=== PATIENT | female | born 1965 | race African-American/Black ===

== ENCOUNTER 2016-08-29 11:15 | Emergency (ER) | payer BC ==
[2016-08-29 11:26] VITALS: BP 152/96; PULSE 90; TEMP 98.1; BMI 43.9
[2016-08-29] MEDS ORDERED: ALBUTEROL SO4 2.5/IPRATROPIUM 0.5 INH SOL 3 ML VIAL.NEB. NEB ONE (12:03)
--- NOTE | 2016-08-29 12:10 | PDOC ---
History of Present Illness - General Chief Complaint: Cold Symptoms Stated Complaint: COUGH, SOB Time Seen by Provider: 08/29/16 11:49 History Source: Patient Exam Limitations: No Limitations - History of Present Illness Initial Comments: 08/29/16 12:04 Patient is here with all of family complaints of chills, fevers, general body aches. 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 4-year-old was sick before and treated 2 weeks ago for strep throat which resolved. Patient was concerned may have recurred or has other illness. She complaints of congestion, runny nose, and cough. Denied fever, has taken no medications Severity: reports: mild Modifying Factors: improves with: coughing Associated Symptoms: reports: denies symptoms, cough, fever/chills, headache, nasal congestion, nasal drainage Past History - Travel Traveled outside of the country in the last 30 days: No Close contact w/someone who was outside of country & ill: No - Past Medical History Allergies/Adverse Reactions: Allergies Allergy/AdvReac Type Severity Reaction Status Date / Time lactose-intolerance AdvReac Uncoded 08/29/16 11:20 Home Medications: Ambulatory Orders Amlodipine Besylate [Norvasc -] 5 mg PO DAILY #0 tablet 12/01/14 Aspirin [ASA -] 81 mg PO DAILY #0 tab.chew 12/01/14 Furosemide [Lasix -] 20 mg PO DAILY #30 tablet 12/01/14 Pantoprazole Sodium [Protonix] 40 mg PO DAILY #0 tablet. 12/01/14 Lipase/Protease/Amylase [Treasure Spence 24,000 Units Capsule] 1 each PO TID 12/27/14 Docusate Sodium [Colace -] 100 mg PO Q12H PRN #0 capsule 07/17/15 Duloxetine HCl [Cymbalta -] 60 mg PO DAILY capsule. 07/17/15 Zolpidem Tartrate [Ambien] 10 mg PO HS PRN #0 tablet 07/17/15 Albuterol Sulfate Inhaler - [Ventolin HFA Inhaler -] 1 - 2 inh PO Q4H #1 inhaler 08/29/16 Oseltamivir Phosphate [Tamiflu -] 75 mg PO BID #10 capsule 08/29/16 Anemia: No Asthma: Yes Cancer: Yes (LYMPHOMA: remission since 2010) Cardiac Disorders: No CVA: No COPD: No CHF: No Dementia: No Diabetes: No GI Disorders: Yes (GERD, pancreatitis, gastric bypass) Disorders: No HTN: Yes Hypercholesterolemia: No Kidney Stones: No Liver Disease: No Suicide Attempt (Hx): No Seizures: No Thyroid Disease: No - Surgical History Abdominal Surgery: Yes (ectopic pregnanacies, hernia repair w/ mesh) Appendectomy: Yes Cardiac Surgery: No Cholecystectomy: Yes GI Surgery: Yes (gastric bypass) Lung Surgery: No Neurologic Surgery: No Orthopedic Surgery: Yes (lt knee sx torn ligaments) - Immunization History Immunization Up to Date: Yes - Psycho/Social/Smoking Cessation Hx Anxiety: No Suicidal Ideation: No Smoking Status: No Smoking History: Current every day smoker Have you smoked in the past 12 months: Yes Number of Cigarettes Smoked Daily: 4 If you are a former smoker, when did you quit?: 07/12/15 Cigars Per Day: 2 Information on smoking cessation initiated: No 'Breaking Loose' booklet given: 07/14/15 Hx Alcohol Use: No Drug/Substance Use Hx: No Substance Use Type: None Hx Substance Use Treatment: No Respiratory Specific PMHX - Complaint Specific PMHX TB (Tuberculosis): No Review of Systems - Review of Systems Able to Perform ROS?: No Is the patient limited Faroese proficient: No Constitutional: Yes: Symptoms Reported, See HPI, Chills, Fever, Malaise HEENTM: Yes: Symptoms Reported, See HPI Respiratory: Yes: See HPI, Cough. No: Wheezing Musculoskeletal: Yes: Symptoms Reported, See HPI Integumentary: Yes: See HPI. No: Symptoms Reported All Other Systems: Reviewed and Negative *Physical Exam - Vital Signs Last Vital Signs Temp Pulse Resp BP Pulse Ox 98.1 F 90 19 152/96 96 08/29/16 11:21 08/29/16 11:21 08/29/16 11:21 08/29/16 11:21 08/29/16 11:21 - Physical Exam General Appearance: Yes: Nourished, Appropriately Dressed HEENT: positive: JORDAN, TMs Normal (congested), Pharynx Normal Neck: positive: Supple, Lymphadenopathy (R), Lymphadenopathy (L). negative: Tender Respiratory/Chest: positive: Normal Breath Sounds, Wheezing. negative: Lungs Clear (diminished with some expiratory wheezing) Cardiovascular: positive: Regular Rhythm Gastrointestinal/Abdominal: positive: Normal Bowel Sounds, Soft. negative: Tender Extremity: positive: Normal Capillary Refill, Normal Inspection Integumentary: positive: Normal Color, Dry, Warm, Pale Neurologic: positive: variety performer II-XII NML intact, Fully Oriented, Alert, Normal Mood/ Affect, Normal Response, Motor Strength 5/5 Progress Note - Progress Note Progress Note: Upper respiratory infection, will provide nebulizer, and check influenza *DC/Admit/Observation/Transfer Diagnosis at time of Disposition: Influenzal acute upper respiratory infection - Discharge Dispostion Disposition: HOME Condition at time of disposition: Stable Admit: No - Prescriptions Prescriptions: Oseltamivir Phosphate [Tamiflu -] 75 mg PO BID #10 capsule Albuterol Sulfate Inhaler - [Ventolin HFA Inhaler -] 1 - 2 inh PO Q4H #1 inhaler - Referrals Referrals: Carter Quintero MD [Primary Care Provider] - - Patient Instructions Printed Discharge Instructions: DI for Viral Upper Respiratory Infection -- Adult Additional Instructions: Rest, drink lots of fluids: Teas, water, soups, Pedialyte Saltwater gargles Steamy showers/seem to face break up mucus Old-fashioned treatments help! Avoid contact with others until fevers and cough resolved as this is very contagious Lots of handwashing and good hygiene Continue [id number] medications for symptomatic relief Tylenol or Motrin for fever and pain Take all of Tamiflu as directed: 1 tab every 12 hours for 5 days Continue albuterol nebulizers 4 times a day for the next 2 days then as needed for continued cough Followup with private physician in one to 2 days as needed or if worsening Return to emergency department for worsened symptoms, fevers, dehydration Influenza takes between 5 and 7 days for resolution To not participate in any activity, work, or school until fevers and cough are gone for at least one day - Post Discharge Activity Work/School Note: Back to Work
== END 2016-08-29 13:05 | disposition home or self-care (01) ==
LOC: JERFT 11:15 → JER 11:15 → JERFT 13:05
PROC: 3E0F7GC Introduction of Other Therapeutic Substance into Respiratory Tract, Via Natural or Artificial Opening (ICD-10-PCS; principal; 2016-08-29)
DX: J11.1 Influenza due to unidentified influenza virus with other respiratory manifestations (principal)
CPT/HCPCS: 87804; 99281-25

== ENCOUNTER 2017-06-20 20:55 | Emergency (ER) | payer BC, OTHER ==
[2017-06-20 21:08] VITALS: PULSE 102; BMI 43.0
--- NOTE | 2017-06-20 21:15 | PDOC ---
History of Present Illness - General Chief Complaint: Pain, Acute Stated Complaint: PAIN Time Seen by Provider: 06/20/17 21:14 - History of Present Illness Initial Comments: 06/20/17 21:29 Ms. Carreno is a 52 yo female w/ pmh of HTN, Lymphoma (in remission since 2010), Chronic Pancreatitis, SBO status post resection, status post Gastric Bypass surgery, DM, HLD who presents complaining of a 2 day history of neck and shoulder pain. She reports that she woke up yesterday morning with her head tilted to the left and was having difficulty straightening it but that this resolved throughout the day. Starting earlier today her pain returned and her pain moved to her shoulder. 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 The patient denies chest pain, shortness of breath, headache and dizziness. Denies fever, chills, nausea, vomit, diarrhea and constipation. Denies dysuria, frequency, urgency and hematuria. Allergies: NKDA Past History - Past Medical History Allergies/Adverse Reactions: Allergies Allergy/AdvReac Type Severity Reaction Status Date / Time No Known Allergies Allergy Verified 06/20/17 22:11 Home Medications: Ambulatory Orders Amlodipine Besylate [Norvasc -] 5 mg PO DAILY #0 tablet 12/01/14 Aspirin [ASA -] 81 mg PO DAILY #0 tab.chew 12/01/14 Furosemide [Lasix -] 20 mg PO DAILY #30 tablet 12/01/14 Pantoprazole Sodium [Protonix] 40 mg PO DAILY #0 tablet. 12/01/14 Duloxetine HCl [Cymbalta -] 60 mg PO DAILY capsule. 07/17/15 Zolpidem Tartrate [Ambien] 10 mg PO HS PRN #0 tablet 07/17/15 Albuterol Sulfate Inhaler - [Ventolin HFA Inhaler -] 1 - 2 inh PO Q4H #1 inhaler 08/29/16 Cyclobenzaprine HCl [Flexeril 10 mg] 10 mg PO BID PRN #60 tablet 06/20/17 Anemia: No Asthma: Yes Cancer: Yes (LYMPHOMA: remission since 2010) Cardiac Disorders: No CVA: No COPD: No CHF: No Dementia: No Diabetes: No GI Disorders: Yes (GERD, pancreatitis, gastric bypass) Disorders: No HTN: Yes Hypercholesterolemia: No Kidney Stones: No Liver Disease: No Seizures: No Thyroid Disease: No - Surgical History Abdominal Surgery: Yes (ectopic pregnanacies, hernia repair w/ mesh) Appendectomy: Yes Cardiac Surgery: No Cholecystectomy: Yes GI Surgery: Yes (gastric bypass) Lung Surgery: No Neurologic Surgery: No Orthopedic Surgery: Yes (lt knee sx torn ligaments) - Immunization History Immunization Up to Date: Yes - Suicide/Smoking/Psychosocial Hx Smoking Status: No Smoking History: Never smoked Have you smoked in the past 12 months: No Number of Cigarettes Smoked Daily: 3 If you are a former smoker, when did you quit?: 07/12/15 Cigars Per Day: 2 Information on smoking cessation initiated: No 'Breaking Loose' booklet given: 07/14/15 Hx Alcohol Use: No Drug/Substance Use Hx: No Substance Use Type: Alcohol Hx Substance Use Treatment: No Review of Systems - Review of Systems Comments:: 06/20/17 21:37 GENERAL/CONSTITUTIONAL: No fever or chills. No weakness. HEAD, EYES, EARS, NOSE AND THROAT: +Left neck pain. No change in vision. No ear pain or discharge. No sore throat. CARDIOVASCULAR: No chest pain or shortness of breath RESPIRATORY: No cough, wheezing, or hemoptysis. GASTROINTESTINAL: No nausea, vomiting, diarrhea or constipation. GENITOURINARY: No dysuria, frequency, or change in urination. MUSCULOSKELETAL: +Left shoulder pain with movement. No joint or muscle swelling or pain. No neck or back pain. SKIN: No rash NEUROLOGIC: No headache, vertigo, loss of consciousness, or change in strength/ sensation. ENDOCRINE: No increased thirst. No abnormal weight change HEMATOLOGIC/LYMPHATIC: No anemia, easy bleeding, or history of blood clots. ALLERGIC/IMMUNOLOGIC: No hives or skin allergy. *Physical Exam - Vital Signs Last Vital Signs Temp Pulse Resp BP Pulse Ox 98 F 102 H 20 162/105 98 06/20/17 21:02 06/20/17 21:02 06/20/17 21:02 06/20/17 21:02 06/20/17 21:02 - Physical Exam Comments: 06/20/17 21:38 GENERAL: Awake, alert, and fully oriented, in no acute distress HEAD: No signs of trauma, normocephalic, atraumatic EYES: PERRLA, EOMI, sclera anicteric, conjunctiva clear ENT: Auricles normal inspection, hearing grossly normal, nares patent, oropharynx clear without exudates. Moist mucosa NECK: Normal ROM, supple, no lymphadenopathy, JVD, or masses LUNGS: No distress, speaks full sentences, clear to auscultation bilaterally HEART: Regular rate and rhythm, normal S1 and S2, no murmurs, rubs or gallops, peripheral pulses normal and equal bilaterally. ABDOMEN: Soft, nontender, normoactive bowel sounds. No guarding, no rebound. No masses EXTREMITIES: +Left neck/shoulder tender to palpation. Range of motion intact with passive movement but pain noted with any muscle engagement. Normal inspection, no edema. No clubbing or cyanosis. NEUROLOGICAL: Cranial nerves II through XII grossly intact. Normal speech, normal gait, no focal sensorimotor deficits SKIN: Warm, Dry, normal turgor, no rashes or lesions noted. ED Treatment Course - LABORATORY CBC & Chemistry Diagram: 06/20/17 21:51 06/20/17 21:51 Medical Decision Making - Medical Decision Making 06/20/17 23:38 Ms. Carreno is a 52 yo female w/ pmh of HTN, Lymphoma (in remission since 2010), Chronic Pancreatitis, SBO status post resection, status post Gastric Bypass surgery, DM, HLD who presents w/ 2 days of left arm/shoulder pain. No acute process identified by XR. Will discharge patient with instructions to f/u with orthopedics outpatient for further evaluation. Flexeril proscribed for interim symptomatic relief. *DC/Admit/Observation/Transfer Diagnosis at time of Disposition: Torticollis Shoulder pain Qualifiers: Chronicity: acute Laterality: left Qualified Code(s): M25.512 - Pain in left shoulder - Discharge Dispostion Disposition: HOME - Referrals - Patient Instructions Printed Discharge Instructions: DI for Torticollis Additional Instructions: Please follow-up with primary care provider as discussed on Thursday for further care. Please return if any increase in pain, fever, chills, or any other concerning symptoms. - Post Discharge Activity
[2017-06-20 22:04] LABS: BASOPHIL 1.8 % (0-2.0); EOSINOPHIL 2.1 % (0-4.5); MCH 28.1 pg (25.7-33.7); MCHC 32.5 g/dl (32.0-36.0); MEAN CELL VOLUME 86.3 fl (80-96); MEAN PLT VOLUME 7.1 fl (7.5-11.1); NEUTROPHILS 48.4 % (42.8-82.8); PLATELET COUNT 365 K/MM3 (134-434); WHITE BLOOD COUNT 9.7 K/mm3 (4.0-10.0)
[2017-06-20 22:25] LABS: ALBUMIN 3.7 g/dl (3.4-5.0); ANION GAP 12 (8-16); CALCIUM 8.6 mg/dL (8.5-10.1); CO2 22 mmol/L (21-32); GLUCOSE,RANDOM 210 mg/dL (74-106)
[2017-06-20 22:30] LABS: ALK PHOS 101 U/L (45-117); BILIRUBIN,TOTAL 0.3 mg/dL (0.2-1.0); CREATININE 0.7 mg/dL (0.55-1.02); SGPT/ALT 100 U/L (12-78); TOT PROT 7.2 g/dl (6.4-8.2)
[2017-06-20 22:32] LABS: SGOT/AST 78 U/L (15-37)
--- NOTE | 2017-06-20 23:54 | PDOC ---
Attending Attestation - Resident Resident Name: Landry Taylor - ED Attending Attestation I have performed the following: I have examined & evaluated the patient, The case was reviewed & discussed with the resident, I agree w/resident's findings & plan - HPI HPI: 06/20/17 23:39 Pt has left shoulder pain and limited ROM. - Physicial Exam PE: 06/20/17 23:39 Agree with resident exam. - Medical Decision Making 06/20/17 23:39 Pt has normal cardiac enzymes. She is having difficulty raising her left arm 06/20/17 23:54 XRAY normal; pt to follow with ortho; MRI as needed. Home with wendy
[2017-06-20 23:55] VITALS: BP 134/74; TEMP 98
--- NOTE | 2017-06-21 07:49 | PDOC ---
Patient Follow-up (Call Back) - Post ED Follow - Up Disposition at time of original discharge: HOME Reason for Call Back: Radiology (Possible erosive change to acromion as per radiology, needs f/u w/ ortho or pmd I called pt and left message to call back)
--- NOTE | 2017-06-23 01:40 | EKG ---
Test Reason : Blood Pressure : / mmHG Vent. Rate : 101 BPM Atrial Rate : 101 BPM P-R Int : 132 ms QRS Dur : 086 ms QT Int : 370 ms P-R-T Axes : 065 047 075 degrees QTc Int : 479 ms SINUS TACHYCARDIA OTHERWISE NORMAL ECG WHEN COMPARED WITH ECG OF 13-JUL-2015 19:56, NO SIGNIFICANT CHANGE WAS FOUND Confirmed by EDIS OCHOA MD ([id number]) on 06/23/2017 1:40:21 AM Referred By: Confirmed By:EDIS OCHOA MD
== END 2017-06-20 23:55 | disposition home or self-care (01) ==
LOC: JER 20:55
DX: M43.6 Torticollis (principal); I10 Essential (primary) hypertension; E11.9 Type 2 diabetes mellitus without complications; E78.5 Hyperlipidemia, unspecified; Z87.19 Personal history of other diseases of the digestive system; Z85.72 Personal history of non-Hodgkin lymphomas
CPT/HCPCS: 36415; 73030-TC-LT; 80053; 85025; 93005; 93010; 99283-25

== ENCOUNTER 2019-04-14 16:23 | Inpatient (IN) | payer OTHER ==
--- NOTE | 2019-04-14 16:42 | PDOC ---
Rapid Medical Evaluation Time Seen by Provider: 04/14/19 16:37 Medical Evaluation: Allergies Allergy/AdvReac Type Severity Reaction Status Date / Time No Known Allergies Allergy Verified 06/20/17 22:11 04/14/19 16:38 Pt c/o:diff breathing since yesterday am, recent drainage removed from left lung , hx NHL, remission x 9-10 yrs, + smoker, Hx asthma, sent by Anthony kamara for admission Patient on brief exam: exp wheeze mandeep, Decreased bs to left base, o2 93% on RA Patient ordered for: cxr, douneb, labs, iv, urine Patient to proceed to the ED Discharge Disposition - Diagnosis Difficulty breathing, Pleural effusion - Discharge Dispostion Condition at time of disposition: Fair - Referrals - Patient Instructions - Post Discharge Activity
[2019-04-14] MEDS ORDERED: morphine CARPU-JECT 2 MG/1 ML DISP.SYRIN IVPUSH ONE (17:28)
--- NOTE | 2019-04-14 17:36 | PDOC ---
History of Present Illness - General Chief Complaint: Shortness of Breath Stated Complaint: LUNGS FILLED WITH WATER Time Seen by Provider: 04/14/19 16:37 History Source: Patient Exam Limitations: No Limitations - History of Present Illness Initial Comments: 04/14/19 17:30 HISTORY OF PRESENT ILLNESS: Is a 54-year-old woman past medical history of non- Hodgkin's lymphoma in remission since 2008, asthma and NIDDM who presents the emergency department for evaluation of acute shortness of breath starting yesterday. Patient reports 03/25 she was admitted to [facility] and had a pleurocentesis performed were 1 L of fluid was removed from her left lung. Patient's breathing improved at that time until yesterday when she had sudden onset shortness of breath. Patient reports difficulty sleeping and is having paroxysmal nocturnal dyspnea. Patient reports he had a recent PET scan which revealed nodules in the right lung. Patient was seen by her primary doctor today did a chest x-ray and noted a large left-sided pleural effusion for which she was referred to the emergency department for admission for continued evaluation. Patient does endorse a 40 pound weight loss over the past year at that she was diagnosed with diabetes and had lifestyle modifications. No recent travel or sick contacts. PAST MEDICAL HISTORY: Non-Hodgkin's lymphoma in remission since 2008, asthma, NIDDM SURGICAL HISTORY: Denies ALLERGIES: No known drug allergies REVIEW OF SYSTEMS General/Constitutional: Denies fever or chills. Denies weakness, weight change. HEENT: Denies change in vision. Denies ear pain or discharge. Denies sore throat. Cardiovascular: Denies chest pain or shortness of breath. Respiratory: See HPI Gastrointestinal: Denies nausea, vomiting, diarrhea or constipation. Denies rectal bleeding. Genitourinary: Denies dysuria, frequency, or change in urination. Musculoskeletal: Denies joint or muscle swelling or pain. Denies neck or back pain. Skin and breasts: Denies rash or easy bruising. Neurologic: Denies headache, vertigo, loss of consciousness, or loss of sensation. Psychiatric: Denies depression or anxiety. Endocrine: Denies increased thirst. Denies abnormal weight change. Hematologic/Lymphatic: Denies anemia, easy bleeding, or history of blood clots. Allergic/Immunologic: Denies hives or skin allergy. Denies latex allergy. PHYSICAL EXAM General Appearance: Well-appearing, appropriately dressed. No apparent distress , no intoxication. HEENT: EOMI, PERRLA, normal ENT inspection, normal voice, TMs normal, pharynx normal. No conjunctival pallor. No photophobia, scleral icterus. Neck: Supple. Trachea midline. No tenderness, rigidity, carotid bruit, stridor , lymphadenopathy, or thyromegaly. Respiratory/Chest: No sensory muscle use noted. Patient was visibly dyspneic after approximately [address]. Diminished breath sounds to the left lung. Dullness present from approximately seventh rib down. Slight wheezing present in the right lung. Cardiovascular: RRR. S1, S2. No JVD, murmur, bradycardia, tachycardia. Vascular Pulses: Dorsalis-Pedis (R): 2+, Dorsalis-Pedis (L): 2+ Gastrointestinal/Abdominal: Normal bowel sounds. Abdomen soft, non-distended. No tenderness or rebound tenderness. No organomegaly, pulsatile mass, guarding, hernia, hepatomegaly, splenomegaly. Lymphatic: No adenopathy, tenderness. Musculoskeletal/Extremities: Normal inspection. FROM of all extremities, normal capillary refill. Pelvis Stable. No CVA tenderness. No tenderness to extremities, pedal edema, swelling, erythema or deformity. Integumentary: Appropriate color, dry, warm. No cyanosis, erythema, jaundice or rash Neurologic: lending advisor II-XII intact. Fully oriented, alert. Appropriate mood/affect. Motor strength 5/5. No appreciable EOM palsy, facial droop or sensory deficit. Past History - Past Medical History Allergies/Adverse Reactions: Allergies Allergy/AdvReac Type Severity Reaction Status Date / Time No Known Allergies Allergy Verified 04/14/19 16:46 Home Medications: Ambulatory Orders Pantoprazole Sodium [Protonix] 40 mg PO DAILY #0 tablet. 12/01/14 Duloxetine HCl [Cymbalta -] 60 mg PO DAILY capsule. 07/17/15 Zolpidem Tartrate [Ambien] 10 mg PO HS PRN #0 tablet 07/17/15 Albuterol Sulfate Inhaler - [Ventolin HFA Inhaler -] 1 - 2 inh PO Q4H #1 inhaler 08/29/16 Amlodipine Besylate [Norvasc -] 10 mg PO DAILY 04/14/19 Clindamycin [Cleocin -] 300 mg PO TID 04/14/19 Furosemide [Lasix -] 40 mg PO DAILY 04/14/19 Insulin Degludec [Tresiba] 1 unit SQ ASDIR 04/14/19 Losartan Potassium 50 mg PO DAILY 04/14/19 Metformin HCl [Glucophage] 1,000 mg PO BID 04/14/19 Rosuvastatin [Crestor -] 40 mg PO HS 04/14/19 Anemia: No Asthma: Yes Cancer: Yes (LYMPHOMA: remission since 2010) Cardiac Disorders: No CVA: No COPD: No CHF: No Dementia: No Diabetes: No GI Disorders: Yes (GERD, pancreatitis, gastric bypass) Disorders: No HTN: Yes Hypercholesterolemia: No Kidney Stones: No Liver Disease: No Seizures: No Thyroid Disease: No - Surgical History Abdominal Surgery: Yes (ectopic pregnanacies, hernia repair w/ mesh) Appendectomy: Yes Cardiac Surgery: No Cholecystectomy: Yes GI Surgery: Yes (gastric bypass) Lung Surgery: No Neurologic Surgery: No Orthopedic Surgery: Yes (lt knee sx torn ligaments) - Immunization History Immunization Up to Date: Yes - Psycho Social/Smoking Cessation Hx Smoking Status: No Smoking History: Unknown if ever smoked Have you smoked in the past 12 months: No Number of Cigarettes Smoked Daily: 3 If you are a former smoker, when did you quit?: 07/12/15 Cigars Per Day: 2 Information on smoking cessation initiated: No 'Breaking Loose' booklet given: 07/14/15 Hx Alcohol Use: No Drug/Substance Use Hx: No Substance Use Type: Alcohol Hx Substance Use Treatment: No Respiratory Specific PMHX - Complaint Specific PMHX TB (Tuberculosis): No *Physical Exam - Vital Signs Last Vital Signs Temp Pulse Resp BP Pulse Ox 98.5 F 94 H 16 104/72 100 04/14/19 16:41 04/14/19 16:41 04/14/19 16:41 04/14/19 16:41 04/14/19 16:41 ED Treatment Course - LABORATORY CBC & Chemistry Diagram: 04/14/19 17:30 04/14/19 17:30 Medical Decision Making - Medical Decision Making 04/14/19 17:35 A/P: 54-year-old woman here for acute onset shortness of breath over the past 36 hours Diminished breath sounds to the left lung with dullness present. Likely pleural effusion which was seen on chest x-ray performed at her PMDs office. Admission labs, EKG, chest x-ray Patient to be admitted once laboratory testing is resulted. 04/14/19 20:05 Laboratory testing is unremarkable. Urinalysis notable for 1+ leuk esterase 12 WBCs on high-power field. 32.4 epithelial cells present. This is likely contaminant I will defer treatment at this time as patient is asymptomatic. Chest x-ray as read by me: Large left-sided pleural effusion noted. Patient's clinical setting this is likely due to neoplasm. Patient to be admitted to hospitalist service for continued evaluation and IR for drain. I will contact Dr. Chavez for admission. 04/14/19 20:08 04/14/19 20:10 04/14/19 20:47 Second call placed to Dr. Chavez. 04/14/19 21:48 Case has been discussed with Dr. Chavez who accepts patient for inpatient admission. Discharge - Discharge Information Problems reviewed: Yes Clinical Impression/Diagnosis: Difficulty breathing, Pleural effusion Condition: Fair - Admission Yes - Follow up/Referral - Patient Discharge Instructions - Post Discharge Activity
[2019-04-14 18:02] LABS: BASO % 1.2 % (0-2.0); HEMATOCRIT 31.2 % (32.4-45.2); LYMPH % 24.4 % (8-40); MCHC 31.9 g/dl (32.0-36.0); MEAN CELL VOLUME 75.1 fl (80-96); MEAN PLT VOLUME 6.9 fl (7.5-11.1); MONO % 8.3 % (3.8-10.2); NEUT % 65.1 % (42.8-82.8); PLATELET COUNT 554 K/MM3 (134-434); RBC 4.16 M/mm3 (3.60-5.2); RDW 19.4 % (11.6-15.6); WHITE BLOOD COUNT 9.9 K/mm3 (4.0-10.0)
[2019-04-14 18:18] LABS: INR 1.11 (0.83-1.09); PROTHROMBIN TIME (PATIENT) 13.1 SEC (9.7-13.0)
[2019-04-14 18:27] LABS: ALBUMIN 3.5 g/dl (3.4-5.0); ALK PHOS 92 U/L (45-117); ANION GAP 7 MMOL/L (8-16); BILIRUBIN,TOTAL 0.3 mg/dL (0.2-1); BLOOD UREA NITROGEN 10.6 mg/dL (7-18); CALCIUM 9.2 mg/dL (8.5-10.1); CHLORIDE 106 mmol/L (98-107); CO2 27 mmol/L (21-32); CREATININE 0.5 mg/dL (0.55-1.3); GLUCOSE,RANDOM 119 mg/dL (74-106); N-TERMINAL BNP 123.6 pg/ml (5-125); POTASSIUM 4.2 mmol/L (3.5-5.1); SGOT/AST 22 U/L (15-37); SGPT/ALT 14 U/L (13-61); SODIUM 140 mmol/L (136-145); TOT PROT 6.9 g/dl (6.4-8.2)
[2019-04-14] MEDS ORDERED: MORPHINE SULFATE 2 MG/ML VIAL ONE ×2 (18:53→22:21)
[2019-04-14] MEDS: ALBUTEROL SO4 2.5/IPRATROPIUM 0.5 INH SOL 3 ML VIAL.NEB. NEB SCH ×2 (19:13→20:02)
[2019-04-14 19:42] LABS: EPI CELLS 32.4 /HPF (0-5/HPF); HYALINE CASTS 57 /lpf (0-8); PH,URINE 5.5 (5.0-8.0); URINE APPEARANCE CLOUDY; URINE BACTERIA 16.2 /hpf (NEGATIVE); URINE BILIRUBIN NEGATIVE (NEGATIVE); URINE COLOR YELLOW; URINE GLUCOSE (UA) NEGATIVE (NEGATIVE); URINE KETONE NEGATIVE (NEGATIVE); URINE LEUK ESTERASE 1+ (NEGATIVE); URINE NITRITE NEGATIVE (NEGATIVE); URINE PROTEIN 1+ (NEGATIVE); URINE RBC 2 /hpf (0-4); URINE UROBILINOGEN 0.2 mg/dL (0.2-1.0); URINE WBC 12 /hpf (0-5)
[2019-04-14] MEDS ORDERED: IPRATROPIUM BR 0.02% 0.5 MG/2.5 ML VIAL.NEB. NEB ONE ×2 (19:56→21:55)
[2019-04-14] MEDS ORDERED: ALBUTEROL SO4 0.083% IH SOL 2.5 MG/3 ML VIAL.NEB. NEB ONE ×2 (19:56→21:55)
[2019-04-14] MEDS ORDERED: morphine CARPU-JECT 4 MG/1 ML DISP.SYRIN IVPUSH ONE (21:47)
[2019-04-14] MEDS ORDERED: ALBUTEROL SO4 2.5/IPRATROPIUM 0.5 INH SOL 3 ML VIAL.NEB. NEB ONE (21:48)
[2019-04-14] MEDS ORDERED: morphine SULFATE 4 MG/ML VIAL ONE (22:21)
[2019-04-15] MEDS: ZOLPIDEM TARTRATE 5 MG TABLET PO PRN (03:18)
[2019-04-15] MEDS: KETOROLAC TROMETHAMINE 30 MG/1 ML VIAL IVPUSH PRN (03:19)
[2019-04-15 03:39] VITALS: BMI 35.6
[2019-04-15] MEDS: morphine SULFATE 4 MG/ML VIAL IVPUSH PRN ×3 (09:11→21:43)
[2019-04-15] MEDS: HEPARIN NA (PORCINE) 5,000 UNITS/ML 1ML VIAL SQ SCH ×2 (09:12→21:43)
[2019-04-15] MEDS: ALBUTEROL SO4 2.5/IPRATROPIUM 0.5 INH SOL 3 ML VIAL.NEB. NEB PRN ×2 (12:30→20:12)
--- NOTE | 2019-04-15 13:43 | PN ---
Progress Note (short form) - Note Progress Note: PULMONARY CONSULTATION DICTATED 04/15/19 IMP DYSPNEA LEFT PLEURAL EFFUSION RECURRENT EXUDATE FROM [facility]MISTRIES AT [facility] LIKELY MALIGNANT H/O NHL DM PLAN THORACENTESIS OBTAIN RESULTS OF RECENT PLEURAL FLUID CYTOLOGY O2 NEEDED ONCOLOGY EVALUATION CHEST CT DR GARCIA Problem List - Problems (1) Difficulty breathing Code(s): R06.89 - OTHER ABNORMALITIES OF BREATHING (2) Pleural effusion Code(s): J90 - PLEURAL EFFUSION, NOT ELSEWHERE CLASSIFIED (3) Asthma Code(s): J45.909 - UNSPECIFIED ASTHMA, UNCOMPLICATED (4) HTN (hypertension) Code(s): I10 - ESSENTIAL (PRIMARY) HYPERTENSION
--- NOTE | 2019-04-15 14:31 | EKG ---
Test Reason : Blood Pressure : / mmHG Vent. Rate : 087 BPM Atrial Rate : 087 BPM P-R Int : 122 ms QRS Dur : 080 ms QT Int : 374 ms P-R-T Axes : 038 028 065 degrees QTc Int : 450 ms NORMAL SINUS RHYTHM NONSPECIFIC T WAVE ABNORMALITY ABNORMAL ECG WHEN COMPARED WITH ECG OF 20-JUN-2017 22:24, NO SIGNIFICANT CHANGE WAS FOUND Confirmed by MARIA DEL CARMEN EVANS MD ([id number]) on 04/15/2019 2:30:42 PM Referred By: Confirmed By:MARIA DEL CARMEN EVANS MD
--- NOTE | 2019-04-15 15:26 | CONS ---
DATE OF CONSULTATION: 04/15/2019 PULMONARY CONSULTATION REFERRING PHYSICIAN: Berta Chavez M.D. HISTORY OF PRESENT ILLNESS: The patient is a 54-year-old female with past medical history of non-Hodgkin's lymphoma in remission since 2008, asthma, noninsulin dependent diabetes mellitus, admitted to [facility] with increasing shortness of breath. The patient was recently hospitalized at [facility] on March 25 secondary to shortness of breath. At the time she had thoracentesis with removal of approximately 1 L of fluid in the left chest. At the time, she was discharged home in stable condition. She was doing well until yesterday when she developed acute onset of shortness of breath. Recent followup chest x-ray again revealed increasing large left pleural effusion. Patient has been having episodes of PND and orthopnea. Patient apparently also had a recent PET scan which revealed nodules in the right lung, although I have not seen the film or report. The patient denies any fevers or chills, has occasional night sweats. She also has a 40 pounds weight loss over the past year and states that she is on a diet secondary to diabetes and hip replacement. She has history of smoking, quit years ago. There is no history of occupational exposures to chemicals or fumes. There is no history of recent travel. PAST MEDICAL HISTORY: Again includes non-Hodgkin's lymphoma in remission since 2008, noninsulin dependent diabetes mellitus and asthma. Also includes GERD and a history of gastric bypass. REVIEW OF SYSTEMS: Positive orthopnea. Positive PND. No chest pain. Positive dyspnea on exertion. No fever. No chills. No hemoptysis. Has occasional night sweats. CURRENT MEDICATIONS: Include DuoNeb, Ambien, heparin subcutaneous, morphine, and Toradol. PHYSICAL EXAMINATION: General: The patient is a well-developed, well-nourished female awake, alert, in no acute distress. Vital Signs: She is afebrile. Blood pressure 126/74, respiratory rate is 16, and O2 saturation is 98% on 2 L nasal cannula. HEENT: Normocephalic, atraumatic. Neck: Supple. Heart: Regular S1, S2. Chest: Diminished breath sounds on the left. Abdomen: Soft, bowel sounds positive. Extremities: No cyanosis, edema. LABORATORY: WBC 9.9, hemoglobin 10, hematocrit 31.2 with platelet count of 554, 000. BUN 10, creatinine 0.5. Chest x-ray: large left pleural effusion. Pleural fluid, results from [facility] revealed white count RBC 3393, WBC 4000, protein 3.8, LDH 350, glucose 155. IMPRESSION: 1. Dyspnea secondary to large left pleural effusion, recurrent exudate by previous thoracentesis chemistries, rule out recurrent lymphoma, malignant. 2. History of non-Hodgkin's lymphoma. 3. Diabetes. 4. History of asthma. PLAN: Repeat thoracentesis. Obtain results of pleural fluid cytology. Supplemental O2 as needed. Oncology followup with Dr. Nick. Maricarmen PARKER/[id number] MTDD
[2019-04-15 16:31] LABS: BF WBC & OTHER NUCLEATED CELLS 3030 /mm3
[2019-04-15 17:43] LABS: BODY FLUID MACROPHAGES 2 %; BODY FLUID MONOCYTE 1 %
[2019-04-15 17:44] LABS: BODY FLUID MESOTHELIAL 1 %
--- NOTE | 2019-04-15 20:20 | HP ---
Admitting History and Physical - Past Medical History Cardiovascular: Yes: HTN, Hyperlipdemia Pulmonary: Yes: Asthma. No: Cancer, O2 Dependent Gastrointestinal: Yes: Constipation, Pancreatitis. No: Diverticulitis, GERD, GI Bleed, Hiatal Hernia Hepatobiliary: Yes: Cholecystitis ...LMP: 07/05/09 ...: No Heme/Onc: Yes: Other (non-hodgkibns lypmhoma s/p chemo 4 years ago) Psych: Yes: Addictions Musculoskeletal: Yes: Other (Knee pain) Endocrine: Yes: Diabetes Mellitus - Past Surgical History Past Surgical History: Yes: Appendectomy, Bariatric Surgery, Cholecystectomy, C- Section, Hernia Repair - Smoking History Smoking history: Current every day smoker Have you smoked in the past 12 months: Yes Aproximately how many cigarettes per day: 10 If you are a former smoker, when did you quit?: 07/12/15 - Alcohol/Substance Use Hx Alcohol Use: Yes History of Substance Use: reports: Heroin - Social History ADL: Independent 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 12/01/14 Duloxetine HCl [Cymbalta -] 60 mg PO DAILY capsule. 07/17/15 Zolpidem Tartrate [Ambien] 10 mg PO HS PRN #0 tablet 07/17/15 Albuterol Sulfate Inhaler - [Ventolin HFA Inhaler -] 1 - 2 inh PO Q4H #1 inhaler 08/29/16 Amlodipine Besylate [Norvasc -] 10 mg PO DAILY 04/14/19 Clindamycin [Cleocin -] 300 mg PO TID 04/14/19 Furosemide [Lasix -] 40 mg PO DAILY 04/14/19 Insulin Degludec [Tresiba] 1 unit SQ ASDIR 04/14/19 Losartan Potassium 50 mg PO DAILY 04/14/19 Metformin HCl [Glucophage] 1,000 mg PO BID 04/14/19 Rosuvastatin [Crestor -] 40 mg PO HS 04/14/19 Physical Examination Vital Signs: Vital Signs Temperature 98.7 F 04/15/19 19:46 Pulse Rate 102 H 04/15/19 19:46 Respiratory Rate 19 04/15/19 19:46 Blood Pressure 121/76 04/15/19 19:46 O2 Sat by Pulse Oximetry (%) 98 04/15/19 14:10 Labs: CBC, BMP 04/14/19 17:30 04/14/19 17:30
[2019-04-16] MEDS: ZOLPIDEM TARTRATE 5 MG TABLET PO PRN (00:27)
[2019-04-16] MEDS: KETOROLAC TROMETHAMINE 30 MG/1 ML VIAL IVPUSH PRN ×3 (03:16→21:01)
[2019-04-16] MEDS: morphine SULFATE 4 MG/ML VIAL IVPUSH PRN ×3 (06:51→18:55)
[2019-04-16] MEDS: HEPARIN NA (PORCINE) 5,000 UNITS/ML 1ML VIAL SQ SCH ×2 (10:18→21:01)
[2019-04-16 10:53] LABS: BASO % 0.8 % (0-2.0); EOS % 2.3 % (0-4.5); HEMOGLOBIN 9.1 GM/dL (10.7-15.3); LYMPH % 19.4 % (8-40); MCH 23.8 pg (25.7-33.7); MCHC 31.5 g/dl (32.0-36.0); MEAN CELL VOLUME 75.7 fl (80-96); MEAN PLT VOLUME 7.1 fl (7.5-11.1); MONO % 9.6 % (3.8-10.2); NEUT % 67.9 % (42.8-82.8); PLATELET COUNT 504 K/MM3 (134-434); RBC 3.84 M/mm3 (3.60-5.2); RDW 20.2 % (11.6-15.6); WHITE BLOOD COUNT 9.1 K/mm3 (4.0-10.0)
[2019-04-16 11:22] LABS: ALBUMIN 2.8 g/dl (3.4-5.0); BILIRUBIN,TOTAL 0.2 mg/dL (0.2-1); BLOOD UREA NITROGEN 14.4 mg/dL (7-18); CALCIUM 8.4 mg/dL (8.5-10.1); CREATININE 0.6 mg/dL (0.55-1.3); TOT PROT 5.8 g/dl (6.4-8.2)
--- NOTE | 2019-04-16 12:37 | PN ---
Progress Note (short form) - Note Progress Note: Breathing feels better after thoracentesis yesterday. Some pleuritic type pain overnight. Intake & Output 04/13/19 04/14/19 04/15/19 04/16/19 23:59 23:59 23:59 23:59 Intake Total 775 240 Balance 775 240 Weight 197 lb 195 lb 1 oz Last Vital Signs Temp Pulse Resp BP Pulse Ox 98.3 F 106 H 18 123/72 96 04/16/19 10:15 04/16/19 10:15 04/16/19 10:15 04/16/19 10:15 04/16/19 10:20 Active Medications Albuterol/Ipratropium (Duoneb -) 1 amp NEB RQID PRN PRN Reason: SHORTNESS OF BREATH Last Admin: 04/15/19 20:12 Dose: 1 amp Heparin Sodium (Porcine) (Heparin -) 5,000 unit SQ BID STEVE Last Admin: 04/16/19 10:18 Dose: 5,000 unit Ketorolac Tromethamine (Toradol Injection -) 30 mg IVPUSH Q8H PRN PRN Reason: PAIN LEVEL 6-10 Stop: 04/20/19 03:13 Last Admin: 04/16/19 11:19 Dose: 30 mg Morphine Sulfate (Morphine Sulfate) 4 mg IVPUSH Q6H PRN PRN Reason: pain Last Admin: 04/16/19 06:51 Dose: 4 mg Zolpidem Tartrate (Ambien -) 10 mg PO HS PRN PRN Reason: INSOMNIA Last Admin: 04/16/19 00:27 Dose: 10 mg General: awake and alert, NAD HEENT: No conjunctival pallor. Neck: Supple. Trachea midline. No tenderness, rigidity, carotid bruit, stridor , lymphadenopathy, or thyromegaly. Respiratory/Chest: Diminished at the bases Cardiovascular: RRR. S1, S2. No JVD Gastrointestinal/Abdominal: Normal bowel sounds. Abdomen soft, non-distended. Lymphatic: No adenopathy, tenderness. Musculoskeletal/Extremities: Normal inspection. Integumentary: Appropriate color, dry, warm. No cyanosis, erythema, jaundice or rash Neurologic: Non-focal Laboratory Results - last 24 hr 04/15/19 04/16/19 04/16/19 13:45 09:50 09:50 WBC 9.1 RBC 3.84 Hgb 9.1 L Hct 29.0 L MCV 75.7 L MCH 23.8 L MCHC 31.5 L RDW 20.2 H Plt Count 504 H MPV 7.1 L Absolute Neuts (auto) 6.2 Neutrophils % 67.9 Lymphocytes % 19.4 D Monocytes % 9.6 Eosinophils % 2.3 D Basophils % 0.8 Nucleated RBC % 0 Sodium 139 Potassium 4.0 Chloride 106 Carbon Dioxide 28 Anion Gap 5 L BUN 14.4 Creatinine 0.6 Est GFR (CKD-EPI)AfAm 118.93 Est GFR (CKD-EPI)NonAf 102.61 POC Glucometer Random Glucose 259 H Calcium 8.4 L Total Bilirubin 0.2 AST 9 L ALT 11 L Alkaline Phosphatase 78 Total Protein 5.8 L Albumin 2.8 L Fluid Source Pleural Fluid WBC 3030 Fluid RBC 3547 Fluid Neutrophils 1 Fluid Lymphocytes 95 Pleural Monocytes 1 Pleural Macrophages 2 Pleural Mesothelial 1 04/16/19 11:26 WBC RBC Hgb Hct MCV MCH MCHC RDW Plt Count MPV Absolute Neuts (auto) Neutrophils % Lymphocytes % Monocytes % Eosinophils % Basophils % Nucleated RBC % Sodium Potassium Chloride Carbon Dioxide Anion Gap BUN Creatinine Est GFR (CKD-EPI)AfAm Est GFR (CKD-EPI)NonAf POC Glucometer 173 Random Glucose Calcium Total Bilirubin AST ALT Alkaline Phosphatase Total Protein Albumin Fluid Source Fluid WBC Fluid RBC Fluid Neutrophils Fluid Lymphocytes Pleural Monocytes Pleural Macrophages Pleural Mesothelial Problem List - Problems (1) Difficulty breathing Code(s): R06.89 - OTHER ABNORMALITIES OF BREATHING (2) Pleural effusion Code(s): J90 - PLEURAL EFFUSION, NOT ELSEWHERE CLASSIFIED (3) Asthma Code(s): J45.909 - UNSPECIFIED ASTHMA, UNCOMPLICATED (4) HTN (hypertension) Code(s): I10 - ESSENTIAL (PRIMARY) HYPERTENSION IMP DYSPNEA LEFT PLEURAL EFFUSION RECURRENT EXUDATE FROM CHEMISTRIES AT [facility] LIKELY MALIGNANT H/O NHL DM PLAN FOLLOW PLEURAL FLUID ANALYSIS IDEALLY SHOULD OBTAIN RESULTS OF RECENT PLEURAL FLUID CYTOLOGY O2 NEEDED VTE PROPHYLAXIS DR HUBBARD
[2019-04-16] MEDS ORDERED: PANTOPRAZOLE 40 MG TABLET (FP) PO ONE (17:15)
[2019-04-16] MEDS ORDERED: metFORMIN HCL 500 MG TABLET (FP) PO ONE (17:15)
[2019-04-16] MEDS: FUROSEMIDE 40 MG TABLET (FP) PO SCH (17:29)
[2019-04-16] MEDS: DULoxetine HCL 30 MG CAPSULE.DR PO SCH (17:29)
[2019-04-16] MEDS: ALBUTEROL SO4 2.5/IPRATROPIUM 0.5 INH SOL 3 ML VIAL.NEB. NEB PRN (20:49)
[2019-04-16] MEDS: ROSUVASTATIN CA 20 MG TABLET (FP) PO SCH (21:01)
[2019-04-16] MEDS ORDERED: PATIENT'S OWN MEDICATION (NON-FORMULARY) (Metformin Hcl [Glucophage] 1,000 MG) PO SCH (22:00)
--- NOTE | 2019-04-16 23:04 | PN ---
Progress Note, Physician History of Present Illness: No new complaints - Current Medication List Current Medications: Active Medications Albuterol/Ipratropium (Duoneb -) 1 amp NEB RQID PRN PRN Reason: SHORTNESS OF BREATH Last Admin: 04/16/19 20:49 Dose: 1 amp Amlodipine Besylate (Norvasc -) 10 mg PO DAILY [facility] Duloxetine HCl (Cymbalta -) 60 mg PO DAILY [facility] Last Admin: 04/16/19 17:29 Dose: 60 mg Furosemide (Lasix -) 40 mg PO DAILY [facility] Last Admin: 04/16/19 17:29 Dose: 40 mg Heparin Sodium (Porcine) (Heparin -) 5,000 unit SQ BID [facility] Last Admin: 04/16/19 21:01 Dose: 5,000 unit Ketorolac Tromethamine (Toradol Injection -) 30 mg IVPUSH Q8H PRN PRN Reason: PAIN LEVEL 6-10 Stop: 04/20/19 03:13 Last Admin: 04/16/19 21:01 Dose: 30 mg Losartan Potassium (Cozaar -) 50 mg PO DAILY [facility] Metformin HCl (Glucophage -) 1,000 mg PO BIDAC [facility] Morphine Sulfate (Morphine Sulfate) 4 mg IVPUSH Q6H PRN PRN Reason: pain Last Admin: 04/16/19 18:55 Dose: 4 mg Pantoprazole Sodium (Protonix -) 40 mg PO DAILY [facility] Rosuvastatin Calcium (Crestor -) 40 mg PO HS [facility] Last Admin: 04/16/19 21:01 Dose: 40 mg Zolpidem Tartrate (Ambien -) 10 mg PO HS PRN PRN Reason: INSOMNIA Last Admin: 04/16/19 00:27 Dose: 10 mg - Objective Vital Signs: Vital Signs Temperature 98.2 F 04/16/19 22:55 Pulse Rate 100 H 04/16/19 22:55 Respiratory Rate 20 04/16/19 22:55 Blood Pressure 124/72 04/16/19 22:55 O2 Sat by Pulse Oximetry (%) 96 04/16/19 10:20 Neck: Yes: WNL, Supple Cardiovascular: Yes: WNL, Regular Rate and Rhythm Respiratory: Yes: Diminished Gastrointestinal: Yes: WNL, Normal Bowel Sounds, Soft Edema: No Labs: CBC, BMP 04/16/19 09:50 04/16/19 09:50 INR, PTT INR 1.11 (0.83-1.09) H 04/14/19 17:30 Problem List - Problems (1) Pleural effusion Assessment/Plan: S/P thoracentesis Probable malignant? cytology CT scan chest also showed sclerotic lesion of T10 Will get bone scan Long D/W pt about waiting for cytology of pleural fluid Pt wants to f/u w/ her oncologist Dr Nick who she has been already seeing for h/o pleural effusion/?malginancy Therefore will not get onco consult while in hospital Cont duoneb Code(s): J90 - PLEURAL EFFUSION, NOT ELSEWHERE CLASSIFIED (2) Asthma Assessment/Plan: Duoneb Code(s): J45.909 - UNSPECIFIED ASTHMA, UNCOMPLICATED (3) HTN (hypertension) Assessment/Plan: BP stable Cont losartan/norvasc Code(s): I10 - ESSENTIAL (PRIMARY) HYPERTENSION (4) HLD (hyperlipidemia) Assessment/Plan: Cont crestor Code(s): E78.5 - HYPERLIPIDEMIA, UNSPECIFIED (5) Diabetes Code(s): E11.9 - TYPE 2 DIABETES MELLITUS WITHOUT COMPLICATIONS (6) GERD (gastroesophageal reflux disease) Assessment/Plan: Cont protonix Code(s): K21.9 - GASTRO-ESOPHAGEAL REFLUX DISEASE WITHOUT ESOPHAGITIS (7) H/O gastric bypass Code(s): Z98.89 - OTHER SPECIFIED POSTPROCEDURAL STATES * DO NOT USE * (8) Non-Hodgkin lymphoma Code(s): C85.90 - NON-HODGKIN LYMPHOMA, UNSPECIFIED, UNSPECIFIED SITE
[2019-04-17] MEDS: ZOLPIDEM TARTRATE 5 MG TABLET PO PRN ×2 (02:39→21:37)
[2019-04-17] MEDS: KETOROLAC TROMETHAMINE 30 MG/1 ML VIAL IVPUSH PRN ×3 (04:50→21:38)
[2019-04-17] MEDS: metFORMIN HCL 500 MG TABLET (FP) PO SCH ×2 (06:44→17:17)
[2019-04-17] MEDS: PANTOPRAZOLE 40 MG TABLET (FP) PO SCH (09:52)
[2019-04-17] MEDS: amLODIPine BESYLATE 2.5 MG TABLET (FP) PO SCH (09:52)
[2019-04-17] MEDS: DULoxetine HCL 30 MG CAPSULE.DR PO SCH (09:52)
[2019-04-17] MEDS: LOSARTAN POTASSIUM 50 MG TABLET (FP) PO SCH (09:52)
[2019-04-17] MEDS: HEPARIN NA (PORCINE) 5,000 UNITS/ML 1ML VIAL SQ SCH ×2 (09:52→21:38)
[2019-04-17] MEDS: FUROSEMIDE 40 MG TABLET (FP) PO SCH (09:52)
--- NOTE | 2019-04-17 11:52 | PN ---
Progress Note (short form) - Note Progress Note: Breathing feels a little better than yesterday. Less pleuritic type chest discomfort. Intake & Output 04/14/19 04/15/19 04/16/19 04/17/19 23:59 23:59 23:59 23:59 Intake Total 775 860 350 Balance 775 860 350 Weight 197 lb 195 lb 1 oz Last Vital Signs Temp Pulse Resp BP Pulse Ox 98.5 F 85 20 133/59 L 95 04/17/19 10:00 04/17/19 10:00 04/17/19 10:00 04/17/19 10:00 04/17/19 09:00 Active Medications Albuterol/Ipratropium (Duoneb -) 1 amp NEB RQID PRN PRN Reason: SHORTNESS OF BREATH Last Admin: 04/16/19 20:49 Dose: 1 amp Amlodipine Besylate (Norvasc -) 10 mg PO DAILY [facility] Last Admin: 04/17/19 09:52 Dose: 10 mg Duloxetine HCl (Cymbalta -) 60 mg PO DAILY [facility] Last Admin: 04/17/19 09:52 Dose: 60 mg Furosemide (Lasix -) 40 mg PO DAILY [facility] Last Admin: 04/17/19 09:52 Dose: 40 mg Heparin Sodium (Porcine) (Heparin -) 5,000 unit SQ BID [facility] Last Admin: 04/17/19 09:52 Dose: 5,000 unit Ketorolac Tromethamine (Toradol Injection -) 30 mg IVPUSH Q8H PRN PRN Reason: PAIN LEVEL 6-10 Stop: 04/20/19 03:13 Last Admin: 04/17/19 04:50 Dose: 30 mg Losartan Potassium (Cozaar -) 50 mg PO DAILY [facility] Last Admin: 04/17/19 09:52 Dose: 50 mg Metformin HCl (Glucophage -) 1,000 mg PO BIDAC [facility] Last Admin: 04/17/19 06:44 Dose: 1,000 mg Morphine Sulfate (Morphine Sulfate) 4 mg IVPUSH Q6H PRN PRN Reason: pain Last Admin: 04/16/19 18:55 Dose: 4 mg Pantoprazole Sodium (Protonix -) 40 mg PO DAILY [facility] Last Admin: 04/17/19 09:52 Dose: 40 mg Rosuvastatin Calcium (Crestor -) 40 mg PO HS [facility] Last Admin: 10/12/19 21:01 Dose: 40 mg Zolpidem Tartrate (Ambien -) 10 mg PO HS PRN PRN Reason: INSOMNIA Last Admin: 04/17/19 02:39 Dose: 10 mg General: awake and alert, NAD HEENT: No conjunctival pallor. Neck: Supple. Trachea midline. No tenderness, rigidity, carotid bruit, stridor , lymphadenopathy, or thyromegaly. Respiratory/Chest: Diminished at the bases Cardiovascular: RRR. S1, S2. No JVD Gastrointestinal/Abdominal: Normal bowel sounds. Abdomen soft, non-distended. Lymphatic: No adenopathy, tenderness. Musculoskeletal/Extremities: Normal inspection. Integumentary: Appropriate color, dry, warm. No cyanosis, erythema, jaundice or rash Neurologic: Non-focal Laboratory Results - last 24 hr 04/17/19 06:42 POC Glucometer 106 Problem List - Problems (1) Difficulty breathing Code(s): R06.89 - OTHER ABNORMALITIES OF BREATHING (2) Pleural effusion Code(s): J90 - PLEURAL EFFUSION, NOT ELSEWHERE CLASSIFIED (3) Asthma Code(s): J45.909 - UNSPECIFIED ASTHMA, UNCOMPLICATED (4) HTN (hypertension) Code(s): I10 - ESSENTIAL (PRIMARY) HYPERTENSION IMP DYSPNEA LEFT PLEURAL EFFUSION RECURRENT EXUDATE FROM CHEMISTRIES AT [facility] LIKELY MALIGNANT H/O NHL DM PLAN FOLLOW PLEURAL FLUID ANALYSIS IDEALLY SHOULD OBTAIN RESULTS OF RECENT PLEURAL FLUID CYTOLOGY O2 NEEDED VTE PROPHYLAXIS DR HUBBARD
[2019-04-17] MEDS: ACETAMINOPHEN 325 MG TABLET (FP) PO PRN (17:20)
[2019-04-17] MEDS: ALBUTEROL SO4 2.5/IPRATROPIUM 0.5 INH SOL 3 ML VIAL.NEB. NEB PRN (21:30)
[2019-04-17] MEDS: ROSUVASTATIN CA 20 MG TABLET (FP) PO SCH (21:38)
--- NOTE | 2019-04-17 23:11 | PN ---
Progress Note, Physician History of Present Illness: No new complaints - Current Medication List Current Medications: Active Medications Acetaminophen (Tylenol -) 650 mg PO Q4H PRN PRN Reason: pain Last Admin: 04/17/19 17:20 Dose: 650 mg Albuterol/Ipratropium (Duoneb -) 1 amp NEB RQID PRN PRN Reason: SHORTNESS OF BREATH Last Admin: 04/17/19 21:30 Dose: 1 amp Amlodipine Besylate (Norvasc -) 10 mg PO DAILY [facility] Last Admin: 04/17/19 09:52 Dose: 10 mg Duloxetine HCl (Cymbalta -) 60 mg PO DAILY [facility] Last Admin: 04/17/19 09:52 Dose: 60 mg Furosemide (Lasix -) 40 mg PO DAILY [facility] Last Admin: 04/17/19 09:52 Dose: 40 mg Heparin Sodium (Porcine) (Heparin -) 5,000 unit SQ BID [facility] Last Admin: 04/17/19 21:38 Dose: 5,000 unit Ketorolac Tromethamine (Toradol Injection -) 30 mg IVPUSH Q8H PRN PRN Reason: PAIN LEVEL 6-10 Stop: 04/20/19 03:13 Last Admin: 04/17/19 21:38 Dose: 30 mg Losartan Potassium (Cozaar -) 50 mg PO DAILY [facility] Last Admin: 04/17/19 09:52 Dose: 50 mg Metformin HCl (Glucophage -) 1,000 mg PO BIDAC [facility] Last Admin: 04/17/19 17:17 Dose: 1,000 mg Pantoprazole Sodium (Protonix -) 40 mg PO DAILY [facility] Last Admin: 04/17/19 09:52 Dose: 40 mg Rosuvastatin Calcium (Crestor -) 40 mg PO HS [facility] Last Admin: 04/17/19 21:38 Dose: 40 mg Zolpidem Tartrate (Ambien -) 10 mg PO HS PRN PRN Reason: INSOMNIA Last Admin: 04/17/19 21:37 Dose: 10 mg - Objective Vital Signs: Vital Signs Temperature 98.3 F 04/17/19 21:32 Pulse Rate 93 H 04/17/19 21:32 Respiratory Rate 20 04/17/19 21:32 Blood Pressure 105/76 04/17/19 21:32 O2 Sat by Pulse Oximetry (%) 95 04/17/19 09:00 Constitutional: Yes: Well Nourished Neck: Yes: WNL, Supple Cardiovascular: Yes: WNL, Regular Rate and Rhythm Respiratory: Yes: Diminished Gastrointestinal: Yes: WNL, Normal Bowel Sounds, Soft Labs: CBC, BMP 04/16/19 09:50 04/16/19 09:50 INR, PTT INR 1.11 (0.83-1.09) H 04/14/19 17:30 Problem List - Problems (1) Pleural effusion Assessment/Plan: S/P thoracentesis Probable malignant? cytology CT scan chest also showed sclerotic lesion of T10 Will get bone scan Long D/W pt about waiting for cytology of pleural fluid Pt wants to f/u w/ her oncologist Dr Nick who she has been already seeing for h/o pleural effusion/?malginancy Therefore will not get onco consult while in hospital Cont duoneb Code(s): J90 - PLEURAL EFFUSION, NOT ELSEWHERE CLASSIFIED (2) Asthma Code(s): J45.909 - UNSPECIFIED ASTHMA, UNCOMPLICATED (3) HTN (hypertension) Code(s): I10 - ESSENTIAL (PRIMARY) HYPERTENSION (4) HLD (hyperlipidemia) Code(s): E78.5 - HYPERLIPIDEMIA, UNSPECIFIED (5) Diabetes Code(s): E11.9 - TYPE 2 DIABETES MELLITUS WITHOUT COMPLICATIONS (6) GERD (gastroesophageal reflux disease) Code(s): K21.9 - GASTRO-ESOPHAGEAL REFLUX DISEASE WITHOUT ESOPHAGITIS (7) H/O gastric bypass Code(s): Z98.89 - OTHER SPECIFIED POSTPROCEDURAL STATES * DO NOT USE * (8) Non-Hodgkin lymphoma Code(s): C85.90 - NON-HODGKIN LYMPHOMA, UNSPECIFIED, UNSPECIFIED SITE
[2019-04-18] MEDS: KETOROLAC TROMETHAMINE 30 MG/1 ML VIAL IVPUSH PRN ×3 (05:27→22:16)
[2019-04-18] MEDS: metFORMIN HCL 500 MG TABLET (FP) PO SCH ×2 (06:01→17:06)
[2019-04-18] MEDS: DULoxetine HCL 30 MG CAPSULE.DR PO SCH (10:23)
[2019-04-18] MEDS: FUROSEMIDE 40 MG TABLET (FP) PO SCH (10:24)
[2019-04-18] MEDS: HEPARIN NA (PORCINE) 5,000 UNITS/ML 1ML VIAL SQ SCH ×2 (10:24→21:30)
[2019-04-18] MEDS: LOSARTAN POTASSIUM 50 MG TABLET (FP) PO SCH (10:24)
[2019-04-18] MEDS: PANTOPRAZOLE 40 MG TABLET (FP) PO SCH (10:24)
[2019-04-18] MEDS: amLODIPine BESYLATE 2.5 MG TABLET (FP) PO SCH (10:24)
--- NOTE | 2019-04-18 10:46 | PN ---
Progress Note (short form) - Note Progress Note: Breathing feels a little better but still with some SEN. Less pleuritic type chest discomfort. Intake & Output 04/15/19 04/16/19 04/17/19 04/18/19 23:59 23:59 23:59 23:59 Intake Total 332 816 0156 500 Balance 482 454 7301 500 Weight 195 lb 1 oz Last Vital Signs Temp Pulse Resp BP Pulse Ox 98.9 F 104 H 20 116/71 97 04/18/19 08:46 04/18/19 08:46 04/18/19 08:46 04/18/19 08:46 04/17/19 21:00 Active Medications Acetaminophen (Tylenol -) 650 mg PO Q4H PRN PRN Reason: pain Last Admin: 04/17/19 17:20 Dose: 650 mg Albuterol/Ipratropium (Duoneb -) 1 amp NEB RQID PRN PRN Reason: SHORTNESS OF BREATH Last Admin: 04/17/19 21:30 Dose: 1 amp Amlodipine Besylate (Norvasc -) 10 mg PO DAILY [facility] Last Admin: 04/18/19 10:24 Dose: 10 mg Duloxetine HCl (Cymbalta -) 60 mg PO DAILY [facility] Last Admin: 04/18/19 10:23 Dose: 60 mg Furosemide (Lasix -) 40 mg PO DAILY [facility] Last Admin: 04/18/19 10:24 Dose: 40 mg Heparin Sodium (Porcine) (Heparin -) 5,000 unit SQ BID [facility] Last Admin: 04/18/19 10:24 Dose: 5,000 unit Ketorolac Tromethamine (Toradol Injection -) 30 mg IVPUSH Q8H PRN PRN Reason: PAIN LEVEL 6-10 Stop: 04/20/19 03:13 Last Admin: 04/18/19 05:27 Dose: 30 mg Losartan Potassium (Cozaar -) 50 mg PO DAILY [facility] Last Admin: 04/18/19 10:24 Dose: 50 mg Metformin HCl (Glucophage -) 1,000 mg PO BIDAC [facility] Last Admin: 04/18/19 06:01 Dose: 1,000 mg Pantoprazole Sodium (Protonix -) 40 mg PO DAILY [facility] Last Admin: 04/18/19 10:24 Dose: 40 mg Rosuvastatin Calcium (Crestor -) 40 mg PO HS [facility] Last Admin: 04/17/19 21:38 Dose: 40 mg General: awake and alert, NAD HEENT: No conjunctival pallor. Neck: Supple. Trachea midline. No tenderness, rigidity, carotid bruit, stridor , lymphadenopathy, or thyromegaly. Respiratory/Chest: Diminished at the bases Cardiovascular: RRR. S1, S2. No JVD Gastrointestinal/Abdominal: Normal bowel sounds. Abdomen soft, non-distended. Lymphatic: No adenopathy, tenderness. Musculoskeletal/Extremities: Normal inspection. Integumentary: Appropriate color, dry, warm. No cyanosis, erythema, jaundice or rash Neurologic: Non-focal Problem List - Problems (1) Difficulty breathing Code(s): R06.89 - OTHER ABNORMALITIES OF BREATHING (2) Pleural effusion Code(s): J90 - PLEURAL EFFUSION, NOT ELSEWHERE CLASSIFIED (3) Asthma Code(s): J45.909 - UNSPECIFIED ASTHMA, UNCOMPLICATED (4) HTN (hypertension) Code(s): I10 - ESSENTIAL (PRIMARY) HYPERTENSION IMP DYSPNEA LEFT PLEURAL EFFUSION RECURRENT EXUDATE FROM CHEMISTRIES AT [facility] LIKELY MALIGNANT H/O NHL DM PLAN FOLLOW PLEURAL FLUID ANALYSIS CALLED [facility]: WILL SEND RESULTS O2 NEEDED VTE PROPHYLAXIS CHECK PRE AND POST AMBULATION SATURATION DR HUBBARD
[2019-04-18 12:11] LABS: BODY FLUID ALBUMIN 2.5 g/dL (.)
[2019-04-18] MEDS: ACETAMINOPHEN 325 MG TABLET (FP) PO PRN (18:49)
[2019-04-18] MEDS: ROSUVASTATIN CA 20 MG TABLET (FP) PO SCH (21:30)
--- NOTE | 2019-04-18 23:05 | PN ---
Progress Note, Physician History of Present Illness: Pt complains of rt shoulder pain w/ some numbness/tingling down RUE - Current Medication List Current Medications: Active Medications Acetaminophen (Tylenol -) 650 mg PO Q4H PRN PRN Reason: pain Last Admin: 04/18/19 18:49 Dose: 650 mg Albuterol/Ipratropium (Duoneb -) 1 amp NEB RQID PRN PRN Reason: SHORTNESS OF BREATH Last Admin: 04/17/19 21:30 Dose: 1 amp Amlodipine Besylate (Norvasc -) 10 mg PO DAILY [facility] Last Admin: 04/18/19 10:24 Dose: 10 mg Duloxetine HCl (Cymbalta -) 60 mg PO DAILY [facility] Last Admin: 04/18/19 10:23 Dose: 60 mg Furosemide (Lasix -) 40 mg PO DAILY [facility] Last Admin: 04/18/19 10:24 Dose: 40 mg Heparin Sodium (Porcine) (Heparin -) 5,000 unit SQ BID [facility] Last Admin: 04/18/19 21:30 Dose: 5,000 unit Ketorolac Tromethamine (Toradol Injection -) 30 mg IVPUSH Q8H PRN PRN Reason: PAIN LEVEL 6-10 Stop: 04/20/19 03:13 Last Admin: 04/18/19 22:16 Dose: 30 mg Losartan Potassium (Cozaar -) 50 mg PO DAILY [facility] Last Admin: 04/18/19 10:24 Dose: 50 mg Metformin HCl (Glucophage -) 1,000 mg PO BIDAC [facility] Last Admin: 04/18/19 17:06 Dose: 1,000 mg Pantoprazole Sodium (Protonix -) 40 mg PO DAILY [facility] Last Admin: 04/18/19 10:24 Dose: 40 mg Rosuvastatin Calcium (Crestor -) 40 mg PO HS [facility] Last Admin: 04/18/19 21:30 Dose: 40 mg Zolpidem Tartrate (Ambien -) 10 mg PO HS PRN PRN Reason: INSOMNIA - Objective Vital Signs: Vital Signs Temperature 98.3 F 04/18/19 21:55 Pulse Rate 103 H 04/18/19 21:55 Respiratory Rate 20 04/18/19 15:16 Blood Pressure 127/88 04/18/19 21:55 O2 Sat by Pulse Oximetry (%) 95 04/18/19 09:00 Constitutional: Yes: Well Nourished Neck: Yes: WNL, Supple Cardiovascular: Yes: WNL, Regular Rate and Rhythm Respiratory: Yes: WNL, Regular, CTA Bilaterally Gastrointestinal: Yes: WNL, Normal Bowel Sounds, Soft Edema: No Labs: CBC, BMP 04/16/19 09:50 04/16/19 09:50 INR, PTT INR 1.11 (0.83-1.09) H 04/14/19 17:30 Problem List - Problems (1) Shoulder pain Assessment/Plan: Check XRAY rt shoulder/cervical spine ?Cervical radiculopathy Ortho consult Code(s): M25.519 - PAIN IN UNSPECIFIED SHOULDER (2) Pleural effusion Assessment/Plan: S/P thoracentesis Probable malignant? cytology CT scan chest also showed sclerotic lesion of T10 Long D/W pt about waiting for cytology of pleural fluid Pt wants to f/u w/ her oncologist Dr Nick who she has been already seeing for h/o pleural effusion/?malginancy Spoke to pt about making appointment for f/u w/ onco Dr Nick JOYCELYN(Pt does have appointment on 05/02/19) Therefore will not get onco consult while in hospital Bone scan showed increased uptake in T10/lumbar spine/rt sacroiliac bone Cont duoneb Code(s): J90 - PLEURAL EFFUSION, NOT ELSEWHERE CLASSIFIED (3) Asthma Assessment/Plan: Duoneb Code(s): J45.909 - UNSPECIFIED ASTHMA, UNCOMPLICATED (4) HTN (hypertension) Assessment/Plan: BP stable Cont losartan/norvasc Code(s): I10 - ESSENTIAL (PRIMARY) HYPERTENSION (5) HLD (hyperlipidemia) Assessment/Plan: Cont crestor Code(s): E78.5 - HYPERLIPIDEMIA, UNSPECIFIED (6) Diabetes Assessment/Plan: Cont metformin Code(s): E11.9 - TYPE 2 DIABETES MELLITUS WITHOUT COMPLICATIONS (7) GERD (gastroesophageal reflux disease) Assessment/Plan: Cont protonix Code(s): K21.9 - GASTRO-ESOPHAGEAL REFLUX DISEASE WITHOUT ESOPHAGITIS (8) H/O gastric bypass Code(s): Z98.89 - OTHER SPECIFIED POSTPROCEDURAL STATES * DO NOT USE * (9) Non-Hodgkin lymphoma Code(s): C85.90 - NON-HODGKIN LYMPHOMA, UNSPECIFIED, UNSPECIFIED SITE
[2019-04-18] MEDS: ZOLPIDEM TARTRATE 5 MG TABLET PO PRN (23:20)
[2019-04-19] MEDS: metFORMIN HCL 500 MG TABLET (FP) PO SCH ×2 (06:25→17:12)
[2019-04-19] MEDS: KETOROLAC TROMETHAMINE 30 MG/1 ML VIAL IVPUSH PRN ×3 (06:25→21:21)
[2019-04-19 08:06] LABS: BASO % 0.5 % (0-2.0); EOS % 1.8 % (0-4.5); HEMATOCRIT 31.2 % (32.4-45.2); HEMOGLOBIN 9.9 GM/dL (10.7-15.3); LYMPH % 21.6 % (8-40); MCH 23.9 pg (25.7-33.7); MCHC 31.8 g/dl (32.0-36.0); MEAN CELL VOLUME 75.2 fl (80-96); MEAN PLT VOLUME 6.9 fl (7.5-11.1); MONO % 11.2 % (3.8-10.2); NEUT % 64.9 % (42.8-82.8); PLATELET COUNT 578 K/MM3 (134-434); RBC 4.15 M/mm3 (3.60-5.2); RDW 19.6 % (11.6-15.6); WHITE BLOOD COUNT 9.6 K/mm3 (4.0-10.0)
[2019-04-19 08:24] LABS: BILIRUBIN,TOTAL 0.3 mg/dL (0.2-1); BLOOD UREA NITROGEN 18.5 mg/dL (7-18); CALCIUM 8.6 mg/dL (8.5-10.1); CREATININE 0.7 mg/dL (0.55-1.3); POTASSIUM 3.8 mmol/L (3.5-5.1); TOT PROT 6.1 g/dl (6.4-8.2)
--- NOTE | 2019-04-19 08:47 | CON.ORTH ---
Consult Reason for Consultation:: cervical/rt shoulder pain - Past Medical History Cardio/Vascular: Yes: HTN, Hyperlipdemia Pulmonary: Yes: Asthma. No: Cancer, O2 Dependent Gastrointestinal: Yes: Constipation, Pancreatitis. No: Diverticulitis, GERD, GI Bleed, Hiatal Hernia Hepatobiliary: Yes: Cholecystitis ...LMP: 07/05/09 ...: No Psych: Yes: Addictions Musculoskeletal: Yes: Other (Knee pain) Endocrine: Yes: Diabetes Mellitus - Past Surgical History Past Surgical History: Yes: Appendectomy, Bariatric Surgery, Cholecystectomy, C- Section, Hernia Repair - Alcohol/Substance Use Hx Alcohol Use: Yes History of Substance Use: reports: Heroin - Smoking History Smoking history: Current every day smoker Have you smoked in the past 12 months: Yes Aproximately how many cigarettes per day: 10 If you are a former smoker, when did you quit?: 07/12/15 - Social History ADL: Independent Occupation: [employer] History of Recent Travel: No Home Medications - Allergies Allergies/Adverse Reactions: Allergies Allergy/AdvReac Type Severity Reaction Status Date / Time No Known Allergies Allergy Verified 04/14/19 16:46 - Home Medications Home Medications: Ambulatory Orders Pantoprazole Sodium [Protonix] 40 mg PO DAILY #0 tablet. 12/01/14 Duloxetine HCl [Cymbalta -] 60 mg PO DAILY capsule. 07/17/15 Zolpidem Tartrate [Ambien] 10 mg PO HS PRN #0 tablet 07/17/15 Albuterol Sulfate Inhaler - [Ventolin HFA Inhaler -] 1 - 2 inh PO Q4H #1 inhaler 08/29/16 Amlodipine Besylate [Norvasc -] 10 mg PO DAILY 04/14/19 Clindamycin [Cleocin -] 300 mg PO TID 04/14/19 Furosemide [Lasix -] 40 mg PO DAILY 04/14/19 Insulin Degludec [Tresiba] 1 unit SQ ASDIR 04/14/19 Losartan Potassium 50 mg PO DAILY 04/14/19 Metformin HCl [Glucophage] 1,000 mg PO BID 04/14/19 Rosuvastatin [Crestor -] 40 mg PO HS 04/14/19 Physical Exam for Ortho Vital Signs: Vital Signs Temperature 98.3 F 04/19/19 05:37 Pulse Rate 90 04/19/19 05:37 Respiratory Rate 20 10/15/19 05:37 Blood Pressure 113/58 L 04/19/19 05:37 O2 Sat by Pulse Oximetry (%) 95 04/18/19 21:00 Labs: CBC, BMP 04/19/19 07:07 04/19/19 07:07 INR, PTT INR 1.11 (0.83-1.09) H 04/14/19 17:30 - Upper Extremity Shoulder: Yes: Right, Other (nontender, full rom, nvi) Other Findings/Remarks: c-spine- + paraspinal ttp, decr rom, nvi Imaging - Results Other: Report Reviewed, Image Reviewed, Other (bone scan) Assessment/Plan 54-year-old woman past medical history of non-Hodgkin's lymphoma in remission since 2008, asthma and NIDDM who admitted for evaluation of acute shortness of breath. Pt has been c/o pain in neck and right shoulder for the past 1 month. Denies any injury or trauma. c/o numbness/tingling into right hand. Pt also denies any knee pain. a/p cervical radiculopathy- DDD vs metastatic path xrays of c-spine and rt shoulder ordered ROM exercises NSAIDs if medically stable will follow-up after xrays d/w Dr. Murphy
[2019-04-19] MEDS ORDERED: FLU VACCINE QUAD 60 MCG/0.5 ML (MDV 19-20) IM ONE (10:00)
[2019-04-19] MEDS: DULoxetine HCL 30 MG CAPSULE.DR PO SCH (10:27)
[2019-04-19] MEDS: FUROSEMIDE 40 MG TABLET (FP) PO SCH (10:27)
[2019-04-19] MEDS: HEPARIN NA (PORCINE) 5,000 UNITS/ML 1ML VIAL SQ SCH ×2 (10:27→21:21)
[2019-04-19] MEDS: PANTOPRAZOLE 40 MG TABLET (FP) PO SCH (10:27)
[2019-04-19] MEDS: LOSARTAN POTASSIUM 50 MG TABLET (FP) PO SCH (10:28)
[2019-04-19] MEDS: amLODIPine BESYLATE 2.5 MG TABLET (FP) PO SCH (10:28)
--- NOTE | 2019-04-19 11:28 | PN ---
Progress Note (short form) - Note Progress Note: Breathing feels overall better. Less pleuritic type chest discomfort. Path from [facility]: Adenocarcinoma: favor upper GI / biliary / pancreatic : Patient was informed of the diagnosis Intake & Output 04/16/19 04/17/19 04/18/19 04/19/19 23:59 23:59 23:59 23:59 Intake Total 860 1650 905 Balance 860 1650 905 Last Vital Signs Temp Pulse Resp BP Pulse Ox 98.1 F 100 H 19 118/92 95 04/19/19 10:25 04/19/19 10:25 04/19/19 10:25 04/19/19 10:25 04/18/19 21:00 Active Medications Acetaminophen (Tylenol -) 650 mg PO Q4H PRN PRN Reason: pain Last Admin: 04/18/19 18:49 Dose: 650 mg Albuterol/Ipratropium (Duoneb -) 1 amp NEB RQID PRN PRN Reason: SHORTNESS OF BREATH Last Admin: 04/17/19 21:30 Dose: 1 amp Amlodipine Besylate (Norvasc -) 10 mg PO DAILY [facility] Last Admin: 04/19/19 10:28 Dose: 10 mg Duloxetine HCl (Cymbalta -) 60 mg PO DAILY [facility] Last Admin: 04/19/19 10:27 Dose: 60 mg Furosemide (Lasix -) 40 mg PO DAILY [facility] Last Admin: 04/19/19 10:27 Dose: 40 mg Heparin Sodium (Porcine) (Heparin -) 5,000 unit SQ BID [facility] Last Admin: 04/19/19 10:27 Dose: 5,000 unit Ketorolac Tromethamine (Toradol Injection -) 30 mg IVPUSH Q8H PRN PRN Reason: PAIN LEVEL 6-10 Stop: 04/20/19 03:13 Last Admin: 04/19/19 06:25 Dose: 30 mg Losartan Potassium (Cozaar -) 50 mg PO DAILY [facility] Last Admin: 04/19/19 10:28 Dose: 50 mg Metformin HCl (Glucophage -) 1,000 mg PO BIDAC [facility] Last Admin: 04/19/19 06:25 Dose: 1,000 mg Pantoprazole Sodium (Protonix -) 40 mg PO DAILY [facility] Last Admin: 04/19/19 10:27 Dose: 40 mg Rosuvastatin Calcium (Crestor -) 40 mg PO HS [facility] Last Admin: 04/18/19 21:30 Dose: 40 mg Zolpidem Tartrate (Ambien -) 10 mg PO HS PRN PRN Reason: INSOMNIA Last Admin: 04/18/19 23:20 Dose: 10 mg General: awake and alert, NAD HEENT: No conjunctival pallor. Neck: Supple. Trachea midline. No tenderness, rigidity, carotid bruit, stridor , lymphadenopathy, or thyromegaly. Respiratory/Chest: Diminished at the bases Cardiovascular: RRR. S1, S2. No JVD Gastrointestinal/Abdominal: Normal bowel sounds. Abdomen soft, non-distended. Lymphatic: No adenopathy, tenderness. Musculoskeletal/Extremities: Normal inspection. Integumentary: Appropriate color, dry, warm. No cyanosis, erythema, jaundice or rash Neurologic: Non-focal Laboratory Results - last 24 hr 04/15/19 04/19/19 04/19/19 13:45 06:25 07:07 WBC 9.6 RBC 4.15 Hgb 9.9 L Hct 31.2 L MCV 75.2 L MCH 23.9 L MCHC 31.8 L RDW 19.6 H Plt Count 578 H MPV 6.9 L Absolute Neuts (auto) 6.2 Neutrophils % 64.9 Lymphocytes % 21.6 Monocytes % 11.2 H Eosinophils % 1.8 Basophils % 0.5 Nucleated RBC % 0 Sodium Potassium Chloride Carbon Dioxide Anion Gap BUN Creatinine Est GFR (CKD-EPI)AfAm Est GFR (CKD-EPI)NonAf POC Glucometer 120 Random Glucose Calcium Total Bilirubin AST ALT Alkaline Phosphatase Total Protein Albumin Fluid Glucose 244 Fluid Total Protein 3.8 Fluid Albumin 2.5 Body Fluid LDH Source 147 Fluid Amylase 39 04/19/19 07:07 WBC RBC Hgb Hct MCV MCH MCHC RDW Plt Count MPV Absolute Neuts (auto) Neutrophils % Lymphocytes % Monocytes % Eosinophils % Basophils % Nucleated RBC % Sodium 140 Potassium 3.8 Chloride 102 Carbon Dioxide 32 Anion Gap 6 L BUN 18.5 H Creatinine 0.7 Est GFR (CKD-EPI)AfAm 113.05 Est GFR (CKD-EPI)NonAf 97.54 POC Glucometer Random Glucose 117 H Calcium 8.6 Total Bilirubin 0.3 AST 11 L ALT 11 L Alkaline Phosphatase 79 Total Protein 6.1 L Albumin 3.0 L Fluid Glucose Fluid Total Protein Fluid Albumin Body Fluid LDH Source Fluid Amylase Problem List - Problems (1) Difficulty breathing Code(s): R06.89 - OTHER ABNORMALITIES OF BREATHING (2) Pleural effusion Code(s): J90 - PLEURAL EFFUSION, NOT ELSEWHERE CLASSIFIED (3) Asthma Code(s): J45.909 - UNSPECIFIED ASTHMA, UNCOMPLICATED (4) HTN (hypertension) Code(s): I10 - ESSENTIAL (PRIMARY) HYPERTENSION IMP ADENOCARCINOMA: FAVOR GI PRIMARY H/O NHL DM PLAN CONSIDER GI EVALUATION O2 NEEDED VTE PROPHYLAXIS CHECK PRE AND POST AMBULATION SATURATION DR HUBBARD
[2019-04-19] MEDS: ACETAMINOPHEN 325 MG TABLET (FP) PO PRN (17:12)
[2019-04-19] MEDS: ALBUTEROL SO4 2.5/IPRATROPIUM 0.5 INH SOL 3 ML VIAL.NEB. NEB PRN (19:40)
--- NOTE | 2019-04-19 20:32 | PN ---
Progress Note, Physician - Current Medication List Current Medications: Active Medications Acetaminophen (Tylenol -) 650 mg PO Q4H PRN PRN Reason: pain Last Admin: 04/19/19 17:12 Dose: 650 mg Albuterol/Ipratropium (Duoneb -) 1 amp NEB RQID PRN PRN Reason: SHORTNESS OF BREATH Last Admin: 04/17/19 21:30 Dose: 1 amp Amlodipine Besylate (Norvasc -) 10 mg PO DAILY [facility] Last Admin: 04/19/19 10:28 Dose: 10 mg Duloxetine HCl (Cymbalta -) 60 mg PO DAILY [facility] Last Admin: 04/19/19 10:27 Dose: 60 mg Furosemide (Lasix -) 40 mg PO DAILY [facility] Last Admin: 04/19/19 10:27 Dose: 40 mg Heparin Sodium (Porcine) (Heparin -) 5,000 unit SQ BID [facility] Last Admin: 04/19/19 10:27 Dose: 5,000 unit Ketorolac Tromethamine (Toradol Injection -) 30 mg IVPUSH Q8H PRN PRN Reason: PAIN LEVEL 6-10 Stop: 04/20/19 03:13 Last Admin: 04/19/19 12:56 Dose: 30 mg Losartan Potassium (Cozaar -) 50 mg PO DAILY [facility] Last Admin: 04/19/19 10:28 Dose: 50 mg Metformin HCl (Glucophage -) 1,000 mg PO BIDAC [facility] Last Admin: 04/19/19 17:12 Dose: 1,000 mg Pantoprazole Sodium (Protonix -) 40 mg PO DAILY [facility] Last Admin: 04/19/19 10:27 Dose: 40 mg Rosuvastatin Calcium (Crestor -) 40 mg PO HS [facility] Last Admin: 04/18/19 21:30 Dose: 40 mg Zolpidem Tartrate (Ambien -) 10 mg PO HS PRN PRN Reason: INSOMNIA Last Admin: 04/18/19 23:20 Dose: 10 mg - Objective Vital Signs: Vital Signs Temperature 98 F 04/19/19 20:08 Pulse Rate 110 H 04/19/19 20:08 Respiratory Rate 20 04/19/19 20:08 Blood Pressure 133/101 H 04/19/19 20:08 O2 Sat by Pulse Oximetry (%) 94 L 04/19/19 11:00 Labs: CBC, BMP 04/19/19 07:07 04/19/19 07:07 INR, PTT INR 1.11 (0.83-1.09) H 04/14/19 17:30 Problem List - Problems (1) Shoulder pain Code(s): M25.519 - PAIN IN UNSPECIFIED SHOULDER (2) Pleural effusion Code(s): J90 - PLEURAL EFFUSION, NOT ELSEWHERE CLASSIFIED (3) Asthma Code(s): J45.909 - UNSPECIFIED ASTHMA, UNCOMPLICATED (4) HTN (hypertension) Code(s): I10 - ESSENTIAL (PRIMARY) HYPERTENSION (5) HLD (hyperlipidemia) Code(s): E78.5 - HYPERLIPIDEMIA, UNSPECIFIED (6) Diabetes Code(s): E11.9 - TYPE 2 DIABETES MELLITUS WITHOUT COMPLICATIONS (7) GERD (gastroesophageal reflux disease) Code(s): K21.9 - GASTRO-ESOPHAGEAL REFLUX DISEASE WITHOUT ESOPHAGITIS (8) H/O gastric bypass Code(s): Z98.89 - OTHER SPECIFIED POSTPROCEDURAL STATES * DO NOT USE * (9) Non-Hodgkin lymphoma Code(s): C85.90 - NON-HODGKIN LYMPHOMA, UNSPECIFIED, UNSPECIFIED SITE
[2019-04-19] MEDS: ROSUVASTATIN CA 20 MG TABLET (FP) PO SCH (21:21)
[2019-04-20] MEDS: ZOLPIDEM TARTRATE 5 MG TABLET PO PRN (00:59)
[2019-04-20] MEDS: metFORMIN HCL 500 MG TABLET (FP) PO SCH ×2 (07:23→17:00)
[2019-04-20] MEDS: ACETAMINOPHEN 325 MG TABLET (FP) PO PRN (09:18)
[2019-04-20] MEDS: FUROSEMIDE 40 MG TABLET (FP) PO SCH (09:18)
[2019-04-20] MEDS: DULoxetine HCL 30 MG CAPSULE.DR PO SCH (09:18)
[2019-04-20] MEDS: LOSARTAN POTASSIUM 50 MG TABLET (FP) PO SCH (09:18)
[2019-04-20] MEDS: amLODIPine BESYLATE 2.5 MG TABLET (FP) PO SCH (09:18)
[2019-04-20] MEDS: HEPARIN NA (PORCINE) 5,000 UNITS/ML 1ML VIAL SQ SCH (09:18)
[2019-04-20] MEDS: PANTOPRAZOLE 40 MG TABLET (FP) PO SCH (09:18)
--- NOTE | 2019-04-20 10:52 | PN ---
Progress Note (short form) - Note Progress Note: Ortho Pt in radiology for xrays. Will f/u after xrays performed.
--- NOTE | 2019-04-20 13:58 | PN ---
Progress Note (short form) - Note Progress Note: PULMONARY States breathing is improving. Minimal cough. Vital Signs Period Temp Pulse Resp BP Sys/Villeda Pulse Ox Last 24 Hr 97.9 F-98.7 F 89-110 19-20 99-133/62-101 93 Gen: NAD at rest Heart: RRR Lung: decreased breath sounds left base Abd: soft, nontender Ext: no edema CBC, BMP 04/19/19 07:07 04/19/19 07:07 Active Medications Acetaminophen (Tylenol -) 650 mg PO Q4H PRN PRN Reason: pain Last Admin: 04/20/19 09:18 Dose: 650 mg Amlodipine Besylate (Norvasc -) 10 mg PO DAILY [facility] Last Admin: 04/20/19 09:18 Dose: 10 mg Duloxetine HCl (Cymbalta -) 60 mg PO DAILY [facility] Last Admin: 04/20/19 09:18 Dose: 60 mg Furosemide (Lasix -) 40 mg PO DAILY [facility] Last Admin: 04/20/19 09:18 Dose: 40 mg Heparin Sodium (Porcine) (Heparin -) 5,000 unit SQ BID [facility] Last Admin: 04/20/19 09:18 Dose: 5,000 unit Losartan Potassium (Cozaar -) 50 mg PO DAILY [facility] Last Admin: 04/20/19 09:18 Dose: 50 mg Metformin HCl (Glucophage -) 1,000 mg PO BIDAC [facility] Last Admin: 04/20/19 07:23 Dose: 1,000 mg Pantoprazole Sodium (Protonix -) 40 mg PO DAILY [facility] Last Admin: 04/20/19 09:18 Dose: 40 mg Rosuvastatin Calcium (Crestor -) 40 mg PO HS [facility] Last Admin: 04/19/19 21:21 Dose: 40 mg Zolpidem Tartrate (Ambien -) 10 mg PO HS PRN PRN Reason: INSOMNIA Last Admin: 04/20/19 00:59 Dose: 10 mg A/P Left Pleural Effusion s/p thoracentesis - Exudate h/o NonHodgkin's Lymphoma DM Hypercholesterolemia HTN - f/u pleural fluid cytology - if pt becomes symptomatic, may benefit from pleur-x catheter placement - consider GI, oncology eval - DVT prophylaxis
[2019-04-20 14:42] VITALS: BP 100/65; PULSE 104; TEMP 98.4
--- NOTE | 2019-04-25 17:01 | PATH ---
Cytology Non-Gynecological Report Patient Name: [facility]. Rec. #: [id number] /Age/Gender: 1965 (Age: 54) / F Account: [id number] Location: [address] [place] [address] Taken: 04/15/2019 Received: 04/15/2019 Reported: 04/25/2019 Physicians: Maricarmen Tijerina M.D. Specimen(s) Received A: PLEURAL FLUID RECEIVED IN 50% ALCOHOL B: PLEURAL FLUID RECEIVED FRESH Clinical History Pleural effusion, history of non-Hodgkin's lymphoma Final Diagnosis PLEURAL FLUID, LEFT, THORACENTESIS: SATISFACTORY FOR EVALUATION. POSITIVE FOR MALIGNANT CELLS, CONSISTENT WITH METASTATIC ADENOCARCINOMA. BACKGROUND OF MARKED LYMPHOCYTIC INFILTRATE. Comment: clusters of cohesive cells with vacuolated cytoplasm and variable prominent nucleoli present. Immunohistochemical stained slides demonstrate tumor cells to be positive for CK7, negative for CK20, TTF-1, Napsin A, CDX-2, PAX 8, p63 and Jayda-3. Calretinin highlights scattered reactive mesothelials. This immunophenotype is not specific, it is compatible with lung adenocarcinoma, however upper GI and pancreatobiliary adenocarcinoma cannot be ruled out. Suggest clinical correlation with imaging studies. In view of marked lymphocytic infiltrate and clinical history of non-Hodgkin's lymphoma, this case is sent to hematopathology consultation to rule out lymphoma. An addendum report to follow. Immunohistochemistry stains Napsin A, CDX-2, PAX 8, Calretinin and Jayda-3 performed at [place], [place] ([id number]) interpreted at [facility]. Immunohistochemistry stains P63, CK7, CK20, and TTF-1performed and interpreted at [facility]. Positive and negative controls (internal if applicable) show appropriate results. This case was discussed with Dr. Queen on April 22, 2019. Electronically Signed Hernesto Rose M.D. Addendum Reported: 05/03/2019 Addendum Diagnosis This case was sent to [facility] for hematopathology consultation. The report is following: PLEURAL EFFUSION: Metastatic adenocarcinoma with a focally dense infiltrate of reactive small lymphocytes. No evidence of lymphoma. The diagnosis reflects Dr. Odilon Verde's opinion at [facility], [place], [place]. See Integrated Oncology Report for additional details ([id number]). Hernesto Rose M.D. Gross Description A. Approximately 50cc of cloudy fluid received fixed in 50% alcohol. One cytospin and one cellblock prepared. B. Approximately 1000cc of yellow fluid received fresh. One cytospin and one cellblock prepared.
== END 2019-04-20 17:26 | disposition home or self-care (01) | DRG 841 ==
LOC: JER 16:23 → JERBED 21:49 → J6S 04-15 02:50
PROVIDERS: ADMIT Internal Medicine; ATTEND Internal Medicine
PROC: 0W9B3ZX Drainage of Left Pleural Cavity, Percutaneous Approach, Diagnostic (ICD-10-PCS; principal; 2019-04-15)
DX: C85.90 Non-Hodgkin lymphoma, unspecified, unspecified site (principal); J91.0 Malignant pleural effusion; E11.9 Type 2 diabetes mellitus without complications; I10 Essential (primary) hypertension; E78.5 Hyperlipidemia, unspecified; K21.9 Gastro-esophageal reflux disease without esophagitis; F17.210 Nicotine dependence, cigarettes, uncomplicated; M25.511 Pain in right shoulder
CPT/HCPCS: 36415; 71046-TC-FY; 71250-TC; 72050-TC-FY; 73030-TC-RT-FY; 76942; 78306-TC; 80053; 81003; 82042; 82150; 82550; 82945; 82962; 83615; 83735; 83880; 84157; 84484; 85025; 85610; 87070; 87075; 87086; 87102; 87116; 87205; 87206; 87210; 88108; 88305-TC; 88341-TC; 93005; 93010; 94640; 94761; 99283-25; A9503; J1644; Q2036

== ENCOUNTER 2019-05-20 09:53 | Inpatient (IN) | payer OTHER ==
--- NOTE | 2019-05-20 10:10 | PDOC ---
History of Present Illness - General Chief Complaint: Shortness of Breath Stated Complaint: DIFFICULTY BREATHING Time Seen by Provider: 05/20/19 10:10 - History of Present Illness Initial Comments: 54 year old female with pmh of HTN, Lymphoma (in remission since 2010), Chronic Pancreatitis, SBO status post resection, status post Gastric Bypass surgery, DM, HLD, (Lung CA with mets to the spine and suspicious lesion sin the brain) presenting with left upper quadrant pain and SOB acutely worsening over the past day. States that she was supposed to start chemo with her oncologist but has been very SOB since then and was told by her oncologist to come into the hospitalist for likely admission. Also admits to nausea and mild chest pain when coughing. She admits to one month of decreased appetite as well with 10+ lbs of weight loss. Denies fevers, chills, urinary symptoms, or other issues. 05/20/19 11:54 Past History - Past Medical History Allergies/Adverse Reactions: Allergies Allergy/AdvReac Type Severity Reaction Status Date / Time No Known Allergies Allergy Verified 04/14/19 16:46 Home Medications: Ambulatory Orders Pantoprazole Sodium [Protonix] 40 mg PO DAILY #0 tablet. 12/01/14 Duloxetine HCl [Cymbalta -] 60 mg PO DAILY capsule. 07/17/15 Zolpidem Tartrate [Ambien] 10 mg PO HS PRN #0 tablet 07/17/15 Albuterol Sulfate Inhaler - [Ventolin HFA Inhaler -] 1 - 2 inh PO Q4H #1 inhaler 08/29/16 Amlodipine Besylate [Norvasc -] 10 mg PO DAILY 04/14/19 Furosemide [Lasix -] 40 mg PO DAILY 04/14/19 Insulin Degludec [Tresiba] 1 unit SQ ASDIR 04/14/19 Losartan Potassium 50 mg PO DAILY 04/14/19 Metformin HCl [Glucophage] 1,000 mg PO BID 04/14/19 Rosuvastatin [Crestor -] 40 mg PO HS 04/14/19 Zolpidem Tartrate [Ambien] 10 mg PO HS PRN #30 tablet MDD 1 04/20/19 metFORMIN HCL [Glucophage -] 1,000 mg PO BIDAC tablet 04/20/19 Anemia: No Asthma: Yes Cancer: Yes (LYMPHOMA: remission since 2010) Cardiac Disorders: No CVA: No COPD: No CHF: No Dementia: No Diabetes: No GI Disorders: Yes (GERD, pancreatitis, gastric bypass) Disorders: No HTN: Yes Hypercholesterolemia: No Kidney Stones: No Liver Disease: No Seizures: No Thyroid Disease: No - Surgical History Abdominal Surgery: Yes (ectopic pregnanacies, hernia repair w/ mesh) Appendectomy: Yes Cardiac Surgery: No Cholecystectomy: Yes GI Surgery: Yes (gastric bypass) Lung Surgery: No Neurologic Surgery: No Orthopedic Surgery: Yes (lt knee sx torn ligaments) - Immunization History Immunization Up to Date: Yes - Psycho Social/Smoking Cessation Hx Smoking Status: No Smoking History: Current every day smoker Have you smoked in the past 12 months: Yes Number of Cigarettes Smoked Daily: 10 If you are a former smoker, when did you quit?: 07/12/15 Cigars Per Day: 2 'Breaking Loose' booklet given: 04/15/19 Hx Alcohol Use: Yes Drug/Substance Use Hx: No Substance Use Type: Alcohol Hx Substance Use Treatment: No Review of Systems - Review of Systems Constitutional: Yes: Loss of Appetite. No: Diaphoresis, Fever HEENTM: No: Eye Pain, Blurred Vision Respiratory: Yes: Cough, Shortness of Breath. No: SOB with Exertion, SOB at Rest ABD/GI: Yes: Nausea, Poor Appetite : No: Dysuria, Discharge, Frequency Musculoskeletal: No: Gout, Joint Pain, Joint Swelling Integumentary: No: Bruising, Change in Color Neurological: No: Numbness, Paresthesia Psychiatric: No: Anxiety, Depression, Stressors Endocrine: No: Flushing Hematologic/Lymphatic: No: Anemia, Blood Clots *Physical Exam - Physical Exam General Appearance: Yes: Nourished, Appropriately Dressed. No: Apparent Distress HEENT: positive: EOMI, JORDAN, Normal ENT Inspection, Normal Voice Neck: positive: Trachea midline, Normal Thyroid, Supple. negative: Tender, Rigid Respiratory/Chest: positive: Respiratory Distress, Decreased Breath Sounds ( across entier left lung field). negative: Chest Tender, Lungs Clear, Normal Breath Sounds, Accessory Muscle Use Cardiovascular: positive: Regular Rhythm, Tachycardia. negative: Regular Rate Gastrointestinal/Abdominal: positive: Normal Bowel Sounds, Flat, Soft. negative : Tender Lymphatic: negative: Adenopathy, Tenderness Musculoskeletal: positive: Normal Inspection. negative: Decreased Range of Motion Extremity: positive: Normal Capillary Refill, Normal Inspection, Normal Range of Motion. negative: Tender Integumentary: positive: Normal Color, Dry, Warm Neurologic: positive: Fully Oriented, Alert, Normal Mood/Affect, Normal Response , Motor Strength 11/07 ED Treatment Course - LABORATORY CBC & Chemistry Diagram: 05/20/19 10:30 05/20/19 10:30 Medical Decision Making - Medical Decision Making 54 year old female with metastatic lung CA and repeat episodes of left sided pleural effusion presenting with SOB for the past few days worsening last night. Spoke to her oncologist (Dr. Cordero) who believes that she needs an indwelling left sided pleural catheter to drain pleural fluid prn. He also wanted to start chemotherapy next week as well. Labs roughly wnl with exception of leukocytosis and CT PE negative. Spoke to Dr. Nick (oncologist) [phone] and he was happy to consult and didn't feel that our hospital's oncology team needed to be involved. We covered her for PNA and admitted her to Dr. Chavez. 05/20/19 16:20 Discharge - Discharge Information Problems reviewed: Yes Clinical Impression/Diagnosis: SOB (shortness of breath) CAP (community acquired pneumonia) Qualifiers: Laterality: unspecified laterality Qualified Code(s): J18.9 - Pneumonia, unspecified organism Condition: Stable - Admission Yes - Follow up/Referral Referrals: Carter Quintero MD [Primary Care Provider] - - Patient Discharge Instructions - Post Discharge Activity
[2019-05-20] MEDS ORDERED: ALBUTEROL SO4 2.5/IPRATROPIUM 0.5 INH SOL 3 ML VIAL.NEB. NEB ONE ×3 (10:20→19:55)
[2019-05-20] MEDS ORDERED: ACETAMINOPHEN 1000 MG/100 ML VIAL (NON FORMULARY) IVPB ONE (10:39)
[2019-05-20 10:56] LABS: ARTERIAL BLD GAS O2 SATURATION 94.2 % (95-98); ARTERIAL BLOOD GAS BASE EXCESS 1.4 meq/l (-2-2); ARTERIAL BLOOD GAS PCO2 36.4 mmHg (35-45); ARTERIAL BLOOD GAS PO2 73.7 mmHg (80-100); ARTERIAL BLOOD GAS pH 7.45 (7.35-7.45)
[2019-05-20 10:57] LABS: ALLENS TEST POSITIVE
[2019-05-20 10:58] LABS: CARBOXYHEMOGLOBIN 2.3 % (0-2)
[2019-05-20 10:58] LABS: BASO % 0.2 % (0-2.0); EOS % 0.1 % (0-4.5); HEMATOCRIT 33.1 % (32.4-45.2); HEMOGLOBIN 10.4 GM/dL (10.7-15.3); LYMPH % 7.4 % (8-40); MCH 24.5 pg (25.7-33.7); MCHC 31.4 g/dl (32.0-36.0); MONO % 9.5 % (3.8-10.2); NEUT % 82.8 % (42.8-82.8); PLATELET COUNT 395 K/MM3 (134-434); RBC 4.25 M/mm3 (3.60-5.2); RDW 21.6 % (11.6-15.6)
[2019-05-20] MEDS ORDERED: ACETAMINOPHEN INJECTION 100 ML IVPB ONE (10:58)
[2019-05-20 11:12] LABS: INR 1.16 (0.83-1.09); PROTHROMBIN TIME (PATIENT) 13.7 SEC (9.7-13.0)
[2019-05-20 11:14] LABS: ACTIVATED PTT 29.3 SECONDS (25.2-36.5)
[2019-05-20 11:40] LABS: ALBUMIN 3.2 g/dl (3.4-5.0); ALK PHOS 95 U/L (45-117); ANION GAP 12 MMOL/L (8-16); BILIRUBIN,TOTAL 0.6 mg/dL (0.2-1); BLOOD UREA NITROGEN 39.4 mg/dL (7-18); CALCIUM 9.1 mg/dL (8.5-10.1); CHLORIDE 96 mmol/L (98-107); CO2 25 mmol/L (21-32); CREATININE 1.2 mg/dL (0.55-1.3); GLUCOSE,RANDOM 162 mg/dL (74-106); N-TERMINAL BNP 519.7 pg/ml (5-125); POTASSIUM 4.8 mmol/L (3.5-5.1); SGOT/AST 29 U/L (15-37); SGPT/ALT 9 U/L (13-61); SODIUM 132 mmol/L (136-145); TOT PROT 6.7 g/dl (6.4-8.2)
[2019-05-20] MEDS ORDERED: PIPERACILLIN/TAZOB 3.375 GM 3.375 GM in DEXTROSE 5%-WATER - 50 ML IVPB ONE (11:45)
[2019-05-20] MEDS ORDERED: VANCOMYCIN HCL 1,250 MG in DEXTROSE 5%-WATER - 250 ML IVPB ONE (11:46)
[2019-05-20 12:15] LABS: ANISOCYTOSIS 2+; PLATELET ESTIMATE NORMAL
[2019-05-20] MEDS ORDERED: PIPERACILLIN/TAZOB 3.375 GM 3.375 GM/50 ML BAG IVPB ONE (13:23)
[2019-05-20] MEDS ORDERED: VANCOMYCIN 1 GRAM (PRE-DOCKED) 1,000 MG/250 ML BAG IVPB ONE (13:24)
[2019-05-20 13:27] LABS: VENOUS PC02 49.9 mmHg (38-52); VENOUS PH 7.37 (7.31-7.41)
[2019-05-20 13:29] LABS: VENOUS PO2 < 49 mmHg (28-48)
--- NOTE | 2019-05-20 13:56 | PDOC ---
Attending Attestation - Resident Resident Name: NilsonClausgirmavalarie - ED Attending Attestation I have performed the following: I have examined & evaluated the patient, The case was reviewed & discussed with the resident, I agree w/resident's findings & plan, Exceptions are as noted - HPI HPI: 05/20/19 13:51 54 year old female with pmh of HTN, Lymphoma (in remission since 2010), Chronic Pancreatitis, SBO status post resection, status post Gastric Bypass surgery, DM , HLD, (Lung CA with mets to the spine and suspicious lesion sin the brain) presenting with progressively worsening shortness of breath over the last day - Physicial Exam PE: 05/20/19 13:52 Vitals: Triage Vital signs reviewed vomiting diarrhea General Appearance: Mild distress Head: Atraumatic, Throat: Posterior oropharynx without erythema, mucous membranes moist, Neck: Supple; no Nucal rigidity Chest Wall: Nontender Cardiac: Tachycardic Lungs: Decreased breath sounds to left lung field Abdomen: Soft, non distended, normal bowel sounds, non tender to palpation Extremities: Full range of motion to all extremities, no cyanosis, clubbing, or edema Skin: Warm and dry, no rashes or lesions, no rash, no petechiae Psych: Normal mood, normal affect - Medical Decision Making 05/20/19 16:22 Patient with large left pleural effusion tachycardia hypoxia tachypnea vital sign abnormalities likely secondary to recurrent effusion however given history of cancer will perform CTA to rule out PE patient will require admission for thoracentesis and further management. Patient with known history of metastatic cancer. Recurrent left pleural effusion Given tachycardia and shortness of breath we will perform a CTA to rule out PE Patient to be admitted to medicine for further management Heart Score/ECG Review - ECG Impressions Comment:: 05/20/19 13:56 EKG demonstrates sinus tachycardia at [address] elevations no T wave inversions Interpreted by me.
[2019-05-20] MEDS ORDERED: FUROSEMIDE 40 MG/4 ML INJECTABLE VIAL IVPUSH ONE (19:55)
[2019-05-20] MEDS ORDERED: MORPHINE SULFATE 2 MG/ML VIAL IVPUSH ONE (19:55)
--- NOTE | 2019-05-20 20:52 | RAPID ---
Physical Examination Vital Signs: Vital Signs Temperature 97.5 F L 05/20/19 19:47 Pulse Rate 120 H 05/20/19 19:47 Respiratory Rate 24 H 05/20/19 19:47 Blood Pressure 107/63 05/20/19 19:47 O2 Sat by Pulse Oximetry (%) 94 L 05/20/19 19:47 Irre-120, 131/96, O2%96, ventimask-50% Findings/Remarks: Rapid response called d/t SOB w/ desaturation to 80s. Was on 4L NC, then placed on 5L ventimask. Patient states that she felt a choking sensation dt the rapid amount of airflow from a breathing treatment. Byers panicked. Endorses multifocal pain to arms and bilateral chest wall. Denies chest pain, palpitations. Constitutional: Yes: Anxious Eyes: Yes: WNL, Conjunctiva Clear, Ptosis HENT: Yes: Atraumatic, Normocephalic Neck: Yes: Supple, Trachea Midline Respiratory: Yes: Other (reduced breath sounds on left chest). No: Rales, Rhonchi Gastrointestinal: Yes: Soft Edema: No (no edema to BLE) Labs: CBC, BMP 05/20/19 10:30 05/20/19 10:30 Rapid Response - Rapid Response Assessment: Respirations improved with ventimask. Endorses improvement in SOB. Denies chest pain. - fu CXR - EKG: occasional PVCs - fu ABG, CBC, CMP, mag, phosph - Dr Chavez made aware --ABG reviewed: hypoxia noted. Will increase O2 support as needed. From ventimask, to nonrebreather. Possible BiPAP afterwards. Dr Chavez made aware
[2019-05-20 21:50] LABS: ARTERIAL BLOOD GAS BASE EXCESS 3.7 meq/l (-2-2); ARTERIAL BLOOD GAS PCO2 41.1 mmHg (35-45); ARTERIAL BLOOD GAS PO2 67.6 mmHg (80-100); ARTERIAL BLOOD GAS pH 7.44 (7.35-7.45)
[2019-05-20] MEDS ORDERED: ALBUTEROL SO4 2.5/IPRATROPIUM 0.5 INH SOL 3 ML VIAL.NEB. NEB PRN (21:53)
[2019-05-20] MEDS ORDERED: ROSUVASTATIN CA 40 MG TABLET PO SCH (22:00)
[2019-05-20] MEDS ORDERED: PATIENT'S OWN MEDICATION (NON-FORMULARY) (Metformin Hcl [Glucophage] 1,000 MG) PO SCH (22:00)
[2019-05-20 22:15] LABS: BASO % 0.4 % (0-2.0); EOS % 0.2 % (0-4.5); HEMATOCRIT 31.1 % (32.4-45.2); HEMOGLOBIN 9.8 GM/dL (10.7-15.3); LYMPH % 12.5 % (8-40); MCH 24.5 pg (25.7-33.7); MCHC 31.6 g/dl (32.0-36.0); MEAN CELL VOLUME 77.6 fl (80-96); MEAN PLT VOLUME 6.9 fl (7.5-11.1); MONO % 11.1 % (3.8-10.2); NEUT % 75.8 % (42.8-82.8); PLATELET COUNT 373 K/MM3 (134-434); RBC 4.01 M/mm3 (3.60-5.2); RDW 21.3 % (11.6-15.6); WHITE BLOOD COUNT 22.1 K/mm3 (4.0-10.0)
[2019-05-20 22:47] LABS: BILIRUBIN,TOTAL 0.5 mg/dL (0.2-1); BLOOD UREA NITROGEN 40.6 mg/dL (7-18); CALCIUM 8.7 mg/dL (8.5-10.1); CREATININE 1.3 mg/dL (0.55-1.3); MAGNESIUM 2.4 mg/dL (1.8-2.4); TOT PROT 6.3 g/dl (6.4-8.2)
[2019-05-20 22:53] LABS: ANISOCYTOSIS 2+; PLATELET ESTIMATE ADEQUATE
[2019-05-20] MEDS: HEPARIN NA (PORCINE) 5,000 UNITS/ML 1ML VIAL SQ SCH (23:06)
[2019-05-20] MEDS: ROSUVASTATIN CA 20 MG TABLET (FP) PO SCH (23:10)
[2019-05-20] MEDS: INSULIN SLIDING SCALE (NOVOLOG) 1 VIAL SQ SCH (23:10)
[2019-05-21] MEDS ORDERED: MORPHINE SULFATE 2 MG/ML VIAL IVPUSH ONE (03:45)
[2019-05-21] MEDS: metFORMIN HCL 500 MG TABLET (FP) PO SCH ×2 (06:04→18:16)
[2019-05-21] MEDS: INSULIN SLIDING SCALE (NOVOLOG) 1 VIAL SQ SCH ×4 (06:12→21:37)
[2019-05-21 07:36] LABS: BASO % 0.1 % (0-2.0); EOS % 0.1 % (0-4.5); HEMOGLOBIN 9.6 GM/dL (10.7-15.3); LYMPH % 9.4 % (8-40); MCH 24.6 pg (25.7-33.7); MCHC 31.9 g/dl (32.0-36.0); MEAN CELL VOLUME 77.1 fl (80-96); MEAN PLT VOLUME 7.3 fl (7.5-11.1); MONO % 10.6 % (3.8-10.2); NEUT % 79.8 % (42.8-82.8); PLATELET COUNT 399 K/MM3 (134-434); RBC 3.89 M/mm3 (3.60-5.2); RDW 21.7 % (11.6-15.6); WHITE BLOOD COUNT 21.6 K/mm3 (4.0-10.0)
[2019-05-21 07:58] LABS: ALBUMIN 2.9 g/dl (3.4-5.0); BILIRUBIN,TOTAL 0.5 mg/dL (0.2-1); BLOOD UREA NITROGEN 41.1 mg/dL (7-18); CALCIUM 8.8 mg/dL (8.5-10.1); CREATININE 1.2 mg/dL (0.55-1.3); POTASSIUM 3.9 mmol/L (3.5-5.1); TOT PROT 6.3 g/dl (6.4-8.2)
[2019-05-21 08:49] LABS: ANISOCYTOSIS 2+; PLATELET ESTIMATE NORMAL
[2019-05-21] MEDS ORDERED: PIPERACILLIN/TAZOBACTAM 3.375 GM VIAL IVPB ONE ×2 (09:14→18:18)
[2019-05-21] MEDS ORDERED: DEXTROSE 5%-WATER - 50 ML IVPB ONE ×2 (09:14→18:18)
[2019-05-21] MEDS: ACETAMINOPHEN 1000 MG/100 ML VIAL (NON FORMULARY) IVPB PRN (09:27)
[2019-05-21] MEDS ORDERED: PIPERACILLIN/TAZOB 3.375 GM 3.375 GM in DEXTROSE 5%-WATER - 50 ML IVPB SCH (10:00)
[2019-05-21] MEDS ORDERED: FUROSEMIDE 20 MG TABLET (FP) PO SCH (10:00)
[2019-05-21] MEDS ORDERED: FUROSEMIDE 40 MG/4 ML INJECTABLE VIAL IVPUSH SCH (10:00)
--- NOTE | 2019-05-21 10:10 | PN ---
Progress Note (short form) - Note Progress Note: PULMONARY CONSULTATION DICTATED IMP ACUTE HYPOXIC RESPIRATORY FAILURE MASSIVE LEFT PLEURAL EFFUSION MALIGNANT METASTATIC LUNG CA ADENOCARCINOMA H/O NON-HODGKINS LYMPHOMA CHRONIC PANCREATITIS HTN HLD ANEMIA H/O GASTRIC BYPASS SURGERY PLAN CHEST TUBE INSERTION PLEUR-X CATHETER INSERTION SUPPLEMENTAL O2 ONCOLOGY EVALUATION F/U CHEST X-RAYS THORACIC SURGERY EVALUATION DR GARCIA Problem List - Problems (1) Acute hypoxemic respiratory failure Code(s): J96.01 - ACUTE RESPIRATORY FAILURE WITH HYPOXIA (2) SOB (shortness of breath) Code(s): R06.02 - SHORTNESS OF BREATH (3) Chronic pancreatitis Code(s): K86.1 - OTHER CHRONIC PANCREATITIS (4) Diabetes Code(s): E11.9 - TYPE 2 DIABETES MELLITUS WITHOUT COMPLICATIONS (5) Difficulty breathing Code(s): R06.89 - OTHER ABNORMALITIES OF BREATHING (6) H/O gastric bypass Code(s): Z98.89 - OTHER SPECIFIED POSTPROCEDURAL STATES * DO NOT USE * (7) HLD (hyperlipidemia) Code(s): E78.5 - HYPERLIPIDEMIA, UNSPECIFIED (8) HTN (hypertension) Code(s): I10 - ESSENTIAL (PRIMARY) HYPERTENSION (9) Non-Hodgkin's lymphoma Code(s): C85.90 - NON-HODGKIN LYMPHOMA, UNSPECIFIED, UNSPECIFIED SITE (10) Pleural effusion Code(s): J90 - PLEURAL EFFUSION, NOT ELSEWHERE CLASSIFIED (11) Metastatic lung cancer (metastasis from lung to other site) Code(s): C34.90 - MALIGNANT NEOPLASM OF UNSP PART OF UNSP BRONCHUS OR LUNG (12) Malignant pleural effusion Code(s): J91.0 - MALIGNANT PLEURAL EFFUSION
[2019-05-21] MEDS: DULoxetine HCL 30 MG CAPSULE.DR PO SCH (10:32)
[2019-05-21] MEDS: LOSARTAN POTASSIUM 50 MG TABLET (FP) PO SCH (10:32)
[2019-05-21] MEDS: amLODIPine BESYLATE 10 MG TABLET (FP) PO SCH (10:32)
[2019-05-21] MEDS: PANTOPRAZOLE 40 MG TABLET (FP) PO SCH (10:32)
--- NOTE | 2019-05-21 11:01 | CONS ---
PULMONARY CONSULTATION DATE OF CONSULTATION: 05/21/2019 REFERRING PHYSICIAN: Berta Chavez MD HISTORY: Patient is a 54-year-old female known to me from previous hospitalizations with a past medical history of Non-Hodgkin lymphoma in remission since 2010, chronic pancreatitis, hypertension, history of SBO status post resection, history of gastric bypass surgery, diabetes, hyperlipidemia. Recently hospitalized in April secondary to shortness of breath and left pleural effusion. At that time, patient underwent a thoracentesis in which the pleural fluid cytology was consistent with adenocarcinoma most likely secondary to lung. Emir was discharged home, was supposed to start chemotherapy with her oncologist in the [place] but she felt increasing shortness of breath at which time she presented back to the emergency room. In the ER, she was noted on x-ray to have complete opacification and left hemothorax. She had a CTA of the chest performed, which revealed a large, left pleural effusion with contralateral shift. There was no evidence of pulmonary emboli. She states for the past 3 weeks or so her shortness of breath has been worsening until yesterday when it became severe. Patient has a history of tobacco use. Quit a few years ago. There is no history of occupational exposure to chemicals or fumes. She has decreased p.o. intake and weight loss approximately 10 pounds for the past month or so. Denies any fevers, chills, hemoptysis. Has an occasional cough. Patient is noted to be hypoxemic on admission. Placed on 50% oxygen with improvement in her O2 saturation to 90s. PAST MEDICAL HISTORY: Again includes chronic pancreatic, recently diagnosed adenocarcinoma of the lung, history of Non-Hodgkin lymphoma in remission since 2010, hypertension, SBO status post resection, history of gastric bypass surgery, diabetes, and hyperlipidemia. REVIEW OF SYSTEMS: Positive orthopnea, positive dyspnea, positive cough. No chest pain, no palpitations, no fever, no chills, no hemoptysis. CURRENT MEDICATIONS: Include Cozaar, heparin subcutaneous, Cymbalta, DuoNeb, Glucophage, Norvasc, Crestor, Norvasc, Lasix, and Protonix. PHYSICAL EXAMINATION: General: Patient is a well-developed, well-nourished female awake, alert, dyspneic, and tachypneic in moderate respiratory distress. Vital Signs: Maximum temperature 99.8, heart rate 120, blood pressure 109/73, respiratory rate 24, O2 saturation 98% on 100% nonrebreather. HEENT: Normocephalic, atraumatic. Neck: Supple. Heart: Tachycardic. S1, S2. Chest: Diminished breath sounds on the left throughout. Abdomen: Soft. Bowel sounds are positive. Extremities: No cyanosis or edema. LABORATORIES: WBC 21.6, hemoglobin 9.6, hematocrit 30, platelet count of 399, 000. There are 79 polys, 9 lymphocytes, and 10 monocytes. INR is 1.16. Blood gas; pH 7.44, PCO2 of 41, PO2 of 67, bicarbonate 27, and saturation of 92. That was on 50% venturi mask. Chemistries; BUN 42, creatinine 1.2. BNP is 519. IMPRESSION: 1. Acute hypoxemic respiratory failure secondary to massive left pleural effusion, malignant. 2. Metastatic lung cancer, adenocarcinoma 3. History of Non-Hodgkin lymphoma. 4. Chronic pancreatitis. 5. Hypertension. 6. Hyperlipidemia. 7. Anemia. 8. History of gastric bypass. PLAN: Chest tube insertion. Patient will require a PleurX catheter insertion since pleural fluid has been reaccumulating at a rapid pace. Supplemental O2. Oncology evaluation. Obtain follow up chest x-rays. Monitor CBC. Can discontinue Lasix. JONATHAN GARCIA M.D. ART/[id number] MTDD
[2019-05-21] MEDS ORDERED: LIDOCAINE HCL 1%, 10 MG/ML (50 mL VIAL) SQ ONE (12:19)
[2019-05-21] MEDS ORDERED: MIDAZOLAM HCL 2 MG/2 ML SINGLE DOSE VIAL IVPUSH ONE (12:20)
[2019-05-21] MEDS ORDERED: LIDOCAINE HCL 1%, 10 MG/ML (20ML VIAL) NR ONE (12:30)
[2019-05-21] MEDS ORDERED: LIDOCAINE HCL 1%, 10 MG/ML (20ML VIAL) ONE (12:35)
--- NOTE | 2019-05-21 13:23 | PROC ---
Procedure Note Procedure: Thoracentesis: Indication: Large left sided effusion w/ hypoxia Time out performed w/ Bedside RN Consent in chart CXR and CT scan reviewed Pt was prepped and draped in the usual sterial fashion. 1% lidocaine was used to obtain local anaesthesia. Fentanyl 50mcg and versed 1mg given. Under ultrasound guidance a 20g cath was placed alone the mid scapular line between the 4/5th rib space. 2 liters of rust colored turbid fluid was removed. Patient with improved respiratory status t/o the procedure. Sample sent for cell count and culture. CXR ordered post procedure. [facility] CPT: 18781 Ultrasound Guidance: 11778
--- NOTE | 2019-05-21 13:31 | CONSULT ---
Consult Consult Specialty:: CCM Reason for Consultation:: hypoxia, large left sided plueral effusion - History of Present Illness Chief Complaint: SOB History of Present Illness: This is a 54 yo woman w/ HTN, lymphoma, lung cancer w/ mets to spine who presented with progressive SOB found to have recurrent large left sided plueral effusion. ABX started for HAP placed on zosyn. She was admitted to the floor where a DEVELOPMENT DISABILITY SPECIALIST was called for hypoxia. She was placed on NRB and transferred to ICU for continued care. In the ICU a thoracentesis was done (-2l) w/ improved dyspnea and hypoxia. O2 was weaned from NRB to NC 5lpm. - History Source History Provided By: Patient, Medical Record - Past Medical History Cardio/Vascular: Yes: HTN, Hyperlipdemia Pulmonary: Yes: Asthma. No: Cancer, O2 Dependent Gastrointestinal: Yes: Constipation, Pancreatitis. No: Diverticulitis, GERD, GI Bleed, Hiatal Hernia Hepatobiliary: Yes: Cholecystitis ...LMP: 07/05/09 Psych: Yes: Addictions Musculoskeletal: Yes: Other (Knee pain) Endocrine: Yes: Diabetes Mellitus - Past Surgical History Past Surgical History: Yes: Appendectomy, Bariatric Surgery, Cholecystectomy, C- Section, Hernia Repair - Alcohol/Substance Use Hx Alcohol Use: Yes History of Substance Use: reports: Heroin - Smoking History Smoking history: Current every day smoker Have you smoked in the past 12 months: Yes Aproximately how many cigarettes per day: 10 If you are a former smoker, when did you quit?: 07/12/15 - Social History ADL: Independent 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 12/01/14 Duloxetine HCl [Cymbalta -] 60 mg PO DAILY capsule. 07/17/15 Zolpidem Tartrate [Ambien] 10 mg PO HS PRN #0 tablet 07/17/15 Albuterol Sulfate Inhaler - [Ventolin HFA Inhaler -] 1 - 2 inh PO Q4H #1 inhaler 08/29/16 Amlodipine Besylate [Norvasc -] 10 mg PO DAILY 04/14/19 Furosemide [Lasix -] 40 mg PO DAILY 04/14/19 Insulin Degludec [Tresiba] 1 unit SQ ASDIR 04/14/19 Losartan Potassium 50 mg PO DAILY 04/14/19 Metformin HCl [Glucophage] 1,000 mg PO BID 04/14/19 Rosuvastatin [Crestor -] 40 mg PO HS 04/14/19 Zolpidem Tartrate [Ambien] 10 mg PO HS PRN #30 tablet MDD 1 04/20/19 metFORMIN HCL [Glucophage -] 1,000 mg PO BIDAC tablet 04/20/19 Family Medical History Family History: Unremarkable Review of Systems - Review of Systems Constitutional: reports: Loss of Appetite, Malaise, Weakness Respiratory: reports: Cough, Exercise Intolerance, Orthopnea, SOB, SOB on Exertion Physical Exam Vital Signs: Vital Signs Temperature 97.6 F 05/21/19 13:00 Pulse Rate 118 H 05/21/19 13:00 Respiratory Rate 25 H 05/21/19 13:00 Blood Pressure 82/54 L 05/21/19 13:00 O2 Sat by Pulse Oximetry (%) 92 L 05/21/19 12:00 Current Medications Acetaminophen (Ofirmev Injection -) 1,000 mg IVPB Q6H PRN PRN Reason: pain Last Admin: 05/21/19 09:27 Dose: 1,000 mg Albuterol/Ipratropium (Duoneb -) 1 amp NEB Q6H PRN PRN Reason: SHORTNESS OF BREATH Amlodipine Besylate (Norvasc -) 10 mg PO DAILY [facility] Last Admin: 05/21/19 10:32 Dose: 10 mg Duloxetine HCl (Cymbalta -) 60 mg PO DAILY [facility] Last Admin: 05/21/19 10:32 Dose: 60 mg Piperacillin Sod/Tazobactam (Sod 3.375 gm/ Dextrose) 50 mls @ 100 mls/hr IVPB Q8H-IV STEVE; Protocol Piperacillin Sod/Tazobactam (Sod 3.375 gm/ Dextrose) 50 mls @ 100 mls/hr IVPB Q8H-IV STEVE; Protocol Stop: 05/22/19 02:29 Last Admin: 05/21/19 09:32 Dose: 100 mls/hr Insulin Aspart (Novolog Vial Sliding Scale -) 1 vial SQ ACHS [facility]; Protocol Last Admin: 05/21/19 12:08 Dose: Not Given Losartan Potassium (Cozaar -) 50 mg PO DAILY [facility] Last Admin: 05/21/19 10:32 Dose: 50 mg Metformin HCl (Glucophage -) 1,000 mg PO BIDI [facility] Last Admin: 05/21/19 06:04 Dose: Not Given Pantoprazole Sodium (Protonix -) 40 mg PO DAILY [facility] Last Admin: 05/21/19 10:32 Dose: 40 mg Rosuvastatin Calcium (Crestor -) 40 mg PO HS [facility] Last Admin: 05/20/19 23:10 Dose: 40 mg Constitutional: Yes: Severe Distress Eyes: Yes: EOM Intact, PERRL Cardiovascular: Yes: Tachycardia, S1, S2 Respiratory: Yes: Other (abscent breath sounds on left side) Gastrointestinal: Yes: Normal Bowel Sounds, Soft, Abdomen, Obese Edema: LLE: Trace, RLE: Trace Integumentary: Yes: WNL Neurological: Yes: Alert, Oriented Labs: CBC, BMP 05/21/19 05:35 05/21/19 05:35 Imaging - Results Chest X-ray: Report Reviewed, Image Reviewed Cat Scan: Report Reviewed, Image Reviewed Problem List - Problems (1) Acute hypoxemic respiratory failure Code(s): J96.01 - ACUTE RESPIRATORY FAILURE WITH HYPOXIA (2) CAP (community acquired pneumonia) Code(s): J18.9 - PNEUMONIA, UNSPECIFIED ORGANISM Qualifiers: Laterality: unspecified laterality Qualified Code(s): J18.9 - Pneumonia, unspecified organism (3) Metastatic lung cancer (metastasis from lung to other site) Code(s): C34.90 - MALIGNANT NEOPLASM OF UNSP PART OF UNSP BRONCHUS OR LUNG (4) Non-Hodgkin's lymphoma Code(s): C85.90 - NON-HODGKIN LYMPHOMA, UNSPECIFIED, UNSPECIFIED SITE Assessment/Plan 54 yo woman w/ metastatic lung cancer w/ recurrent large left sided effusion +/ - HAP -STAT thoracentesis, send for culture and cell count -plan for pleurx cath placement Thursday -O2 for sat >90 -bronchodialators -cont anti-HTN meds -cont ABX for HAP w/ zosyn -f/u w/ Oncology -DVT PPX -GI PPX Boerem ACNP Pulm/CCM CCT: 40m
--- NOTE | 2019-05-21 15:04 | CON.ID ---
Consult Consult Specialty:: infectious diseases Referred by:: Reason for Consultation:: sob - History of Present Illness Chief Complaint: sob History of Present Illness: 54 y/o female with PMH significant for HTN, Lymphoma (in remission since 2010), Chronic Pancreatitis, SBO, DM, HLD, and adenocarcinoma of lung with mets to the spine and suspicious lesion in the brain. Pt presented to the ER wc was recommended by her oncologist(Dr Nick) w/ SOB acutely worsening over the past few days. States that she was supposed to start chemo but her oncologist found her very SOB and sent her to the ER. Also admits to nausea and mild chest pain when coughing. She admits to one month of decreased appetite as well with 10+ lbs of weight loss. Pt found to have pleural effusions and will need thoracentesis. patient was seen and patient underwent emergent thoracocentesis and about 2 l of fluid was removed currently patient feels a bit better on face mask but breathing has improved - History Source History Provided By: Patient, Medical Record Limitations to Obtaining History: Clinical Condition - Past Medical History Cardio/Vascular: Yes: HTN, Hyperlipdemia Pulmonary: Yes: Asthma. No: Cancer, O2 Dependent Gastrointestinal: Yes: Constipation, Pancreatitis. No: Diverticulitis, GERD, GI Bleed, Hiatal Hernia Hepatobiliary: Yes: Cholecystitis ...LMP: 07/05/09 Psych: Yes: Addictions Musculoskeletal: Yes: Other (Knee pain) Endocrine: Yes: Diabetes Mellitus - Past Surgical History Past Surgical History: Yes: Appendectomy, Bariatric Surgery, Cholecystectomy, C- Section, Hernia Repair - Alcohol/Substance Use Hx Alcohol Use: Yes History of Substance Use: reports: Heroin - Smoking History Smoking history: Current every day smoker Have you smoked in the past 12 months: Yes Aproximately how many cigarettes per day: 10 If you are a former smoker, when did you quit?: 07/12/15 - Social History ADL: Independent 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 12/01/14 Duloxetine HCl [Cymbalta -] 60 mg PO DAILY capsule. 07/17/15 Zolpidem Tartrate [Ambien] 10 mg PO HS PRN #0 tablet 07/17/15 Albuterol Sulfate Inhaler - [Ventolin HFA Inhaler -] 1 - 2 inh PO Q4H #1 inhaler 08/29/16 Amlodipine Besylate [Norvasc -] 10 mg PO DAILY 04/14/19 Furosemide [Lasix -] 40 mg PO DAILY 04/14/19 Insulin Degludec [Tresiba] 1 unit SQ ASDIR 04/14/19 Losartan Potassium 50 mg PO DAILY 04/14/19 Metformin HCl [Glucophage] 1,000 mg PO BID 04/14/19 Rosuvastatin [Crestor -] 40 mg PO HS 04/14/19 Zolpidem Tartrate [Ambien] 10 mg PO HS PRN #30 tablet MDD 1 04/20/19 metFORMIN HCL [Glucophage -] 1,000 mg PO BIDAC tablet 04/20/19 Review of Systems - Review of Systems Constitutional: reports: No Symptoms Eyes: reports: No Symptoms HENT: reports: No Symptoms Neck: reports: No Symptoms Cardiovascular: reports: No Symptoms Respiratory: reports: SOB, SOB on Exertion Gastrointestinal: reports: No Symptoms Genitourinary: reports: No Symptoms Musculoskeletal: reports: No Symptoms Integumentary: reports: No Symptoms Neurological: reports: No Symptoms Endocrine: reports: No Symptoms Hematology/Lymphatic: reports: No Symptoms Psychiatric: reports: No Symptoms Physical Exam Vital Signs: Vital Signs Temperature 97.6 F 05/21/19 13:00 Pulse Rate 118 H 05/21/19 13:00 Respiratory Rate 25 H 05/21/19 13:00 Blood Pressure 82/54 L 05/21/19 13:00 O2 Sat by Pulse Oximetry (%) 92 L 05/21/19 12:00 Constitutional: Yes: Well Nourished, Calm, Mild Distress HENT: Yes: Atraumatic, Normocephalic Neck: Yes: Supple, Trachea Midline Cardiovascular: Yes: Regular Rate and Rhythm Respiratory: Yes: Other (absent air entry on the left side, on face mask) Musculoskeletal: Yes: WNL Extremities: Yes: WNL Labs: CBC, BMP 05/21/19 05:35 05/21/19 05:35 Imaging - Results Chest X-ray: Report Reviewed, Image Reviewed Cat Scan: Report Reviewed, Image Reviewed Assessment/Plan Problem List - Problems (1) Acute hypoxemic respiratory failure Code(s): J96.01 - ACUTE RESPIRATORY FAILURE WITH HYPOXIA (2) SOB (shortness of breath) Code(s): R06.02 - SHORTNESS OF BREATH (3) Chronic pancreatitis Code(s): K86.1 - OTHER CHRONIC PANCREATITIS (4) Diabetes Code(s): E11.9 - TYPE 2 DIABETES MELLITUS WITHOUT COMPLICATIONS (5) Difficulty breathing Code(s): R06.89 - OTHER ABNORMALITIES OF BREATHING (6) H/O gastric bypass Code(s): Z98.89 - OTHER SPECIFIED POSTPROCEDURAL STATES * DO NOT USE * (7) HLD (hyperlipidemia) Code(s): E78.5 - HYPERLIPIDEMIA, UNSPECIFIED (8) HTN (hypertension) Code(s): I10 - ESSENTIAL (PRIMARY) HYPERTENSION (9) Non-Hodgkin's lymphoma Code(s): C85.90 - NON-HODGKIN LYMPHOMA, UNSPECIFIED, UNSPECIFIED SITE (10) Pleural effusion Code(s): J90 - PLEURAL EFFUSION, NOT ELSEWHERE CLASSIFIED (11) Metastatic lung cancer (metastasis from lung to other site) Code(s): C34.90 - MALIGNANT NEOPLASM OF UNSP PART OF UNSP BRONCHUS OR LUNG (12) Malignant pleural effusion Code(s): J91.0 - MALIGNANT PLEURAL EFFUSION plan will start patient on empiric abx resp support as per icu will need further tapping await for all cx reports cc 45 min
--- NOTE | 2019-05-21 15:12 | CONSULT ---
Consult Consult Specialty:: Thoracic Referred by:: Dr. Queen Reason for Consultation:: recurrent symptomatic malignant effusion - History of Present Illness Chief Complaint: sob History of Present Illness: 54F with MMP and lung cancer with recurrent malignant effusion p/w sob yesterday and admitted. On NRB transfer to ICU for thoracentesis. Now breathing better but was sedated so can't discuss with her plan. - History Source History Provided By: Medical Record Limitations to Obtaining History: Other (sedated from procedure) - Past Medical History Cardio/Vascular: Yes: HTN, Hyperlipdemia Pulmonary: Yes: Asthma. No: Cancer, O2 Dependent Gastrointestinal: Yes: Constipation, Pancreatitis. No: Diverticulitis, GERD, GI Bleed, Hiatal Hernia Hepatobiliary: Yes: Cholecystitis ...LMP: 07/05/09 Psych: Yes: Addictions Musculoskeletal: Yes: Other (Knee pain) Endocrine: Yes: Diabetes Mellitus - Past Surgical History Past Surgical History: Yes: Appendectomy, Bariatric Surgery, Cholecystectomy, C- Section, Hernia Repair - Alcohol/Substance Use Hx Alcohol Use: Yes History of Substance Use: reports: Heroin - Smoking History Smoking history: Current every day smoker Have you smoked in the past 12 months: Yes Aproximately how many cigarettes per day: 10 If you are a former smoker, when did you quit?: 07/12/15 - Social History ADL: Independent 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 12/01/14 Duloxetine HCl [Cymbalta -] 60 mg PO DAILY capsule. 07/17/15 Zolpidem Tartrate [Ambien] 10 mg PO HS PRN #0 tablet 07/17/15 Albuterol Sulfate Inhaler - [Ventolin HFA Inhaler -] 1 - 2 inh PO Q4H #1 inhaler 08/29/16 Amlodipine Besylate [Norvasc -] 10 mg PO DAILY 04/14/19 Furosemide [Lasix -] 40 mg PO DAILY 04/14/19 Insulin Degludec [Tresiba] 1 unit SQ ASDIR 04/14/19 Losartan Potassium 50 mg PO DAILY 04/14/19 Metformin HCl [Glucophage] 1,000 mg PO BID 04/14/19 Rosuvastatin [Crestor -] 40 mg PO HS 04/14/19 Zolpidem Tartrate [Ambien] 10 mg PO HS PRN #30 tablet MDD 1 04/20/19 metFORMIN HCL [Glucophage -] 1,000 mg PO BIDAC tablet 04/20/19 Family Medical History Family History: Unremarkable Review of Systems - Review of Systems Constitutional: reports: Lethargy, Weakness Respiratory: reports: SOB Physical Exam Vital Signs: Vital Signs Temperature 97.6 F 05/21/19 13:00 Pulse Rate 118 H 05/21/19 13:00 Respiratory Rate 25 H 05/21/19 13:00 Blood Pressure 82/54 L 05/21/19 13:00 O2 Sat by Pulse Oximetry (%) 92 L 05/21/19 12:00 Constitutional: Yes: Well Nourished Cardiovascular: Yes: Tachycardia Respiratory: Yes: Other (decreased bs left) Extremities: Yes: WNL Labs: CBC, BMP 05/21/19 05:35 05/21/19 05:35 Imaging - Results Cat Scan: Report Reviewed, Image Reviewed Problem List - Problems (1) Acute hypoxemic respiratory failure Code(s): J96.01 - ACUTE RESPIRATORY FAILURE WITH HYPOXIA (2) Malignant pleural effusion Code(s): J91.0 - MALIGNANT PLEURAL EFFUSION (3) Metastatic lung cancer (metastasis from lung to other site) Code(s): C34.90 - MALIGNANT NEOPLASM OF UNSP PART OF UNSP BRONCHUS OR LUNG (4) SOB (shortness of breath) Code(s): R06.02 - SHORTNESS OF BREATH Assessment/Plan Recurrent malignant effusion, to start chemo: -recommend vats pleurx placement, can do Thursday if patient agrees but too sedated currently, will add to schedule and reassess on Thursday.
--- NOTE | 2019-05-21 17:20 | HP ---
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 Pt presented to the ER wc was recommended by her oncologist(Dr Nick) w/ SOB acutely worsening over the past few days. States that she was supposed to start chemo but her oncologist found her very SOB and sent her to the ER. Also admits to nausea and mild chest pain when coughing. She admits to one month of decreased appetite as well with 10+ lbs of weight loss. Pt found to have pleural effusions and will need thoracentesis. - Past Medical History Cardiovascular: Yes: HTN, Hyperlipdemia Pulmonary: Yes: Asthma Gastrointestinal: Yes: Constipation, Pancreatitis Hepatobiliary: Yes: Cholecystitis, Other (SBO Chronic pancreatitis) ...LMP: 07/05/09 Heme/Onc: Yes: Other (non-hodgkibns lypmhoma s/p chemo 4 years ago Metastatic lung cancer) Endocrine: Yes: Diabetes Mellitus - Past Surgical History Past Surgical History: Yes: Appendectomy, Bariatric Surgery, Cholecystectomy, Colectomy, , Hernia Repair - Smoking History Smoking history: Current every day smoker Have you smoked in the past 12 months: Yes Aproximately how many cigarettes per day: 10 If you are a former smoker, when did you quit?: 07/12/15 - Alcohol/Substance Use Hx Alcohol Use: Yes History of Substance Use: reports: Heroin - Social History ADL: Independent 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 12/01/14 Duloxetine HCl [Cymbalta -] 60 mg PO DAILY capsule. 07/17/15 Zolpidem Tartrate [Ambien] 10 mg PO HS PRN #0 tablet 07/17/15 Albuterol Sulfate Inhaler - [Ventolin HFA Inhaler -] 1 - 2 inh PO Q4H #1 inhaler 08/29/16 Amlodipine Besylate [Norvasc -] 10 mg PO DAILY 04/14/19 Furosemide [Lasix -] 40 mg PO DAILY 04/14/19 Insulin Degludec [Tresiba] 1 unit SQ ASDIR 04/14/19 Losartan Potassium 50 mg PO DAILY 04/14/19 Metformin HCl [Glucophage] 1,000 mg PO BID 04/14/19 Rosuvastatin [Crestor -] 40 mg PO HS 04/14/19 Zolpidem Tartrate [Ambien] 10 mg PO HS PRN #30 tablet MDD 1 04/20/19 metFORMIN HCL [Glucophage -] 1,000 mg PO BIDAC tablet 04/20/19 Family Medical History Family History: Unremarkable Review of Systems - Review of Systems Constitutional: reports: Lethargy, Loss of Appetite, Malaise, Weakness Eyes: reports: No Symptoms HENT: reports: No Symptoms Neck: reports: No Symptoms Cardiovascular: reports: Shortness of Breath Respiratory: reports: Cough, SOB Gastrointestinal: reports: No Symptoms Genitourinary: reports: No Symptoms Physical Examination Vital Signs: Vital Signs Temperature 97.6 F 05/21/19 13:00 Pulse Rate 118 H 05/21/19 13:00 Respiratory Rate 25 H 05/21/19 13:00 Blood Pressure 82/54 L 05/21/19 13:00 O2 Sat by Pulse Oximetry (%) 92 L 05/21/19 12:00 Constitutional: Yes: Well Nourished HENT: Yes: WNL Neck: Yes: WNL, Supple Cardiovascular: Yes: WNL, Regular Rate and Rhythm Respiratory: Yes: Rales Gastrointestinal: Yes: WNL, Normal Bowel Sounds, Soft Musculoskeletal: Yes: WNL Extremities: Yes: WNL Edema: No Neurological: Yes: WNL, Alert, Oriented ...Motor Strength: WNL Labs: CBC, BMP 05/21/19 05:35 05/21/19 05:35 Problem List - Problems (1) SOB (shortness of breath) Assessment/Plan: Due to pleural effusions Will need thoracentesis and probable pleurx-cath Pulmonary consult Cont nebulizers Code(s): R06.02 - SHORTNESS OF BREATH (2) Metastatic lung cancer (metastasis from lung to other site) Assessment/Plan: Onco consult Code(s): C34.90 - MALIGNANT NEOPLASM OF UNSP PART OF UNSP BRONCHUS OR LUNG (3) Asthma Assessment/Plan: Cont nebulizers Code(s): J45.909 - UNSPECIFIED ASTHMA, UNCOMPLICATED (4) Diabetes Code(s): E11.9 - TYPE 2 DIABETES MELLITUS WITHOUT COMPLICATIONS (5) GERD (gastroesophageal reflux disease) Code(s): K21.9 - GASTRO-ESOPHAGEAL REFLUX DISEASE WITHOUT ESOPHAGITIS (6) H/O gastric bypass Code(s): Z98.89 - OTHER SPECIFIED POSTPROCEDURAL STATES * DO NOT USE * (7) HLD (hyperlipidemia) Code(s): E78.5 - HYPERLIPIDEMIA, UNSPECIFIED (8) HTN (hypertension) Code(s): I10 - ESSENTIAL (PRIMARY) HYPERTENSION (9) Non-Hodgkin lymphoma Code(s): C85.90 - NON-HODGKIN LYMPHOMA, UNSPECIFIED, UNSPECIFIED SITE (10) Chronic pancreatitis Code(s): K86.1 - OTHER CHRONIC PANCREATITIS
[2019-05-21] MEDS: PIPERACILLIN/TAZOB 3.375 GM 3.375 GM in DEXTROSE 5%-WATER - 50 ML IVPB SCH (18:35)
--- NOTE | 2019-05-21 21:29 | CONSULT ---
Consult Consult Specialty:: Onc Referred by:: Dr. Chavez Reason for Consultation:: lung cancer - History of Present Illness Chief Complaint: Dyspnea History of Present Illness: 54F with hx stage III follicular lymphoma s/p Rituxan based regimen in 2010 and recently diagnosed Stage IV adenocarcinoma of lung (04/2019), followed by Dr. Yuri Nick, admitted with dyspnea. Pt initially presented to [facility] 03/2019 with SOB and was found to have a large L pleural effusion. A thoracentesis performed on 04/04 noted + cytology showing an adenocarcinoma that stained strongly for CK7 and BerEP4 as well as focally + for Napsin A. The PD-L1 TPS was <1%. An outpatient PET scan showed an FDG avid MAURIZIO lung nodule along with avid mediastinal adenopathy and stable minimally avid retroperitoneal LN's. EGFR, ALK and ROS1 testing were all negative. Patient had 2 more hospitalizations in the last month with respiratory symptoms requiring repeat thoracentesis. Chest CT showed a MAURIZIO mass, hilar / mediastinal adenopathy, and a moderate L pleural effusion and several sclerotic bone lesions. A follow up bone scan showed some increased uptake at T10, lower lumbar spine, R sacroiliac bone and the distal L femur. Brain MRI performed to complete staging showed enhancing lesions seen at the mari / white junction representing either metastatic disease or an embolic process.She had no neurologic symptoms. At last visit with Dr. Nick (05/17), pt was planned to start Alimta / Carboplatin and Pembrolizumab. She is s/p thoracentesis with removal of 2L this afternoon. She reports improvement in breathing. - Past Medical History Cardio/Vascular: Yes: HTN, Hyperlipdemia Pulmonary: Yes: Asthma. No: Cancer, O2 Dependent Gastrointestinal: Yes: Constipation, Pancreatitis. No: Diverticulitis, GERD, GI Bleed, Hiatal Hernia Hepatobiliary: Yes: Cholecystitis ...LMP: 07/05/09 Psych: Yes: Addictions Musculoskeletal: Yes: Other (Knee pain) Endocrine: Yes: Diabetes Mellitus - Past Surgical History Past Surgical History: Yes: Appendectomy, Bariatric Surgery, Cholecystectomy, C- Section, Hernia Repair - Alcohol/Substance Use Hx Alcohol Use: Yes History of Substance Use: reports: Heroin - Smoking History Smoking history: Current every day smoker Have you smoked in the past 12 months: Yes Aproximately how many cigarettes per day: 10 If you are a former smoker, when did you quit?: 07/12/15 - Social History ADL: Independent 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 12/01/14 Duloxetine HCl [Cymbalta -] 60 mg PO DAILY capsule. 07/17/15 Zolpidem Tartrate [Ambien] 10 mg PO HS PRN #0 tablet 07/17/15 Albuterol Sulfate Inhaler - [Ventolin HFA Inhaler -] 1 - 2 inh PO Q4H #1 inhaler 08/29/16 Amlodipine Besylate [Norvasc -] 10 mg PO DAILY 04/14/19 Furosemide [Lasix -] 40 mg PO DAILY 04/14/19 Insulin Degludec [Tresiba] 1 unit SQ ASDIR 04/14/19 Losartan Potassium 50 mg PO DAILY 04/14/19 Metformin HCl [Glucophage] 1,000 mg PO BID 04/14/19 Rosuvastatin [Crestor -] 40 mg PO HS 04/14/19 Zolpidem Tartrate [Ambien] 10 mg PO HS PRN #30 tablet MDD 1 04/20/19 metFORMIN HCL [Glucophage -] 1,000 mg PO BIDAC tablet 04/20/19 Review of Systems - Review of Systems Constitutional: denies: Chills, Fever Eyes: reports: No Symptoms Cardiovascular: reports: Shortness of Breath Respiratory: reports: Cough. denies: Hemoptysis Gastrointestinal: reports: No Symptoms Physical Exam Vital Signs: Vital Signs Temperature 98 F 05/21/19 17:00 Pulse Rate 114 H 05/21/19 20:00 Respiratory Rate 24 H 05/21/19 20:00 Blood Pressure 98/66 05/21/19 20:00 O2 Sat by Pulse Oximetry (%) 90 L 05/21/19 20:00 Constitutional: Yes: Mild Distress Eyes: Yes: Conjunctiva Clear Cardiovascular: Yes: Regular Rate and Rhythm Respiratory: Yes: Regular, On Nasal O2 Gastrointestinal: Yes: Soft. No: Tenderness Labs: CBC, BMP 05/21/19 05:35 05/21/19 05:35 Assessment/Plan 54F, pt of Dr. Nick, with hx stage III follicular lymphoma s/p Rituxan based regimen in 2010 and recently diagnosed Stage IV adenocarcinoma of lung (04/2019) , EGFR, ALK, ROS1 negative, metastatic to spine and likely brain, and c/b recurrent left pleural effusions admitted with dyspnea 2/2 pleural effusion s/p repeat thoracentesis today with 2L removed and improvement in SOB. Appreciate thoracic surgery eval. Planned for PleurX cathether. Planned to start chemotherapy with carbo/alimta/pembro as outpatient.
[2019-05-21] MEDS: ROSUVASTATIN CA 20 MG TABLET (FP) PO SCH (21:36)
--- NOTE | 2019-05-21 21:53 | PN ---
Progress Note, Physician - Current Medication List Current Medications: Active Medications Acetaminophen (Ofirmev Injection -) 1,000 mg IVPB Q6H PRN PRN Reason: pain Last Admin: 05/21/19 09:27 Dose: 1,000 mg Albuterol/Ipratropium (Duoneb -) 1 amp NEB Q6H PRN PRN Reason: SHORTNESS OF BREATH Amlodipine Besylate (Norvasc -) 10 mg PO DAILY [facility] Last Admin: 05/21/19 10:32 Dose: 10 mg Duloxetine HCl (Cymbalta -) 60 mg PO DAILY [facility] Last Admin: 05/21/19 10:32 Dose: 60 mg Piperacillin Sod/Tazobactam (Sod 3.375 gm/ Dextrose) 50 mls @ 100 mls/hr IVPB Q8H-IV [facility]; Protocol Last Admin: 05/21/19 18:35 Dose: 100 mls/hr Insulin Aspart (Novolog Vial Sliding Scale -) 1 vial SQ ACHS [facility]; Protocol Last Admin: 05/21/19 21:37 Dose: 2 units Losartan Potassium (Cozaar -) 50 mg PO DAILY [facility] Last Admin: 05/21/19 10:32 Dose: 50 mg Metformin HCl (Glucophage -) 1,000 mg PO BIDI [facility] Last Admin: 05/21/19 18:16 Dose: Not Given Pantoprazole Sodium (Protonix -) 40 mg PO DAILY [facility] Last Admin: 05/21/19 10:32 Dose: 40 mg Rosuvastatin Calcium (Crestor -) 40 mg PO HS [facility] Last Admin: 05/21/19 21:36 Dose: 40 mg - Objective Vital Signs: Vital Signs Temperature 98 F 05/21/19 17:00 Pulse Rate 114 H 05/21/19 20:00 Respiratory Rate 24 H 05/21/19 20:00 Blood Pressure 98/66 05/21/19 20:00 O2 Sat by Pulse Oximetry (%) 90 L 05/21/19 20:00 Labs: CBC, BMP 05/21/19 05:35 05/21/19 05:35 INR, PTT INR 1.16 (0.83-1.09) H 05/20/19 10:30
[2019-05-21] MEDS: HEPARIN NA (PORCINE) 5,000 UNITS/ML 1ML VIAL SQ SCH (21:58)
[2019-05-22] MEDS ORDERED: PIPERACILLIN/TAZOBACTAM 3.375 GM VIAL IVPB ONE ×3 (01:41→16:18)
[2019-05-22] MEDS ORDERED: DEXTROSE 5%-WATER - 50 ML IVPB ONE ×3 (01:41→16:19)
[2019-05-22] MEDS ORDERED: LORazepam 1 MG TABLET PO ONE (01:44)
[2019-05-22] MEDS: PIPERACILLIN/TAZOB 3.375 GM 3.375 GM in DEXTROSE 5%-WATER - 50 ML IVPB SCH ×3 (01:52→17:19)
[2019-05-22] MEDS: INSULIN SLIDING SCALE (NOVOLOG) 1 VIAL SQ SCH ×4 (06:22→21:11)
[2019-05-22 06:39] LABS: HEMATOCRIT 28.8 % (32.4-45.2); HEMOGLOBIN 9.3 GM/dL (10.7-15.3); MCH 24.9 pg (25.7-33.7); MCHC 32.3 g/dl (32.0-36.0); MEAN CELL VOLUME 77.1 fl (80-96); PLATELET COUNT 338 K/MM3 (134-434); RBC 3.73 M/mm3 (3.60-5.2); RDW 22.1 % (11.6-15.6); WHITE BLOOD COUNT 17.7 K/mm3 (4.0-10.0)
[2019-05-22 07:01] LABS: BLOOD UREA NITROGEN 31.7 mg/dL (7-18); CREATININE 1.2 mg/dL (0.55-1.3); MAGNESIUM 2.4 mg/dL (1.8-2.4); PHOSPHOROUS 3.5 mg/dL (2.5-4.9)
[2019-05-22] MEDS: metFORMIN HCL 500 MG TABLET (FP) PO SCH ×2 (07:08→16:51)
[2019-05-22] MEDS ORDERED: PT OWN MED DRAWER 7, Y5N ONE (09:41)
[2019-05-22] MEDS: ACETAMINOPHEN 1000 MG/100 ML VIAL (NON FORMULARY) IVPB PRN ×2 (09:51→21:10)
[2019-05-22] MEDS: DULoxetine HCL 30 MG CAPSULE.DR PO SCH (09:54)
[2019-05-22] MEDS: LOSARTAN POTASSIUM 50 MG TABLET (FP) PO SCH ×2 (09:54→10:04)
[2019-05-22] MEDS: amLODIPine BESYLATE 10 MG TABLET (FP) PO SCH ×2 (09:54→10:03)
[2019-05-22] MEDS: PANTOPRAZOLE 40 MG TABLET (FP) PO SCH (09:54)
--- NOTE | 2019-05-22 13:49 | PN ---
Progress Note (short form) - Note Progress Note: Progress Note Pulm/CCM Pt seen and examined in the ICU. Remains on Venti-mask 50%. Slightly tachypneic , tachycardic but in NAD s/p thoracentesis overnight (-2L). Plan for pleurex drain in am. Active Medications Acetaminophen (Ofirmev Injection -) 1,000 mg IVPB Q6H PRN PRN Reason: pain Last Admin: 05/22/19 09:51 Dose: 1,000 mg Albuterol/Ipratropium (Duoneb -) 1 amp NEB Q6H PRN PRN Reason: SHORTNESS OF BREATH Amlodipine Besylate (Norvasc -) 10 mg PO DAILY [facility] Last Admin: 05/22/19 10:03 Dose: Not Given Duloxetine HCl (Cymbalta -) 60 mg PO DAILY [facility] Last Admin: 05/22/19 09:54 Dose: 60 mg Piperacillin Sod/Tazobactam (Sod 3.375 gm/ Dextrose) 50 mls @ 100 mls/hr IVPB Q8H-IV [facility]; Protocol Last Admin: 05/22/19 09:53 Dose: 100 mls/hr Insulin Aspart (Novolog Vial Sliding Scale -) 1 vial SQ ACHS [facility]; Protocol Last Admin: 05/22/19 12:09 Dose: 4 units Losartan Potassium (Cozaar -) 50 mg PO DAILY [facility] Last Admin: 05/22/19 10:04 Dose: Not Given Metformin HCl (Glucophage -) 1,000 mg PO BIDI [facility] Last Admin: 05/22/19 07:08 Dose: Not Given Pantoprazole Sodium (Protonix -) 40 mg PO DAILY [facility] Last Admin: 05/22/19 09:54 Dose: 40 mg Rosuvastatin Calcium (Crestor -) 40 mg PO HS [facility] Last Admin: 05/21/19 21:36 Dose: 40 mg Vital Signs Period Temp Pulse Resp BP Sys/Villeda Pulse Ox Last 24 Hr 97.8 F-98.9 F 104-114 21-28 83-111/54-93 90-94 Intake & Output 05/19/19 05/20/19 05/21/19 05/22/19 23:59 23:59 23:59 23:59 Intake Total 200 810 320 Output Total 2450 Balance 200 -1640 320 Weight 82.554 kg 81.647 kg Exam Gen: Sitting up in bed, dyspneic on venti mask HEENT: MMM Resp: LLL no air movement CV: S1S2 Tachy RR, no m/r/g noted Abd: Soft, NT, ND Ext: WWP, no edema, + Pulses Skin: c/d/i CBC, BMP 05/22/19 05:45 05/22/19 05:45 Imaging - Results Chest X-ray: Report Reviewed, Image Reviewed Cat Scan: Report Reviewed, Image Reviewed Problem List - Problems (1) Acute hypoxemic respiratory failure Code(s): J96.01 - ACUTE RESPIRATORY FAILURE WITH HYPOXIA (2) CAP (community acquired pneumonia) Code(s): J18.9 - PNEUMONIA, UNSPECIFIED ORGANISM Qualifiers: Laterality: unspecified laterality Qualified Code(s): J18.9 - Pneumonia, unspecified organism (3) Metastatic lung cancer (metastasis from lung to other site) Code(s): C34.90 - MALIGNANT NEOPLASM OF UNSP PART OF UNSP BRONCHUS OR LUNG (4) Non-Hodgkin's lymphoma Code(s): C85.90 - NON-HODGKIN LYMPHOMA, UNSPECIFIED, UNSPECIFIED SITE Assessment/Plan 54 yo woman w/ metastatic lung cancer w/ recurrent large left sided effusion +/ - HAP s/p thoracentesis -f/u culture and cell count -plan for pleurx cath placement Thursday -O2 for sat >90 -bronchodialators -Hold anti-HTN meds -cont ABX for HAP w/ zosyn -f/u w/ Oncology -DVT PPX -GI PPX Sarah Franco, ACNP Pulm/CCM 34 m
--- NOTE | 2019-05-22 14:25 | PN ---
Progress Note, Physician History of Present Illness: continues to be sob on face mask better after thoraco centesis plan for pleurex in am - Current Medication List Current Medications: Active Medications Acetaminophen (Ofirmev Injection -) 1,000 mg IVPB Q6H PRN PRN Reason: pain Last Admin: 05/22/19 09:51 Dose: 1,000 mg Albuterol/Ipratropium (Duoneb -) 1 amp NEB Q6H PRN PRN Reason: SHORTNESS OF BREATH Amlodipine Besylate (Norvasc -) 10 mg PO DAILY [facility] Last Admin: 05/22/19 10:03 Dose: Not Given Duloxetine HCl (Cymbalta -) 60 mg PO DAILY [facility] Last Admin: 05/22/19 09:54 Dose: 60 mg Piperacillin Sod/Tazobactam (Sod 3.375 gm/ Dextrose) 50 mls @ 100 mls/hr IVPB Q8H-IV [facility]; Protocol Last Admin: 05/22/19 09:53 Dose: 100 mls/hr Insulin Aspart (Novolog Vial Sliding Scale -) 1 vial SQ ACHS [facility]; Protocol Last Admin: 05/22/19 12:09 Dose: 4 units Losartan Potassium (Cozaar -) 50 mg PO DAILY [facility] Last Admin: 05/22/19 10:04 Dose: Not Given Metformin HCl (Glucophage -) 1,000 mg PO BIDI [facility] Last Admin: 05/22/19 07:08 Dose: Not Given Pantoprazole Sodium (Protonix -) 40 mg PO DAILY [facility] Last Admin: 05/22/19 09:54 Dose: 40 mg Rosuvastatin Calcium (Crestor -) 40 mg PO HS [facility] Last Admin: 05/21/19 21:36 Dose: 40 mg - Objective Vital Signs: Vital Signs Temperature 98.2 F 05/22/19 12:00 Pulse Rate 112 H 05/22/19 13:59 Respiratory Rate 33 H 05/22/19 13:59 Blood Pressure 82/55 L 05/22/19 13:59 O2 Sat by Pulse Oximetry (%) 94 L 05/22/19 08:00 Constitutional: Yes: Calm, Mild Distress Cardiovascular: Yes: Regular Rate and Rhythm Respiratory: Yes: Poor Air Entry, Other (on face mask pleural effusion) Gastrointestinal: Yes: Normal Bowel Sounds, Soft, Abdomen, Obese Musculoskeletal: Yes: WNL Extremities: Yes: WNL Neurological: Yes: Alert, Oriented Psychiatric: Yes: Alert, Oriented Labs: CBC, BMP 05/22/19 05:45 05/22/19 05:45 INR, PTT INR 1.16 (0.83-1.09) H 05/20/19 10:30 Assessment/Plan Problem List - Problems (1) Acute hypoxemic respiratory failure Code(s): J96.01 - ACUTE RESPIRATORY FAILURE WITH HYPOXIA (2) SOB (shortness of breath) Code(s): R06.02 - SHORTNESS OF BREATH (3) Chronic pancreatitis Code(s): K86.1 - OTHER CHRONIC PANCREATITIS (4) Diabetes Code(s): E11.9 - TYPE 2 DIABETES MELLITUS WITHOUT COMPLICATIONS (5) Difficulty breathing Code(s): R06.89 - OTHER ABNORMALITIES OF BREATHING (6) H/O gastric bypass Code(s): Z98.89 - OTHER SPECIFIED POSTPROCEDURAL STATES * DO NOT USE * (7) HLD (hyperlipidemia) Code(s): E78.5 - HYPERLIPIDEMIA, UNSPECIFIED (8) HTN (hypertension) Code(s): I10 - ESSENTIAL (PRIMARY) HYPERTENSION (9) Non-Hodgkin's lymphoma Code(s): C85.90 - NON-HODGKIN LYMPHOMA, UNSPECIFIED, UNSPECIFIED SITE (10) Pleural effusion Code(s): J90 - PLEURAL EFFUSION, NOT ELSEWHERE CLASSIFIED (11) Metastatic lung cancer (metastasis from lung to other site) Code(s): C34.90 - MALIGNANT NEOPLASM OF UNSP PART OF UNSP BRONCHUS OR LUNG (12) Malignant pleural effusion Code(s): J91.0 - MALIGNANT PLEURAL EFFUSION plan conitnue empiric abx await for all cx reports will deescalte once the procedure is done rest as per theteam
[2019-05-22] MEDS ORDERED: MORPHINE SULFATE 2 MG/ML VIAL ONE (17:56)
[2019-05-22] MEDS: MORPHINE SULFATE 2 MG/ML VIAL IVPUSH PRN ×2 (18:09→22:22)
[2019-05-22 18:42] LABS: EPI CELLS 10.7 /HPF (0-5/HPF); HYALINE CASTS 3 /lpf (0-8); URINE APPEARANCE CLOUDY; URINE BACTERIA 0.8 /hpf (NEGATIVE); URINE BILIRUBIN NEGATIVE (NEGATIVE); URINE COLOR YELLOW; URINE GLUCOSE (UA) NEGATIVE (NEGATIVE); URINE KETONE NEGATIVE (NEGATIVE); URINE LEUK ESTERASE NEGATIVE (NEGATIVE); URINE NITRITE NEGATIVE (NEGATIVE); URINE PROTEIN TRACE (NEGATIVE); URINE RBC 3 /hpf (0-4); URINE UROBILINOGEN 0.2 mg/dL (0.2-1.0); URINE WBC 7 /hpf (0-5)
[2019-05-22 19:03] LABS: URINE CRYSTALS URIC ACID /hpf
--- NOTE | 2019-05-22 20:05 | PN ---
Progress Note, Physician History of Present Illness: Still with SOB but much better than on presentation - Current Medication List Current Medications: Active Medications Acetaminophen (Ofirmev Injection -) 1,000 mg IVPB Q6H PRN PRN Reason: pain Last Admin: 05/22/19 09:51 Dose: 1,000 mg Albuterol/Ipratropium (Duoneb -) 1 amp NEB Q6H PRN PRN Reason: SHORTNESS OF BREATH Amlodipine Besylate (Norvasc -) 10 mg PO DAILY [facility] Last Admin: 05/22/19 10:03 Dose: Not Given Duloxetine HCl (Cymbalta -) 60 mg PO DAILY [facility] Last Admin: 05/22/19 09:54 Dose: 60 mg Piperacillin Sod/Tazobactam (Sod 3.375 gm/ Dextrose) 50 mls @ 100 mls/hr IVPB Q8H-IV [facility]; Protocol Last Admin: 05/22/19 17:19 Dose: 100 mls/hr Insulin Aspart (Novolog Vial Sliding Scale -) 1 vial SQ ACHS [facility]; Protocol Last Admin: 05/22/19 16:52 Dose: 2 units Losartan Potassium (Cozaar -) 50 mg PO DAILY [facility] Last Admin: 05/22/19 10:04 Dose: Not Given Metformin HCl (Glucophage -) 1,000 mg PO BIDI [facility] Last Admin: 05/22/19 16:51 Dose: 1,000 mg Morphine Sulfate (Morphine Sulfate) 2 mg IVPUSH Q4H PRN PRN Reason: PAIN LEVEL 1-5 Last Admin: 05/22/19 18:09 Dose: 2 mg Pantoprazole Sodium (Protonix -) 40 mg PO DAILY [facility] Last Admin: 05/22/19 09:54 Dose: 40 mg Rosuvastatin Calcium (Crestor -) 40 mg PO HS [facility] Last Admin: 05/21/19 21:36 Dose: 40 mg Zolpidem Tartrate (Ambien -) 10 mg PO HS PRN PRN Reason: INSOMNIA - Objective Vital Signs: Vital Signs Temperature 98.2 F 05/22/19 12:00 Pulse Rate 113 H 05/22/19 19:35 Respiratory Rate 30 H 05/22/19 19:35 Blood Pressure 95/48 L 05/22/19 19:35 O2 Sat by Pulse Oximetry (%) 94 L 05/22/19 19:38 Constitutional: Yes: No Distress, Calm Respiratory: Yes: Regular, On Nasal O2 Gastrointestinal: Yes: Soft. No: Distention, Tenderness Edema: No Labs: CBC, BMP 05/22/19 05:45 05/22/19 05:45 INR, PTT INR 1.16 (0.83-1.09) H 05/20/19 10:30 Assessment/Plan 54F, pt of Dr. Nick, with hx stage III follicular lymphoma s/p Rituxan based regimen in 2010 and recently diagnosed Stage IV adenocarcinoma of lung (04/2019) , EGFR, ALK, ROS1 negative, metastatic to spine and likely brain, and c/b recurrent left pleural effusions admitted with dyspnea 2/2 pleural effusion s/p repeat thoracentesis today with 2L removed and improvement in SOB. Appreciate thoracic surgery eval. Planned for PleurX cathether tomorrow. Planned to start chemotherapy with carbo/alimta/pembro as outpatient.
--- NOTE | 2019-05-22 20:15 | EKG ---
Test Reason : Blood Pressure : / mmHG Vent. Rate : 118 BPM Atrial Rate : 118 BPM P-R Int : 124 ms QRS Dur : 086 ms QT Int : 310 ms P-R-T Axes : 056 050 268 degrees QTc Int : 434 ms SINUS TACHYCARDIA WITH PREMATURE VENTRICULAR COMPLEXES SEPTAL INFARCT (CITED ON OR BEFORE 20-MAY-2019) T WAVE ABNORMALITY, CONSIDER INFERIOR ISCHEMIA ABNORMAL ECG WHEN COMPARED WITH ECG OF 20-MAY-2019 10:07, QUESTIONABLE CHANGE IN INITIAL FORCES OF SEPTAL LEADS INVERTED T WAVES HAVE REPLACED NONSPECIFIC T WAVE ABNORMALITY IN INFERIOR LEADS Confirmed by PORFIRIO CARR MD ([id number]) on 05/22/2019 8:14:37 PM Referred By: Confirmed By:PORFIRIO CARR MD
--- NOTE | 2019-05-22 20:16 | PN ---
Progress Note, Physician History of Present Illness: Pt still w/ SOB - Current Medication List Current Medications: Active Medications Acetaminophen (Ofirmev Injection -) 1,000 mg IVPB Q6H PRN PRN Reason: pain Last Admin: 05/22/19 09:51 Dose: 1,000 mg Albuterol/Ipratropium (Duoneb -) 1 amp NEB Q6H PRN PRN Reason: SHORTNESS OF BREATH Amlodipine Besylate (Norvasc -) 10 mg PO DAILY [facility] Last Admin: 05/22/19 10:03 Dose: Not Given Duloxetine HCl (Cymbalta -) 60 mg PO DAILY [facility] Last Admin: 05/22/19 09:54 Dose: 60 mg Piperacillin Sod/Tazobactam (Sod 3.375 gm/ Dextrose) 50 mls @ 100 mls/hr IVPB Q8H-IV [facility]; Protocol Last Admin: 05/22/19 17:19 Dose: 100 mls/hr Insulin Aspart (Novolog Vial Sliding Scale -) 1 vial SQ ACHS [facility]; Protocol Last Admin: 05/22/19 16:52 Dose: 2 units Losartan Potassium (Cozaar -) 50 mg PO DAILY [facility] Last Admin: 05/22/19 10:04 Dose: Not Given Metformin HCl (Glucophage -) 1,000 mg PO BIDI [facility] Last Admin: 05/22/19 16:51 Dose: 1,000 mg Morphine Sulfate (Morphine Sulfate) 2 mg IVPUSH Q4H PRN PRN Reason: PAIN LEVEL 1-5 Last Admin: 05/22/19 18:09 Dose: 2 mg Pantoprazole Sodium (Protonix -) 40 mg PO DAILY [facility] Last Admin: 05/22/19 09:54 Dose: 40 mg Rosuvastatin Calcium (Crestor -) 40 mg PO HS [facility] Last Admin: 05/21/19 21:36 Dose: 40 mg Zolpidem Tartrate (Ambien -) 10 mg PO HS PRN PRN Reason: INSOMNIA - Objective Vital Signs: Vital Signs Temperature 98.2 F 05/22/19 12:00 Pulse Rate 113 H 05/22/19 19:35 Respiratory Rate 30 H 05/22/19 19:35 Blood Pressure 95/48 L 05/22/19 19:35 O2 Sat by Pulse Oximetry (%) 94 L 05/22/19 19:38 Neck: Yes: WNL, Supple Cardiovascular: Yes: WNL, Regular Rate and Rhythm Respiratory: Yes: Rales Gastrointestinal: Yes: WNL, Normal Bowel Sounds, Soft Labs: CBC, BMP 05/22/19 05:45 05/22/19 05:45 INR, PTT INR 1.16 (0.83-1.09) H 05/20/19 10:30 Problem List - Problems (1) SOB (shortness of breath) Assessment/Plan: Due to pleural effusions S/P thoracentesis and probable pleurx-cath in am Pulmonary/thoracic surgery consults noted Cont nebulizers Code(s): R06.02 - SHORTNESS OF BREATH (2) Metastatic lung cancer (metastasis from lung to other site) Assessment/Plan: Onco consult Code(s): C34.90 - MALIGNANT NEOPLASM OF UNSP PART OF UNSP BRONCHUS OR LUNG (3) Asthma Assessment/Plan: Cont nebulizers Code(s): J45.909 - UNSPECIFIED ASTHMA, UNCOMPLICATED (4) Chronic pancreatitis Code(s): K86.1 - OTHER CHRONIC PANCREATITIS (5) Diabetes Assessment/Plan: Cont metformin Cont sliding scale w/ coverage Code(s): E11.9 - TYPE 2 DIABETES MELLITUS WITHOUT COMPLICATIONS (6) GERD (gastroesophageal reflux disease) Code(s): K21.9 - GASTRO-ESOPHAGEAL REFLUX DISEASE WITHOUT ESOPHAGITIS (7) HLD (hyperlipidemia) Assessment/Plan: Cont lipitor Code(s): E78.5 - HYPERLIPIDEMIA, UNSPECIFIED (8) HTN (hypertension) Assessment/Plan: BP stable Cont norvasc Code(s): I10 - ESSENTIAL (PRIMARY) HYPERTENSION (9) Non-Hodgkin lymphoma Assessment/Plan: In remission Treated 4 yrs ago Code(s): C85.90 - NON-HODGKIN LYMPHOMA, UNSPECIFIED, UNSPECIFIED SITE
--- NOTE | 2019-05-22 20:28 | EKG ---
Test Reason : Blood Pressure : / mmHG Vent. Rate : 123 BPM Atrial Rate : 123 BPM P-R Int : 122 ms QRS Dur : 084 ms QT Int : 334 ms P-R-T Axes : 057 044 090 degrees QTc Int : 478 ms SINUS TACHYCARDIA WITH FREQUENT PREMATURE VENTRICULAR COMPLEXES SEPTAL INFARCT , AGE UNDETERMINED NONSPECIFIC T WAVE ABNORMALITY ABNORMAL ECG WHEN COMPARED WITH ECG OF 14-APR-2019 18:04, PREMATURE VENTRICULAR COMPLEXES ARE NOW PRESENT NON-SPECIFIC CHANGE IN ST SEGMENT IN INFERIOR LEADS NONSPECIFIC T WAVE ABNORMALITY NOW EVIDENT IN INFERIOR LEADS T WAVE INVERSION NOW EVIDENT IN LATERAL LEADS Confirmed by PORFIRIO CARR MD ([id number]) on 05/22/2019 8:28:16 PM Referred By: Confirmed By:PORFIRIO CARR MD
[2019-05-22] MEDS: ZOLPIDEM TARTRATE 5 MG TABLET PO PRN (21:09)
[2019-05-22] MEDS: ROSUVASTATIN CA 20 MG TABLET (FP) PO SCH (21:10)
[2019-05-23] MEDS: DEXMEDETOMIDINE HCL 200 MCG in SODIUM CHLORIDE 48 ML IVPB SCH ×2 (00:05→22:59)
[2019-05-23] MEDS ORDERED: PIPERACILLIN/TAZOBACTAM 3.375 GM VIAL IVPB ONE ×3 (01:33→16:34)
[2019-05-23] MEDS ORDERED: DEXTROSE 5%-WATER - 50 ML IVPB ONE ×3 (01:34→16:35)
[2019-05-23] MEDS: PIPERACILLIN/TAZOB 3.375 GM 3.375 GM in DEXTROSE 5%-WATER - 50 ML IVPB SCH ×3 (02:40→17:04)
[2019-05-23] MEDS: MORPHINE SULFATE 2 MG/ML VIAL IVPUSH PRN ×3 (06:22→20:36)
[2019-05-23 06:36] LABS: HEMATOCRIT 29.8 % (32.4-45.2); HEMOGLOBIN 9.6 GM/dL (10.7-15.3); MCH 24.8 pg (25.7-33.7); MCHC 32.4 g/dl (32.0-36.0); MEAN CELL VOLUME 76.7 fl (80-96); PLATELET COUNT 340 K/MM3 (134-434); RBC 3.88 M/mm3 (3.60-5.2); RDW 21.7 % (11.6-15.6); WHITE BLOOD COUNT 19.2 K/mm3 (4.0-10.0)
[2019-05-23 06:45] LABS: ARTERIAL BLOOD GAS BASE EXCESS 4.8 meq/l (-2-2); ARTERIAL BLOOD GAS PO2 63.7 mmHg (80-100); ARTERIAL BLOOD GAS pH 7.48 (7.35-7.45)
[2019-05-23] MEDS: metFORMIN HCL 500 MG TABLET (FP) PO SCH ×2 (06:49→16:39)
[2019-05-23] MEDS: INSULIN SLIDING SCALE (NOVOLOG) 1 VIAL SQ SCH ×4 (06:49→22:59)
[2019-05-23 06:56] LABS: ALLENS TEST POSITIVE
[2019-05-23 06:56] LABS: INR 1.22 (0.83-1.09); PROTHROMBIN TIME (PATIENT) 14.4 SEC (9.7-13.0)
[2019-05-23 06:59] LABS: ACTIVATED PTT 28.1 SECONDS (25.2-36.5)
[2019-05-23 07:03] LABS: BLOOD UREA NITROGEN 29.5 mg/dL (7-18); CALCIUM 8.3 mg/dL (8.5-10.1); CREATININE 1.3 mg/dL (0.55-1.3); POTASSIUM 4.1 mmol/L (3.5-5.1)
--- NOTE | 2019-05-23 07:50 | PN ---
Physical Exam: SUBJECTIVE: Patient seen and examined at bedside. Complaining of severe pain all over her body, worse with coughing. Denies resolution with 2mg Morphine PRN. Remains on 50% venturi mask. On precedex 0.2 mcg. NPO today for planned VATS / Pleurex catheter placement in the OR. CXR: Diffuse opacification of entire left lung field c/w massive pleural effusion. OBJECTIVE: Vital Signs Period Temp Pulse Resp BP Sys/Villeda Pulse Ox Last 24 Hr 97.8 F-98.4 F 106-118 25-38 82-114/48-84 94-94 GENERAL: The patient is awake, alert, and fully oriented, in no acute distress. HEAD: Normal with no signs of trauma. EYES: PERRL, extraocular movements intact, sclera anicteric, conjunctiva clear. No ptosis. ENT: Ears normal, nares patent, oropharynx clear without exudates, moist mucous membranes. NECK: Trachea midline, full range of motion, supple. LUNGS: Breath sounds reduced across L lung field, no wheezes, no crackles, no accessory muscle use, coughing HEART: Regular rate and rhythm, S1, S2 without murmur, rub or gallop. ABDOMEN: Soft, nontender, nondistended, normoactive bowel sounds, no guarding, no rebound, no hepatosplenomegaly, no masses. EXTREMITIES: 2+ pulses, warm, well-perfused, no edema. NEUROLOGICAL: Cranial nerves II through XII grossly intact. Normal speech, gait not observed. PSYCH: Normal mood, normal affect. SKIN: Warm, dry, normal turgor, no rashes or lesions noted Laboratory Results - last 24 hr 05/22/19 05/22/19 05/22/19 12:01 16:49 18:20 PT with INR INR PTT (Actin FS) Anticoagulation Therapy Puncture Site ABG pH ABG pCO2 at Pt Temp ABG pO2 at Pt Temp ABG HCO3 ABG O2 Sat (Measured) ABG O2 Content ABG Base Excess Larry Test O2 Delivery Device Oxygen Flow Rate Vent Mode Vent Rate Mechanical Rate Pressure Support Vent Sodium Potassium Chloride Carbon Dioxide Anion Gap BUN Creatinine Est GFR (CKD-EPI)AfAm Est GFR (CKD-EPI)NonAf POC Glucometer 204 183 Random Glucose Calcium Urine Color Yellow Urine Appearance Cloudy Urine pH 5.0 Ur Specific [place] 1.021 Urine Protein Trace Urine Glucose (UA) Negative Urine Ketones Negative Urine Blood Trace Urine Nitrite Negative Urine Bilirubin Negative Urine Urobilinogen 0.2 Ur Leukocyte Esterase Negative Urine WBC (Auto) 7 Urine RBC (Auto) 3 Urine Casts (Auto) 3 U Epithel Cells (Auto) 10.7 Urine Crystals (Auto) Uric acid Urine Bacteria (Auto) 0.8 05/22/19 05/23/19 05/23/19 20:14 06:22 06:22 PT with INR 14.40 H INR 1.22 H PTT (Actin FS) 28.1 Anticoagulation Therapy Puncture Site ABG pH ABG pCO2 at Pt Temp ABG pO2 at Pt Temp ABG HCO3 ABG O2 Sat (Measured) ABG O2 Content ABG Base Excess Larry Test O2 Delivery Device Oxygen Flow Rate Vent Mode Vent Rate Mechanical Rate Pressure Support Vent Sodium 135 L Potassium 4.1 Chloride 100 Carbon Dioxide 28 Anion Gap 8 BUN 29.5 H Creatinine 1.3 Est GFR (CKD-EPI)AfAm 53.48 Est GFR (CKD-EPI)NonAf 46.15 POC Glucometer 165 Random Glucose 140 H Calcium 8.3 L Urine Color Urine Appearance Urine pH Ur Specific [place] Urine Protein Urine Glucose (UA) Urine Ketones Urine Blood Urine Nitrite Urine Bilirubin Urine Urobilinogen Ur Leukocyte Esterase Urine WBC (Auto) Urine RBC (Auto) Urine Casts (Auto) U Epithel Cells (Auto) Urine Crystals (Auto) Urine Bacteria (Auto) 05/23/19 05/23/19 06:30 06:47 PT with INR INR PTT (Actin FS) Anticoagulation Therapy No Result Required. Puncture Site Left radial ABG pH 7.48 H ABG pCO2 at Pt Temp 38.0 ABG pO2 at Pt Temp 63.7 L ABG HCO3 28.1 H ABG O2 Sat (Measured) 92.0 L ABG O2 Content 12.1 ABG Base Excess 4.8 H Larry Test Positive O2 Delivery Device Venti mask Oxygen Flow Rate 50% Vent Mode No Result Required. Vent Rate No Result Required. Mechanical Rate No Result Required. Pressure Support Vent No Result Required. Sodium Potassium Chloride Carbon Dioxide Anion Gap BUN Creatinine Est GFR (CKD-EPI)AfAm Est GFR (CKD-EPI)NonAf POC Glucometer 139 Random Glucose Calcium Urine Color Urine Appearance Urine pH Ur Specific [place] Urine Protein Urine Glucose (UA) Urine Ketones Urine Blood Urine Nitrite Urine Bilirubin Urine Urobilinogen Ur Leukocyte Esterase Urine WBC (Auto) Urine RBC (Auto) Urine Casts (Auto) U Epithel Cells (Auto) Urine Crystals (Auto) Urine Bacteria (Auto) Active Medications Generic Name Dose Route Start Last Admin Trade Name Freq PRN Reason Stop Dose Admin Acetaminophen 1,000 mg 05/21/19 08:56 05/22/19 21:10 Ofirmev Injection - IVPB 1,000 mg Q6H PRN Administration pain Albuterol/Ipratropium 1 amp 05/20/19 21:53 Duoneb - NEB Q6H PRN SHORTNESS OF BREATH Amlodipine Besylate 10 mg 05/21/19 10:00 05/22/19 10:03 Norvasc - PO Not Given DAILY STEVE Duloxetine HCl 60 mg 05/21/19 10:00 05/22/19 09:54 Cymbalta - PO 60 mg DAILY STEVE Administration Piperacillin Sod/Tazobactam 50 mls @ 100 mls/hr 05/21/19 18:00 05/23/19 02:40 Sod 3.375 gm/ Dextrose IVPB 100 mls/hr Q8H-IV STEVE Administration Protocol Dexmedetomidine HCl 200 mcg/ 50 mls @ 4.08 mls/hr 05/22/19 23:00 05/23/19 00: 05 Sodium Chloride IVPB 0.2 mcg/kg/hr TITR STEVE 4.08 mls/hr Administration 0.2 MCG/KG/HR Insulin Aspart 1 vial 05/20/19 22:00 05/23/19 06:49 Novolog Vial Sliding Scale - SQ Not Given ACHS STEVE Protocol Losartan Potassium 50 mg 05/21/19 10:00 05/22/19 10:04 Cozaar - PO Not Given DAILY STEVE Metformin HCl 1,000 mg 05/21/19 07:00 05/23/19 06:49 Glucophage - PO 1,000 mg BIDI STEVE Administration Morphine Sulfate 2 mg 05/22/19 17:55 05/23/19 06:22 Morphine Sulfate IVPUSH 2 mg Q4H PRN Administration PAIN LEVEL 1-5 Pantoprazole Sodium 40 mg 05/21/19 10:00 05/22/19 09:54 Protonix - PO 40 mg DAILY STEVE Administration Rosuvastatin Calcium 40 mg 05/20/19 22:00 05/22/19 21:10 Crestor - PO 40 mg HS STEVE Administration Zolpidem Tartrate 10 mg 05/22/19 19:34 05/22/19 21:09 Ambien - PO 10 mg HS PRN Administration INSOMNIA ASSESSMENT/PLAN: 54 yo woman w/ metastatic lung cancer w/ recurrent large left sided effusion +/ - HAP s/p thoracentesis. Fluid re-accumulation clinically and on CXR, plan for OR Pleurex catheter placement today. Patient NPO. Likely transfer to floor given stability post-op and reasonable fluid output - monitor for re-expansion pulmonary edema. Pulm: -Plan for pleurx cath placement today (Thursday) -O2 for sat >90% -Continue Venturi mask as needed -Bronchodialators CV: -Hold anti-HTN meds -Plan to discontinue precedex post-op GI: -NPO for noon-time VATS Renal: -ABBY -Continue to monitor I&O Neuro: -ABBY Heme/Onc: -F/u w/ Oncology ID: -F/u culture and cell count -Cont ABX for HAP w/ Zosyn FENGI: -DVT PPX -GI PPX Visit type - Emergency Visit Emergency Visit: Yes ED Registration Date: 05/20/19 Care time: The patient presented to the Emergency Department on the above date and was hospitalized for further evaluation of their emergent condition. - New Patient This patient is new to me today: Yes Date on this admission: 05/23/19 - Critical Care Critical Care patient: Yes Total Critical Care Time (in minutes): 36 Critical Care Statement: The care of this patient involved high complexity decision making to prevent further life threatening deterioration of the patient 's condition and/or to evaluate & treat vital organ system(s) failure or risk of failure. ATTENDING PHYSICIAN STATEMENT I saw and evaluated the patient. I reviewed the resident's note and discussed the case with the resident. I agree with the resident's findings and plan as documented. SUBJECTIVE: OBJECTIVE: ASSESSMENT AND PLAN:
[2019-05-23] MEDS: LOSARTAN POTASSIUM 50 MG TABLET (FP) PO SCH (09:41)
[2019-05-23] MEDS: DULoxetine HCL 30 MG CAPSULE.DR PO SCH (09:41)
[2019-05-23] MEDS: amLODIPine BESYLATE 10 MG TABLET (FP) PO SCH (09:41)
[2019-05-23] MEDS: ACETAMINOPHEN 1000 MG/100 ML VIAL (NON FORMULARY) IVPB PRN (10:15)
[2019-05-23] MEDS: PANTOPRAZOLE 40 MG TABLET (FP) PO SCH (11:00)
[2019-05-23] MEDS ORDERED: BUPIVACAINE HCL/PF 0.5% (5 MG/ML) 30 ML VIAL IJ ONE ×2 (12:43→13:27)
[2019-05-23] MEDS ORDERED: BENZOIN TINCTURE SWABSTICK TP ONE (12:43)
[2019-05-23] MEDS ORDERED: LIDOCAINE 1%-EPI 1:100,000 30 ML MDV IJ ONE (12:43)
[2019-05-23] MEDS ORDERED: KETAMINE HCL 200 MG/20 ML VIAL ONE (12:52)
[2019-05-23] MEDS ORDERED: PROPOFOL 20 ML ONE (12:52)
[2019-05-23] MEDS ORDERED: SUCCINYLCHOLINE CHLORIDE 200 MG/10 ML SYRINGE ONE ×2 (12:52)
--- NOTE | 2019-05-23 12:57 | PN ---
Teaching Attending Note Name of Resident: Jaiden Goetz ATTENDING PHYSICIAN STATEMENT I saw and evaluated the patient. I reviewed the resident's note and discussed the case with the resident. I agree with the resident's findings and plan as documented. SUBJECTIVE: Patient seen and examined in the ICU. Remains on Venti-mask 50%. Drowsy but arousable on Precedex (started over the weekend) Reports breathing is slightly better today than yesterday. Intake & Output 05/20/19 05/21/19 05/22/19 05/23/19 23:59 23:59 23:59 23:59 Intake Total 200 810 580 174 Output Total 2450 1300 400 Balance 200 -1640 -720 -226 Weight 182 lb 180 lb 177 lb 14.4 oz Last Vital Signs Temp Pulse Resp BP Pulse Ox 97.4 F L 108 H 38 H 123/91 94 L 05/23/19 10:00 05/23/19 10:00 05/23/19 10:00 05/23/19 10:00 05/23/19 09:00 Active Medications Albuterol/Ipratropium (Duoneb -) 1 amp NEB Q6H PRN PRN Reason: SHORTNESS OF BREATH Amlodipine Besylate (Norvasc -) 10 mg PO DAILY [facility] Last Admin: 05/23/19 09:41 Dose: 10 mg Duloxetine HCl (Cymbalta -) 60 mg PO DAILY [facility] Last Admin: 05/23/19 09:41 Dose: 60 mg Piperacillin Sod/Tazobactam (Sod 3.375 gm/ Dextrose) 50 mls @ 100 mls/hr IVPB Q8H-IV STEVE; Protocol Last Admin: 05/23/19 09:41 Dose: 100 mls/hr Dexmedetomidine HCl 200 mcg/ (Sodium Chloride) 50 mls @ 4.08 mls/hr IVPB TITR [facility] Last Admin: 05/23/19 00:05 Dose: 0.2 mcg/kg/hr, 4.08 mls/hr Insulin Aspart (Novolog Vial Sliding Scale -) 1 vial SQ ACHS [facility]; Protocol Last Admin: 05/23/19 12:14 Dose: Not Given Losartan Potassium (Cozaar -) 50 mg PO DAILY [facility] Last Admin: 05/23/19 09:41 Dose: 50 mg Metformin HCl (Glucophage -) 1,000 mg PO BIDI [facility] Last Admin: 05/23/19 06:49 Dose: 1,000 mg Morphine Sulfate (Morphine Sulfate) 2 mg IVPUSH Q4H PRN PRN Reason: PAIN LEVEL 1-5 Last Admin: 05/23/19 06:22 Dose: 2 mg Pantoprazole Sodium (Protonix -) 40 mg PO DAILY STEVE Last Admin: 05/22/19 09:54 Dose: 40 mg Rosuvastatin Calcium (Crestor -) 40 mg PO HS STEVE Last Admin: 05/22/19 21:10 Dose: 40 mg Zolpidem Tartrate (Ambien -) 10 mg PO HS PRN PRN Reason: INSOMNIA Last Admin: 05/22/19 21:09 Dose: 10 mg Gen: Drowsy but arousable, Left lateral decubitus position, mildly tachypneic on VM O2 HEENT: (-) Pallor Resp: No air movement on the Left CV: S1S2 no m/r/g noted Abd: Soft, NT, ND Ext: WWP, no edema, + Pulses Neuro: drowsy, non-focal Laboratory Results - last 24 hr 05/22/19 05/22/19 05/22/19 16:49 18:20 20:14 WBC RBC Hgb Hct MCV MCH MCHC RDW Plt Count MPV PT with INR INR PTT (Actin FS) Anticoagulation Therapy Puncture Site ABG pH ABG pCO2 at Pt Temp ABG pO2 at Pt Temp ABG HCO3 ABG O2 Sat (Measured) ABG O2 Content ABG Base Excess Larry Test O2 Delivery Device Oxygen Flow Rate Vent Mode Vent Rate Mechanical Rate Pressure Support Vent Sodium Potassium Chloride Carbon Dioxide Anion Gap BUN Creatinine Est GFR (CKD-EPI)AfAm Est GFR (CKD-EPI)NonAf POC Glucometer 183 165 Random Glucose Calcium Urine Color Yellow Urine Appearance Cloudy Urine pH 5.0 Ur Specific [place] 1.021 Urine Protein Trace Urine Glucose (UA) Negative Urine Ketones Negative Urine Blood Trace Urine Nitrite Negative Urine Bilirubin Negative Urine Urobilinogen 0.2 Ur Leukocyte Esterase Negative Urine WBC (Auto) 7 Urine RBC (Auto) 3 Urine Casts (Auto) 3 U Epithel Cells (Auto) 10.7 Urine Crystals (Auto) Uric acid Urine Bacteria (Auto) 0.8 Blood Type Antibody Screen 05/23/19 05/23/19 05/23/19 06:22 06:22 06:22 WBC 19.2 H RBC 3.88 Hgb 9.6 L Hct 29.8 L MCV 76.7 L MCH 24.8 L MCHC 32.4 RDW 21.7 H Plt Count 340 MPV 7.0 L PT with INR 14.40 H INR 1.22 H PTT (Actin FS) 28.1 Anticoagulation Therapy Puncture Site ABG pH ABG pCO2 at Pt Temp ABG pO2 at Pt Temp ABG HCO3 ABG O2 Sat (Measured) ABG O2 Content ABG Base Excess Larry Test O2 Delivery Device Oxygen Flow Rate Vent Mode Vent Rate Mechanical Rate Pressure Support Vent Sodium 135 L Potassium 4.1 Chloride 100 Carbon Dioxide 28 Anion Gap 8 BUN 29.5 H Creatinine 1.3 Est GFR (CKD-EPI)AfAm 53.48 Est GFR (CKD-EPI)NonAf 46.15 POC Glucometer Random Glucose 140 H Calcium 8.3 L Urine Color Urine Appearance Urine pH Ur Specific [place] Urine Protein Urine Glucose (UA) Urine Ketones Urine Blood Urine Nitrite Urine Bilirubin Urine Urobilinogen Ur Leukocyte Esterase Urine WBC (Auto) Urine RBC (Auto) Urine Casts (Auto) U Epithel Cells (Auto) Urine Crystals (Auto) Urine Bacteria (Auto) Blood Type Antibody Screen 05/23/19 05/23/19 05/23/19 06:30 06:47 08:35 WBC RBC Hgb Hct MCV MCH MCHC RDW Plt Count MPV PT with INR INR PTT (Actin FS) Anticoagulation Therapy No Result Required. Puncture Site Left radial ABG pH 7.48 H ABG pCO2 at Pt Temp 38.0 ABG pO2 at Pt Temp 63.7 L ABG HCO3 28.1 H ABG O2 Sat (Measured) 92.0 L ABG O2 Content 12.1 ABG Base Excess 4.8 H Larry Test Positive O2 Delivery Device Venti mask Oxygen Flow Rate 50% Vent Mode No Result Required. Vent Rate No Result Required. Mechanical Rate No Result Required. Pressure Support Vent No Result Required. Sodium Potassium Chloride Carbon Dioxide Anion Gap BUN Creatinine Est GFR (CKD-EPI)AfAm Est GFR (CKD-EPI)NonAf POC Glucometer 139 Random Glucose Calcium Urine Color Urine Appearance Urine pH Ur Specific [place] Urine Protein Urine Glucose (UA) Urine Ketones Urine Blood Urine Nitrite Urine Bilirubin Urine Urobilinogen Ur Leukocyte Esterase Urine WBC (Auto) Urine RBC (Auto) Urine Casts (Auto) U Epithel Cells (Auto) Urine Crystals (Auto) Urine Bacteria (Auto) Blood Type O POSITIVE Antibody Screen Negative 05/23/19 12:12 WBC RBC Hgb Hct MCV MCH MCHC RDW Plt Count MPV PT with INR INR PTT (Actin FS) Anticoagulation Therapy Puncture Site ABG pH ABG pCO2 at Pt Temp ABG pO2 at Pt Temp ABG HCO3 ABG O2 Sat (Measured) ABG O2 Content ABG Base Excess Larry Test O2 Delivery Device Oxygen Flow Rate Vent Mode Vent Rate Mechanical Rate Pressure Support Vent Sodium Potassium Chloride Carbon Dioxide Anion Gap BUN Creatinine Est GFR (CKD-EPI)AfAm Est GFR (CKD-EPI)NonAf POC Glucometer 130 Random Glucose Calcium Urine Color Urine Appearance Urine pH Ur Specific [place] Urine Protein Urine Glucose (UA) Urine Ketones Urine Blood Urine Nitrite Urine Bilirubin Urine Urobilinogen Ur Leukocyte Esterase Urine WBC (Auto) Urine RBC (Auto) Urine Casts (Auto) U Epithel Cells (Auto) Urine Crystals (Auto) Urine Bacteria (Auto) Blood Type Antibody Screen Problem List - Problems (1) Acute hypoxemic respiratory failure Code(s): J96.01 - ACUTE RESPIRATORY FAILURE WITH HYPOXIA (2) CAP (community acquired pneumonia) Code(s): J18.9 - PNEUMONIA, UNSPECIFIED ORGANISM Qualifiers: Laterality: unspecified laterality Qualified Code(s): J18.9 - Pneumonia, unspecified organism (3) Metastatic lung cancer (metastasis from lung to other site) Code(s): C34.90 - MALIGNANT NEOPLASM OF UNSP PART OF UNSP BRONCHUS OR LUNG (4) Non-Hodgkin's lymphoma Code(s): C85.90 - NON-HODGKIN LYMPHOMA, UNSPECIFIED, UNSPECIFIED SITE Assessment/Plan For OR for Pleural effusion drainage and PleureX placement VM O2 as needed Can place on HFOT BD TX Hold anti-HTN meds ABX coverage Can DC Precedex after OR VTE prophylaxis Continue ICU monitoring for tenuous respiratory status and Precedex Dr Casey Critical care time spent in reviewing chart, evaluating patient and formulating plan - 36 minutes.
[2019-05-23] MEDS ORDERED: ceFAZolin SODIUM 1 GM VIAL IVPB ONE (13:20)
[2019-05-23] MEDS ORDERED: ceFAZolin SODIUM 1 GM VIAL ONE (13:24)
[2019-05-23] MEDS ORDERED: SODIUM CHLORIDE 0.9% P/F 10 ML VIAL IJ ONE (13:25)
[2019-05-23] MEDS ORDERED: PHENYLEPHRINE HCL 10 MG/1 ML SINGLE DOSE VIAL ONE (13:26)
[2019-05-23] MEDS ORDERED: LIDOCAINE 1%/EPI 1:100000 (50 ML MULTI DOSE VIAL) INF ONE (13:27)
--- NOTE | 2019-05-23 13:48 | PN ---
Progress Note, Physician History of Present Illness: stable going for pleurex - Current Medication List Current Medications: Active Medications Albuterol/Ipratropium (Duoneb -) 1 amp NEB Q6H PRN PRN Reason: SHORTNESS OF BREATH Amlodipine Besylate (Norvasc -) 10 mg PO DAILY [facility] Last Admin: 05/23/19 09:41 Dose: 10 mg Duloxetine HCl (Cymbalta -) 60 mg PO DAILY [facility] Last Admin: 05/23/19 09:41 Dose: 60 mg Piperacillin Sod/Tazobactam (Sod 3.375 gm/ Dextrose) 50 mls @ 100 mls/hr IVPB Q8H-IV [facility]EV[facility]; Protocol Last Admin: 05/23/19 09:41 Dose: 100 mls/hr Dexmedetomidine HCl 200 mcg/ (Sodium Chloride) 50 mls @ 4.08 mls/hr IVPB TITR [facility] Last Admin: 05/23/19 00:05 Dose: 0.2 mcg/kg/hr, 4.08 mls/hr Insulin Aspart (Novolog Vial Sliding Scale -) 1 vial SQ ACHS [facility]; Protocol Last Admin: 05/23/19 12:14 Dose: Not Given Losartan Potassium (Cozaar -) 50 mg PO DAILY [facility] Last Admin: 05/23/19 09:41 Dose: 50 mg Metformin HCl (Glucophage -) 1,000 mg PO BIDI [facility] Last Admin: 05/23/19 06:49 Dose: 1,000 mg Morphine Sulfate (Morphine Sulfate) 2 mg IVPUSH Q4H PRN PRN Reason: PAIN LEVEL 1-5 Last Admin: 05/23/19 06:22 Dose: 2 mg Pantoprazole Sodium (Protonix -) 40 mg PO DAILY [facility] Last Admin: 05/22/19 09:54 Dose: 40 mg Rosuvastatin Calcium (Crestor -) 40 mg PO HS [facility] Last Admin: 05/22/19 21:10 Dose: 40 mg Zolpidem Tartrate (Ambien -) 10 mg PO HS PRN PRN Reason: INSOMNIA Last Admin: 05/22/19 21:09 Dose: 10 mg - Objective Vital Signs: Vital Signs Temperature 97.4 F L 05/23/19 10:00 Pulse Rate 106 H 05/23/19 12:00 Respiratory Rate 30 H 05/23/19 12:00 Blood Pressure 88/52 L 05/23/19 12:00 O2 Sat by Pulse Oximetry (%) 94 L 05/23/19 09:00 Constitutional: Yes: Calm, Mild Distress Cardiovascular: Yes: S1, S2 Respiratory: Yes: Regular, Other (absent air entry) Gastrointestinal: Yes: Normal Bowel Sounds, Soft Musculoskeletal: Yes: WNL Extremities: Yes: WNL Neurological: Yes: Alert, Oriented Psychiatric: Yes: Alert, Oriented Labs: CBC, BMP 05/23/19 06:22 05/23/19 06:22 INR, PTT INR 1.22 (0.83-1.09) H 05/23/19 06:22 Assessment/Plan Problem List - Problems (1) Acute hypoxemic respiratory failure Code(s): J96.01 - ACUTE RESPIRATORY FAILURE WITH HYPOXIA (2) SOB (shortness of breath) Code(s): R06.02 - SHORTNESS OF BREATH (3) Chronic pancreatitis Code(s): K86.1 - OTHER CHRONIC PANCREATITIS (4) Diabetes Code(s): E11.9 - TYPE 2 DIABETES MELLITUS WITHOUT COMPLICATIONS (5) Difficulty breathing Code(s): R06.89 - OTHER ABNORMALITIES OF BREATHING (6) H/O gastric bypass Code(s): Z98.89 - OTHER SPECIFIED POSTPROCEDURAL STATES * DO NOT USE * (7) HLD (hyperlipidemia) Code(s): E78.5 - HYPERLIPIDEMIA, UNSPECIFIED (8) HTN (hypertension) Code(s): I10 - ESSENTIAL (PRIMARY) HYPERTENSION (9) Non-Hodgkin's lymphoma Code(s): C85.90 - NON-HODGKIN LYMPHOMA, UNSPECIFIED, UNSPECIFIED SITE (10) Pleural effusion Code(s): J90 - PLEURAL EFFUSION, NOT ELSEWHERE CLASSIFIED (11) Metastatic lung cancer (metastasis from lung to other site) Code(s): C34.90 - MALIGNANT NEOPLASM OF UNSP PART OF UNSP BRONCHUS OR LUNG (12) Malignant pleural effusion Code(s): J91.0 - MALIGNANT PLEURAL EFFUSION plan continue abx resp support as per icu await for the procedure await for all cx reports cc 4o min
--- NOTE | 2019-05-23 14:07 | OPR ---
Patient Name: Mariola Carreno MR#: [id number] Procedure Date: 05/23/2019 Preoperative Diagnosis: Left malignant effusion Postoperative Diagnosis: same Procedure: 1. Ultrasound-guided placement of left Pleur-x catheter; Indication: Dyspnea Surgeon(s): Curt Nash MD Cosurgeon: lita [employer] Millwright Surgeon: Anesthesia: Local; Findings: right effusion Specimens Sent: none Complications: none Drains / Tubes / Catheters: Pleur-x catheter Hardware / Implants: na Blood / Fluid Losses: minimal Post-Operative Condition: Hemodynamically stable in transfer to PACU Indications: This patient is a 54 year-old female with a recurrent left malignant effusion. After discussion and consideration of risks, benefits, and alternatives with the patient, she agreed to the procedure. The patient understood the risks and benefits. Details of Procedure: The patient was taken into the operating room and placed supine on the table. She was monitored with pulse oximetry and arterial line blood pressure monitoring. Preoperative antibiotics were given. An ultrasound was used to choose the site. She was positioned in the right lateral decubitus position. Her chest was prepared and draped in standard surgical fashion. We then picked our spot of insertion, awhere an ultrasound had demonstrated fluid. We next used the finder needle and injected lidocaine with bupivicaine in the rib space and anteriorly for the tunneled portion. Next we inserted the wire. We next tunneled the catheter from anterior to posterior. Once this was done, the dilator, with peel-off piece was carefully placed. At this point we inserted the catheter and peeled off the remaining tubing. It was connected to a pleurovac. Both incisions were closed and a dressing was placed. The drain was secured to the skin. She was transferred to the ICU in hemodynamically stable condition.
--- NOTE | 2019-05-23 14:13 | SURG ---
Surgery Micro Photographer Note Micro Photographer: Gerard Diallo PA-C (Suzy) Date of Service: 05/23/19 Diagnosis: Left malignant effusion Procedure: Ultrasound-guided placement of left Pleur-x catheter; I was present for the entirety of the operative procedure. For further detail, please refer to operative report. Visit type - Case Type Case Type: Scheduled - Emergency Emergency Visit: No - New patient This patient is new to me today: Yes Date on this admission: 05/23/19 - Critical Care Critical Care patient: No
--- NOTE | 2019-05-23 15:05 | ECHO ---
Name: KEYSHAWN REDDY Exam:Adult Echocardiogram Study Date: 05/23/2019 11:36 AM Age: 54 yrs Reason For Study: dyspnea Height: 62 in Weight: 182 lb BSA: 1.8 m2 MMode/2D Measurements & Calculations Ao root diam: 3.3 cm LA dimension: 3.4 cm ACS: 1.4 cm Doppler Measurements & Calculations MV E max nic: 56.8 cm/sec Ao V2 max: 80.8 cm/sec MV A max nic: 69.6 cm/sec Ao max P.6 mmHg MV E/A: 0.82 Med Peak E' Nic: 7.3 cm/sec Med E/e': 7.7 Lat Peak E' Nic: 6.5 cm/sec Lat E/e': 8.8 Procedure A complete two-dimensional transthoracic echocardiogram was performed (2D, M-mode, Doppler and color flow Doppler). Severely limited study. Left Ventricle The left ventricle is normal in size. Left ventricular systolic function is normal. Ejection Fraction = 55- 60%. No regional wall motion abnormalities noted. Right Ventricle The right ventricle is not well visualized. Atria The left atrial size is normal. Right atrium not well visualized. Mitral Valve The mitral valve is normal in structure and function. There is mild mitral regurgitation. Tricuspid Valve The tricuspid valve is normal in structure and function. There is mild tricuspid regurgitation. Aortic Valve The aortic valve is normal in structure and function. No aortic regurgitation is present. Pulmonic Valve The pulmonic valve is not well visualized. Great Vessels The aortic root is normal size. Pericardium/Pleura There is no pericardial effusion. There is a pleural effusion present. Interpretation Summary Severely limited study Ejection Fraction = 55-60%. The right ventricle is not well visualized. The left atrial size is normal. Right atrium not well visualized. There is mild mitral regurgitation. There is mild tricuspid regurgitation. There is no pericardial effusion. There is a pleural effusion present. Ford Montenegro MD 05/23/2019 03:04 PM
[2019-05-23] MEDS ORDERED: SODIUM CHLORIDE 0.9% 500 ML INFUS.BAG IV ONE (15:27)
--- NOTE | 2019-05-23 16:40 | PN ---
Physical Exam: Heme/Onc Service SUBJECTIVE: Patient seen and examined at bedside. Pt complains of shortness of breath and generalized pain/discomfort. OBJECTIVE: Vital Signs Period Temp Pulse Resp BP Sys/Villeda Pulse Ox Last 24 Hr 97.4 F-98.1 F 106-118 23-38 80-126/48-91 94-94 Gen: AAOx3, mild resp distress HEENT: NCAT, EOMI Neck: no jvd noted Cardio: rrr, normal s1s2, no mrg noted Pulm: coarse breath sounds L>R Abd: soft nontender, nondistended Ext: no edema Laboratory Results - last 24 hr 05/22/19 05/22/19 05/22/19 16:49 18:20 20:14 WBC RBC Hgb Hct MCV MCH MCHC RDW Plt Count MPV PT with INR INR PTT (Actin FS) Anticoagulation Therapy Puncture Site ABG pH ABG pCO2 at Pt Temp ABG pO2 at Pt Temp ABG HCO3 ABG O2 Sat (Measured) ABG O2 Content ABG Base Excess Larry Test O2 Delivery Device Oxygen Flow Rate Vent Mode Vent Rate Mechanical Rate Pressure Support Vent Sodium Potassium Chloride Carbon Dioxide Anion Gap BUN Creatinine Est GFR (CKD-EPI)AfAm Est GFR (CKD-EPI)NonAf POC Glucometer 183 165 Random Glucose Calcium Urine Color Yellow Urine Appearance Cloudy Urine pH 5.0 Ur Specific [place] 1.021 Urine Protein Trace Urine Glucose (UA) Negative Urine Ketones Negative Urine Blood Trace Urine Nitrite Negative Urine Bilirubin Negative Urine Urobilinogen 0.2 Ur Leukocyte Esterase Negative Urine WBC (Auto) 7 Urine RBC (Auto) 3 Urine Casts (Auto) 3 U Epithel Cells (Auto) 10.7 Urine Crystals (Auto) Uric acid Urine Bacteria (Auto) 0.8 Blood Type Antibody Screen 05/23/19 05/23/19 05/23/19 06:22 06:22 06:22 WBC 19.2 H RBC 3.88 Hgb 9.6 L Hct 29.8 L MCV 76.7 L MCH 24.8 L MCHC 32.4 RDW 21.7 H Plt Count 340 MPV 7.0 L PT with INR 14.40 H INR 1.22 H PTT (Actin FS) 28.1 Anticoagulation Therapy Puncture Site ABG pH ABG pCO2 at Pt Temp ABG pO2 at Pt Temp ABG HCO3 ABG O2 Sat (Measured) ABG O2 Content ABG Base Excess Larry Test O2 Delivery Device Oxygen Flow Rate Vent Mode Vent Rate Mechanical Rate Pressure Support Vent Sodium 135 L Potassium 4.1 Chloride 100 Carbon Dioxide 28 Anion Gap 8 BUN 29.5 H Creatinine 1.3 Est GFR (CKD-EPI)AfAm 53.48 Est GFR (CKD-EPI)NonAf 46.15 POC Glucometer Random Glucose 140 H Calcium 8.3 L Urine Color Urine Appearance Urine pH Ur Specific [place] Urine Protein Urine Glucose (UA) Urine Ketones Urine Blood Urine Nitrite Urine Bilirubin Urine Urobilinogen Ur Leukocyte Esterase Urine WBC (Auto) Urine RBC (Auto) Urine Casts (Auto) U Epithel Cells (Auto) Urine Crystals (Auto) Urine Bacteria (Auto) Blood Type Antibody Screen 05/23/19 05/23/19 05/23/19 06:30 06:47 08:35 WBC RBC Hgb Hct MCV MCH MCHC RDW Plt Count MPV PT with INR INR PTT (Actin FS) Anticoagulation Therapy No Result Required. Puncture Site Left radial ABG pH 7.48 H ABG pCO2 at Pt Temp 38.0 ABG pO2 at Pt Temp 63.7 L ABG HCO3 28.1 H ABG O2 Sat (Measured) 92.0 L ABG O2 Content 12.1 ABG Base Excess 4.8 H Larry Test Positive O2 Delivery Device Venti mask Oxygen Flow Rate 50% Vent Mode No Result Required. Vent Rate No Result Required. Mechanical Rate No Result Required. Pressure Support Vent No Result Required. Sodium Potassium Chloride Carbon Dioxide Anion Gap BUN Creatinine Est GFR (CKD-EPI)AfAm Est GFR (CKD-EPI)NonAf POC Glucometer 139 Random Glucose Calcium Urine Color Urine Appearance Urine pH Ur Specific [place] Urine Protein Urine Glucose (UA) Urine Ketones Urine Blood Urine Nitrite Urine Bilirubin Urine Urobilinogen Ur Leukocyte Esterase Urine WBC (Auto) Urine RBC (Auto) Urine Casts (Auto) U Epithel Cells (Auto) Urine Crystals (Auto) Urine Bacteria (Auto) Blood Type O POSITIVE Antibody Screen Negative 05/23/19 05/23/19 12:12 16:20 WBC RBC Hgb Hct MCV MCH MCHC RDW Plt Count MPV PT with INR INR PTT (Actin FS) Anticoagulation Therapy Puncture Site ABG pH ABG pCO2 at Pt Temp ABG pO2 at Pt Temp ABG HCO3 ABG O2 Sat (Measured) ABG O2 Content ABG Base Excess Larry Test O2 Delivery Device Oxygen Flow Rate Vent Mode Vent Rate Mechanical Rate Pressure Support Vent Sodium Potassium Chloride Carbon Dioxide Anion Gap BUN Creatinine Est GFR (CKD-EPI)AfAm Est GFR (CKD-EPI)NonAf POC Glucometer 130 135 Random Glucose Calcium Urine Color Urine Appearance Urine pH Ur Specific [place] Urine Protein Urine Glucose (UA) Urine Ketones Urine Blood Urine Nitrite Urine Bilirubin Urine Urobilinogen Ur Leukocyte Esterase Urine WBC (Auto) Urine RBC (Auto) Urine Casts (Auto) U Epithel Cells (Auto) Urine Crystals (Auto) Urine Bacteria (Auto) Blood Type Antibody Screen Active Medications Generic Name Dose Route Start Last Admin Trade Name Freq PRN Reason Stop Dose Admin Albuterol/Ipratropium 1 amp 05/20/19 21:53 Duoneb - NEB Q6H PRN SHORTNESS OF BREATH Amlodipine Besylate 10 mg 05/21/19 10:00 05/23/19 09:41 Norvasc - PO 10 mg DAILY STEVE Administration Chlorhexidine Gluconate 1 applic 05/23/19 22:00 Hibiclens For Decolonization - TP HS STEVE Duloxetine HCl 60 mg 05/21/19 10:00 05/23/19 09:41 Cymbalta - PO 60 mg DAILY STEVE Administration Piperacillin Sod/Tazobactam 50 mls @ 100 mls/hr 05/21/19 18:00 05/23/19 09:41 Sod 3.375 gm/ Dextrose IVPB 100 mls/hr Q8H-IV STEVE Administration Protocol Dexmedetomidine HCl 200 mcg/ 50 mls @ 4.08 mls/hr 05/22/19 23:00 05/23/19 00: 05 Sodium Chloride IVPB 0.2 mcg/kg/hr TITR STEVE 4.08 mls/hr Administration 0.2 MCG/KG/HR Insulin Aspart 1 vial 05/20/19 22:00 05/23/19 16:21 Novolog Vial Sliding Scale - SQ Not Given ACHS STEVE Protocol Losartan Potassium 50 mg 05/21/19 10:00 05/23/19 09:41 Cozaar - PO 50 mg DAILY STEVE Administration Metformin HCl 1,000 mg 05/21/19 07:00 05/23/19 06:49 Glucophage - PO 1,000 mg BIDI STEVE Administration Morphine Sulfate 2 mg 05/22/19 17:55 05/23/19 15:59 Morphine Sulfate IVPUSH 2 mg Q4H PRN Administration PAIN LEVEL 1-5 Mupirocin 1 applic 05/23/19 22:00 Bactroban Ointment (For Decolonization) - NS 05/28/19 21:59 BID STEVE Pantoprazole Sodium 40 mg 05/21/19 10:00 05/22/19 09:54 Protonix - PO 40 mg DAILY STEVE Administration Rosuvastatin Calcium 40 mg 05/20/19 22:00 05/22/19 21:10 Crestor - PO 40 mg HS STEVE Administration Zolpidem Tartrate 10 mg 05/22/19 19:34 05/22/19 21:09 Ambien - PO 10 mg HS PRN Administration INSOMNIA ASSESSMENT/PLAN: Pt is a 54 y/o F with PMH HTN, Lymphoma (in remission since 2010), Chronic Pancreatitis, SBO status post resection, status post Gastric Bypass surgery, DM , HLD, (Lung CA with mets to the spine and suspicious lesion sin the brain) presenting with progressively worsening shortness of breath. Pt was admitted with L pleural effusion and transferred to ICU with acute resp failure. Stage IV adenoCA of lung -Dx in 04/2019 -EGFR, Alk, ROS1 negative -likely mets to spine and brain -Known to the patient. Follows with Dr. Nick at [facility] -to start Pemetraxed, Carboplatin, Pembrolizumab as outpt -complicated by L pleural effusion. Chest tube placed today. Draining Stage 3 follicular lymphoma -in remission since 2010 s/p Rituxan Visit type - Emergency Visit Emergency Visit: No - New Patient This patient is new to me today: Yes Date on this admission: 05/23/19 - Critical Care Critical Care patient: No ATTENDING PHYSICIAN STATEMENT I saw and evaluated the patient. I reviewed the resident's note and discussed the case with the resident. I agree with the resident's findings and plan as documented. SUBJECTIVE: OBJECTIVE: ASSESSMENT AND PLAN:
[2019-05-23] MEDS: ZOLPIDEM TARTRATE 5 MG TABLET PO PRN (21:48)
[2019-05-23] MEDS: CHLORHEXIDINE GLUCONATE 4% CLEANSER FOR DECOLONIZATION TP SCH (21:49)
[2019-05-23] MEDS: ROSUVASTATIN CA 20 MG TABLET (FP) PO SCH (21:49)
[2019-05-23] MEDS: MUPIROCIN 2% TOPICAL OINTMENT FOR DECOLONIZATION NS SCH (21:49)
--- NOTE | 2019-05-23 22:10 | PN ---
Progress Note (short form) - Note Progress Note: patient seen and examined + shortness of breath afvss Cor: RSR, No murmurs, No gallops Lungs: decreased at bases Abd: Soft, Normal bowel sounds, No organomegaly Ext:No significant edema labs/meds reviewed a/p Assessment/Plan 54F, pt of Dr. Nick, with hx stage III follicular lymphoma s/p Rituxan based regimen in 2010 and recently diagnosed Stage IV adenocarcinoma of lung (04/2019) , EGFR, ALK, ROS1 negative, metastatic to spine and likely brain, and c/b recurrent left pleural effusions admitted with dyspnea 2/2 pleural effusion s/p repeat thoracentesis today with 2L removed and improvement in SOB. s/p PleurX cathether. Planned to start chemotherapy with carbo/alimta/pembro as outpatient. on empiric zosyn
--- NOTE | 2019-05-23 22:11 | PN ---
Progress Note, Physician - Current Medication List Current Medications: Active Medications Albuterol/Ipratropium (Duoneb -) 1 amp NEB Q6H PRN PRN Reason: SHORTNESS OF BREATH Last Admin: 05/23/19 20:50 Dose: 1 amp Amlodipine Besylate (Norvasc -) 10 mg PO DAILY [facility] Last Admin: 05/23/19 09:41 Dose: 10 mg Chlorhexidine Gluconate (Hibiclens For Decolonization -) 1 applic TP HS [facility] Last Admin: 05/23/19 21:49 Dose: 1 applic Duloxetine HCl (Cymbalta -) 60 mg PO DAILY [facility] Last Admin: 05/23/19 09:41 Dose: 60 mg Piperacillin Sod/Tazobactam (Sod 3.375 gm/ Dextrose) 50 mls @ 100 mls/hr IVPB Q8H-IV [facility]; Protocol Last Admin: 05/23/19 17:04 Dose: 100 mls/hr Dexmedetomidine HCl 200 mcg/ (Sodium Chloride) 50 mls @ 4.08 mls/hr IVPB TITR [facility] Last Admin: 05/23/19 00:05 Dose: 0.2 mcg/kg/hr, 4.08 mls/hr Insulin Aspart (Novolog Vial Sliding Scale -) 1 vial SQ ACHS [facility]; Protocol Last Admin: 05/23/19 16:21 Dose: Not Given Losartan Potassium (Cozaar -) 50 mg PO DAILY [facility] Last Admin: 05/23/19 09:41 Dose: 50 mg Metformin HCl (Glucophage -) 1,000 mg PO BIDI [facility] Last Admin: 05/23/19 16:39 Dose: 1,000 mg Morphine Sulfate (Morphine Sulfate) 2 mg IVPUSH Q4H PRN PRN Reason: PAIN LEVEL 1-5 Last Admin: 05/23/19 20:36 Dose: 2 mg Mupirocin (Bactroban Ointment (For Decolonization) -) 1 applic NS BID [facility] Stop: 05/28/19 21:59 Last Admin: 05/23/19 21:49 Dose: 1 applic Pantoprazole Sodium (Protonix -) 40 mg PO DAILY [facility] Last Admin: 05/23/19 11:00 Dose: 40 mg Rosuvastatin Calcium (Crestor -) 40 mg PO HS [facility] Last Admin: 05/23/19 21:49 Dose: 40 mg Zolpidem Tartrate (Ambien -) 10 mg PO HS PRN PRN Reason: INSOMNIA Last Admin: 05/23/19 21:48 Dose: 10 mg - Objective Vital Signs: Vital Signs Temperature 97.4 F L 05/23/19 18:00 Pulse Rate 102 H 05/23/19 18:00 Respiratory Rate 22 H 05/23/19 18:00 Blood Pressure 73/54 L 05/23/19 18:00 O2 Sat by Pulse Oximetry (%) 94 L 05/23/19 09:00 Labs: CBC, BMP 05/23/19 06:22 05/23/19 06:22 INR, PTT INR 1.22 (0.83-1.09) H 05/23/19 06:22 Problem List - Problems (1) SOB (shortness of breath) Code(s): R06.02 - SHORTNESS OF BREATH (2) Metastatic lung cancer (metastasis from lung to other site) Code(s): C34.90 - MALIGNANT NEOPLASM OF UNSP PART OF UNSP BRONCHUS OR LUNG (3) Asthma Code(s): J45.909 - UNSPECIFIED ASTHMA, UNCOMPLICATED (4) Chronic pancreatitis Code(s): K86.1 - OTHER CHRONIC PANCREATITIS (5) Diabetes Code(s): E11.9 - TYPE 2 DIABETES MELLITUS WITHOUT COMPLICATIONS (6) GERD (gastroesophageal reflux disease) Code(s): K21.9 - GASTRO-ESOPHAGEAL REFLUX DISEASE WITHOUT ESOPHAGITIS (7) HLD (hyperlipidemia) Code(s): E78.5 - HYPERLIPIDEMIA, UNSPECIFIED (8) HTN (hypertension) Code(s): I10 - ESSENTIAL (PRIMARY) HYPERTENSION (9) Non-Hodgkin lymphoma Code(s): C85.90 - NON-HODGKIN LYMPHOMA, UNSPECIFIED, UNSPECIFIED SITE
[2019-05-24] MEDS ORDERED: PIPERACILLIN/TAZOBACTAM 3.375 GM VIAL IVPB ONE ×2 (02:42→09:20)
[2019-05-24] MEDS ORDERED: DEXTROSE 5%-WATER - 50 ML IVPB ONE ×2 (02:42→09:20)
[2019-05-24] MEDS: PIPERACILLIN/TAZOB 3.375 GM 3.375 GM in DEXTROSE 5%-WATER - 50 ML IVPB SCH ×2 (04:14→10:06)
[2019-05-24] MEDS: MORPHINE SULFATE 2 MG/ML VIAL IVPUSH PRN ×4 (07:13→23:56)
[2019-05-24 07:55] LABS: BASO % 0.1 % (0-2.0); EOS % 0.2 % (0-4.5); HEMATOCRIT 27.9 % (32.4-45.2); HEMOGLOBIN 8.8 GM/dL (10.7-15.3); LYMPH % 9.4 % (8-40); MCH 24.4 pg (25.7-33.7); MCHC 31.6 g/dl (32.0-36.0); MEAN CELL VOLUME 77.2 fl (80-96); MEAN PLT VOLUME 7.2 fl (7.5-11.1); MONO % 10.8 % (3.8-10.2); NEUT % 79.5 % (42.8-82.8); PLATELET COUNT 334 K/MM3 (134-434); RBC 3.61 M/mm3 (3.60-5.2); RDW 22.4 % (11.6-15.6); WHITE BLOOD COUNT 16.4 K/mm3 (4.0-10.0)
[2019-05-24 08:21] LABS: ALBUMIN 2.1 g/dl (3.4-5.0); ALK PHOS 84 U/L (45-117); ANION GAP 10 MMOL/L (8-16); BILIRUBIN,TOTAL 0.4 mg/dL (0.2-1); BLOOD UREA NITROGEN 28.6 mg/dL (7-18); CALCIUM 7.7 mg/dL (8.5-10.1); CHLORIDE 100 mmol/L (98-107); CO2 25 mmol/L (21-32); CREATININE 1.2 mg/dL (0.55-1.3); GLUCOSE,RANDOM 105 mg/dL (74-106); MAGNESIUM 2.3 mg/dL (1.8-2.4); PHOSPHOROUS 4.7 mg/dL (2.5-4.9); POTASSIUM 3.9 mmol/L (3.5-5.1); SGOT/AST 13 U/L (15-37); SGPT/ALT < 6 U/L (13-61); SODIUM 136 mmol/L (136-145)
--- NOTE | 2019-05-24 08:36 | PN ---
Progress Note (short form) - Note Progress Note: POD 1, s/p Ultrasound-guided placement of left Pleur-x catheter in OR Pt seen and examined. Reports she is feeling better than she did yesterday, breathing has improved. Has not been oob. Tolerating PO. Voiding without issue. Karo ortiz, n/v/d. Vital Signs Temp 98.2 F 05/24/19 06:00 Pulse 102 H 05/24/19 06:00 Resp 30 H 05/24/19 06:00 BP 87/68 L 05/24/19 06:00 Pulse Ox 96 05/23/19 21:00 Intake & Output 05/23/19 05/23/19 05/24/19 11:59 23:59 11:59 Intake Total 174 650 Output Total 400 1125 Balance -226 -475 Weight 177 lb 14.4 oz 177 lb 178 lb Intake: IV 24 50 Precedex - 200 Mcg In 24 Normal Saline - 48 ml @ 0 .2 MCG/KG/HR 4.08 mls/hr IVPB TITR STEVE Rx#: [id number] IVPB 50 500 Oral 100 100 Output: Chest Tube Drainage 1125 Left 1125 Urine 400 Ureña 400 Other: Voiding Method Bedpan Bedpan # Unmeasured Voids Ureña 2 0 Bowel Movement Yes: small/smear Height 5 ft 2 in Body Mass Index (BMI) 32.3 Weight Measurement Method Built in Bedscale CBC, BMP 05/24/19 05:45 05/24/19 05:45 Gen: awake, alert, nad Resp: On 15L venturimask Chest: b/l crackles auscultated A/P: 54 y/o F w/ PMHx HTN, Lymphoma (in remission since 2010), Chronic Pancreatitis, SBO, DM, HLD, and adenocarcinoma of lung with mets to the spine and suspicious lesion in the brain admitted 05/20 with recurrent malignant effusion after presenting with sob POD 1, s/p Ultrasound-guided placement of left Pleur-x catheter in OR. Afebrile, tachy to low 100s, hypotensive to systolic 70s-80s -Pleurx to suction this morning -Continue to monitor/record output -Monitor Vs per protocol -VNS for discharge (paperwork filled out by attending yesterday and in chart) -Daily cxr -Respiratory -Remainder of care per ICU message sent to Dr Nash regarding above
[2019-05-24] MEDS: metFORMIN HCL 500 MG TABLET (FP) PO SCH ×2 (09:00→16:58)
[2019-05-24] MEDS: DULoxetine HCL 30 MG CAPSULE.DR PO SCH (10:06)
[2019-05-24] MEDS: amLODIPine BESYLATE 10 MG TABLET (FP) PO SCH (10:06)
[2019-05-24] MEDS: PANTOPRAZOLE 40 MG TABLET (FP) PO SCH (10:06)
[2019-05-24] MEDS: MUPIROCIN 2% TOPICAL OINTMENT FOR DECOLONIZATION NS SCH ×2 (10:06→21:33)
[2019-05-24] MEDS: LOSARTAN POTASSIUM 50 MG TABLET (FP) PO SCH (10:06)
[2019-05-24] MEDS ORDERED: FENTANYL PATCH WASTE MC PRN ×2 (11:40→12:09)
[2019-05-24] MEDS ORDERED: FENTANYL PATCH WASTE TD PRN (12:02)
[2019-05-24] MEDS ORDERED: fentaNYL 50mcg/hr PATCH.TD72 TD SCH ×3 (12:15)
[2019-05-24] MEDS ORDERED: fentaNYL 50mcg/hr PATCH.TD72 TD PRN (12:15)
[2019-05-24] MEDS: INSULIN SLIDING SCALE (NOVOLOG) 1 VIAL SQ SCH ×4 (12:23→21:33)
[2019-05-24] MEDS ORDERED: MORPHINE SULFATE 2 MG/ML VIAL IVPUSH ONE (13:04)
[2019-05-24] MEDS ORDERED: SODIUM CHLORIDE 500 ML IV STA (13:26)
[2019-05-24] MEDS ORDERED: SODIUM CHLORIDE 0.9% 500 ML INFUS.BAG IV ONE (13:28)
--- NOTE | 2019-05-24 13:46 | PN ---
Physical Exam: SUBJECTIVE: Patient seen and examined. Had a bowel movement this morning, no blood. Complains of pain all over. States her breathing feels better. Pleurx drain was placed yesterday. Complains of pain at site of drain placement. OBJECTIVE: Vital Signs Period Temp Pulse Resp BP Sys/Villeda Pulse Ox Last 24 Hr 97.4 F-98.2 F 100-110 22-32 73-89/43-68 96-96 GENERAL: The patient is awake, alert, and fully oriented, in no acute distress. HEAD: Normal with no signs of trauma. EYES: PERRL, EOMI ENT: moist mucous membranes. NECK: Trachea midline, full range of motion, supple. LUNGS: Diminished breath sounds on the left side, normal breath sounds on the right side, decreased at the base. No accessory muscle use. Pleurx drain in place without surrounding erythema or leakage. HEART: Regular rate and rhythm, S1, S2 without murmur, rub or gallop. ABDOMEN: Soft, nontender, nondistended, normoactive bowel sounds EXTREMITIES: 2+ pulses, warm, well-perfused, no edema. NEUROLOGICAL: Normal speech, gait not observed. Laboratory Results - last 24 hr 05/23/19 05/23/19 05/24/19 16:20 22:48 05:45 WBC 16.4 H RBC 3.61 Hgb 8.8 L Hct 27.9 L MCV 77.2 L MCH 24.4 L MCHC 31.6 L RDW 22.4 H Plt Count 334 MPV 7.2 L Absolute Neuts (auto) 13.0 H Neutrophils % 79.5 Lymphocytes % 9.4 Monocytes % 10.8 H Eosinophils % 0.2 D Basophils % 0.1 Nucleated RBC % 0 Sodium Potassium Chloride Carbon Dioxide Anion Gap BUN Creatinine Est GFR (CKD-EPI)AfAm Est GFR (CKD-EPI)NonAf POC Glucometer 135 100 Random Glucose Calcium Phosphorus Magnesium Total Bilirubin AST ALT Alkaline Phosphatase Total Protein Albumin 05/24/19 05/24/19 05:45 12:20 WBC RBC Hgb Hct MCV MCH MCHC RDW Plt Count MPV Absolute Neuts (auto) Neutrophils % Lymphocytes % Monocytes % Eosinophils % Basophils % Nucleated RBC % Sodium 136 Potassium 3.9 Chloride 100 Carbon Dioxide 25 Anion Gap 10 BUN 28.6 H Creatinine 1.2 Est GFR (CKD-EPI)AfAm 58.92 Est GFR (CKD-EPI)NonAf 50.84 POC Glucometer 113 Random Glucose 105 Calcium 7.7 L Phosphorus 4.7 Magnesium 2.3 Total Bilirubin 0.4 AST 13 L ALT < 6 L Alkaline Phosphatase 84 Total Protein 5.0 L Albumin 2.1 L Active Medications Generic Name Dose Route Start Last Admin Trade Name Freq PRN Reason Stop Dose Admin Albuterol/Ipratropium 1 amp 05/20/19 21:53 05/23/19 20:50 Duoneb - NEB 1 amp Q6H PRN Administration SHORTNESS OF BREATH Amlodipine Besylate 10 mg 05/21/19 10:00 05/24/19 10:06 Norvasc - PO 10 mg DAILY STEVE Administration Chlorhexidine Gluconate 1 applic 05/23/19 22:00 05/23/19 21:49 Hibiclens For Decolonization - TP 1 applic HS STEVE Administration Duloxetine HCl 60 mg 05/21/19 10:00 05/24/19 10:06 Cymbalta - PO 60 mg DAILY STEVE Administration Fentanyl 1 patch 05/24/19 12:15 05/24/19 12:24 Duragesic 50mcg Patch - TD 05/31/19 12:02 1 patch Q72H STEVE Administration Piperacillin Sod/Tazobactam 50 mls @ 100 mls/hr 05/21/19 18:00 05/24/19 10:06 Sod 3.375 gm/ Dextrose IVPB 100 mls/hr Q8H-IV STEVE Administration Protocol Insulin Aspart 1 vial 05/20/19 22:00 05/24/19 12:23 Novolog Vial Sliding Scale - SQ Not Given ACHS [facility] Protocol Losartan Potassium 50 mg 05/21/19 10:00 05/24/19 10:06 Cozaar - PO 50 mg DAILY STEVE Administration Metformin HCl 1,000 mg 05/21/19 07:00 05/24/19 09:00 Glucophage - PO 1,000 mg BIDI STEVE Administration Miscellaneous 1 each 05/24/19 12:02 Duragesic Patch Waste TD PRN PRN PAIN Morphine Sulfate 2 mg 05/22/19 17:55 05/24/19 10:06 Morphine Sulfate IVPUSH 2 mg Q4H PRN Administration PAIN LEVEL 1-5 Mupirocin 1 applic 05/23/19 22:00 05/24/19 10:06 Bactroban Ointment (For Decolonization) - NS 05/28/19 21:59 1 applic BID STEVE Administration Pantoprazole Sodium 40 mg 05/21/19 10:00 05/24/19 10:06 Protonix - PO 40 mg DAILY STEVE Administration Rosuvastatin Calcium 40 mg 05/20/19 22:00 05/23/19 21:49 Crestor - PO 40 mg HS STEVE Administration Zolpidem Tartrate 10 mg 05/22/19 19:34 05/23/19 21:48 Ambien - PO 10 mg HS PRN Administration INSOMNIA ASSESSMENT/PLAN: 54 y/o/f w/ metastatic lung cancer w/ recurrent large left sided effusion +/- HAP s/p thoracentesis. Fluid re-accumulation clinically and on CXR. Pleurx catheter placed in OR on 05/23. Neuro - Continue home Duloxetine - Fentanyl patch, Morphine for pain control Cardio - Started on - Precedex discontinued - Hold Anti-HTN meds in the setting of hypotension Pulm - Pleurx cathether placed on 05/23. - O2 for sat >90% - Continue Venturi mask as needed - Duonebs PRN - CXR showing improvement of left lung - follow daily CXR GI - Regular diet - no active issues Renal - ABBY - Continue to monitor I&O Heme/Onc - hx stage III follicular lymphoma in remission since 2010 s/p Rituxan - Planned to start chemotherapy with carbo/alimta/pembro as outpatient as per Heme/onc - likely mets to spine and brain, known to the patient - Follows with Dr. Nick at [facility] ID - Cultures negative - D/C abx as per ID and monitor - WBC downtrending Endo - Hx of DM - ISS - BGMs Prophylaxis - SCDs, TEDs - Protonix FEN - Regular diet - may bolus as needed for hypotension - monitor and replete lytes as needed Disposition - Continue ICU monitoring for hypotension Visit type - Emergency Visit Emergency Visit: Yes ED Registration Date: 05/20/19 Care time: The patient presented to the Emergency Department on the above date and was hospitalized for further evaluation of their emergent condition. - New Patient This patient is new to me today: Yes Date on this admission: 05/24/19 - Critical Care Critical Care patient: Yes Total Critical Care Time (in minutes): 36 Critical Care Statement: The care of this patient involved high complexity decision making to prevent further life threatening deterioration of the patient 's condition and/or to evaluate & treat vital organ system(s) failure or risk of failure. ATTENDING PHYSICIAN STATEMENT I saw and evaluated the patient. I reviewed the resident's note and discussed the case with the resident. I agree with the resident's findings and plan as documented. SUBJECTIVE: OBJECTIVE: ASSESSMENT AND PLAN:
--- NOTE | 2019-05-24 14:13 | PN ---
Progress Note, Physician History of Present Illness: patient stable pleurex catheter placed breathing better - Current Medication List Current Medications: Active Medications Albuterol/Ipratropium (Duoneb -) 1 amp NEB Q6H PRN PRN Reason: SHORTNESS OF BREATH Last Admin: 05/23/19 20:50 Dose: 1 amp Amlodipine Besylate (Norvasc -) 10 mg PO DAILY [facility] Last Admin: 05/24/19 10:06 Dose: 10 mg Chlorhexidine Gluconate (Hibiclens For Decolonization -) 1 applic TP HS [facility] Last Admin: 05/23/19 21:49 Dose: 1 applic Duloxetine HCl (Cymbalta -) 60 mg PO DAILY [facility] Last Admin: 05/24/19 10:06 Dose: 60 mg Fentanyl (Duragesic 50mcg Patch -) 1 patch TD Q72H [facility] Stop: 05/31/19 12:02 Last Admin: 05/24/19 12:24 Dose: 1 patch Piperacillin Sod/Tazobactam (Sod 3.375 gm/ Dextrose) 50 mls @ 100 mls/hr IVPB Q8H-IV [facility]; Protocol Last Admin: 05/24/19 10:06 Dose: 100 mls/hr Insulin Aspart (Novolog Vial Sliding Scale -) 1 vial SQ ACHS [facility]; Protocol Last Admin: 05/24/19 12:23 Dose: Not Given Losartan Potassium (Cozaar -) 50 mg PO DAILY [facility] Last Admin: 05/24/19 10:06 Dose: 50 mg Metformin HCl (Glucophage -) 1,000 mg PO BIDI [facility] Last Admin: 05/24/19 09:00 Dose: 1,000 mg Miscellaneous (Duragesic Patch Waste) 1 each TD PRN PRN PRN Reason: PAIN Morphine Sulfate (Morphine Sulfate) 2 mg IVPUSH Q4H PRN PRN Reason: PAIN LEVEL 1-5 Last Admin: 05/24/19 10:06 Dose: 2 mg Mupirocin (Bactroban Ointment (For Decolonization) -) 1 applic NS BID [facility] Stop: 05/28/19 21:59 Last Admin: 05/24/19 10:06 Dose: 1 applic Pantoprazole Sodium (Protonix -) 40 mg PO DAILY [facility] Last Admin: 05/24/19 10:06 Dose: 40 mg Rosuvastatin Calcium (Crestor -) 40 mg PO HS STEVE Last Admin: 05/23/19 21:49 Dose: 40 mg Zolpidem Tartrate (Ambien -) 10 mg PO HS PRN PRN Reason: INSOMNIA Last Admin: 05/23/19 21:48 Dose: 10 mg - Objective Vital Signs: Vital Signs Temperature 98.2 F 05/24/19 10:00 Pulse Rate 105 H 05/24/19 13:49 Respiratory Rate 26 H 05/24/19 13:49 Blood Pressure 84/56 L 05/24/19 13:49 O2 Sat by Pulse Oximetry (%) 96 05/24/19 09:48 Constitutional: Yes: No Distress, Calm, Obese Cardiovascular: Yes: S1, S2 Respiratory: Yes: Regular, Poor Air Entry Gastrointestinal: Yes: Normal Bowel Sounds, Soft Musculoskeletal: Yes: WNL Extremities: Yes: WNL Neurological: Yes: Alert, Oriented Psychiatric: Yes: Alert, Oriented Labs: CBC, BMP 05/24/19 05:45 05/24/19 05:45 INR, PTT INR 1.22 (0.83-1.09) H 05/23/19 06:22 Assessment/Plan Problem List - Problems (1) Acute hypoxemic respiratory failure Code(s): J96.01 - ACUTE RESPIRATORY FAILURE WITH HYPOXIA (2) SOB (shortness of breath) Code(s): R06.02 - SHORTNESS OF BREATH (3) Chronic pancreatitis Code(s): K86.1 - OTHER CHRONIC PANCREATITIS (4) Diabetes Code(s): E11.9 - TYPE 2 DIABETES MELLITUS WITHOUT COMPLICATIONS (5) Difficulty breathing Code(s): R06.89 - OTHER ABNORMALITIES OF BREATHING (6) H/O gastric bypass Code(s): Z98.89 - OTHER SPECIFIED POSTPROCEDURAL STATES * DO NOT USE * (7) HLD (hyperlipidemia) Code(s): E78.5 - HYPERLIPIDEMIA, UNSPECIFIED (8) HTN (hypertension) Code(s): I10 - ESSENTIAL (PRIMARY) HYPERTENSION (9) Non-Hodgkin's lymphoma Code(s): C85.90 - NON-HODGKIN LYMPHOMA, UNSPECIFIED, UNSPECIFIED SITE (10) Pleural effusion Code(s): J90 - PLEURAL EFFUSION, NOT ELSEWHERE CLASSIFIED (11) Metastatic lung cancer (metastasis from lung to other site) Code(s): C34.90 - MALIGNANT NEOPLASM OF UNSP PART OF UNSP BRONCHUS OR LUNG (12) Malignant pleural effusion Code(s): J91.0 - MALIGNANT PLEURAL EFFUSION plan will stop abx and monitor close watch monitor drainage rest as per icu cc 40 min
--- NOTE | 2019-05-24 15:08 | PN ---
Teaching Attending Note Name of Resident: Charo Shen ATTENDING PHYSICIAN STATEMENT I saw and evaluated the patient. I reviewed the resident's note and discussed the case with the resident. I agree with the resident's findings and plan as documented. SUBJECTIVE: Patient seen and examined in the ICU. Remains on Venti-mask 50%. More awake and alert. Remains tachypneic but reports breathing feels better. No CP. Over 2 liters drained overnight. Intake & Output 05/21/19 05/22/19 05/23/19 05/24/19 23:59 23:59 23:59 23:59 Intake Total 810 580 824 Output Total 2450 1300 1525 Balance -1640 -720 -701 Weight 180 lb 177 lb 178 lb Last Vital Signs Temp Pulse Resp BP Pulse Ox 98.2 F 105 H 26 H 84/56 L 96 05/24/19 10:00 05/24/19 13:49 05/24/19 13:49 05/24/19 13:49 05/24/19 09:48 Active Medications Albuterol/Ipratropium (Duoneb -) 1 amp NEB Q6H PRN PRN Reason: SHORTNESS OF BREATH Last Admin: 05/23/19 20:50 Dose: 1 amp Amlodipine Besylate (Norvasc -) 10 mg PO DAILY [facility] Last Admin: 05/24/19 10:06 Dose: 10 mg Chlorhexidine Gluconate (Hibiclens For Decolonization -) 1 applic TP HS [facility] Last Admin: 05/23/19 21:49 Dose: 1 applic Duloxetine HCl (Cymbalta -) 60 mg PO DAILY [facility] Last Admin: 05/24/19 10:06 Dose: 60 mg Fentanyl (Duragesic 50mcg Patch -) 1 patch TD Q72H [facility] Stop: 05/31/19 12:02 Last Admin: 05/24/19 12:24 Dose: 1 patch Insulin Aspart (Novolog Vial Sliding Scale -) 1 vial SQ ACHS [facility]; Protocol Last Admin: 05/24/19 12:23 Dose: Not Given Losartan Potassium (Cozaar -) 50 mg PO DAILY [facility] Last Admin: 05/24/19 10:06 Dose: 50 mg Metformin HCl (Glucophage -) 1,000 mg PO BIDI [facility] Last Admin: 05/24/19 09:00 Dose: 1,000 mg Miscellaneous (Duragesic Patch Waste) 1 each TD PRN PRN PRN Reason: PAIN Morphine Sulfate (Morphine Sulfate) 2 mg IVPUSH Q4H PRN PRN Reason: PAIN LEVEL 1-5 Last Admin: 05/24/19 10:06 Dose: 2 mg Mupirocin (Bactroban Ointment (For Decolonization) -) 1 applic NS BID [facility] Stop: 05/28/19 21:59 Last Admin: 05/24/19 10:06 Dose: 1 applic Pantoprazole Sodium (Protonix -) 40 mg PO DAILY [facility] Last Admin: 05/24/19 10:06 Dose: 40 mg Rosuvastatin Calcium (Crestor -) 40 mg PO HS [facility] Last Admin: 05/23/19 21:49 Dose: 40 mg Zolpidem Tartrate (Ambien -) 10 mg PO HS PRN PRN Reason: INSOMNIA Last Admin: 05/23/19 21:48 Dose: 10 mg Gen: Awake and alert, mildly tachypneic on VM O2 HEENT: (-) Pallor Resp: Better air movement on the Left, left PleurX intact CV: S1S2 no m/r/g noted Abd: Soft, NT, ND Ext: WWP, no edema, + Pulses Neuro: Non-focal Laboratory Results - last 24 hr 05/23/19 05/23/19 05/24/19 16:20 22:48 05:45 WBC 16.4 H RBC 3.61 Hgb 8.8 L Hct 27.9 L MCV 77.2 L MCH 24.4 L MCHC 31.6 L RDW 22.4 H Plt Count 334 MPV 7.2 L Absolute Neuts (auto) 13.0 H Neutrophils % 79.5 Lymphocytes % 9.4 Monocytes % 10.8 H Eosinophils % 0.2 D Basophils % 0.1 Nucleated RBC % 0 Sodium Potassium Chloride Carbon Dioxide Anion Gap BUN Creatinine Est GFR (CKD-EPI)AfAm Est GFR (CKD-EPI)NonAf POC Glucometer 135 100 Random Glucose Calcium Phosphorus Magnesium Total Bilirubin AST ALT Alkaline Phosphatase Total Protein Albumin 05/24/19 05/24/19 05:45 12:20 WBC RBC Hgb Hct MCV MCH MCHC RDW Plt Count MPV Absolute Neuts (auto) Neutrophils % Lymphocytes % Monocytes % Eosinophils % Basophils % Nucleated RBC % Sodium 136 Potassium 3.9 Chloride 100 Carbon Dioxide 25 Anion Gap 10 BUN 28.6 H Creatinine 1.2 Est GFR (CKD-EPI)AfAm 58.92 Est GFR (CKD-EPI)NonAf 50.84 POC Glucometer 113 Random Glucose 105 Calcium 7.7 L Phosphorus 4.7 Magnesium 2.3 Total Bilirubin 0.4 AST 13 L ALT < 6 L Alkaline Phosphatase 84 Total Protein 5.0 L Albumin 2.1 L Problem List - Problems (1) Acute hypoxemic respiratory failure Code(s): J96.01 - ACUTE RESPIRATORY FAILURE WITH HYPOXIA (2) CAP (community acquired pneumonia) Code(s): J18.9 - PNEUMONIA, UNSPECIFIED ORGANISM Qualifiers: Laterality: unspecified laterality Qualified Code(s): J18.9 - Pneumonia, unspecified organism (3) Metastatic lung cancer (metastasis from lung to other site) Code(s): C34.90 - MALIGNANT NEOPLASM OF UNSP PART OF UNSP BRONCHUS OR LUNG (4) Non-Hodgkin's lymphoma Code(s): C85.90 - NON-HODGKIN LYMPHOMA, UNSPECIFIED, UNSPECIFIED SITE Assessment/Plan Continue IVF resuscitation PleurX drainage PRN VM O2 as needed Can place on HFOT if needed BD TX Hold anti-HTN meds ABX coverage VTE prophylaxis Continue ICU monitoring for tenuous respiratory status and hypotension Dr Casey Critical care time spent in reviewing chart, evaluating patient and formulating plan - 36 minutes.
[2019-05-24] MEDS ORDERED: oxyCODONE HCL 5 MG TABLET PO ONE (16:47)
[2019-05-24] MEDS ORDERED: oxyCODONE HCL 5 MG TABLET ONE (16:49)
--- NOTE | 2019-05-24 21:22 | PN ---
Progress Note, Physician - Current Medication List Current Medications: Active Medications Albuterol/Ipratropium (Duoneb -) 1 amp NEB Q6H PRN PRN Reason: SHORTNESS OF BREATH Last Admin: 05/23/19 20:50 Dose: 1 amp Chlorhexidine Gluconate (Hibiclens For Decolonization -) 1 applic TP HS [facility] Last Admin: 05/23/19 21:49 Dose: 1 applic Duloxetine HCl (Cymbalta -) 60 mg PO DAILY [facility] Last Admin: 05/24/19 10:06 Dose: 60 mg Fentanyl (Duragesic 50mcg Patch -) 1 patch TD Q72H [facility] Stop: 05/31/19 12:02 Last Admin: 05/24/19 12:24 Dose: 1 patch Insulin Aspart (Novolog Vial Sliding Scale -) 1 vial SQ ACHS [facility]; Protocol Last Admin: 05/24/19 21:16 Dose: Not Given Metformin HCl (Glucophage -) 1,000 mg PO BIDI [facility] Last Admin: 05/24/19 16:58 Dose: 1,000 mg Miscellaneous (Duragesic Patch Waste) 1 each TD PRN PRN PRN Reason: PAIN Morphine Sulfate (Morphine Sulfate) 2 mg IVPUSH Q4H PRN PRN Reason: PAIN LEVEL 1-5 Last Admin: 05/24/19 19:49 Dose: 2 mg Mupirocin (Bactroban Ointment (For Decolonization) -) 1 applic NS BID [facility] Stop: 05/28/19 21:59 Last Admin: 05/24/19 10:06 Dose: 1 applic Pantoprazole Sodium (Protonix -) 40 mg PO DAILY [facility] Last Admin: 05/24/19 10:06 Dose: 40 mg Rosuvastatin Calcium (Crestor -) 40 mg PO HS [facility] Last Admin: 05/23/19 21:49 Dose: 40 mg Zolpidem Tartrate (Ambien -) 10 mg PO HS PRN PRN Reason: INSOMNIA Last Admin: 05/23/19 21:48 Dose: 10 mg - Objective Vital Signs: Vital Signs Temperature 97.8 F 05/24/19 18:00 Pulse Rate 107 H 05/24/19 20:00 Respiratory Rate 23 H 05/24/19 21:00 Blood Pressure 101/59 L 05/24/19 20:00 O2 Sat by Pulse Oximetry (%) 96 05/24/19 21:00 Labs: CBC, BMP 05/24/19 05:45 05/24/19 05:45 INR, PTT INR 1.22 (0.83-1.09) H 05/23/19 06:22 Problem List - Problems (1) SOB (shortness of breath) Code(s): R06.02 - SHORTNESS OF BREATH (2) Metastatic lung cancer (metastasis from lung to other site) Code(s): C34.90 - MALIGNANT NEOPLASM OF UNSP PART OF UNSP BRONCHUS OR LUNG (3) Asthma Code(s): J45.909 - UNSPECIFIED ASTHMA, UNCOMPLICATED (4) Chronic pancreatitis Code(s): K86.1 - OTHER CHRONIC PANCREATITIS (5) Diabetes Code(s): E11.9 - TYPE 2 DIABETES MELLITUS WITHOUT COMPLICATIONS (6) GERD (gastroesophageal reflux disease) Code(s): K21.9 - GASTRO-ESOPHAGEAL REFLUX DISEASE WITHOUT ESOPHAGITIS (7) HLD (hyperlipidemia) Code(s): E78.5 - HYPERLIPIDEMIA, UNSPECIFIED (8) HTN (hypertension) Code(s): I10 - ESSENTIAL (PRIMARY) HYPERTENSION (9) Non-Hodgkin lymphoma Code(s): C85.90 - NON-HODGKIN LYMPHOMA, UNSPECIFIED, UNSPECIFIED SITE
[2019-05-24] MEDS: ZOLPIDEM TARTRATE 5 MG TABLET PO PRN (21:32)
[2019-05-24] MEDS: ROSUVASTATIN CA 20 MG TABLET (FP) PO SCH (21:32)
[2019-05-24] MEDS: CHLORHEXIDINE GLUCONATE 4% CLEANSER FOR DECOLONIZATION TP SCH (21:33)
[2019-05-25] MEDS: MORPHINE SULFATE 2 MG/ML VIAL IVPUSH PRN ×5 (04:04→22:10)
[2019-05-25] MEDS: metFORMIN HCL 500 MG TABLET (FP) PO SCH ×2 (06:26→16:51)
[2019-05-25] MEDS: INSULIN SLIDING SCALE (NOVOLOG) 1 VIAL SQ SCH ×4 (06:26→21:46)
[2019-05-25 07:08] LABS: BASO % 0.2 % (0-2.0); EOS % 0.2 % (0-4.5); HEMATOCRIT 29.9 % (32.4-45.2); HEMOGLOBIN 9.3 GM/dL (10.7-15.3); LYMPH % 7.7 % (8-40); MCH 24.4 pg (25.7-33.7); MCHC 31.1 g/dl (32.0-36.0); MEAN CELL VOLUME 78.6 fl (80-96); MEAN PLT VOLUME 7.4 fl (7.5-11.1); MONO % 11.9 % (3.8-10.2); PLATELET COUNT 367 K/MM3 (134-434); RBC 3.81 M/mm3 (3.60-5.2); RDW 21.8 % (11.6-15.6); WHITE BLOOD COUNT 17.8 K/mm3 (4.0-10.0)
[2019-05-25 07:47] LABS: ALBUMIN 2.2 g/dl (3.4-5.0); ALK PHOS 90 U/L (45-117); ANION GAP 10 MMOL/L (8-16); BILIRUBIN,TOTAL 0.5 mg/dL (0.2-1); BLOOD UREA NITROGEN 19.9 mg/dL (7-18); CHLORIDE 102 mmol/L (98-107); CO2 23 mmol/L (21-32); CREATININE 0.9 mg/dL (0.55-1.3); GLUCOSE,RANDOM 126 mg/dL (74-106); PHOSPHOROUS 3.3 mg/dL (2.5-4.9); POTASSIUM 3.8 mmol/L (3.5-5.1); SGOT/AST 17 U/L (15-37); SGPT/ALT < 6 U/L (13-61); SODIUM 135 mmol/L (136-145); TOT PROT 5.3 g/dl (6.4-8.2)
[2019-05-25] MEDS: DULoxetine HCL 30 MG CAPSULE.DR PO SCH (10:27)
[2019-05-25] MEDS: PANTOPRAZOLE 40 MG TABLET (FP) PO SCH (10:28)
[2019-05-25] MEDS: MUPIROCIN 2% TOPICAL OINTMENT FOR DECOLONIZATION NS SCH (10:29)
[2019-05-25] MEDS ORDERED: FENTANYL PATCH WASTE MC PRN ×2 (11:44→19:43)
[2019-05-25] MEDS ORDERED: fentaNYL 75mcg/hr PATCH.TD72 TD SCH (11:45)
--- NOTE | 2019-05-25 12:54 | PN ---
Progress Note, Physician History of Present Illness: feeling much better breathing better face mask pain - Current Medication List Current Medications: Active Medications Albuterol/Ipratropium (Duoneb -) 1 amp NEB Q6H PRN PRN Reason: SHORTNESS OF BREATH Last Admin: 05/23/19 20:50 Dose: 1 amp Chlorhexidine Gluconate (Hibiclens For Decolonization -) 1 applic TP HS [facility] Last Admin: 05/24/19 21:33 Dose: 1 applic Duloxetine HCl (Cymbalta -) 60 mg PO DAILY [facility] Last Admin: 05/25/19 10:27 Dose: 60 mg Fentanyl (Duragesic 75mcg Patch -) 1 patch TD Q72H [facility] Last Admin: 05/25/19 12:45 Dose: 1 patch Insulin Aspart (Novolog Vial Sliding Scale -) 1 vial SQ ACHS [facility]; Protocol Last Admin: 05/25/19 11:18 Dose: Not Given Metformin HCl (Glucophage -) 1,000 mg PO BIDI [facility] Last Admin: 05/25/19 06:26 Dose: 1,000 mg Miscellaneous (Duragesic Patch Waste) 1 each TD PRN PRN PRN Reason: PAIN Miscellaneous (Duragesic Patch Waste) 1 each MC PRN PRN PRN Reason: PAIN Morphine Sulfate (Morphine Sulfate) 2 mg IVPUSH Q4H PRN PRN Reason: PAIN LEVEL 1-5 Last Admin: 05/25/19 11:41 Dose: 2 mg Mupirocin (Bactroban Ointment (For Decolonization) -) 1 applic NS BID [facility] Stop: 05/28/19 21:59 Last Admin: 05/25/19 10:29 Dose: 1 applic Pantoprazole Sodium (Protonix -) 40 mg PO DAILY [facility] Last Admin: 05/25/19 10:28 Dose: 40 mg Rosuvastatin Calcium (Crestor -) 40 mg PO HS [facility] Last Admin: 05/24/19 21:32 Dose: 40 mg Zolpidem Tartrate (Ambien -) 10 mg PO HS PRN PRN Reason: INSOMNIA Last Admin: 05/24/19 21:32 Dose: 10 mg - Objective Vital Signs: Vital Signs Temperature 98 F 05/25/19 10:00 Pulse Rate 110 H 05/25/19 12:00 Respiratory Rate 20 05/25/19 12:00 Blood Pressure 102/74 05/25/19 12:00 O2 Sat by Pulse Oximetry (%) 100 05/25/19 09:00 Constitutional: Yes: Calm, Mild Distress Cardiovascular: Yes: S1, S2 Respiratory: Yes: Regular, Poor Air Entry, Other (on face mask) Gastrointestinal: Yes: Normal Bowel Sounds, Soft Musculoskeletal: Yes: WNL Extremities: Yes: WNL Neurological: Yes: Alert, Oriented Psychiatric: Yes: Alert, Oriented Labs: CBC, BMP 05/25/19 05:50 05/25/19 05:50 INR, PTT INR 1.22 (0.83-1.09) H 05/23/19 06:22 Assessment/Plan Problem List - Problems (1) Acute hypoxemic respiratory failure Code(s): J96.01 - ACUTE RESPIRATORY FAILURE WITH HYPOXIA (2) SOB (shortness of breath) Code(s): R06.02 - SHORTNESS OF BREATH (3) Chronic pancreatitis Code(s): K86.1 - OTHER CHRONIC PANCREATITIS (4) Diabetes Code(s): E11.9 - TYPE 2 DIABETES MELLITUS WITHOUT COMPLICATIONS (5) Difficulty breathing Code(s): R06.89 - OTHER ABNORMALITIES OF BREATHING (6) H/O gastric bypass Code(s): Z98.89 - OTHER SPECIFIED POSTPROCEDURAL STATES * DO NOT USE * (7) HLD (hyperlipidemia) Code(s): E78.5 - HYPERLIPIDEMIA, UNSPECIFIED (8) HTN (hypertension) Code(s): I10 - ESSENTIAL (PRIMARY) HYPERTENSION (9) Non-Hodgkin's lymphoma Code(s): C85.90 - NON-HODGKIN LYMPHOMA, UNSPECIFIED, UNSPECIFIED SITE (10) Pleural effusion Code(s): J90 - PLEURAL EFFUSION, NOT ELSEWHERE CLASSIFIED (11) Metastatic lung cancer (metastasis from lung to other site) Code(s): C34.90 - MALIGNANT NEOPLASM OF UNSP PART OF UNSP BRONCHUS OR LUNG (12) Malignant pleural effusion Code(s): J91.0 - MALIGNANT PLEURAL EFFUSION plan continue to monitor off of abx rest as per icu drainage rest as per icu cc 40 min
[2019-05-25] MEDS ORDERED: MORPHINE SULFATE 2 MG/ML VIAL IVPUSH ONE (13:32)
--- NOTE | 2019-05-25 13:33 | PN ---
Physical Exam: SUBJECTIVE: Patient seen and examined. Pt. states that she feels better and that her breathing has improved. Pt. complains of headache rated as 8/10 and some nausea. OBJECTIVE: Vital Signs Period Temp Pulse Resp BP Sys/Villeda Pulse Ox Last 24 Hr 97 F-98 F 104-116 14-26 75-112/52-87 96-100 GENERAL: The patient is awake, alert, and fully oriented, in mild distress 2/2 pain. HEAD: Normal with no signs of trauma. EYES: Extraocular movements intact, sclera anicteric, conjunctiva clear. No ptosis. ENT: Ears normal, nares patent, oropharynx clear without exudates, moist mucous membranes. NECK: Trachea midline, full range of motion, supple. LUNGS: Increased respirations, PleurX catheter in place HEART: Regular rate and rhythm, S1, S2 without murmur ABDOMEN: Soft, nontender, nondistended, normoactive bowel sounds, no guarding, no rebound EXTREMITIES: 2+ dorsal pedal pulses, warm, well-perfused, no edema. NEUROLOGICAL: Cranial nerves II through XII grossly intact. Normal speech, gait not observed. PSYCH: Normal mood, normal affect. SKIN: Warm, dry, normal turgor, no rashes or lesions noted Laboratory Results - last 24 hr 05/24/19 05/25/19 05/25/19 17:36 05:50 05:50 WBC 17.8 H RBC 3.81 Hgb 9.3 L Hct 29.9 L MCV 78.6 L MCH 24.4 L MCHC 31.1 L RDW 21.8 H Plt Count 367 MPV 7.4 L Absolute Neuts (auto) 14.2 H Neutrophils % 80.0 Lymphocytes % 7.7 L Monocytes % 11.9 H Eosinophils % 0.2 Basophils % 0.2 Nucleated RBC % 0 Sodium 135 L Potassium 3.8 Chloride 102 Carbon Dioxide 23 Anion Gap 10 BUN 19.9 H Creatinine 0.9 Est GFR (CKD-EPI)AfAm 83.43 Est GFR (CKD-EPI)NonAf 71.98 POC Glucometer 150 Random Glucose 126 H Calcium 8.0 L Phosphorus 3.3 Magnesium 2.0 Total Bilirubin 0.5 AST 17 ALT < 6 L Alkaline Phosphatase 90 Total Protein 5.3 L Albumin 2.2 L 05/25/19 05/25/19 06:24 11:15 WBC RBC Hgb Hct MCV MCH MCHC RDW Plt Count MPV Absolute Neuts (auto) Neutrophils % Lymphocytes % Monocytes % Eosinophils % Basophils % Nucleated RBC % Sodium Potassium Chloride Carbon Dioxide Anion Gap BUN Creatinine Est GFR (CKD-EPI)AfAm Est GFR (CKD-EPI)NonAf POC Glucometer 142 114 Random Glucose Calcium Phosphorus Magnesium Total Bilirubin AST ALT Alkaline Phosphatase Total Protein Albumin Active Medications Home Medications Medication Instructions Recorded Pantoprazole Sodium [Protonix] 40 mg PO DAILY #0 tablet. 12/01/14 Duloxetine HCl [Cymbalta -] 60 mg PO DAILY capsule. 07/17/15 Zolpidem Tartrate [Ambien] 10 mg PO HS PRN #0 tablet 07/17/15 Albuterol Sulfate Inhaler - 1 - 2 inh PO Q4H #1 inhaler 08/29/16 [Ventolin HFA Inhaler -] Amlodipine Besylate [Norvasc -] 10 mg PO DAILY 04/14/19 Furosemide [Lasix -] 40 mg PO DAILY 04/14/19 Insulin Degludec [Tresiba] 1 unit SQ ASDIR 04/14/19 Losartan Potassium 50 mg PO DAILY 04/14/19 Metformin HCl [Glucophage] 1,000 mg PO BID 04/14/19 Rosuvastatin [Crestor -] 40 mg PO HS 04/14/19 Zolpidem Tartrate [Ambien] 10 mg PO HS PRN #30 tablet MDD 1 04/20/19 metFORMIN HCL [Glucophage -] 1,000 mg PO BIDAC tablet 04/20/19 Current Medications Albuterol/Ipratropium (Duoneb -) 1 amp NEB Q6H PRN PRN Reason: SHORTNESS OF BREATH Last Admin: 05/23/19 20:50 Dose: 1 amp Chlorhexidine Gluconate (Hibiclens For Decolonization -) 1 applic TP HS [facility] Last Admin: 05/24/19 21:33 Dose: 1 applic Duloxetine HCl (Cymbalta -) 60 mg PO DAILY [facility] Last Admin: 05/25/19 10:27 Dose: 60 mg Fentanyl (Duragesic 75mcg Patch -) 1 patch TD Q72H [facility] Last Admin: 05/25/19 12:45 Dose: 1 patch Insulin Aspart (Novolog Vial Sliding Scale -) 1 vial SQ ACHS [facility]; Protocol Last Admin: 05/25/19 11:18 Dose: Not Given Metformin HCl (Glucophage -) 1,000 mg PO BIDI [facility] Last Admin: 05/25/19 06:26 Dose: 1,000 mg Miscellaneous (Duragesic Patch Waste) 1 each TD PRN PRN PRN Reason: PAIN Last Admin: 05/25/19 12:54 Dose: 1 each Miscellaneous (Duragesic Patch Waste) 1 each MC PRN PRN PRN Reason: PAIN Morphine Sulfate (Morphine Sulfate) 4 mg IVPUSH Q4H PRN PRN Reason: PAIN LEVEL 1-5 Mupirocin (Bactroban Ointment (For Decolonization) -) 1 applic NS BID [facility] Stop: 05/28/19 21:59 Last Admin: 05/25/19 10:29 Dose: 1 applic Pantoprazole Sodium (Protonix -) 40 mg PO DAILY [facility] Last Admin: 05/25/19 10:28 Dose: 40 mg Rosuvastatin Calcium (Crestor -) 40 mg PO HS [facility] Last Admin: 05/24/19 21:32 Dose: 40 mg Zolpidem Tartrate (Ambien -) 10 mg PO HS PRN PRN Reason: INSOMNIA Last Admin: 05/24/19 21:32 Dose: 10 mg ASSESSMENT/PLAN: Pt. is a 54 y.o. F w/ PMHx. of metastatic lung cancer w/ recurrent large left sided effusion +/- HAP s/p thoracentesis. Fluid re-accumulation clinically and on CXR. Pleurx catheter placed in OR on 05/23. #Neuro - Continue home Duloxetine - Fentanyl patch, Morphine for pain control - Increased Morphine and Fentanyl Patch for pain management - monitor respiratory function #Cardio - Precedex discontinued - Hold Anti-HTN meds in the setting of hypotension #Pulm - Pleurx cathether placed on 05/23. 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 Nick at [facility] #ID - Cultures negative - D/C abx as per ID and monitor - WBC downtrending #Endo - Hx of DM - ISS - BGMs #Prophylaxis - SCDs, TEDs - Protonix FEN - Regular diet - may bolus as needed for hypotension - monitor and replete lytes as needed Disposition - Hypotension stable, transferred to Med/Surg[address] Visit type - Emergency Visit Emergency Visit: Yes ED Registration Date: 05/20/19 Care time: The patient presented to the Emergency Department on the above date and was hospitalized for further evaluation of their emergent condition. - New Patient This patient is new to me today: No - Critical Care Critical Care patient: Yes Total Critical Care Time (in minutes): 45 Critical Care Statement: The care of this patient involved high complexity decision making to prevent further life threatening deterioration of the patient 's condition and/or to evaluate & treat vital organ system(s) failure or risk of failure. - Discharge Referral Referred to [facility] No ATTENDING PHYSICIAN STATEMENT I saw and evaluated the patient. I reviewed the resident's note and discussed the case with the resident. I agree with the resident's findings and plan as documented. SUBJECTIVE: OBJECTIVE: ASSESSMENT AND PLAN:
--- NOTE | 2019-05-25 13:53 | PN ---
Teaching Attending Note Name of Resident: Ravi Flood ATTENDING PHYSICIAN STATEMENT I saw and evaluated the patient. I reviewed the resident's note and discussed the case with the resident. I agree with the resident's findings and plan as documented. SUBJECTIVE: Pt seen and examined in the ICU. Breathing better. c/o pain in her left abdomen , right shoulder, head. OBJECTIVE: Vital Signs Period Temp Pulse Resp BP Sys/Villeda Pulse Ox Last 24 Hr 97 F-98 F 104-116 14-26 75-112/52-87 96-100 Intake & Output 05/22/19 05/23/19 05/24/19 05/25/19 23:59 23:59 23:59 23:59 Intake Total 580 824 650 100 Output Total 1300 1525 250 100 Balance -720 -701 400 0 Weight 81.647 kg 80.286 kg 80.739 kg 79.464 kg Gen: NAD at rest Heart: RRR Lung: decreased breath sounds at the bases Abd: soft, nontender Ext: no edema CBC, BMP 05/25/19 05:50 05/25/19 05:50 Active Medications Albuterol/Ipratropium (Duoneb -) 1 amp NEB Q6H PRN PRN Reason: SHORTNESS OF BREATH Last Admin: 05/23/19 20:50 Dose: 1 amp Chlorhexidine Gluconate (Hibiclens For Decolonization -) 1 applic TP HS [facility] Last Admin: 05/24/19 21:33 Dose: 1 applic Duloxetine HCl (Cymbalta -) 60 mg PO DAILY [facility] Last Admin: 05/25/19 10:27 Dose: 60 mg Fentanyl (Duragesic 75mcg Patch -) 1 patch TD Q72H [facility] Last Admin: 05/25/19 12:45 Dose: 1 patch Insulin Aspart (Novolog Vial Sliding Scale -) 1 vial SQ ACHS [facility]; Protocol Last Admin: 05/25/19 11:18 Dose: Not Given Metformin HCl (Glucophage -) 1,000 mg PO BIDI [facility] Last Admin: 05/25/19 06:26 Dose: 1,000 mg Miscellaneous (Duragesic Patch Waste) 1 each TD PRN PRN PRN Reason: PAIN Last Admin: 05/25/19 12:54 Dose: 1 each Miscellaneous (Duragesic Patch Waste) 1 each MC PRN PRN PRN Reason: PAIN Morphine Sulfate (Morphine Sulfate) 4 mg IVPUSH Q4H PRN PRN Reason: PAIN LEVEL 1-5 Mupirocin (Bactroban Ointment (For Decolonization) -) 1 applic NS BID [facility] Stop: 05/28/19 21:59 Last Admin: 05/25/19 10:29 Dose: 1 applic Pantoprazole Sodium (Protonix -) 40 mg PO DAILY [facility] Last Admin: 05/25/19 10:28 Dose: 40 mg Rosuvastatin Calcium (Crestor -) 40 mg PO HS [facility] Last Admin: 05/24/19 21:32 Dose: 40 mg Zolpidem Tartrate (Ambien -) 10 mg PO HS PRN PRN Reason: INSOMNIA Last Admin: 05/24/19 21:32 Dose: 10 mg ASSESSMENT AND PLAN: Metastatic Lung Ca Left Malignant Pleural Effusion s/p pleur-x placement Chronic Hypoxic Respiratory Failure r/o Pneumonia HTN DM Hyperlipidemia h/o Lymphoma - titrate pain control - O2 to keep SpO2 >90% - on empiric antibiotics - monitor chest tube output - inhaled bronchodilators - can monitor on floor
[2019-05-25] MEDS ORDERED: ONDANSETRON 4 MG/2 ML VIAL IVPUSH ONE (14:59)
[2019-05-25] MEDS ORDERED: ONDANSETRON 4 MG/2 ML VIAL IVPUSH PRN (14:59)
[2019-05-25] MEDS ORDERED: FENTANYL PATCH WASTE TD PRN (19:43)
[2019-05-25] MEDS ORDERED: ALBUTEROL SO4 2.5/IPRATROPIUM 0.5 INH SOL 3 ML VIAL.NEB. NEB PRN (19:43)
--- NOTE | 2019-05-25 20:32 | PN ---
Progress Note, Physician - Current Medication List Current Medications: Active Medications Albuterol/Ipratropium (Duoneb -) 1 amp NEB Q6H PRN PRN Reason: SHORTNESS OF BREATH Duloxetine HCl (Cymbalta -) 60 mg PO DAILY [facility] Fentanyl (Duragesic 75mcg Patch -) 1 patch TD Q72H [facility] Insulin Aspart (Novolog Vial Sliding Scale -) 1 vial SQ ACHS [facility]; Protocol Metformin HCl (Glucophage -) 1,000 mg PO BIDI [facility] Miscellaneous (Duragesic Patch Waste) 1 each MC PRN PRN PRN Reason: PAIN Morphine Sulfate (Morphine Sulfate) 4 mg IVPUSH Q4H PRN PRN Reason: PAIN LEVEL 1-5 Last Admin: 05/25/19 17:44 Dose: 4 mg Ondansetron HCl (Zofran Injection) 4 mg IVPUSH Q8H PRN PRN Reason: NAUSEA Pantoprazole Sodium (Protonix -) 40 mg PO DAILY [facility] Rosuvastatin Calcium (Crestor -) 40 mg PO HS [facility] - Objective Vital Signs: Vital Signs Temperature 97.2 F L 05/25/19 17:30 Pulse Rate 113 H 05/25/19 17:30 Respiratory Rate 20 05/25/19 17:30 Blood Pressure 113/67 05/25/19 17:30 O2 Sat by Pulse Oximetry (%) 100 05/25/19 09:00 Labs: CBC, BMP 05/25/19 05:50 05/25/19 05:50 INR, PTT INR 1.22 (0.83-1.09) H 05/23/19 06:22 Problem List - Problems (1) SOB (shortness of breath) Code(s): R06.02 - SHORTNESS OF BREATH (2) Metastatic lung cancer (metastasis from lung to other site) Code(s): C34.90 - MALIGNANT NEOPLASM OF UNSP PART OF UNSP BRONCHUS OR LUNG (3) Asthma Code(s): J45.909 - UNSPECIFIED ASTHMA, UNCOMPLICATED (4) Chronic pancreatitis Code(s): K86.1 - OTHER CHRONIC PANCREATITIS (5) Diabetes Code(s): E11.9 - TYPE 2 DIABETES MELLITUS WITHOUT COMPLICATIONS (6) GERD (gastroesophageal reflux disease) Code(s): K21.9 - GASTRO-ESOPHAGEAL REFLUX DISEASE WITHOUT ESOPHAGITIS (7) HLD (hyperlipidemia) Code(s): E78.5 - HYPERLIPIDEMIA, UNSPECIFIED (8) HTN (hypertension) Code(s): I10 - ESSENTIAL (PRIMARY) HYPERTENSION (9) Non-Hodgkin lymphoma Code(s): C85.90 - NON-HODGKIN LYMPHOMA, UNSPECIFIED, UNSPECIFIED SITE
[2019-05-25] MEDS: ROSUVASTATIN CA 20 MG TABLET (FP) PO SCH (21:46)
[2019-05-25] MEDS ORDERED: MUPIROCIN 2% TOPICAL OINTMENT FOR DECOLONIZATION NS SCH (22:00)
[2019-05-25] MEDS ORDERED: CHLORHEXIDINE GLUCONATE 4% CLEANSER FOR DECOLONIZATION TP SCH (22:00)
[2019-05-26] MEDS: MORPHINE SULFATE 2 MG/ML VIAL IVPUSH PRN ×4 (02:35→20:20)
[2019-05-26] MEDS: ZOLPIDEM TARTRATE 5 MG TABLET PO PRN ×2 (02:52→23:33)
[2019-05-26] MEDS: metFORMIN HCL 500 MG TABLET (FP) PO SCH ×2 (06:34→17:49)
[2019-05-26] MEDS: INSULIN SLIDING SCALE (NOVOLOG) 1 VIAL SQ SCH ×4 (06:35→21:58)
[2019-05-26] MEDS ORDERED: PT OWN MED DRAWER 7, Y5N ONE (09:03)
[2019-05-26] MEDS: DULoxetine HCL 30 MG CAPSULE.DR PO SCH (09:10)
[2019-05-26] MEDS: PANTOPRAZOLE 40 MG TABLET (FP) PO SCH (09:10)
--- NOTE | 2019-05-26 10:16 | PN ---
Progress Note (short form) - Note Progress Note: PULMONARY Breathing improving. Pain better controlled with increased fentanyl patch. Still with scalp pain. Vital Signs Period Temp Pulse Resp BP Sys/Villeda Pulse Ox Last 24 Hr 97.1 F-98.0 F 108-117 18-24 100-113/56-74 100 Gen: NAD at rest Heart: RRR Lung: decreased breath sounds left base Abd: soft, nontender Ext: no edema CBC, BMP 05/25/19 05:50 05/25/19 05:50 Active Medications Albuterol/Ipratropium (Duoneb -) 1 amp NEB Q6H PRN PRN Reason: SHORTNESS OF BREATH Duloxetine HCl (Cymbalta -) 60 mg PO DAILY [facility] Last Admin: 05/26/19 09:10 Dose: 60 mg Fentanyl (Duragesic 75mcg Patch -) 1 patch TD Q72H [facility] Insulin Aspart (Novolog Vial Sliding Scale -) 1 vial SQ ACHS [facility]; Protocol Last Admin: 05/26/19 06:35 Dose: Not Given Metformin HCl (Glucophage -) 1,000 mg PO BIDI [facility] Last Admin: 05/26/19 06:34 Dose: 1,000 mg Miscellaneous (Duragesic Patch Waste) 1 each MC PRN PRN PRN Reason: PAIN Morphine Sulfate (Morphine Sulfate) 4 mg IVPUSH Q4H PRN PRN Reason: PAIN LEVEL 1-5 Last Admin: 05/26/19 09:07 Dose: 4 mg Ondansetron HCl (Zofran Injection) 4 mg IVPUSH Q8H PRN PRN Reason: NAUSEA Pantoprazole Sodium (Protonix -) 40 mg PO DAILY [facility] Last Admin: 05/26/19 09:10 Dose: 40 mg Rosuvastatin Calcium (Crestor -) 40 mg PO HS [facility] Last Admin: 05/25/19 21:46 Dose: 40 mg Zolpidem Tartrate (Ambien -) 10 mg PO HS PRN PRN Reason: INSOMNIA Last Admin: 05/26/19 02:52 Dose: 10 mg A/P Metastatic Lung Ca Left Malignant Pleural Effusion s/p pleur-x placement Chronic Hypoxic Respiratory Failure r/o Pneumonia HTN DM Hyperlipidemia h/o Lymphoma - titrate pain control - O2 to keep SpO2 >90% - on empiric antibiotics - monitor chest tube output - inhaled bronchodilators
--- NOTE | 2019-05-26 12:57 | PN ---
Progress Note, Physician History of Present Illness: pain main issues chest tube draining - Current Medication List Current Medications: Active Medications Albuterol/Ipratropium (Duoneb -) 1 amp NEB Q6H PRN PRN Reason: SHORTNESS OF BREATH Duloxetine HCl (Cymbalta -) 60 mg PO DAILY [facility] Last Admin: 05/26/19 09:10 Dose: 60 mg Fentanyl (Duragesic 75mcg Patch -) 1 patch TD Q72H [facility] Insulin Aspart (Novolog Vial Sliding Scale -) 1 vial SQ ACHS [facility]; Protocol Last Admin: 05/26/19 11:27 Dose: Not Given Metformin HCl (Glucophage -) 1,000 mg PO BIDI [facility] Last Admin: 05/26/19 06:34 Dose: 1,000 mg Miscellaneous (Duragesic Patch Waste) 1 each MC PRN PRN PRN Reason: PAIN Morphine Sulfate (Morphine Sulfate) 4 mg IVPUSH Q4H PRN PRN Reason: PAIN LEVEL 1-5 Last Admin: 05/26/19 12:46 Dose: 4 mg Ondansetron HCl (Zofran Injection) 4 mg IVPUSH Q8H PRN PRN Reason: NAUSEA Pantoprazole Sodium (Protonix -) 40 mg PO DAILY [facility] Last Admin: 05/26/19 09:10 Dose: 40 mg Rosuvastatin Calcium (Crestor -) 40 mg PO HS [facility] Last Admin: 05/25/19 21:46 Dose: 40 mg Zolpidem Tartrate (Ambien -) 10 mg PO HS PRN PRN Reason: INSOMNIA Last Admin: 05/26/19 02:52 Dose: 10 mg - Objective Vital Signs: Vital Signs Temperature 97.8 F 05/26/19 05:00 Pulse Rate 108 H 05/26/19 05:00 Respiratory Rate 18 05/26/19 05:00 Blood Pressure 110/57 L 05/26/19 05:00 O2 Sat by Pulse Oximetry (%) 100 05/25/19 21:00 Constitutional: Yes: Calm, Mild Distress Cardiovascular: Yes: S1, S2 Respiratory: Yes: Regular, Poor Air Entry (left side), Other (chest tube left side) Gastrointestinal: Yes: Normal Bowel Sounds, Soft Musculoskeletal: Yes: WNL Extremities: Yes: WNL Neurological: Yes: Alert, Oriented Psychiatric: Yes: Alert, Oriented Labs: CBC, BMP 05/25/19 05:50 05/25/19 05:50 INR, PTT INR 1.22 (0.83-1.09) H 05/23/19 06:22 Assessment/Plan Problem List - Problems (1) Acute hypoxemic respiratory failure Code(s): J96.01 - ACUTE RESPIRATORY FAILURE WITH HYPOXIA (2) SOB (shortness of breath) Code(s): R06.02 - SHORTNESS OF BREATH (3) Chronic pancreatitis Code(s): K86.1 - OTHER CHRONIC PANCREATITIS (4) Diabetes Code(s): E11.9 - TYPE 2 DIABETES MELLITUS WITHOUT COMPLICATIONS (5) Difficulty breathing Code(s): R06.89 - OTHER ABNORMALITIES OF BREATHING (6) H/O gastric bypass Code(s): Z98.89 - OTHER SPECIFIED POSTPROCEDURAL STATES * DO NOT USE * (7) HLD (hyperlipidemia) Code(s): E78.5 - HYPERLIPIDEMIA, UNSPECIFIED (8) HTN (hypertension) Code(s): I10 - ESSENTIAL (PRIMARY) HYPERTENSION (9) Non-Hodgkin's lymphoma Code(s): C85.90 - NON-HODGKIN LYMPHOMA, UNSPECIFIED, UNSPECIFIED SITE (10) Pleural effusion Code(s): J90 - PLEURAL EFFUSION, NOT ELSEWHERE CLASSIFIED (11) Metastatic lung cancer (metastasis from lung to other site) Code(s): C34.90 - MALIGNANT NEOPLASM OF UNSP PART OF UNSP BRONCHUS OR LUNG (12) Malignant pleural effusion Code(s): J91.0 - MALIGNANT PLEURAL EFFUSION plan continue to monitor off of abx close watch pain mgmt rest as per the team
[2019-05-26 15:18] VITALS: BMI 32.0
[2019-05-26] MEDS ORDERED: INSULIN (NOVOLOG) ASPART 100 UNITS/ML 10ML VIAL ONE (20:33)
--- NOTE | 2019-05-26 21:01 | PN ---
Progress Note, Physician History of Present Illness: Pt complains of RIVERS - Current Medication List Current Medications: Active Medications Albuterol/Ipratropium (Duoneb -) 1 amp NEB Q6H PRN PRN Reason: SHORTNESS OF BREATH Duloxetine HCl (Cymbalta -) 60 mg PO DAILY [facility] Last Admin: 05/26/19 09:10 Dose: 60 mg Fentanyl (Duragesic 75mcg Patch -) 1 patch TD Q72H [facility] Insulin Aspart (Novolog Vial Sliding Scale -) 1 vial SQ ACHS [facility]; Protocol Last Admin: 05/26/19 17:00 Dose: Not Given Metformin HCl (Glucophage -) 1,000 mg PO BIDI [facility] Last Admin: 05/26/19 17:49 Dose: 1,000 mg Miscellaneous (Duragesic Patch Waste) 1 each MC PRN PRN PRN Reason: PAIN Morphine Sulfate (Morphine Sulfate) 4 mg IVPUSH Q4H PRN PRN Reason: PAIN LEVEL 1-5 Last Admin: 05/26/19 20:20 Dose: 4 mg Ondansetron HCl (Zofran Injection) 4 mg IVPUSH Q8H PRN PRN Reason: NAUSEA Pantoprazole Sodium (Protonix -) 40 mg PO DAILY [facility] Last Admin: 05/26/19 09:10 Dose: 40 mg Rosuvastatin Calcium (Crestor -) 40 mg PO HS [facility] Last Admin: 05/25/19 21:46 Dose: 40 mg Zolpidem Tartrate (Ambien -) 10 mg PO HS PRN PRN Reason: INSOMNIA Last Admin: 05/26/19 02:52 Dose: 10 mg - Objective Vital Signs: Vital Signs Temperature 97.9 F 05/26/19 16:30 Pulse Rate 112 H 05/26/19 16:30 Respiratory Rate 20 05/26/19 16:30 Blood Pressure 106/70 05/26/19 16:30 O2 Sat by Pulse Oximetry (%) 100 05/25/19 21:00 Cardiovascular: Yes: WNL, Regular Rate and Rhythm Respiratory: Yes: Diminished Gastrointestinal: Yes: WNL, Normal Bowel Sounds, Soft Edema: Yes Edema: LLE: Trace, RLE: Trace Labs: CBC, BMP 05/25/19 05:50 05/25/19 05:50 INR, PTT INR 1.22 (0.83-1.09) H 05/23/19 06:22 Problem List - Problems (1) SOB (shortness of breath) Assessment/Plan: Due to pleural effusions S/P thoracentesis and pleurx-cath placement Pulmonary/thoracic surgery consults noted Cont nebulizers Still draining fluid Code(s): R06.02 - SHORTNESS OF BREATH (2) Metastatic lung cancer (metastasis from lung to other site) Assessment/Plan: Onco consult noted 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 Check ct scan head Cont fentanyl patch/morphine Code(s): C34.90 - MALIGNANT NEOPLASM OF UNSP PART OF UNSP BRONCHUS OR LUNG (3) Asthma Assessment/Plan: Cont nebulizers Code(s): J45.909 - UNSPECIFIED ASTHMA, UNCOMPLICATED (4) Chronic pancreatitis Code(s): K86.1 - OTHER CHRONIC PANCREATITIS (5) Diabetes Assessment/Plan: Cont metformin Cont sliding scale w/ coverage Code(s): E11.9 - TYPE 2 DIABETES MELLITUS WITHOUT COMPLICATIONS (6) GERD (gastroesophageal reflux disease) Code(s): K21.9 - GASTRO-ESOPHAGEAL REFLUX DISEASE WITHOUT ESOPHAGITIS (7) HLD (hyperlipidemia) Assessment/Plan: Cont lipitor Code(s): E78.5 - HYPERLIPIDEMIA, UNSPECIFIED (8) HTN (hypertension) Assessment/Plan: BP stable Cont norvasc Code(s): I10 - ESSENTIAL (PRIMARY) HYPERTENSION (9) Non-Hodgkin lymphoma Assessment/Plan: Stage III lymphoma in remission Code(s): C85.90 - NON-HODGKIN LYMPHOMA, UNSPECIFIED, UNSPECIFIED SITE
[2019-05-26] MEDS: ROSUVASTATIN CA 20 MG TABLET (FP) PO SCH (21:03)
[2019-05-26] MEDS ORDERED: ZOLPIDEM TARTRATE 5 MG TABLET PO PRN (22:00)
[2019-05-27] MEDS: MORPHINE SULFATE 2 MG/ML VIAL IVPUSH PRN ×5 (03:05→20:02)
--- NOTE | 2019-05-27 06:08 | PN ---
Progress Note (short form) - Note Progress Note: patient seen and examined shortness of breath improved c/o headaches afvss Cor: RSR, No murmurs, No gallops Lungs: decreased at bases Abd: Soft, Normal bowel sounds, No organomegaly Ext:No significant edema labs/meds reviewed Assessment/Plan 54F, pt of Dr. 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 s/p PleurX cathether. Planned to start chemotherapy with carbo/alimta/pembro as outpatient. on empiric zosyn ? [employer] imaging as inpatient given headaches will discuss with team
[2019-05-27] MEDS: INSULIN SLIDING SCALE (NOVOLOG) 1 VIAL SQ SCH ×4 (06:09→22:34)
[2019-05-27] MEDS: metFORMIN HCL 500 MG TABLET (FP) PO SCH ×2 (06:09→17:53)
[2019-05-27 09:02] LABS: BASO % 0.1 % (0-2.0); EOS % 0.1 % (0-4.5); HEMATOCRIT 28.6 % (32.4-45.2); LYMPH % 5.8 % (8-40); MCH 24.3 pg (25.7-33.7); MCHC 31.3 g/dl (32.0-36.0); MEAN CELL VOLUME 77.8 fl (80-96); MEAN PLT VOLUME 7.1 fl (7.5-11.1); MONO % 10.5 % (3.8-10.2); NEUT % 83.5 % (42.8-82.8); PLATELET COUNT 384 K/MM3 (134-434); RBC 3.68 M/mm3 (3.60-5.2); RDW 21.5 % (11.6-15.6)
[2019-05-27 09:25] LABS: ALBUMIN 2.2 g/dl (3.4-5.0); ALK PHOS 93 U/L (45-117); ANION GAP 11 MMOL/L (8-16); BILIRUBIN,TOTAL 0.4 mg/dL (0.2-1); BLOOD UREA NITROGEN 26.8 mg/dL (7-18); CALCIUM 8.5 mg/dL (8.5-10.1); CHLORIDE 100 mmol/L (98-107); CO2 24 mmol/L (21-32); CREATININE 1.5 mg/dL (0.55-1.3); GLUCOSE,RANDOM 80 mg/dL (74-106); POTASSIUM 4.3 mmol/L (3.5-5.1); SGOT/AST 19 U/L (15-37); SGPT/ALT < 6 U/L (13-61); SODIUM 135 mmol/L (136-145); TOT PROT 5.4 g/dl (6.4-8.2)
[2019-05-27] MEDS ORDERED: PT OWN MED DRAWER 7, Y5N ONE (10:06)
[2019-05-27] MEDS: DULoxetine HCL 30 MG CAPSULE.DR PO SCH (10:19)
[2019-05-27] MEDS: PANTOPRAZOLE 40 MG TABLET (FP) PO SCH (10:19)
--- NOTE | 2019-05-27 10:24 | PN ---
Progress Note, Physician History of Present Illness: pain main issues - Current Medication List Current Medications: Active Medications Albuterol/Ipratropium (Duoneb -) 1 amp NEB Q6H PRN PRN Reason: SHORTNESS OF BREATH Duloxetine HCl (Cymbalta -) 60 mg PO DAILY [facility] Last Admin: 05/27/19 10:19 Dose: 60 mg Fentanyl (Duragesic 75mcg Patch -) 1 patch TD Q72H [facility] Insulin Aspart (Novolog Vial Sliding Scale -) 1 vial SQ ACHS [facility]; Protocol Last Admin: 05/27/19 06:09 Dose: Not Given Metformin HCl (Glucophage -) 1,000 mg PO BIDI [facility] Last Admin: 05/27/19 06:09 Dose: 1,000 mg Miscellaneous (Duragesic Patch Waste) 1 each MC PRN PRN PRN Reason: PAIN Morphine Sulfate (Morphine Sulfate) 4 mg IVPUSH Q4H PRN PRN Reason: PAIN LEVEL 1-5 Last Admin: 05/27/19 10:20 Dose: 4 mg Ondansetron HCl (Zofran Injection) 4 mg IVPUSH Q8H PRN PRN Reason: NAUSEA Pantoprazole Sodium (Protonix -) 40 mg PO DAILY [facility] Last Admin: 05/27/19 10:19 Dose: 40 mg Rosuvastatin Calcium (Crestor -) 40 mg PO HS [facility] Last Admin: 05/26/19 21:03 Dose: 40 mg Zolpidem Tartrate (Ambien -) 10 mg PO HS PRN PRN Reason: INSOMNIA Last Admin: 05/26/19 23:33 Dose: 10 mg - Objective Vital Signs: Vital Signs Temperature 98 F 05/27/19 06:51 Pulse Rate 117 H 05/27/19 06:51 Respiratory Rate 18 05/27/19 06:51 Blood Pressure 102/62 05/27/19 06:51 O2 Sat by Pulse Oximetry (%) 98 05/26/19 21:00 Constitutional: Yes: Anxious, Mild Distress Cardiovascular: Yes: S1, S2 Respiratory: Yes: Regular, Poor Air Entry, Other (chest tube in place) Gastrointestinal: Yes: Normal Bowel Sounds, Soft Musculoskeletal: Yes: WNL Extremities: Yes: WNL Neurological: Yes: Alert, Oriented Psychiatric: Yes: Alert, Oriented Labs: CBC, BMP 05/27/19 07:25 05/27/19 07:25 INR, PTT INR 1.22 (0.83-1.09) H 05/23/19 06:22 Assessment/Plan Problem List - Problems (1) Acute hypoxemic respiratory failure Code(s): J96.01 - ACUTE RESPIRATORY FAILURE WITH HYPOXIA (2) SOB (shortness of breath) Code(s): R06.02 - SHORTNESS OF BREATH (3) Chronic pancreatitis Code(s): K86.1 - OTHER CHRONIC PANCREATITIS (4) Diabetes Code(s): E11.9 - TYPE 2 DIABETES MELLITUS WITHOUT COMPLICATIONS (5) Difficulty breathing Code(s): R06.89 - OTHER ABNORMALITIES OF BREATHING (6) H/O gastric bypass Code(s): Z98.89 - OTHER SPECIFIED POSTPROCEDURAL STATES * DO NOT USE * (7) HLD (hyperlipidemia) Code(s): E78.5 - HYPERLIPIDEMIA, UNSPECIFIED (8) HTN (hypertension) Code(s): I10 - ESSENTIAL (PRIMARY) HYPERTENSION (9) Non-Hodgkin's lymphoma Code(s): C85.90 - NON-HODGKIN LYMPHOMA, UNSPECIFIED, UNSPECIFIED SITE (10) Pleural effusion Code(s): J90 - PLEURAL EFFUSION, NOT ELSEWHERE CLASSIFIED (11) Metastatic lung cancer (metastasis from lung to other site) Code(s): C34.90 - MALIGNANT NEOPLASM OF UNSP PART OF UNSP BRONCHUS OR LUNG (12) Malignant pleural effusion Code(s): J91.0 - MALIGNANT PLEURAL EFFUSION plan continue to monitor off of abx wbc increasing if wbc increases to look at the chest tube if it is working might have to restart abx if needed
--- NOTE | 2019-05-27 13:30 | PN ---
Progress Note (short form) - Note Progress Note: PULMONARY Breathing improving. vss/Afebrile Gen: NAD at rest Heart: RRR Lung: decreased breath sounds left base/tube drainage underway Abd: soft, nontender Ext: no edema CXR modest improvement on left CT brain no contrast: low sensitivity for brain mets A/P Metastatic Lung Ca Left Malignant Pleural Effusion s/p pleur-x placement Chronic Hypoxic Respiratory Failure r/o Pneumonia HTN DM Hyperlipidemia h/o Lymphoma - titrate pain control - O2 to keep SpO2 >90% - on empiric antibiotics - monitor chest tube output - inhaled bronchodilators Navin SKAGGS MD
[2019-05-27 14:13] LABS: ANISOCYTOSIS 2+; MACROCYTOSIS 0; PLATELET ESTIMATE NORMAL
--- NOTE | 2019-05-27 21:11 | PN ---
Progress Note, Physician - Current Medication List Current Medications: Active Medications Albuterol/Ipratropium (Duoneb -) 1 amp NEB Q6H PRN PRN Reason: SHORTNESS OF BREATH Duloxetine HCl (Cymbalta -) 60 mg PO DAILY [facility] Last Admin: 05/27/19 10:19 Dose: 60 mg Fentanyl (Duragesic 75mcg Patch -) 1 patch TD Q72H [facility] Insulin Aspart (Novolog Vial Sliding Scale -) 1 vial SQ ACHS [facility]; Protocol Last Admin: 05/27/19 17:55 Dose: Not Given Metformin HCl (Glucophage -) 1,000 mg PO BIDI [facility] Last Admin: 05/27/19 17:53 Dose: 1,000 mg Miscellaneous (Duragesic Patch Waste) 1 each MC PRN PRN PRN Reason: PAIN Morphine Sulfate (Morphine Sulfate) 4 mg IVPUSH Q4H PRN PRN Reason: PAIN LEVEL 1-5 Last Admin: 05/27/19 20:02 Dose: 4 mg Ondansetron HCl (Zofran Injection) 4 mg IVPUSH Q8H PRN PRN Reason: NAUSEA Pantoprazole Sodium (Protonix -) 40 mg PO DAILY [facility] Last Admin: 05/27/19 10:19 Dose: 40 mg Rosuvastatin Calcium (Crestor -) 40 mg PO HS [facility] Last Admin: 05/26/19 21:03 Dose: 40 mg Zolpidem Tartrate (Ambien -) 10 mg PO HS PRN PRN Reason: INSOMNIA Last Admin: 05/26/19 23:33 Dose: 10 mg - Objective Vital Signs: Vital Signs Temperature 97.8 F 05/27/19 16:30 Pulse Rate 117 H 05/27/19 16:30 Respiratory Rate 18 05/27/19 16:30 Blood Pressure 108/68 05/27/19 16:30 O2 Sat by Pulse Oximetry (%) 99 05/27/19 09:00 Labs: CBC, BMP 05/27/19 07:25 05/27/19 07:25 INR, PTT INR 1.22 (0.83-1.09) H 05/23/19 06:22 Problem List - Problems (1) SOB (shortness of breath) Code(s): R06.02 - SHORTNESS OF BREATH (2) Metastatic lung cancer (metastasis from lung to other site) Code(s): C34.90 - MALIGNANT NEOPLASM OF UNSP PART OF UNSP BRONCHUS OR LUNG (3) Asthma Code(s): J45.909 - UNSPECIFIED ASTHMA, UNCOMPLICATED (4) Chronic pancreatitis Code(s): K86.1 - OTHER CHRONIC PANCREATITIS (5) Diabetes Code(s): E11.9 - TYPE 2 DIABETES MELLITUS WITHOUT COMPLICATIONS (6) GERD (gastroesophageal reflux disease) Code(s): K21.9 - GASTRO-ESOPHAGEAL REFLUX DISEASE WITHOUT ESOPHAGITIS (7) HLD (hyperlipidemia) Code(s): E78.5 - HYPERLIPIDEMIA, UNSPECIFIED (8) HTN (hypertension) Code(s): I10 - ESSENTIAL (PRIMARY) HYPERTENSION (9) Non-Hodgkin lymphoma Code(s): C85.90 - NON-HODGKIN LYMPHOMA, UNSPECIFIED, UNSPECIFIED SITE
[2019-05-27] MEDS: ROSUVASTATIN CA 20 MG TABLET (FP) PO SCH (22:34)
[2019-05-28] MEDS: MORPHINE SULFATE 2 MG/ML VIAL IVPUSH PRN ×3 (00:14→09:54)
[2019-05-28] MEDS: metFORMIN HCL 500 MG TABLET (FP) PO SCH ×2 (06:11→17:19)
[2019-05-28] MEDS: INSULIN SLIDING SCALE (NOVOLOG) 1 VIAL SQ SCH ×4 (06:14→21:10)
[2019-05-28] MEDS: PANTOPRAZOLE 40 MG TABLET (FP) PO SCH (09:14)
[2019-05-28] MEDS: DULoxetine HCL 30 MG CAPSULE.DR PO SCH (09:14)
[2019-05-28 10:25] LABS: BASO % 0.1 % (0-2.0); EOS % 0.2 % (0-4.5); HEMOGLOBIN 9.3 GM/dL (10.7-15.3); MCH 24.3 pg (25.7-33.7); MCHC 30.9 g/dl (32.0-36.0); MEAN CELL VOLUME 78.6 fl (80-96); MEAN PLT VOLUME 7.4 fl (7.5-11.1); MONO % 9.7 % (3.8-10.2); PLATELET COUNT 395 K/MM3 (134-434); RBC 3.82 M/mm3 (3.60-5.2); WHITE BLOOD COUNT 20.2 K/mm3 (4.0-10.0)
--- NOTE | 2019-05-28 11:12 | PN ---
Progress Note (short form) - Note Progress Note: PULMONARY Breathing improving. Pain better controlled. Vital Signs Period Temp Pulse Resp BP Sys/Villeda Pulse Ox Last 24 Hr 97.8 F-98.3 F 90-119 18-22 96-113/55-75 99 Gen: NAD at rest Heart: RRR Lung: decreased breath sounds left base Abd: soft, nontender Ext: no edema Chest tube with serous output CBC, BMP 05/28/19 08:00 05/28/19 08:00 Active Medications Albuterol/Ipratropium (Duoneb -) 1 amp NEB Q6H PRN PRN Reason: SHORTNESS OF BREATH Duloxetine HCl (Cymbalta -) 60 mg PO DAILY [facility] Last Admin: 05/28/19 09:14 Dose: 60 mg Fentanyl (Duragesic 75mcg Patch -) 1 patch TD Q72H [facility] Insulin Aspart (Novolog Vial Sliding Scale -) 1 vial SQ ACHS [facility]; Protocol Last Admin: 05/28/19 06:14 Dose: Not Given Metformin HCl (Glucophage -) 1,000 mg PO BIDI [facility] Last Admin: 05/28/19 06:11 Dose: 1,000 mg Miscellaneous (Duragesic Patch Waste) 1 each MC PRN PRN PRN Reason: PAIN Morphine Sulfate (Morphine Sulfate) 4 mg IVPUSH Q4H PRN PRN Reason: PAIN LEVEL 1-5 Last Admin: 05/28/19 09:54 Dose: 4 mg Ondansetron HCl (Zofran Injection) 4 mg IVPUSH Q8H PRN PRN Reason: NAUSEA Pantoprazole Sodium (Protonix -) 40 mg PO DAILY [facility] Last Admin: 05/28/19 09:14 Dose: 40 mg Rosuvastatin Calcium (Crestor -) 40 mg PO HS [facility] Last Admin: 05/27/19 22:34 Dose: 40 mg Zolpidem Tartrate (Ambien -) 10 mg PO HS PRN PRN Reason: INSOMNIA Last Admin: 05/26/19 23:33 Dose: 10 mg A/P Metastatic Lung Ca Left Malignant Pleural Effusion s/p pleur-x placement Chronic Hypoxic Respiratory Failure r/o Pneumonia HTN DM Hyperlipidemia h/o Lymphoma - titrate pain control - O2 to keep SpO2 >90% - on empiric antibiotics - monitor chest tube output - inhaled bronchodilators
[2019-05-28 11:35] LABS: ANISOCYTOSIS 1+; MACROCYTOSIS 0; PLATELET ESTIMATE NORMAL
[2019-05-28] MEDS: fentaNYL 75mcg/hr PATCH.TD72 TD SCH (12:05)
[2019-05-28] MEDS: FENTANYL PATCH WASTE MC PRN (12:08)
[2019-05-28 14:12] LABS: ALBUMIN 2.3 g/dl (3.4-5.0); BILIRUBIN,TOTAL 0.5 mg/dL (0.2-1); CALCIUM 8.4 mg/dL (8.5-10.1); CREATININE 1.3 mg/dL (0.55-1.3); POTASSIUM 4.2 mmol/L (3.5-5.1); TOT PROT 5.7 g/dl (6.4-8.2)
[2019-05-28] MEDS: oxyCODONE HCL 5 MG TABLET PO PRN ×2 (15:47→22:41)
[2019-05-28] MEDS: ACETAMINOPHEN 325 MG TABLET (FP) PO PRN ×2 (15:48→22:42)
--- NOTE | 2019-05-28 17:39 | PN ---
Progress Note, Physician History of Present Illness: Pt states she is less SOB, has occasional dry cough but remains afebrile/alert. Lt CT in place. No specific new complaints. Now off antibiotics, wbc remains elevated. - Current Medication List Current Medications: Active Medications Acetaminophen (Tylenol -) 325 mg PO Q6H PRN PRN Reason: PAIN LEVEL 4-10 Last Admin: 05/28/19 15:48 Dose: 325 mg Albuterol/Ipratropium (Duoneb -) 1 amp NEB Q6H PRN PRN Reason: SHORTNESS OF BREATH Duloxetine HCl (Cymbalta -) 60 mg PO DAILY [facility] Last Admin: 05/28/19 09:14 Dose: 60 mg Fentanyl (Duragesic 75mcg Patch -) 1 patch TD Q72H [facility] Last Admin: 05/28/19 12:05 Dose: 1 patch Insulin Aspart (Novolog Vial Sliding Scale -) 1 vial SQ ACHS [facility]; Protocol Last Admin: 05/28/19 17:21 Dose: Not Given Metformin HCl (Glucophage -) 1,000 mg PO BIDI [facility] Last Admin: 05/28/19 17:19 Dose: 1,000 mg Miscellaneous (Duragesic Patch Waste) 1 each MC PRN PRN PRN Reason: PAIN Last Admin: 05/28/19 12:08 Dose: 1 each Ondansetron HCl (Zofran Injection) 4 mg IVPUSH Q8H PRN PRN Reason: NAUSEA Oxycodone HCl (Roxicodone -) 5 mg PO Q6H PRN PRN Reason: Pain level 4-10 Last Admin: 05/28/19 15:47 Dose: 5 mg Pantoprazole Sodium (Protonix -) 40 mg PO DAILY [facility] Last Admin: 05/28/19 09:14 Dose: 40 mg Rosuvastatin Calcium (Crestor -) 40 mg PO HS [facility] Last Admin: 05/27/19 22:34 Dose: 40 mg Zolpidem Tartrate (Ambien -) 10 mg PO HS PRN PRN Reason: INSOMNIA Last Admin: 05/26/19 23:33 Dose: 10 mg - Objective Vital Signs: Vital Signs Temperature 97.9 F 05/28/19 10:00 Pulse Rate 110 H 05/28/19 10:00 Respiratory Rate 20 05/28/19 10:00 Blood Pressure 104/57 L 05/28/19 10:00 O2 Sat by Pulse Oximetry (%) 96 05/28/19 09:00 Constitutional: Yes: No Distress, Calm Cardiovascular: Yes: Tachycardia Respiratory: Yes: Diminished (on Lt), Other (Lt chest tube) Gastrointestinal: Yes: Normal Bowel Sounds, Soft Genitourinary: Yes: WNL Extremities: Yes: WNL Integumentary: Yes: WNL Neurological: Yes: Alert, Oriented Labs: CBC, BMP 05/28/19 08:00 05/28/19 12:40 INR, PTT INR 1.22 (0.83-1.09) H 05/23/19 06:22 Microbiology 05/20/19 11:45 Blood - Peripheral Venous Blood Culture - Final NO GROWTH AFTER 5 DAYS INCUBATION 05/20/19 11:45 Blood - Peripheral Venous Blood Culture - Final NO GROWTH AFTER 5 DAYS INCUBATION 05/22/19 18:20 Urine - Urine Clean Catch Urine Culture - Final Yeast Like Organism 05/21/19 13:43 Pleural Fluid Gram Stain - Final 05/21/19 13:43 Pleural Fluid Body Fluid Culture - Final NO GROWTH OF AEROBIC ORGANISMS AFTER 48 HOURS INCUBATION 05/21/19 13:43 Pleural Fluid Anaerobic Culture - Final NO ANAEROBES WERE ISOLATED - ....Imaging Chest X-ray: Report Reviewed Problem List - Problems (1) Acute hypoxemic respiratory failure Code(s): J96.01 - ACUTE RESPIRATORY FAILURE WITH HYPOXIA (2) Malignant pleural effusion Code(s): J91.0 - MALIGNANT PLEURAL EFFUSION (3) Metastatic lung cancer (metastasis from lung to other site) Code(s): C34.90 - MALIGNANT NEOPLASM OF UNSP PART OF UNSP BRONCHUS OR LUNG (4) SOB (shortness of breath) Code(s): R06.02 - SHORTNESS OF BREATH (5) Asthma Code(s): J45.909 - UNSPECIFIED ASTHMA, UNCOMPLICATED (6) Chronic pancreatitis Code(s): K86.1 - OTHER CHRONIC PANCREATITIS (7) Diabetes Code(s): E11.9 - TYPE 2 DIABETES MELLITUS WITHOUT COMPLICATIONS (8) GERD (gastroesophageal reflux disease) Code(s): K21.9 - GASTRO-ESOPHAGEAL REFLUX DISEASE WITHOUT ESOPHAGITIS (9) HLD (hyperlipidemia) Code(s): E78.5 - HYPERLIPIDEMIA, UNSPECIFIED (10) HTN (hypertension) Code(s): I10 - ESSENTIAL (PRIMARY) HYPERTENSION (11) Non-Hodgkin lymphoma Code(s): C85.90 - NON-HODGKIN LYMPHOMA, UNSPECIFIED, UNSPECIFIED SITE (12) Pleural effusion Code(s): J90 - PLEURAL EFFUSION, NOT ELSEWHERE CLASSIFIED Assessment/Plan Metastatic Lung CA Malignant Pleural effusion s/p pleur-x Leukocytosis DM HTN Hx of Lymphoma -- s/p course of antibiotics -- wbc remains elevated but afebrile, cultures negative -- repeat cbc, monitor wbc trend -- if increasing wbc noted will consider re-start antibiotics monitor vitals closely
[2019-05-28] MEDS: ZOLPIDEM TARTRATE 5 MG TABLET PO PRN (21:08)
[2019-05-28] MEDS: ROSUVASTATIN CA 20 MG TABLET (FP) PO SCH (21:09)
--- NOTE | 2019-05-28 23:50 | PN ---
Progress Note, Physician - Current Medication List Current Medications: Active Medications Acetaminophen (Tylenol -) 325 mg PO Q6H PRN PRN Reason: PAIN LEVEL 4-10 Last Admin: 05/28/19 22:42 Dose: 325 mg Albuterol/Ipratropium (Duoneb -) 1 amp NEB Q6H PRN PRN Reason: SHORTNESS OF BREATH Duloxetine HCl (Cymbalta -) 60 mg PO DAILY [facility] Last Admin: 05/28/19 09:14 Dose: 60 mg Fentanyl (Duragesic 75mcg Patch -) 1 patch TD Q72H [facility] Last Admin: 05/28/19 12:05 Dose: 1 patch Insulin Aspart (Novolog Vial Sliding Scale -) 1 vial SQ ACHS [facility]; Protocol Last Admin: 05/28/19 21:10 Dose: Not Given Metformin HCl (Glucophage -) 1,000 mg PO BIDI [facility] Last Admin: 05/28/19 17:19 Dose: 1,000 mg Miscellaneous (Duragesic Patch Waste) 1 each MC PRN PRN PRN Reason: PAIN Last Admin: 05/28/19 12:08 Dose: 1 each Ondansetron HCl (Zofran Injection) 4 mg IVPUSH Q8H PRN PRN Reason: NAUSEA Oxycodone HCl (Roxicodone -) 5 mg PO Q6H PRN PRN Reason: Pain level 4-10 Last Admin: 05/28/19 22:41 Dose: 5 mg Pantoprazole Sodium (Protonix -) 40 mg PO DAILY [facility] Last Admin: 05/28/19 09:14 Dose: 40 mg Rosuvastatin Calcium (Crestor -) 40 mg PO HS [facility] Last Admin: 05/28/19 21:09 Dose: 40 mg Zolpidem Tartrate (Ambien -) 10 mg PO HS PRN PRN Reason: INSOMNIA Last Admin: 05/28/19 21:08 Dose: 10 mg - Objective Vital Signs: Vital Signs Temperature 98.4 F 05/28/19 22:00 Pulse Rate 114 H 05/28/19 22:00 Respiratory Rate 20 05/28/19 22:00 Blood Pressure 105/53 L 05/28/19 22:00 O2 Sat by Pulse Oximetry (%) 96 05/28/19 09:00 Labs: CBC, BMP 05/28/19 08:00 05/28/19 12:40 INR, PTT INR 1.22 (0.83-1.09) H 05/23/19 06:22 Problem List - Problems (1) SOB (shortness of breath) Code(s): R06.02 - SHORTNESS OF BREATH (2) Metastatic lung cancer (metastasis from lung to other site) Code(s): C34.90 - MALIGNANT NEOPLASM OF UNSP PART OF UNSP BRONCHUS OR LUNG (3) Asthma Code(s): J45.909 - UNSPECIFIED ASTHMA, UNCOMPLICATED (4) Chronic pancreatitis Code(s): K86.1 - OTHER CHRONIC PANCREATITIS (5) Diabetes Code(s): E11.9 - TYPE 2 DIABETES MELLITUS WITHOUT COMPLICATIONS (6) GERD (gastroesophageal reflux disease) Code(s): K21.9 - GASTRO-ESOPHAGEAL REFLUX DISEASE WITHOUT ESOPHAGITIS (7) HLD (hyperlipidemia) Code(s): E78.5 - HYPERLIPIDEMIA, UNSPECIFIED (8) HTN (hypertension) Code(s): I10 - ESSENTIAL (PRIMARY) HYPERTENSION (9) Non-Hodgkin lymphoma Code(s): C85.90 - NON-HODGKIN LYMPHOMA, UNSPECIFIED, UNSPECIFIED SITE
[2019-05-29] MEDS: oxyCODONE HCL 5 MG TABLET PO PRN ×5 (02:46→21:11)
[2019-05-29] MEDS: ACETAMINOPHEN 325 MG TABLET (FP) PO PRN ×5 (02:47→21:11)
[2019-05-29] MEDS: metFORMIN HCL 500 MG TABLET (FP) PO SCH ×2 (06:48→17:14)
[2019-05-29] MEDS: INSULIN SLIDING SCALE (NOVOLOG) 1 VIAL SQ SCH ×4 (06:52→21:12)
[2019-05-29] MEDS ORDERED: PT OWN MED DRAWER 7, Y5N ONE (09:57)
[2019-05-29] MEDS: DULoxetine HCL 30 MG CAPSULE.DR PO SCH (11:47)
[2019-05-29] MEDS: PANTOPRAZOLE 40 MG TABLET (FP) PO SCH (11:47)
--- NOTE | 2019-05-29 12:08 | PN ---
Progress Note (short form) - Note Progress Note: PULMONARY Breathing improving. Pain better controlled. Pleurvac disconnected overnight. Pleur-x capped. Vital Signs Period Temp Pulse Resp BP Sys/Villeda Pulse Ox Last 24 Hr 97.5 F-98.4 F 112-116 20-20 105-115/53-72 97 Gen: NAD at rest Heart: RRR Lung: decreased breath sounds left base Abd: soft, nontender Ext: no edema CBC, BMP 05/28/19 08:00 05/28/19 12:40 Active Medications Acetaminophen (Tylenol -) 325 mg PO Q6H PRN PRN Reason: PAIN LEVEL 4-10 Last Admin: 05/29/19 08:00 Dose: 325 mg Albuterol/Ipratropium (Duoneb -) 1 amp NEB Q6H PRN PRN Reason: SHORTNESS OF BREATH Duloxetine HCl (Cymbalta -) 60 mg PO DAILY [facility] Last Admin: 05/29/19 11:47 Dose: 60 mg Fentanyl (Duragesic 75mcg Patch -) 1 patch TD Q72H [facility] Last Admin: 05/28/19 12:05 Dose: 1 patch Insulin Aspart (Novolog Vial Sliding Scale -) 1 vial SQ ACHS [facility]; Protocol Last Admin: 05/29/19 11:54 Dose: 2 units Metformin HCl (Glucophage -) 1,000 mg PO BIDI [facility] Last Admin: 05/29/19 06:48 Dose: 1,000 mg Miscellaneous (Duragesic Patch Waste) 1 each MC PRN PRN PRN Reason: PAIN Last Admin: 05/28/19 12:08 Dose: 1 each Ondansetron HCl (Zofran Injection) 4 mg IVPUSH Q8H PRN PRN Reason: NAUSEA Oxycodone HCl (Roxicodone -) 5 mg PO Q6H PRN PRN Reason: Pain level 4-10 Last Admin: 05/29/19 07:59 Dose: 5 mg Pantoprazole Sodium (Protonix -) 40 mg PO DAILY [facility] Last Admin: 05/29/19 11:47 Dose: 40 mg Rosuvastatin Calcium (Crestor -) 40 mg PO HS [facility] Last Admin: 05/28/19 21:09 Dose: 40 mg A/P Metastatic Lung Ca Left Malignant Pleural Effusion s/p pleur-x placement Chronic Hypoxic Respiratory Failure r/o Pneumonia HTN DM Hyperlipidemia h/o Lymphoma - titrate pain control - O2 to keep SpO2 >90% - on empiric antibiotics - pleur-x drainage every 2-3 days or if symptomatic - inhaled bronchodilators
--- NOTE | 2019-05-29 19:13 | PN ---
Progress Note, Physician History of Present Illness: Pt is alert, afebrile. States she feels better today but still with dry cough, no SOB. Denies abd pain/diarrhea/dysuria/chest pain. No other specific complaints. - Current Medication List Current Medications: Active Medications Acetaminophen (Tylenol -) 325 mg PO Q4H PRN PRN Reason: PAIN LEVEL 4-10 Stop: 06/01/19 12:20 Last Admin: 05/29/19 17:14 Dose: 325 mg Albuterol/Ipratropium (Duoneb -) 1 amp NEB Q6H PRN PRN Reason: SHORTNESS OF BREATH Duloxetine HCl (Cymbalta -) 60 mg PO DAILY [facility] Last Admin: 05/29/19 11:47 Dose: 60 mg Fentanyl (Duragesic 75mcg Patch -) 1 patch TD Q72H [facility] Last Admin: 05/28/19 12:05 Dose: 1 patch Insulin Aspart (Novolog Vial Sliding Scale -) 1 vial SQ ACHS [facility]; Protocol Last Admin: 05/29/19 17:10 Dose: Not Given Metformin HCl (Glucophage -) 1,000 mg PO BIDI [facility] Last Admin: 05/29/19 17:14 Dose: 1,000 mg Miscellaneous (Duragesic Patch Waste) 1 each MC PRN PRN PRN Reason: PAIN Last Admin: 05/28/19 12:08 Dose: 1 each Ondansetron HCl (Zofran Injection) 4 mg IVPUSH Q8H PRN PRN Reason: NAUSEA Oxycodone HCl (Roxicodone -) 5 mg PO Q4H PRN PRN Reason: PAIN LEVEL 4-10 Last Admin: 05/29/19 17:13 Dose: 5 mg Pantoprazole Sodium (Protonix -) 40 mg PO DAILY [facility] Last Admin: 05/29/19 11:47 Dose: 40 mg Rosuvastatin Calcium (Crestor -) 40 mg PO HS [facility] Last Admin: 05/28/19 21:09 Dose: 40 mg - Objective Vital Signs: Vital Signs Temperature 97.8 F 05/29/19 18:43 Pulse Rate 106 H 05/29/19 18:43 Respiratory Rate 20 05/29/19 18:43 Blood Pressure 100/62 05/29/19 18:43 O2 Sat by Pulse Oximetry (%) 96 05/29/19 09:00 Constitutional: Yes: No Distress Cardiovascular: Yes: Regular Rate and Rhythm Respiratory: Yes: Diminished (Lt base) Gastrointestinal: Yes: Normal Bowel Sounds, Soft Genitourinary: Yes: WNL Musculoskeletal: Yes: WNL Integumentary: Yes: WNL Neurological: Yes: Alert, Oriented Labs: CBC, BMP 05/28/19 08:00 05/28/19 12:40 INR, PTT INR 1.22 (0.83-1.09) H 05/23/19 06:22 Microbiology 05/20/19 11:45 Blood - Peripheral Venous Blood Culture - Final NO GROWTH AFTER 5 DAYS INCUBATION 05/20/19 11:45 Blood - Peripheral Venous Blood Culture - Final NO GROWTH AFTER 5 DAYS INCUBATION 05/22/19 18:20 Urine - Urine Clean Catch Urine Culture - Final Yeast Like Organism 05/21/19 13:43 Pleural Fluid Gram Stain - Final 05/21/19 13:43 Pleural Fluid Body Fluid Culture - Final NO GROWTH OF AEROBIC ORGANISMS AFTER 48 HOURS INCUBATION 05/21/19 13:43 Pleural Fluid Anaerobic Culture - Final NO ANAEROBES WERE ISOLATED Problem List - Problems (1) Acute hypoxemic respiratory failure Code(s): J96.01 - ACUTE RESPIRATORY FAILURE WITH HYPOXIA (2) Malignant pleural effusion Code(s): J91.0 - MALIGNANT PLEURAL EFFUSION (3) Metastatic lung cancer (metastasis from lung to other site) Code(s): C34.90 - MALIGNANT NEOPLASM OF UNSP PART OF UNSP BRONCHUS OR LUNG (4) SOB (shortness of breath) Code(s): R06.02 - SHORTNESS OF BREATH (5) Asthma Code(s): J45.909 - UNSPECIFIED ASTHMA, UNCOMPLICATED (6) Chronic pancreatitis Code(s): K86.1 - OTHER CHRONIC PANCREATITIS (7) Diabetes Code(s): E11.9 - TYPE 2 DIABETES MELLITUS WITHOUT COMPLICATIONS (8) GERD (gastroesophageal reflux disease) Code(s): K21.9 - GASTRO-ESOPHAGEAL REFLUX DISEASE WITHOUT ESOPHAGITIS (9) HLD (hyperlipidemia) Code(s): E78.5 - HYPERLIPIDEMIA, UNSPECIFIED (10) HTN (hypertension) Code(s): I10 - ESSENTIAL (PRIMARY) HYPERTENSION (11) Non-Hodgkin lymphoma Code(s): C85.90 - NON-HODGKIN LYMPHOMA, UNSPECIFIED, UNSPECIFIED SITE (12) Pleural effusion Code(s): J90 - PLEURAL EFFUSION, NOT ELSEWHERE CLASSIFIED Assessment/Plan Metastatic Lung CA Malignant Pleural effusion s/p pleur-x, now capped Leukocytosis DM HTN Hx of Lymphoma -- wbc remains elevated but afebrile, cultures negative -- pt alert vitals stable -- continue monitor off antibiotics for now, completed course y
[2019-05-29] MEDS: ROSUVASTATIN CA 20 MG TABLET (FP) PO SCH (21:13)
--- NOTE | 2019-05-29 22:31 | PN ---
Progress Note, Physician History of Present Illness: Pt seems comfortable but asking for pain meds - Current Medication List Current Medications: Active Medications Acetaminophen (Tylenol -) 325 mg PO Q4H PRN PRN Reason: PAIN LEVEL 4-10 Stop: 06/01/19 12:20 Last Admin: 05/29/19 21:11 Dose: 325 mg Albuterol/Ipratropium (Duoneb -) 1 amp NEB Q6H PRN PRN Reason: SHORTNESS OF BREATH Duloxetine HCl (Cymbalta -) 60 mg PO DAILY [facility] Last Admin: 05/29/19 11:47 Dose: 60 mg Fentanyl (Duragesic 75mcg Patch -) 1 patch TD Q72H [facility] Last Admin: 05/28/19 12:05 Dose: 1 patch Insulin Aspart (Novolog Vial Sliding Scale -) 1 vial SQ ACHS [facility]; Protocol Last Admin: 05/29/19 21:12 Dose: Not Given Metformin HCl (Glucophage -) 1,000 mg PO BIDI [facility] Last Admin: 05/29/19 17:14 Dose: 1,000 mg Miscellaneous (Duragesic Patch Waste) 1 each MC PRN PRN PRN Reason: PAIN Last Admin: 05/28/19 12:08 Dose: 1 each Ondansetron HCl (Zofran Injection) 4 mg IVPUSH Q8H PRN PRN Reason: NAUSEA Oxycodone HCl (Roxicodone -) 5 mg PO Q4H PRN PRN Reason: PAIN LEVEL 4-10 Last Admin: 05/29/19 21:11 Dose: 5 mg Pantoprazole Sodium (Protonix -) 40 mg PO DAILY [facility] Last Admin: 05/29/19 11:47 Dose: 40 mg Rosuvastatin Calcium (Crestor -) 40 mg PO HS [facility] Last Admin: 05/29/19 21:13 Dose: 40 mg - Objective Vital Signs: Vital Signs Temperature 97.8 F 05/29/19 18:43 Pulse Rate 106 H 05/29/19 18:43 Respiratory Rate 20 05/29/19 18:43 Blood Pressure 100/62 05/29/19 18:43 O2 Sat by Pulse Oximetry (%) 96 05/29/19 09:00 Neck: Yes: WNL, Supple Cardiovascular: Yes: WNL, Regular Rate and Rhythm Respiratory: Yes: WNL, Regular, CTA Bilaterally, Other ((+) Lt pleurx cath) Gastrointestinal: Yes: WNL, Normal Bowel Sounds, Soft Labs: CBC, BMP 05/28/19 08:00 05/28/19 12:40 INR, PTT INR 1.22 (0.83-1.09) H 05/23/19 06:22 Problem List - Problems (1) SOB (shortness of breath) Assessment/Plan: Due to pleural effusions S/P thoracentesis and pleurx-cath placement Pulmonary/thoracic surgery consults noted Cont nebulizers Spoke to pt about possible STR placement for rehab Code(s): R06.02 - SHORTNESS OF BREATH (2) Metastatic lung cancer (metastasis from lung to other site) Assessment/Plan: Onco consult noted 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 Ct scan head unremarkable Will check mri brain to r/o mets Cont fentanyl patch/morphine Code(s): C34.90 - MALIGNANT NEOPLASM OF UNSP PART OF UNSP BRONCHUS OR LUNG (3) Asthma Assessment/Plan: Cont nebulizers Code(s): J45.909 - UNSPECIFIED ASTHMA, UNCOMPLICATED (4) Chronic pancreatitis Code(s): K86.1 - OTHER CHRONIC PANCREATITIS (5) Diabetes Assessment/Plan: Cont metformin Cont sliding scale w/ coverage Code(s): E11.9 - TYPE 2 DIABETES MELLITUS WITHOUT COMPLICATIONS (6) GERD (gastroesophageal reflux disease) Code(s): K21.9 - GASTRO-ESOPHAGEAL REFLUX DISEASE WITHOUT ESOPHAGITIS (7) HLD (hyperlipidemia) Assessment/Plan: Cont lipitor Code(s): E78.5 - HYPERLIPIDEMIA, UNSPECIFIED (8) HTN (hypertension) Assessment/Plan: BP stable Cont norvasc Code(s): I10 - ESSENTIAL (PRIMARY) HYPERTENSION (9) Non-Hodgkin lymphoma Assessment/Plan: Stage III lymphoma in remission Code(s): C85.90 - NON-HODGKIN LYMPHOMA, UNSPECIFIED, UNSPECIFIED SITE
[2019-05-29] MEDS ORDERED: MELATONIN 5 MG TABLETS PO ONE (22:45)
[2019-05-30] MEDS: oxyCODONE HCL 5 MG TABLET PO PRN ×6 (01:08→20:37)
[2019-05-30] MEDS: ACETAMINOPHEN 325 MG TABLET (FP) PO PRN ×6 (01:08→20:39)
[2019-05-30] MEDS: INSULIN SLIDING SCALE (NOVOLOG) 1 VIAL SQ SCH ×4 (05:59→21:22)
[2019-05-30] MEDS: metFORMIN HCL 500 MG TABLET (FP) PO SCH ×2 (05:59→16:44)
[2019-05-30 08:29] LABS: BASO % 0.3 % (0-2.0); EOS % 0.3 % (0-4.5); HEMATOCRIT 28.6 % (32.4-45.2); LYMPH % 9.9 % (8-40); MCH 24.7 pg (25.7-33.7); MCHC 31.6 g/dl (32.0-36.0); MEAN PLT VOLUME 7.1 fl (7.5-11.1); MONO % 9.9 % (3.8-10.2); NEUT % 79.6 % (42.8-82.8); PLATELET COUNT 406 K/MM3 (134-434); RBC 3.66 M/mm3 (3.60-5.2); RDW 21.4 % (11.6-15.6); WHITE BLOOD COUNT 17.4 K/mm3 (4.0-10.0)
[2019-05-30 09:06] LABS: ALBUMIN 2.4 g/dl (3.4-5.0); BILIRUBIN,TOTAL 0.4 mg/dL (0.2-1); BLOOD UREA NITROGEN 38.5 mg/dL (7-18); CALCIUM 8.3 mg/dL (8.5-10.1); CREATININE 1.4 mg/dL (0.55-1.3); POTASSIUM 4.4 mmol/L (3.5-5.1); TOT PROT 5.7 g/dl (6.4-8.2)
--- NOTE | 2019-05-30 09:42 | PN ---
Progress Note (short form) - Note Progress Note: Had a period of SOB overnight that self resolved. This AM feels better. Generalized fatigue. Intake & Output 05/27/19 05/28/19 05/29/19 05/30/19 23:59 23:59 23:59 23:59 Intake Total 550 727 120 100 Output Total 400 692 Balance 150 35 120 100 Last Vital Signs Temp Pulse Resp BP Pulse Ox 97.8 F 99 H 20 105/59 L 96 05/30/19 06:45 05/30/19 06:45 05/30/19 06:45 05/30/19 06:45 05/29/19 21:00 Active Medications Acetaminophen (Tylenol -) 325 mg PO Q4H PRN PRN Reason: PAIN LEVEL 4-10 Stop: 06/01/19 12:20 Last Admin: 05/30/19 08:42 Dose: 325 mg Albuterol/Ipratropium (Duoneb -) 1 amp NEB Q6H PRN PRN Reason: SHORTNESS OF BREATH Duloxetine HCl (Cymbalta -) 60 mg PO DAILY [facility] Last Admin: 05/29/19 11:47 Dose: 60 mg Fentanyl (Duragesic 75mcg Patch -) 1 patch TD Q72H [facility] Last Admin: 05/28/19 12:05 Dose: 1 patch Insulin Aspart (Novolog Vial Sliding Scale -) 1 vial SQ ACHS [facility]; Protocol Last Admin: 05/30/19 05:59 Dose: Not Given Metformin HCl (Glucophage -) 1,000 mg PO BIDI [facility] Last Admin: 05/30/19 05:59 Dose: 1,000 mg Miscellaneous (Duragesic Patch Waste) 1 each MC PRN PRN PRN Reason: PAIN Last Admin: 05/28/19 12:08 Dose: 1 each Ondansetron HCl (Zofran Injection) 4 mg IVPUSH Q8H PRN PRN Reason: NAUSEA Oxycodone HCl (Roxicodone -) 5 mg PO Q4H PRN PRN Reason: PAIN LEVEL 4-10 Last Admin: 05/30/19 08:43 Dose: 5 mg Pantoprazole Sodium (Protonix -) 40 mg PO DAILY [facility] Last Admin: 05/29/19 11:47 Dose: 40 mg Rosuvastatin Calcium (Crestor -) 40 mg PO HS [facility] Last Admin: 05/29/19 21:13 Dose: 40 mg Gen: NAD at rest Heart: RRR Lung: decreased breath sounds left base, intact PleurX Abd: soft, nontender Ext: no edema Laboratory Results - last 24 hr 05/29/19 05/29/19 05/29/19 11:49 17:09 21:10 WBC RBC Hgb Hct MCV MCH MCHC RDW Plt Count MPV Absolute Neuts (auto) Neutrophils % Lymphocytes % Monocytes % Eosinophils % Basophils % Nucleated RBC % Sodium Potassium Chloride Carbon Dioxide Anion Gap BUN Creatinine Est GFR (CKD-EPI)AfAm Est GFR (CKD-EPI)NonAf POC Glucometer 157 148 135 Random Glucose Calcium Total Bilirubin AST ALT Alkaline Phosphatase Total Protein Albumin 05/30/19 05/30/19 05/30/19 05:58 07:25 07:25 WBC 17.4 H RBC 3.66 Hgb 9.0 L Hct 28.6 L MCV 78.0 L MCH 24.7 L MCHC 31.6 L RDW 21.4 H Plt Count 406 MPV 7.1 L Absolute Neuts (auto) 13.8 H Neutrophils % 79.6 Lymphocytes % 9.9 D Monocytes % 9.9 Eosinophils % 0.3 Basophils % 0.3 Nucleated RBC % 0 Sodium 135 L Potassium 4.4 Chloride 102 Carbon Dioxide 25 Anion Gap 8 BUN 38.5 H Creatinine 1.4 H Est GFR (CKD-EPI)AfAm 48.90 Est GFR (CKD-EPI)NonAf 42.19 POC Glucometer 127 Random Glucose 107 H Calcium 8.3 L Total Bilirubin 0.4 AST 17 ALT 7 L Alkaline Phosphatase 93 Total Protein 5.7 L Albumin 2.4 L A/P Metastatic Lung Ca Left Malignant Pleural Effusion s/p pleur-x placement Chronic Hypoxic Respiratory Failure r/o Pneumonia HTN DM Hyperlipidemia h/o Lymphoma - Pain control - O2 to keep SpO2 >90% - on empiric antibiotics - PleurX drainage every 2-3 days or if symptomatic - inhaled bronchodilators Dr Casey
[2019-05-30] MEDS: DULoxetine HCL 30 MG CAPSULE.DR PO SCH (10:17)
[2019-05-30] MEDS: PANTOPRAZOLE 40 MG TABLET (FP) PO SCH (10:18)
--- NOTE | 2019-05-30 13:15 | PN ---
Progress Note, Physician History of Present Illness: stable sob off and on wbc trending down - Current Medication List Current Medications: Active Medications Acetaminophen (Tylenol -) 325 mg PO Q4H PRN PRN Reason: PAIN LEVEL 4-10 Stop: 06/01/19 12:20 Last Admin: 05/30/19 12:46 Dose: 325 mg Albuterol/Ipratropium (Duoneb -) 1 amp NEB Q6H PRN PRN Reason: SHORTNESS OF BREATH Duloxetine HCl (Cymbalta -) 60 mg PO DAILY [facility] Last Admin: 05/30/19 10:17 Dose: 60 mg Fentanyl (Duragesic 75mcg Patch -) 1 patch TD Q72H [facility] Last Admin: 05/28/19 12:05 Dose: 1 patch Insulin Aspart (Novolog Vial Sliding Scale -) 1 vial SQ ACHS [facility]; Protocol Last Admin: 05/30/19 12:59 Dose: 2 units Metformin HCl (Glucophage -) 1,000 mg PO BIDI [facility] Last Admin: 05/30/19 05:59 Dose: 1,000 mg Miscellaneous (Duragesic Patch Waste) 1 each MC PRN PRN PRN Reason: PAIN Last Admin: 05/28/19 12:08 Dose: 1 each Ondansetron HCl (Zofran Injection) 4 mg IVPUSH Q8H PRN PRN Reason: NAUSEA Oxycodone HCl (Roxicodone -) 5 mg PO Q4H PRN PRN Reason: PAIN LEVEL 4-10 Last Admin: 05/30/19 12:48 Dose: 5 mg Pantoprazole Sodium (Protonix -) 40 mg PO DAILY [facility] Last Admin: 05/30/19 10:18 Dose: 40 mg Rosuvastatin Calcium (Crestor -) 40 mg PO HS [facility] Last Admin: 05/29/19 21:13 Dose: 40 mg - Objective Vital Signs: Vital Signs Temperature 97.6 F 05/30/19 10:00 Pulse Rate 92 H 05/30/19 10:00 Respiratory Rate 20 05/30/19 10:00 Blood Pressure 95/66 05/30/19 10:00 O2 Sat by Pulse Oximetry (%) 96 05/29/19 21:00 Constitutional: Yes: No Distress, Calm Cardiovascular: Yes: S1, S2 Respiratory: Yes: Regular, Poor Air Entry Gastrointestinal: Yes: Normal Bowel Sounds, Soft Musculoskeletal: Yes: WNL Extremities: Yes: WNL Neurological: Yes: Alert, Oriented Psychiatric: Yes: Alert, Oriented Labs: CBC, BMP 05/30/19 07:25 05/30/19 07:25 INR, PTT INR 1.22 (0.83-1.09) H 05/23/19 06:22 Assessment/Plan Problem List - Problems (1) Acute hypoxemic respiratory failure Code(s): J96.01 - ACUTE RESPIRATORY FAILURE WITH HYPOXIA (2) SOB (shortness of breath) Code(s): R06.02 - SHORTNESS OF BREATH (3) Chronic pancreatitis Code(s): K86.1 - OTHER CHRONIC PANCREATITIS (4) Diabetes Code(s): E11.9 - TYPE 2 DIABETES MELLITUS WITHOUT COMPLICATIONS (5) Difficulty breathing Code(s): R06.89 - OTHER ABNORMALITIES OF BREATHING (6) H/O gastric bypass Code(s): Z98.89 - OTHER SPECIFIED POSTPROCEDURAL STATES * DO NOT USE * (7) HLD (hyperlipidemia) Code(s): E78.5 - HYPERLIPIDEMIA, UNSPECIFIED (8) HTN (hypertension) Code(s): I10 - ESSENTIAL (PRIMARY) HYPERTENSION (9) Non-Hodgkin's lymphoma Code(s): C85.90 - NON-HODGKIN LYMPHOMA, UNSPECIFIED, UNSPECIFIED SITE (10) Pleural effusion Code(s): J90 - PLEURAL EFFUSION, NOT ELSEWHERE CLASSIFIED (11) Metastatic lung cancer (metastasis from lung to other site) Code(s): C34.90 - MALIGNANT NEOPLASM OF UNSP PART OF UNSP BRONCHUS OR LUNG (12) Malignant pleural effusion Code(s): J91.0 - MALIGNANT PLEURAL EFFUSION plan continue to monitor off of abx resp support rest as per the team
[2019-05-30] MEDS: ROSUVASTATIN CA 20 MG TABLET (FP) PO SCH (21:21)
--- NOTE | 2019-05-30 22:46 | PN ---
Progress Note, Physician - Current Medication List Current Medications: Active Medications Acetaminophen (Tylenol -) 325 mg PO Q4H PRN PRN Reason: PAIN LEVEL 4-10 Stop: 06/01/19 12:20 Last Admin: 05/30/19 20:39 Dose: 325 mg Duloxetine HCl (Cymbalta -) 60 mg PO DAILY [facility] Last Admin: 05/30/19 10:17 Dose: 60 mg Fentanyl (Duragesic 75mcg Patch -) 1 patch TD Q72H [facility] Last Admin: 05/28/19 12:05 Dose: 1 patch Insulin Aspart (Novolog Vial Sliding Scale -) 1 vial SQ ACHS [facility]; Protocol Last Admin: 05/30/19 21:22 Dose: Not Given Melatonin (Melatonin) 5 mg PO HS PRN PRN Reason: INSOMNIA Metformin HCl (Glucophage -) 1,000 mg PO BIDI [facility] Last Admin: 05/30/19 16:44 Dose: 1,000 mg Miscellaneous (Duragesic Patch Waste) 1 each MC PRN PRN PRN Reason: PAIN Last Admin: 05/28/19 12:08 Dose: 1 each Ondansetron HCl (Zofran Injection) 4 mg IVPUSH Q8H PRN PRN Reason: NAUSEA Oxycodone HCl (Roxicodone -) 5 mg PO Q4H PRN PRN Reason: PAIN LEVEL 4-10 Last Admin: 05/30/19 20:37 Dose: 5 mg Pantoprazole Sodium (Protonix -) 40 mg PO DAILY [facility] Last Admin: 05/30/19 10:18 Dose: 40 mg Rosuvastatin Calcium (Crestor -) 40 mg PO HS [facility] Last Admin: 05/30/19 21:21 Dose: 40 mg - Objective Vital Signs: Vital Signs Temperature 98.2 F 05/30/19 16:24 Pulse Rate 82 05/30/19 16:24 Respiratory Rate 18 05/30/19 20:07 Blood Pressure 115/50 L 05/30/19 16:24 O2 Sat by Pulse Oximetry (%) 96 05/30/19 20:07 Neck: Yes: WNL, Supple Cardiovascular: Yes: WNL, Regular Rate and Rhythm Respiratory: Yes: Diminished, Other (Lt sided pleurx cath) Gastrointestinal: Yes: WNL, Normal Bowel Sounds, Soft Labs: CBC, BMP 05/30/19 07:25 05/30/19 07:25 INR, PTT INR 1.22 (0.83-1.09) H 05/23/19 06:22 Problem List - Problems (1) SOB (shortness of breath) Assessment/Plan: Due to pleural effusions S/P thoracentesis and pleurx-cath placement Cont nebulizers Spoke to pt about possible STR placement for rehab Code(s): R06.02 - SHORTNESS OF BREATH (2) Metastatic lung cancer (metastasis from lung to other site) Assessment/Plan: Onco consult noted 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 Ct scan head unremarkable Will check mri brain to r/o mets Cont fentanyl patch/morphine Code(s): C34.90 - MALIGNANT NEOPLASM OF UNSP PART OF UNSP BRONCHUS OR LUNG (3) Asthma Assessment/Plan: Cont nebulizers Code(s): J45.909 - UNSPECIFIED ASTHMA, UNCOMPLICATED (4) Chronic pancreatitis Code(s): K86.1 - OTHER CHRONIC PANCREATITIS (5) Diabetes Assessment/Plan: Cont metformin Cont sliding scale w/ coverage Code(s): E11.9 - TYPE 2 DIABETES MELLITUS WITHOUT COMPLICATIONS (6) GERD (gastroesophageal reflux disease) Code(s): K21.9 - GASTRO-ESOPHAGEAL REFLUX DISEASE WITHOUT ESOPHAGITIS (7) HLD (hyperlipidemia) Assessment/Plan: Cont lipitor Code(s): E78.5 - HYPERLIPIDEMIA, UNSPECIFIED (8) HTN (hypertension) Assessment/Plan: BP stable Cont norvasc Code(s): I10 - ESSENTIAL (PRIMARY) HYPERTENSION (9) Non-Hodgkin lymphoma Assessment/Plan: Stage III lymphoma in remission Code(s): C85.90 - NON-HODGKIN LYMPHOMA, UNSPECIFIED, UNSPECIFIED SITE
[2019-05-30] MEDS: MELATONIN 5 MG TABLETS PO PRN (22:54)
[2019-05-31] MEDS: oxyCODONE HCL 5 MG TABLET PO PRN ×6 (00:38→21:42)
[2019-05-31] MEDS: ACETAMINOPHEN 325 MG TABLET (FP) PO PRN ×6 (00:39→21:41)
[2019-05-31] MEDS: metFORMIN HCL 500 MG TABLET (FP) PO SCH ×2 (06:45→17:52)
[2019-05-31] MEDS: INSULIN SLIDING SCALE (NOVOLOG) 1 VIAL SQ SCH ×4 (06:47→21:51)
--- NOTE | 2019-05-31 09:48 | PN ---
Progress Note (short form) - Note Progress Note: Feels better today. 225 cc drained from PleurX yesterday with subjective improvement in SOB. No acute events overnight. Intake & Output 05/28/19 05/29/19 05/30/19 05/31/19 23:59 23:59 23:59 23:59 Intake Total 727 120 100 Output Total 692 525 Balance 35 120 -425 Last Vital Signs Temp Pulse Resp BP Pulse Ox 97.9 F 57 L 20 115/60 96 05/31/19 06:00 05/31/19 06:00 05/31/19 06:00 05/31/19 06:00 05/30/19 20:07 Active Medications Acetaminophen (Tylenol -) 325 mg PO Q4H PRN PRN Reason: PAIN LEVEL 4-10 Stop: 06/01/19 12:20 Last Admin: 05/31/19 05:37 Dose: 325 mg Duloxetine HCl (Cymbalta -) 60 mg PO DAILY [facility] Last Admin: 05/30/19 10:17 Dose: 60 mg Fentanyl (Duragesic 75mcg Patch -) 1 patch TD Q72H [facility] Last Admin: 05/28/19 12:05 Dose: 1 patch Insulin Aspart (Novolog Vial Sliding Scale -) 1 vial SQ [facility]; Protocol Last Admin: 05/31/19 06:47 Dose: Not Given Melatonin (Melatonin) 5 mg PO HS PRN PRN Reason: INSOMNIA Metformin HCl (Glucophage -) 1,000 mg PO BIDI [facility] Last Admin: 05/31/19 06:45 Dose: 1,000 mg Miscellaneous (Duragesic Patch Waste) 1 each MC PRN PRN PRN Reason: PAIN Last Admin: 05/28/19 12:08 Dose: 1 each Ondansetron HCl (Zofran Injection) 4 mg IVPUSH Q8H PRN PRN Reason: NAUSEA Oxycodone HCl (Roxicodone -) 5 mg PO Q4H PRN PRN Reason: PAIN LEVEL 4-10 Last Admin: 05/31/19 05:36 Dose: 5 mg Pantoprazole Sodium (Protonix -) 40 mg PO DAILY [facility] Last Admin: 05/30/19 10:18 Dose: 40 mg Rosuvastatin Calcium (Crestor -) 40 mg PO HS [facility] Last Admin: 11/25/19 21:21 Dose: 40 mg Gen: NAD at rest Heart: RRR Lung: decreased breath sounds left base, intact PleurX Abd: soft, nontender Ext: no edema Laboratory Results - last 24 hr 05/30/19 05/30/19 05/30/19 12:53 16:39 21:17 POC Glucometer 156 122 114 05/31/19 05:42 POC Glucometer 127 A/P Metastatic Lung Ca Left Malignant Pleural Effusion s/p pleur-x placement Chronic Hypoxic Respiratory Failure r/o Pneumonia HTN DM Hyperlipidemia h/o Lymphoma - Pain control - O2 to keep SpO2 >90% - on empiric antibiotics - PleurX drainage every 2-3 days or if symptomatic - inhaled bronchodilators - (?) Plan for Chemo Dr Casey
[2019-05-31] MEDS: PANTOPRAZOLE 40 MG TABLET (FP) PO SCH (09:50)
[2019-05-31] MEDS: DULoxetine HCL 30 MG CAPSULE.DR PO SCH ×2 (09:50→09:52)
--- NOTE | 2019-05-31 11:42 | PN ---
Progress Note, Physician History of Present Illness: feels better breathing better - Current Medication List Current Medications: Active Medications Acetaminophen (Tylenol -) 325 mg PO Q4H PRN PRN Reason: PAIN LEVEL 4-10 Stop: 06/01/19 12:20 Last Admin: 05/31/19 09:50 Dose: 325 mg Duloxetine HCl (Cymbalta -) 60 mg PO DAILY [facility] Last Admin: 05/31/19 09:52 Dose: 60 mg Fentanyl (Duragesic 75mcg Patch -) 1 patch TD Q72H [facility] Last Admin: 05/28/19 12:05 Dose: 1 patch Insulin Aspart (Novolog Vial Sliding Scale -) 1 vial SQ [facility]; Protocol Last Admin: 05/31/19 06:47 Dose: Not Given Melatonin (Melatonin) 5 mg PO HS PRN PRN Reason: INSOMNIA Metformin HCl (Glucophage -) 1,000 mg PO BIDI [facility] Last Admin: 05/31/19 06:45 Dose: 1,000 mg Miscellaneous (Duragesic Patch Waste) 1 each MC PRN PRN PRN Reason: PAIN Last Admin: 05/28/19 12:08 Dose: 1 each Ondansetron HCl (Zofran Injection) 4 mg IVPUSH Q8H PRN PRN Reason: NAUSEA Oxycodone HCl (Roxicodone -) 5 mg PO Q4H PRN PRN Reason: PAIN LEVEL 4-10 Last Admin: 05/31/19 09:51 Dose: 5 mg Pantoprazole Sodium (Protonix -) 40 mg PO DAILY [facility] Last Admin: 05/31/19 09:50 Dose: 40 mg Rosuvastatin Calcium (Crestor -) 40 mg PO HS [facility] Last Admin: 05/30/19 21:21 Dose: 40 mg - Objective Vital Signs: Vital Signs Temperature 97.9 F 05/31/19 06:00 Pulse Rate 57 L 05/31/19 06:00 Respiratory Rate 20 05/31/19 06:00 Blood Pressure 115/60 05/31/19 06:00 O2 Sat by Pulse Oximetry (%) 96 05/30/19 20:07 Constitutional: Yes: Calm, Mild Distress, Obese Respiratory: Yes: On Nasal O2, Poor Air Entry Gastrointestinal: Yes: Normal Bowel Sounds, Soft Musculoskeletal: Yes: WNL Extremities: Yes: WNL Neurological: Yes: Alert, Oriented Psychiatric: Yes: Alert, Oriented Labs: CBC, BMP 05/30/19 07:25 05/30/19 07:25 INR, PTT INR 1.22 (0.83-1.09) H 05/23/19 06:22 Assessment/Plan Problem List - Problems (1) Acute hypoxemic respiratory failure Code(s): J96.01 - ACUTE RESPIRATORY FAILURE WITH HYPOXIA (2) SOB (shortness of breath) Code(s): R06.02 - SHORTNESS OF BREATH (3) Chronic pancreatitis Code(s): K86.1 - OTHER CHRONIC PANCREATITIS (4) Diabetes Code(s): E11.9 - TYPE 2 DIABETES MELLITUS WITHOUT COMPLICATIONS (5) Difficulty breathing Code(s): R06.89 - OTHER ABNORMALITIES OF BREATHING (6) H/O gastric bypass Code(s): Z98.89 - OTHER SPECIFIED POSTPROCEDURAL STATES * DO NOT USE * (7) HLD (hyperlipidemia) Code(s): E78.5 - HYPERLIPIDEMIA, UNSPECIFIED (8) HTN (hypertension) Code(s): I10 - ESSENTIAL (PRIMARY) HYPERTENSION (9) Non-Hodgkin's lymphoma Code(s): C85.90 - NON-HODGKIN LYMPHOMA, UNSPECIFIED, UNSPECIFIED SITE (10) Pleural effusion Code(s): J90 - PLEURAL EFFUSION, NOT ELSEWHERE CLASSIFIED (11) Metastatic lung cancer (metastasis from lung to other site) Code(s): C34.90 - MALIGNANT NEOPLASM OF UNSP PART OF UNSP BRONCHUS OR LUNG (12) Malignant pleural effusion Code(s): J91.0 - MALIGNANT PLEURAL EFFUSION plan continue to monitor off of abx resp support rest as per the team
[2019-05-31 11:58] LABS: BASO % 0.2 % (0-2.0); EOS % 0.1 % (0-4.5); HEMOGLOBIN 9.4 GM/dL (10.7-15.3); LYMPH % 7.4 % (8-40); MCH 24.5 pg (25.7-33.7); MCHC 31.2 g/dl (32.0-36.0); MEAN CELL VOLUME 78.4 fl (80-96); MEAN PLT VOLUME 7.3 fl (7.5-11.1); MONO % 8.5 % (3.8-10.2); NEUT % 83.8 % (42.8-82.8); PLATELET COUNT 406 K/MM3 (134-434); RBC 3.83 M/mm3 (3.60-5.2); RDW 21.5 % (11.6-15.6); WHITE BLOOD COUNT 17.9 K/mm3 (4.0-10.0)
[2019-05-31] MEDS: fentaNYL 75mcg/hr PATCH.TD72 TD SCH (12:10)
[2019-05-31] MEDS: FENTANYL PATCH WASTE MC PRN (12:13)
[2019-05-31 12:20] LABS: ALBUMIN 2.5 g/dl (3.4-5.0); BILIRUBIN,TOTAL 0.5 mg/dL (0.2-1); BLOOD UREA NITROGEN 38.5 mg/dL (7-18); CALCIUM 8.4 mg/dL (8.5-10.1); CREATININE 1.1 mg/dL (0.55-1.3); POTASSIUM 4.6 mmol/L (3.5-5.1); TOT PROT 5.8 g/dl (6.4-8.2)
--- NOTE | 2019-05-31 16:06 | PN ---
Physical Exam: Heme/Onc Service SUBJECTIVE: Patient seen and examined at bedside. No complaints at this time. OBJECTIVE: Vital Signs Period Temp Pulse Resp BP Sys/Villeda Pulse Ox Last 24 Hr 97.5 F-98.2 F 57-116 18-20 102-115/50-66 96-98 GEN: NAD HEENT: NCAT Neck: no jvd Cardio: rrr, hyperdynamic, normal s1s2, nonsustained nondisplaced tapping PMI, no mrg noted Pulm: L sided decreased breath sounds and dullness to percussion Abd: infraumbilical scar noted. Soft, mildly tender. Nondistended Laboratory Results - last 24 hr 05/30/19 05/30/19 05/31/19 16:39 21:17 05:42 WBC RBC Hgb Hct MCV MCH MCHC RDW Plt Count MPV Absolute Neuts (auto) Neutrophils % Lymphocytes % Monocytes % Eosinophils % Basophils % Nucleated RBC % Sodium Potassium Chloride Carbon Dioxide Anion Gap BUN Creatinine Est GFR (CKD-EPI)AfAm Est GFR (CKD-EPI)NonAf POC Glucometer 122 114 127 Random Glucose Calcium Total Bilirubin AST ALT Alkaline Phosphatase Total Protein Albumin 05/31/19 05/31/19 05/31/19 10:55 10:55 11:16 WBC 17.9 H RBC 3.83 Hgb 9.4 L Hct 30.0 L MCV 78.4 L MCH 24.5 L MCHC 31.2 L RDW 21.5 H Plt Count 406 MPV 7.3 L Absolute Neuts (auto) 15.0 H Neutrophils % 83.8 H Lymphocytes % 7.4 L D Monocytes % 8.5 Eosinophils % 0.1 Basophils % 0.2 Nucleated RBC % 0 Sodium 136 Potassium 4.6 Chloride 103 Carbon Dioxide 24 Anion Gap 9 BUN 38.5 H Creatinine 1.1 Est GFR (CKD-EPI)AfAm 65.45 Est GFR (CKD-EPI)NonAf 56.47 POC Glucometer 150 Random Glucose 137 H Calcium 8.4 L Total Bilirubin 0.5 AST 19 ALT 8 L Alkaline Phosphatase 100 Total Protein 5.8 L Albumin 2.5 L Active Medications Generic Name Dose Route Start Last Admin Trade Name Freq PRN Reason Stop Dose Admin Acetaminophen 325 mg 05/29/19 12:21 05/31/19 13:28 Tylenol - PO 06/01/19 12:20 325 mg Q4H PRN Administration PAIN LEVEL 4-10 Duloxetine HCl 60 mg 05/26/19 10:00 05/31/19 09:52 Cymbalta - PO 60 mg DAILY STEVE Administration Fentanyl 1 patch 05/28/19 11:45 05/31/19 12:10 Duragesic 75mcg Patch - TD 1 patch Q72H STEVE Administration Insulin Aspart 1 vial 05/25/19 22:00 05/31/19 12:07 Novolog Vial Sliding Scale - SQ Not Given ACHS STEVE Protocol Melatonin 5 mg 05/30/19 22:32 Melatonin PO HS PRN INSOMNIA Metformin HCl 1,000 mg 05/26/19 07:00 05/31/19 06:45 Glucophage - PO 1,000 mg BIDI STEVE Administration Miscellaneous 1 each 05/25/19 19:43 05/31/19 12:13 Duragesic Patch Waste MC 1 each PRN PRN Administration PAIN Ondansetron HCl 4 mg 05/25/19 14:59 Zofran Injection IVPUSH Q8H PRN NAUSEA Oxycodone HCl 5 mg 05/29/19 12:21 05/31/19 13:29 Roxicodone - PO 5 mg Q4H PRN Administration PAIN LEVEL 4-10 Pantoprazole Sodium 40 mg 05/26/19 10:00 05/31/19 09:50 Protonix - PO 40 mg DAILY STVEE Administration Rosuvastatin Calcium 40 mg 05/25/19 22:00 05/30/19 21:21 Crestor - PO 40 mg HS STEVE Administration ASSESSMENT/PLAN: Pt is a 54 y/o F with PMH follicular lymphoma s/p Rituxan in 2010, and recently diagnosed 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 Stage IV lung AdenoCA -follows with Dr. Nick. Pt stated she was waiting for Dr. Nick to start her chemo -records reveal plan to start chemo with carbo/alimta/pembro as out pt Recurrent pleural effusions -2/2 lung CA -pleurX in place and draining -SOB helped by drain Visit type - Emergency Visit Emergency Visit: No - New Patient This patient is new to me today: No - Critical Care Critical Care patient: No ATTENDING PHYSICIAN STATEMENT I saw and evaluated the patient. I reviewed the resident's note and discussed the case with the resident. I agree with the resident's findings and plan as documented. SUBJECTIVE: OBJECTIVE: ASSESSMENT AND PLAN:
[2019-05-31] MEDS ORDERED: ALBUTEROL SO4 2.5/IPRATROPIUM 0.5 INH SOL 3 ML VIAL.NEB. NEB ONE (18:24)
[2019-05-31] MEDS: ROSUVASTATIN CA 20 MG TABLET (FP) PO SCH (21:43)
--- NOTE | 2019-05-31 22:16 | PN ---
Progress Note, Physician - Current Medication List Current Medications: Active Medications Acetaminophen (Tylenol -) 325 mg PO Q4H PRN PRN Reason: PAIN LEVEL 4-10 Stop: 06/01/19 12:20 Last Admin: 05/31/19 21:41 Dose: 325 mg Duloxetine HCl (Cymbalta -) 60 mg PO DAILY [facility] Last Admin: 05/31/19 09:52 Dose: 60 mg Fentanyl (Duragesic 75mcg Patch -) 1 patch TD Q72H [facility] Last Admin: 05/31/19 12:10 Dose: 1 patch Insulin Aspart (Novolog Vial Sliding Scale -) 1 vial SQ ACHS [facility]; Protocol Last Admin: 05/31/19 21:51 Dose: Not Given Melatonin (Melatonin) 5 mg PO HS PRN PRN Reason: INSOMNIA Metformin HCl (Glucophage -) 1,000 mg PO BIDI [facility] Last Admin: 05/31/19 17:52 Dose: 1,000 mg Miscellaneous (Duragesic Patch Waste) 1 each MC PRN PRN PRN Reason: PAIN Last Admin: 05/31/19 12:13 Dose: 1 each Ondansetron HCl (Zofran Injection) 4 mg IVPUSH Q8H PRN PRN Reason: NAUSEA Oxycodone HCl (Roxicodone -) 5 mg PO Q4H PRN PRN Reason: PAIN LEVEL 4-10 Last Admin: 05/31/19 21:42 Dose: 5 mg Pantoprazole Sodium (Protonix -) 40 mg PO DAILY [facility] Last Admin: 05/31/19 09:50 Dose: 40 mg Rosuvastatin Calcium (Crestor -) 40 mg PO HS [facility] Last Admin: 05/31/19 21:43 Dose: 40 mg - Objective Vital Signs: Vital Signs Temperature 98 F 05/31/19 17:41 Pulse Rate 72 05/31/19 17:41 Respiratory Rate 20 05/31/19 17:41 Blood Pressure 107/64 05/31/19 17:41 O2 Sat by Pulse Oximetry (%) 98 05/31/19 09:00 Labs: CBC, BMP 05/31/19 10:55 05/31/19 10:55 INR, PTT INR 1.22 (0.83-1.09) H 05/23/19 06:22 Problem List - Problems (1) SOB (shortness of breath) Code(s): R06.02 - SHORTNESS OF BREATH (2) Metastatic lung cancer (metastasis from lung to other site) Code(s): C34.90 - MALIGNANT NEOPLASM OF UNSP PART OF UNSP BRONCHUS OR LUNG (3) Asthma Code(s): J45.909 - UNSPECIFIED ASTHMA, UNCOMPLICATED (4) Chronic pancreatitis Code(s): K86.1 - OTHER CHRONIC PANCREATITIS (5) Diabetes Code(s): E11.9 - TYPE 2 DIABETES MELLITUS WITHOUT COMPLICATIONS (6) GERD (gastroesophageal reflux disease) Code(s): K21.9 - GASTRO-ESOPHAGEAL REFLUX DISEASE WITHOUT ESOPHAGITIS (7) HLD (hyperlipidemia) Code(s): E78.5 - HYPERLIPIDEMIA, UNSPECIFIED (8) HTN (hypertension) Code(s): I10 - ESSENTIAL (PRIMARY) HYPERTENSION (9) Non-Hodgkin lymphoma Code(s): C85.90 - NON-HODGKIN LYMPHOMA, UNSPECIFIED, UNSPECIFIED SITE
[2019-06-01] MEDS: oxyCODONE HCL 5 MG TABLET PO PRN ×5 (01:12→20:34)
[2019-06-01] MEDS: ACETAMINOPHEN 325 MG TABLET (FP) PO PRN ×4 (01:12→20:34)
[2019-06-01] MEDS: fentaNYL 75mcg/hr PATCH.TD72 TD SCH (05:01)
[2019-06-01] MEDS: INSULIN SLIDING SCALE (NOVOLOG) 1 VIAL SQ SCH ×4 (06:18→22:51)
[2019-06-01] MEDS: metFORMIN HCL 500 MG TABLET (FP) PO SCH ×3 (06:18→16:57)
[2019-06-01] MEDS: PANTOPRAZOLE 40 MG TABLET (FP) PO SCH (09:09)
[2019-06-01] MEDS: DULoxetine HCL 30 MG CAPSULE.DR PO SCH (09:09)
--- NOTE | 2019-06-01 11:32 | PN ---
Progress Note, Physician History of Present Illness: stable no new issues breathing better still with pain - Current Medication List Current Medications: Active Medications Acetaminophen (Tylenol -) 325 mg PO Q4H PRN PRN Reason: PAIN LEVEL 4-10 Stop: 06/01/19 12:20 Last Admin: 06/01/19 09:12 Dose: 325 mg Duloxetine HCl (Cymbalta -) 60 mg PO DAILY [facility] Last Admin: 06/01/19 09:09 Dose: 60 mg Fentanyl (Duragesic 75mcg Patch -) 1 patch TD Q72H [facility] Last Admin: 06/01/19 05:01 Dose: 1 patch Insulin Aspart (Novolog Vial Sliding Scale -) 1 vial SQ [facility]; Protocol Last Admin: 06/01/19 06:18 Dose: Not Given Melatonin (Melatonin) 5 mg PO HS PRN PRN Reason: INSOMNIA Metformin HCl (Glucophage -) 1,000 mg PO BIDI [facility] Last Admin: 06/01/19 06:18 Dose: Not Given Miscellaneous (Duragesic Patch Waste) 1 each MC PRN PRN PRN Reason: PAIN Last Admin: 05/31/19 12:13 Dose: 1 each Ondansetron HCl (Zofran Injection) 4 mg IVPUSH Q8H PRN PRN Reason: NAUSEA Oxycodone HCl (Roxicodone -) 5 mg PO Q4H PRN PRN Reason: PAIN LEVEL 4-10 Last Admin: 06/01/19 09:09 Dose: 5 mg Pantoprazole Sodium (Protonix -) 40 mg PO DAILY [facility] Last Admin: 06/01/19 09:09 Dose: 40 mg Rosuvastatin Calcium (Crestor -) 40 mg PO HS [facility] Last Admin: 05/31/19 21:43 Dose: 40 mg - Objective Vital Signs: Vital Signs Temperature 98.8 F 06/01/19 08:41 Pulse Rate 109 H 06/01/19 08:41 Respiratory Rate 18 06/01/19 08:41 Blood Pressure 115/59 L 06/01/19 08:41 O2 Sat by Pulse Oximetry (%) 98 05/31/19 21:00 Constitutional: Yes: Calm, Mild Distress Cardiovascular: Yes: S1, S2 Respiratory: Yes: Regular, Poor Air Entry Gastrointestinal: Yes: Normal Bowel Sounds, Soft Musculoskeletal: Yes: WNL Extremities: Yes: WNL Neurological: Yes: Alert, Oriented Psychiatric: Yes: Alert, Oriented Labs: CBC, BMP 05/31/19 10:55 05/31/19 10:55 INR, PTT INR 1.22 (0.83-1.09) H 05/23/19 06:22 Assessment/Plan Problem List - Problems (1) Acute hypoxemic respiratory failure Code(s): J96.01 - ACUTE RESPIRATORY FAILURE WITH HYPOXIA (2) SOB (shortness of breath) Code(s): R06.02 - SHORTNESS OF BREATH (3) Chronic pancreatitis Code(s): K86.1 - OTHER CHRONIC PANCREATITIS (4) Diabetes Code(s): E11.9 - TYPE 2 DIABETES MELLITUS WITHOUT COMPLICATIONS (5) Difficulty breathing Code(s): R06.89 - OTHER ABNORMALITIES OF BREATHING (6) H/O gastric bypass Code(s): Z98.89 - OTHER SPECIFIED POSTPROCEDURAL STATES * DO NOT USE * (7) HLD (hyperlipidemia) Code(s): E78.5 - HYPERLIPIDEMIA, UNSPECIFIED (8) HTN (hypertension) Code(s): I10 - ESSENTIAL (PRIMARY) HYPERTENSION (9) Non-Hodgkin's lymphoma Code(s): C85.90 - NON-HODGKIN LYMPHOMA, UNSPECIFIED, UNSPECIFIED SITE (10) Pleural effusion Code(s): J90 - PLEURAL EFFUSION, NOT ELSEWHERE CLASSIFIED (11) Metastatic lung cancer (metastasis from lung to other site) Code(s): C34.90 - MALIGNANT NEOPLASM OF UNSP PART OF UNSP BRONCHUS OR LUNG (12) Malignant pleural effusion Code(s): J91.0 - MALIGNANT PLEURAL EFFUSION plan continue to monitor off of abx resp support rest as per the team physio
--- NOTE | 2019-06-01 15:01 | PN ---
Progress Note, Physician History of Present Illness: pulmonary alert,c/o mold sob,-cp ,-cough - Current Medication List Current Medications: Active Medications Duloxetine HCl (Cymbalta -) 60 mg PO DAILY [facility] Last Admin: 06/01/19 09:09 Dose: 60 mg Fentanyl (Duragesic 75mcg Patch -) 1 patch TD Q72H [facility] Last Admin: 06/01/19 05:01 Dose: 1 patch Insulin Aspart (Novolog Vial Sliding Scale -) 1 vial SQ [facility]; Protocol Last Admin: 06/01/19 11:35 Dose: Not Given Melatonin (Melatonin) 5 mg PO HS PRN PRN Reason: INSOMNIA Metformin HCl (Glucophage -) 1,000 mg PO BIDI [facility] Last Admin: 06/01/19 06:18 Dose: Not Given Miscellaneous (Duragesic Patch Waste) 1 each MC PRN PRN PRN Reason: PAIN Last Admin: 05/31/19 12:13 Dose: 1 each Ondansetron HCl (Zofran Injection) 4 mg IVPUSH Q8H PRN PRN Reason: NAUSEA Oxycodone HCl (Roxicodone -) 5 mg PO Q4H PRN PRN Reason: PAIN LEVEL 4-10 Last Admin: 06/01/19 13:36 Dose: 5 mg Pantoprazole Sodium (Protonix -) 40 mg PO DAILY [facility] Last Admin: 06/01/19 09:09 Dose: 40 mg Rosuvastatin Calcium (Crestor -) 40 mg PO HS [facility] Last Admin: 05/31/19 21:43 Dose: 40 mg - Objective Vital Signs: Vital Signs Temperature 98.8 F 06/01/19 08:41 Pulse Rate 109 H 06/01/19 08:41 Respiratory Rate 18 06/01/19 08:41 Blood Pressure 115/59 L 06/01/19 08:41 O2 Sat by Pulse Oximetry (%) 98 05/31/19 21:00 Constitutional: Yes: Well Nourished, Calm Eyes: Yes: WNL HENT: Yes: WNL Neck: Yes: WNL Cardiovascular: Yes: Regular Rate and Rhythm, S1, S2 Respiratory: Yes: CTA Bilaterally Gastrointestinal: Yes: Normal Bowel Sounds, Soft Extremities: Yes: WNL Edema: No Labs: CBC, BMP 05/31/19 10:55 Problem List - Problems (1) Acute hypoxemic respiratory failure Code(s): J96.01 - ACUTE RESPIRATORY FAILURE WITH HYPOXIA (2) SOB (shortness of breath) Code(s): R06.02 - SHORTNESS OF BREATH (3) Chronic pancreatitis Code(s): K86.1 - OTHER CHRONIC PANCREATITIS (4) Diabetes Code(s): E11.9 - TYPE 2 DIABETES MELLITUS WITHOUT COMPLICATIONS (5) Difficulty breathing Code(s): R06.89 - OTHER ABNORMALITIES OF BREATHING (6) H/O gastric bypass Code(s): Z98.89 - OTHER SPECIFIED POSTPROCEDURAL STATES * DO NOT USE * (7) HLD (hyperlipidemia) Code(s): E78.5 - HYPERLIPIDEMIA, UNSPECIFIED (8) HTN (hypertension) Code(s): I10 - ESSENTIAL (PRIMARY) HYPERTENSION (9) Non-Hodgkin's lymphoma Code(s): C85.90 - NON-HODGKIN LYMPHOMA, UNSPECIFIED, UNSPECIFIED SITE (10) Pleural effusion Code(s): J90 - PLEURAL EFFUSION, NOT ELSEWHERE CLASSIFIED (11) Metastatic lung cancer (metastasis from lung to other site) Code(s): C34.90 - MALIGNANT NEOPLASM OF UNSP PART OF UNSP BRONCHUS OR LUNG (12) Malignant pleural effusion Code(s): J91.0 - MALIGNANT PLEURAL EFFUSION Assessment/Plan 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
[2019-06-01] MEDS ORDERED: KETOROLAC TROMETHAMINE 15 MG/ML VIAL IVPUSH ONE (15:30)
--- NOTE | 2019-06-01 19:05 | CON.NEURO ---
Consult - Past Medical History Cardio/Vascular: Yes: HTN, Hyperlipdemia Pulmonary: Yes: Asthma. No: Cancer, O2 Dependent Gastrointestinal: Yes: Constipation, Pancreatitis. No: Diverticulitis, GERD, GI Bleed, Hiatal Hernia Hepatobiliary: Yes: Cholecystitis ...LMP: 07/05/09 Psych: Yes: Addictions Musculoskeletal: Yes: Other (Knee pain) Endocrine: Yes: Diabetes Mellitus - Past Surgical History Past Surgical History: Yes: Appendectomy, Bariatric Surgery, Cholecystectomy, C- Section, Hernia Repair - Alcohol/Substance Use Hx Alcohol Use: Yes History of Substance Use: reports: Heroin - Smoking History Smoking history: Current every day smoker Have you smoked in the past 12 months: Yes Aproximately how many cigarettes per day: 10 If you are a former smoker, when did you quit?: 07/12/15 - Social History ADL: Independent 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 12/01/14 Duloxetine HCl [Cymbalta -] 60 mg PO DAILY capsule. 07/17/15 Zolpidem Tartrate [Ambien] 10 mg PO HS PRN #0 tablet 07/17/15 Albuterol Sulfate Inhaler - [Ventolin HFA Inhaler -] 1 - 2 inh PO Q4H #1 inhaler 08/29/16 Amlodipine Besylate [Norvasc -] 10 mg PO DAILY 04/14/19 Furosemide [Lasix -] 40 mg PO DAILY 04/14/19 Insulin Degludec [Tresiba] 1 unit SQ ASDIR 04/14/19 Losartan Potassium 50 mg PO DAILY 04/14/19 Metformin HCl [Glucophage] 1,000 mg PO BID 04/14/19 Rosuvastatin [Crestor -] 40 mg PO HS 04/14/19 Zolpidem Tartrate [Ambien] 10 mg PO HS PRN #30 tablet MDD 1 04/20/19 metFORMIN HCL [Glucophage -] 1,000 mg PO BIDAC tablet 04/20/19 Physical Exam-Neuro Vital Signs: Vital Signs Temperature 97.8 F 06/01/19 17:30 Pulse Rate 109 H 06/01/19 17:30 Respiratory Rate 20 06/01/19 17:30 Blood Pressure 115/77 06/01/19 17:30 O2 Sat by Pulse Oximetry (%) 98 05/31/19 21:00 Labs: CBC, BMP 05/31/19 10:55 05/31/19 10:55 INR, PTT INR 1.22 (0.83-1.09) H 05/23/19 06:22 Assessment/Plan cc Right sided hemiparesis HPI 54 year old female histoyr of HTN, Lymphoam, Pancreaitis, hld, dm, adenocarcinoma with montserrat mets and cerebellar lesion in right side. Patient has right arm and leg weakness since february. As per she knew that she has brain lesion. Patient denies any seizure or headache . There is no worsening of right and leg weakness. There is no sensory loss of right arm or leg. PMH as above. Allergies/Adverse Reactions: Allergies Allergy/AdvReac Type Severity Reaction Status Date / Time No Known Allergies Allergy Verified 04/14/19 16:46 Home Medications: Pantoprazole Sodium [Protonix] 40 mg PO DAILY #0 tablet. 12/01/14 Duloxetine HCl [Cymbalta -] 60 mg PO DAILY capsule. 07/17/15 Zolpidem Tartrate [Ambien] 10 mg PO HS PRN #0 tablet 07/17/15 Albuterol Sulfate Inhaler - [Ventolin HFA Inhaler -] 1 - 2 inh PO Q4H #1 inhaler 08/29/16 Amlodipine Besylate [Norvasc -] 10 mg PO DAILY 04/14/19 Furosemide [Lasix -] 40 mg PO DAILY 04/14/19 Insulin Degludec [Tresiba] 1 unit SQ ASDIR 04/14/19 Losartan Potassium 50 mg PO DAILY 04/14/19 Metformin HCl [Glucophage] 1,000 mg PO BID 04/14/19 Rosuvastatin [Crestor -] 40 mg PO HS 04/14/19 Zolpidem Tartrate [Ambien] 10 mg PO HS PRN #30 tablet MDD 1 04/20/19 metFORMIN HCL [Glucophage -] 1,000 mg PO BIDAC tablet 04/20/19 FH,ROS,SH reviewed in chart NEUROLOGICAL EXAMINATION Alert oriented x 3, speech is normal, neck is supple vss eomi, pupils reactive no face asymmetry right upper and lower extremity is grade 4+/5, left upper and lower extermity is grade 5 there is diminished sensation to right arm and leg mri showed left mca there is small lacunar stroke with no enhancing lesion there is right cerebellar lesion , which is enhancing Assessment/Plan Left mca small lacuanr stroke , unlikely to be mets, patient to continue statin and aspirin. This lesion seems to be causing right hemiparesis, 2. right cerebellar enhancing lesion Plan: no need for steroid or AED at this time - continue statin and aspirin if no contraindication by primary team - would do carotid ultrasound as part of stroke work up - pt, dvt prophylaxis - stroke education Thanking you so much
[2019-06-01] MEDS: ALBUTEROL SO4 2.5/IPRATROPIUM 0.5 INH SOL 3 ML VIAL.NEB. NEB PRN (21:31)
--- NOTE | 2019-06-01 22:23 | PN ---
Progress Note, Physician - Current Medication List Current Medications: Active Medications Acetaminophen (Tylenol -) 325 mg PO Q4H PRN PRN Reason: PAIN LEVEL 4-10 Last Admin: 06/01/19 20:34 Dose: 325 mg Albuterol/Ipratropium (Duoneb -) 1 amp NEB Q4H PRN PRN Reason: SHORTNESS OF BREATH Last Admin: 06/01/19 21:31 Dose: 1 amp Duloxetine HCl (Cymbalta -) 60 mg PO DAILY [facility] Last Admin: 06/01/19 09:09 Dose: 60 mg Fentanyl (Duragesic 75mcg Patch -) 1 patch TD Q72H [facility] Last Admin: 06/01/19 05:01 Dose: 1 patch Insulin Aspart (Novolog Vial Sliding Scale -) 1 vial SQ ACHS [facility]; Protocol Last Admin: 06/01/19 16:50 Dose: Not Given Melatonin (Melatonin) 5 mg PO HS PRN PRN Reason: INSOMNIA Metformin HCl (Glucophage -) 1,000 mg PO BIDI [facility] Last Admin: 06/01/19 16:57 Dose: Not Given Miscellaneous (Duragesic Patch Waste) 1 each MC PRN PRN PRN Reason: PAIN Last Admin: 05/31/19 12:13 Dose: 1 each Ondansetron HCl (Zofran Injection) 4 mg IVPUSH Q8H PRN PRN Reason: NAUSEA Oxycodone HCl (Roxicodone -) 5 mg PO Q4H PRN PRN Reason: PAIN LEVEL 4-10 Last Admin: 06/01/19 20:34 Dose: 5 mg Pantoprazole Sodium (Protonix -) 40 mg PO DAILY [facility] Last Admin: 06/01/19 09:09 Dose: 40 mg Rosuvastatin Calcium (Crestor -) 40 mg PO HS [facility] Last Admin: 05/31/19 21:43 Dose: 40 mg - Objective Vital Signs: Vital Signs Temperature 97.8 F 06/01/19 17:30 Pulse Rate 109 H 06/01/19 17:30 Respiratory Rate 20 06/01/19 17:30 Blood Pressure 115/77 06/01/19 17:30 O2 Sat by Pulse Oximetry (%) 98 05/31/19 21:00 Labs: CBC, BMP 05/31/19 10:55 05/31/19 10:55 INR, PTT INR 1.22 (0.83-1.09) H 05/23/19 06:22 Problem List - Problems (1) SOB (shortness of breath) Code(s): R06.02 - SHORTNESS OF BREATH (2) Metastatic lung cancer (metastasis from lung to other site) Code(s): C34.90 - MALIGNANT NEOPLASM OF UNSP PART OF UNSP BRONCHUS OR LUNG (3) Asthma Code(s): J45.909 - UNSPECIFIED ASTHMA, UNCOMPLICATED (4) Chronic pancreatitis Code(s): K86.1 - OTHER CHRONIC PANCREATITIS (5) Diabetes Code(s): E11.9 - TYPE 2 DIABETES MELLITUS WITHOUT COMPLICATIONS (6) GERD (gastroesophageal reflux disease) Code(s): K21.9 - GASTRO-ESOPHAGEAL REFLUX DISEASE WITHOUT ESOPHAGITIS (7) HLD (hyperlipidemia) Code(s): E78.5 - HYPERLIPIDEMIA, UNSPECIFIED (8) HTN (hypertension) Code(s): I10 - ESSENTIAL (PRIMARY) HYPERTENSION (9) Non-Hodgkin lymphoma Code(s): C85.90 - NON-HODGKIN LYMPHOMA, UNSPECIFIED, UNSPECIFIED SITE
[2019-06-01] MEDS: ROSUVASTATIN CA 20 MG TABLET (FP) PO SCH (22:51)
[2019-06-02] MEDS: oxyCODONE HCL 5 MG TABLET PO PRN ×5 (00:37→21:33)
[2019-06-02] MEDS: ACETAMINOPHEN 325 MG TABLET (FP) PO PRN ×5 (00:37→21:34)
[2019-06-02] MEDS: MELATONIN 5 MG TABLETS PO PRN (03:50)
[2019-06-02] MEDS: INSULIN SLIDING SCALE (NOVOLOG) 1 VIAL SQ SCH ×4 (06:18→21:36)
[2019-06-02] MEDS: metFORMIN HCL 500 MG TABLET (FP) PO SCH ×2 (06:19→16:43)
[2019-06-02] MEDS ORDERED: INSULIN (LEVEMIR) 100 UNITS/ML UNITS SQ ONE (06:29)
--- NOTE | 2019-06-02 09:32 | PN ---
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
[2019-06-02] MEDS: DULoxetine HCL 30 MG CAPSULE.DR PO SCH (10:41)
[2019-06-02] MEDS: PANTOPRAZOLE 40 MG TABLET (FP) PO SCH (10:42)
--- NOTE | 2019-06-02 14:43 | PN ---
Progress Note (short form) - Note Progress Note: patient seen and examined shortness of breath improved c/o headaches Last Vital Signs Temp Pulse Resp BP Pulse Ox 98.3 F 110 H 20 107/59 L 98 06/02/19 07:38 06/02/19 07:38 06/02/19 07:38 06/02/19 07:38 05/31/19 21:00 Cor: RSR, No murmurs, No gallops Lungs: decreased at bases Abd: Soft, Normal bowel sounds, No organomegaly Ext:No significant edema Rt. upper extremity weakness labs/meds reviewed MRI brain -- Left posterior parietal nonhemorrhagic infarct, cute, 5mm. rt. sup. cerebellar 5mm nodule Assessment/Plan 54F, pt of Dr. 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 s/p PleurX cathether. Planned to start chemotherapy with carbo/alimta/pembro as outpatient. Was seen by neurology -- rt. hemiparesis--MRI brain -- Left posterior parietal nonhemorrhagic infarct, cute, 5mm. rt. sup. cerebellar 5mm nodule to discuss with neurology team about aspirin discussed [facility] nursing staff
[2019-06-02] MEDS: ASPIRIN 81 MG CHEWABLE TABLETS PO SCH (19:48)
[2019-06-02] MEDS: ROSUVASTATIN CA 20 MG TABLET (FP) PO SCH (21:35)
--- NOTE | 2019-06-02 22:00 | PN ---
Progress Note, Physician - Current Medication List Current Medications: Active Medications Acetaminophen (Tylenol -) 325 mg PO Q4H PRN PRN Reason: PAIN LEVEL 4-10 Last Admin: 06/02/19 21:34 Dose: 325 mg Albuterol/Ipratropium (Duoneb -) 1 amp NEB Q4H PRN PRN Reason: SHORTNESS OF BREATH Last Admin: 06/01/19 21:31 Dose: 1 amp Aspirin (Asa -) 81 mg PO DAILY [facility] Last Admin: 06/02/19 19:48 Dose: 81 mg Duloxetine HCl (Cymbalta -) 60 mg PO DAILY [facility] Last Admin: 06/02/19 10:41 Dose: 60 mg Fentanyl (Duragesic 75mcg Patch -) 1 patch TD Q72H [facility] Last Admin: 06/01/19 05:01 Dose: 1 patch Insulin Aspart (Novolog Vial Sliding Scale -) 1 vial SQ ACHS [facility]; Protocol Last Admin: 06/02/19 21:36 Dose: Not Given Melatonin (Melatonin) 5 mg PO HS PRN PRN Reason: INSOMNIA Last Admin: 06/02/19 03:50 Dose: 5 mg Metformin HCl (Glucophage -) 1,000 mg PO BIDI [facility] Last Admin: 06/02/19 16:43 Dose: 1,000 mg Miscellaneous (Duragesic Patch Waste) 1 each MC PRN PRN PRN Reason: PAIN Last Admin: 05/31/19 12:13 Dose: 1 each Ondansetron HCl (Zofran Injection) 4 mg IVPUSH Q8H PRN PRN Reason: NAUSEA Oxycodone HCl (Roxicodone -) 5 mg PO Q4H PRN PRN Reason: PAIN LEVEL 4-10 Last Admin: 06/02/19 21:33 Dose: 5 mg Pantoprazole Sodium (Protonix -) 40 mg PO DAILY [facility] Last Admin: 06/02/19 10:42 Dose: 40 mg Rosuvastatin Calcium (Crestor -) 40 mg PO HS [facility] Last Admin: 06/02/19 21:35 Dose: 40 mg - Objective Vital Signs: Vital Signs Temperature 97.4 F L 06/02/19 17:13 Pulse Rate 102 H 06/02/19 17:13 Respiratory Rate 20 06/02/19 17:13 Blood Pressure 100/73 06/02/19 17:13 O2 Sat by Pulse Oximetry (%) 98 05/31/19 21:00 Labs: CBC, BMP 05/31/19 10:55 05/31/19 10:55 INR, PTT INR 1.22 (0.83-1.09) H 05/23/19 06:22 Problem List - Problems (1) SOB (shortness of breath) Code(s): R06.02 - SHORTNESS OF BREATH (2) Metastatic lung cancer (metastasis from lung to other site) Code(s): C34.90 - MALIGNANT NEOPLASM OF UNSP PART OF UNSP BRONCHUS OR LUNG (3) Asthma Code(s): J45.909 - UNSPECIFIED ASTHMA, UNCOMPLICATED (4) Chronic pancreatitis Code(s): K86.1 - OTHER CHRONIC PANCREATITIS (5) Diabetes Code(s): E11.9 - TYPE 2 DIABETES MELLITUS WITHOUT COMPLICATIONS (6) GERD (gastroesophageal reflux disease) Code(s): K21.9 - GASTRO-ESOPHAGEAL REFLUX DISEASE WITHOUT ESOPHAGITIS (7) HLD (hyperlipidemia) Code(s): E78.5 - HYPERLIPIDEMIA, UNSPECIFIED (8) HTN (hypertension) Code(s): I10 - ESSENTIAL (PRIMARY) HYPERTENSION (9) Non-Hodgkin lymphoma Code(s): C85.90 - NON-HODGKIN LYMPHOMA, UNSPECIFIED, UNSPECIFIED SITE
[2019-06-02] MEDS: ALBUTEROL SO4 2.5/IPRATROPIUM 0.5 INH SOL 3 ML VIAL.NEB. NEB PRN (22:36)
[2019-06-03] MEDS: ACETAMINOPHEN 325 MG TABLET (FP) PO PRN ×3 (04:45→21:25)
[2019-06-03] MEDS: oxyCODONE HCL 5 MG TABLET PO PRN ×4 (04:46→21:24)
[2019-06-03] MEDS: metFORMIN HCL 500 MG TABLET (FP) PO SCH ×2 (06:15→17:27)
[2019-06-03] MEDS: INSULIN SLIDING SCALE (NOVOLOG) 1 VIAL SQ SCH ×4 (06:16→21:23)
[2019-06-03] MEDS: ALBUTEROL SO4 2.5/IPRATROPIUM 0.5 INH SOL 3 ML VIAL.NEB. NEB PRN (08:02)
[2019-06-03] MEDS: DULoxetine HCL 30 MG CAPSULE.DR PO SCH (10:23)
[2019-06-03] MEDS: PANTOPRAZOLE 40 MG TABLET (FP) PO SCH (10:24)
[2019-06-03] MEDS: ASPIRIN 81 MG CHEWABLE TABLETS PO SCH (10:24)
--- NOTE | 2019-06-03 10:57 | PN ---
Progress Note (short form) - Note Progress Note: Patient seen and examined Discussed at length with medical oncologist , Dr. Nick. He was updated on status. Complains of left inguinal pain Last Vital Signs Temp Pulse Resp BP Pulse Ox 98.7 F 120 H 18 111/51 L 97 06/03/19 10:00 06/03/19 10:00 06/03/19 10:00 06/03/19 10:00 06/02/19 21:00 HEENT: KRYSTYNA, EOM Intact Oropharynx: No thrush, No mucositis Cor: RSR, No murmurs, No gallops Lungsdecreased breath sounds LLL,pleurex catheter Abd: Soft, Normal bowel sounds, No organomegaly Ext:No significant edema Skin: No rashes, Integument intact Right sided weakness CBC, BMP 05/31/19 10:55 05/31/19 10:55 Current Medications Generic Name Dose Route Start Last Admin Trade Name Freq PRN Reason Stop Dose Admin Acetaminophen 325 mg 06/01/19 19:39 06/03/19 10:23 Tylenol - PO 325 mg Q4H PRN Administration PAIN LEVEL 4-10 Albuterol/Ipratropium 1 amp 06/01/19 15:13 06/03/19 08:02 Duoneb - NEB 1 amp Q4H PRN Administration SHORTNESS OF BREATH Aspirin 81 mg 06/02/19 19:00 06/03/19 10:24 Asa - PO 81 mg DAILY [facility]E Administration Duloxetine HCl 60 mg 05/26/19 10:00 06/03/19 10:23 Cymbalta - PO 60 mg DAILY [facility] Administration Fentanyl 1 patch 05/28/19 11:45 06/01/19 05:01 Duragesic 75mcg Patch - TD 1 patch Q72H [facility]EVE Administration Insulin Aspart 1 vial 05/25/19 22:00 06/03/19 06:16 Novolog Vial Sliding Scale - SQ Not Given ACHS [facility]E Protocol Melatonin 5 mg 05/30/19 22:32 06/02/19 03:50 Melatonin PO 5 mg HS PRN Administration INSOMNIA Metformin HCl 1,000 mg 05/26/19 07:00 06/03/19 06:15 Glucophage - PO 1,000 mg BIDI [facility]E Administration Miscellaneous 1 each 05/25/19 19:43 05/31/19 12:13 Duragesic Patch Waste MC 1 each PRN PRN Administration PAIN Ondansetron HCl 4 mg 05/25/19 14:59 Zofran Injection IVPUSH Q8H PRN NAUSEA Oxycodone HCl 5 mg 06/01/19 13:21 06/03/19 10:24 Roxicodone - PO 5 mg Q4H PRN Administration PAIN LEVEL 4-10 Pantoprazole Sodium 40 mg 05/26/19 10:00 06/03/19 10:24 Protonix - PO 40 mg DAILY [facility] Administration Rosuvastatin Calcium 40 mg 05/25/19 22:00 06/02/19 21:35 Crestor - PO 40 mg HS [facility]EVE Administration Impression: Adenoca of lung Malignant pleural effusion s/p pleurex catheter BRIM PRESSER met Non hemorrhagic BRIM PRESSER infarct Likely hypercoaguable secondary to malignancy Plan: Bone scan Begin eliquis 5 BID Discontinue ASA When ready for discharge, will follow up with Dr. Beaver and will be treated with carboplatinum, Alimta/ and pembrolizumab.
--- NOTE | 2019-06-03 11:22 | PN ---
Progress Note (short form) - Note Progress Note: cc Right sided hemiparesis HPI 54 year old female histoyr of HTN, Lymphoam, Pancreaitis, hld, dm, adenocarcinoma with montserart mets and cerebellar lesion in right side. Patient has right arm and leg weakness since february. As per she knew that she has brain lesion. Patient denies any seizure or headache . There is no worsening of right and leg weakness. her carotid ultrasound is normal, getting pt, no new complaiing NEUROLOGICAL EXAMINATION Alert oriented x 3, speech is normal, neck is supple vss eomi, pupils reactive no face asymmetry right upper and lower extremity is grade 4+/5, left upper and lower extermity is grade 5 there is diminished sensation to right arm and leg mri showed left mca there is small lacunar stroke with no enhancing lesion there is right cerebellar lesion , which is enhancing Assessment/Plan Left mca small lacuanr stroke , unlikely to be mets, patient to continue statin and aspirin. This lesion seems to be causing right hemiparesis, 2. right cerebellar enhancing lesion, secondary to mets Plan: no need for steroid or AED at this time - aspirin was started and statin to continue - carotid ultrasound was unremarkable - pt, dvt prophylaxis - stroke education Thanking you so much Glen Santiago MD
--- NOTE | 2019-06-03 11:32 | PN ---
Progress Note (short form) - Note Progress Note: PULMONARY RESTING COMFORTABLY VSS/AFEBRILE Constitutional: Yes: Well Nourished, Calm Eyes: Yes: WNL HENT: Yes: WNL Neck: Yes: WNL Cardiovascular: Yes: Regular Rate and Rhythm, S1, S2 Respiratory: Yes: CTA Bilaterally Gastrointestinal: Yes: Normal Bowel Sounds, Soft Extremities: Yes: WNL Edema: No Labs: NOTED MRI BRAIN REVIEWED CAROTID US NOTED A/P Metastatic Lung Ca,+ HYPERBARIC TECH met Left Malignant Pleural Effusion s/p pleur-x placement Chronic Hypoxic Respiratory Failure r/o Pneumonia HTN DM Hyperlipidemia h/o Lymphoma - pain control - O2 to keep SpO2 >90% - on empiric antibiotics - pleur-x drainage every 2-3 days or if symptomatic - inhaled bronchodilators Navin SKAGGS MD
--- NOTE | 2019-06-03 11:51 | PN ---
Progress Note, Physician History of Present Illness: patient stable breathing better - Current Medication List Current Medications: Active Medications Acetaminophen (Tylenol -) 325 mg PO Q4H PRN PRN Reason: PAIN LEVEL 4-10 Last Admin: 06/03/19 10:23 Dose: 325 mg Albuterol/Ipratropium (Duoneb -) 1 amp NEB Q4H PRN PRN Reason: SHORTNESS OF BREATH Last Admin: 06/03/19 08:02 Dose: 1 amp Apixaban (Eliquis -) 5 mg PO BID [facility] Duloxetine HCl (Cymbalta -) 60 mg PO DAILY [facility] Last Admin: 06/03/19 10:23 Dose: 60 mg Fentanyl (Duragesic 75mcg Patch -) 1 patch TD Q72H [facility] Last Admin: 06/01/19 05:01 Dose: 1 patch Insulin Aspart (Novolog Vial Sliding Scale -) 1 vial SQ ACHS [facility]; Protocol Last Admin: 06/03/19 11:47 Dose: Not Given Melatonin (Melatonin) 5 mg PO HS PRN PRN Reason: INSOMNIA Last Admin: 06/02/19 03:50 Dose: 5 mg Metformin HCl (Glucophage -) 1,000 mg PO BIDI [facility] Last Admin: 06/03/19 06:15 Dose: 1,000 mg Miscellaneous (Duragesic Patch Waste) 1 each MC PRN PRN PRN Reason: PAIN Last Admin: 05/31/19 12:13 Dose: 1 each Ondansetron HCl (Zofran Injection) 4 mg IVPUSH Q8H PRN PRN Reason: NAUSEA Oxycodone HCl (Roxicodone -) 5 mg PO Q4H PRN PRN Reason: PAIN LEVEL 4-10 Last Admin: 06/03/19 10:24 Dose: 5 mg Pantoprazole Sodium (Protonix -) 40 mg PO DAILY [facility] Last Admin: 06/03/19 10:24 Dose: 40 mg Rosuvastatin Calcium (Crestor -) 40 mg PO HS [facility] Last Admin: 06/02/19 21:35 Dose: 40 mg - Objective Vital Signs: Vital Signs Temperature 98.7 F 06/03/19 10:00 Pulse Rate 120 H 06/03/19 10:00 Respiratory Rate 18 06/03/19 10:00 Blood Pressure 111/51 L 06/03/19 10:00 O2 Sat by Pulse Oximetry (%) 97 11/28/19 21:00 Constitutional: Yes: Calm, Mild Distress Cardiovascular: Yes: S1, S2 Respiratory: Yes: Regular, Poor Air Entry Gastrointestinal: Yes: Normal Bowel Sounds, Soft Musculoskeletal: Yes: WNL Extremities: Yes: WNL Neurological: Yes: Alert, Oriented Psychiatric: Yes: Alert, Oriented Labs: CBC, BMP 05/31/19 10:55 05/31/19 10:55 INR, PTT INR 1.22 (0.83-1.09) H 05/23/19 06:22 Assessment/Plan Problem List - Problems (1) Acute hypoxemic respiratory failure Code(s): J96.01 - ACUTE RESPIRATORY FAILURE WITH HYPOXIA (2) SOB (shortness of breath) Code(s): R06.02 - SHORTNESS OF BREATH (3) Chronic pancreatitis Code(s): K86.1 - OTHER CHRONIC PANCREATITIS (4) Diabetes Code(s): E11.9 - TYPE 2 DIABETES MELLITUS WITHOUT COMPLICATIONS (5) Difficulty breathing Code(s): R06.89 - OTHER ABNORMALITIES OF BREATHING (6) H/O gastric bypass Code(s): Z98.89 - OTHER SPECIFIED POSTPROCEDURAL STATES * DO NOT USE * (7) HLD (hyperlipidemia) Code(s): E78.5 - HYPERLIPIDEMIA, UNSPECIFIED (8) HTN (hypertension) Code(s): I10 - ESSENTIAL (PRIMARY) HYPERTENSION (9) Non-Hodgkin's lymphoma Code(s): C85.90 - NON-HODGKIN LYMPHOMA, UNSPECIFIED, UNSPECIFIED SITE (10) Pleural effusion Code(s): J90 - PLEURAL EFFUSION, NOT ELSEWHERE CLASSIFIED (11) Metastatic lung cancer (metastasis from lung to other site) Code(s): C34.90 - MALIGNANT NEOPLASM OF UNSP PART OF UNSP BRONCHUS OR LUNG (12) Malignant pleural effusion Code(s): J91.0 - MALIGNANT PLEURAL EFFUSION plan continue to monitor resp support rest as per the team physio
--- NOTE | 2019-06-03 12:00 | PN ---
Physical Exam: SUBJECTIVE: Patient seen and examined at bedside. Feeling ok. OBJECTIVE: Vital Signs Period Temp Pulse Resp BP Sys/Villeda Pulse Ox Last 24 Hr 97.4 F-98.7 F 69-120 18-20 100-111/51-82 97 GEN: NAD HEENT: NCAT Neck: no jvd Cardio: rrr, normal s1s2, no mrg noted Pulm: L sided decreased breath sounds. Left drain in place Abd: infraumbilical scar noted. Soft, mildly tender. Nondistended Laboratory Results - last 24 hr 06/02/19 06/02/19 06/03/19 16:38 21:30 06:14 POC Glucometer 148 106 132 Active Medications Generic Name Dose Route Start Last Admin Trade Name Freq PRN Reason Stop Dose Admin Acetaminophen 325 mg 06/01/19 19:39 06/03/19 10:23 Tylenol - PO 325 mg Q4H PRN Administration PAIN LEVEL 4-10 Albuterol/Ipratropium 1 amp 06/01/19 15:13 06/03/19 08:02 Duoneb - NEB 1 amp Q4H PRN Administration SHORTNESS OF BREATH Apixaban 5 mg 06/04/19 10:00 Eliquis - PO BID [facility]E Duloxetine HCl 60 mg 05/26/19 10:00 06/03/19 10:23 Cymbalta - PO 60 mg DAILY [facility] Administration Fentanyl 1 patch 05/28/19 11:45 06/01/19 05:01 Duragesic 75mcg Patch - TD 1 patch Q72H [facility]EVE Administration Insulin Aspart 1 vial 05/25/19 22:00 06/03/19 11:47 Novolog Vial Sliding Scale - SQ Not Given ACHS [facility]E Protocol Melatonin 5 mg 05/30/19 22:32 06/02/19 03:50 Melatonin PO 5 mg HS PRN Administration INSOMNIA Metformin HCl 1,000 mg 05/26/19 07:00 06/03/19 06:15 Glucophage - PO 1,000 mg BIDI [facility]E Administration Miscellaneous 1 each 05/25/19 19:43 05/31/19 12:13 Duragesic Patch Waste MC 1 each PRN PRN Administration PAIN Ondansetron HCl 4 mg 05/25/19 14:59 Zofran Injection IVPUSH Q8H PRN NAUSEA Oxycodone HCl 5 mg 06/01/19 13:21 06/03/19 10:24 Roxicodone - PO 5 mg Q4H PRN Administration PAIN LEVEL 4-10 Pantoprazole Sodium 40 mg 05/26/19 10:00 06/03/19 10:24 Protonix - PO 40 mg DAILY [facility]E Administration Rosuvastatin Calcium 40 mg 05/25/19 22:00 06/02/19 21:35 Crestor - PO 40 mg HS [facility]E Administration ASSESSMENT/PLAN: Pt is a 54 y/o F with PMH follicular lymphoma s/p Rituxan in 2010, and recently diagnosed 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 Stage IV lung AdenoCA -follows with Dr. Nick. Pt stated she was waiting for Dr. Nick to start her chemo -records reveal plan to start chemo with carbo/alimta/pembro as out pt -will need bone scan Recurrent pleural effusions -2/2 lung CA -pleurX in place. Last drained 2 days ago -SOB helped by drain Visit type - Emergency Visit Emergency Visit: No - New Patient This patient is new to me today: No - Critical Care Critical Care patient: No ATTENDING PHYSICIAN STATEMENT I saw and evaluated the patient. I reviewed the resident's note and discussed the case with the resident. I agree with the resident's findings and plan as documented. SUBJECTIVE: OBJECTIVE: ASSESSMENT AND PLAN:
[2019-06-03] MEDS: fentaNYL 75mcg/hr PATCH.TD72 TD SCH (16:18)
--- NOTE | 2019-06-03 18:11 | PN ---
Progress Note (short form) - Note Progress Note: Radiation Oncology - full consult to follow 54yo woman with stage IV pulmonary adenocarcinoma with recurrent malignant pleural effusion s/p pleurx catheter, diffuse bone metastases, recent lacunar infarcts from hypercoagulability state, associated right hemiparesis, new 5mm cerebellar metastasis and diffuse bone metastases. Discussed outpatient SRS for the brain met vs close observation as she will be commencing systemic/ immunotherapy in the near future. Advise further imaging evaluation of T-L spine and bilateral LEs to r/o impending fracture and epidural extension. Cont pulmonary and pleurx catheter mgt for effusion.
--- NOTE | 2019-06-03 18:29 | CONS ---
DATE OF CONSULTATION: 06/03/2019 REFERRING PHYSICIAN: Chavo Metzger MD REASON FOR CONSULTATION: Brain metastasis. HISTORY OF PRESENT ILLNESS: Patient is a 54-year-old woman with a history of stage III follicular lymphoma status post Rituxan therapy in 2010 who was diagnosed with stage IV pulmonary adenocarcinoma in April of this year. She presented with bone metastases as well as a malignant left pleural effusion. She has had recurrent effusions requiring repeat thoracentesis. She was admitted with increasing shortness of breath and underwent thoracentesis and PleurX catheter placement. She has had symptomatic improvement of dyspnea. No hemoptysis, dysphagia, or hoarseness. She uses supplemental oxygen at home. She has dyspnea with mild exertion. On this admission, she underwent brain imaging secondary to headaches. MRI demonstrated an acute nonhemorrhagic infarct in the left MCA distribution as well as an enhancing 5-mm mass in the right cerebellum consistent with metastatic disease. She was scheduled to begin outpatient chemotherapy with her medical oncologist, Dr. Nick. Dr. Metzger has asked us to evaluate for a role of radiation therapy for the brain metastasis. She reports right-sided weakness and understands the cause from the recent strokes. She has commenced anticoagulation therapy. Denies prior radiation therapy or connective tissue disorders. PAST MEDICAL HISTORY: Diabetes mellitus, hypertension, hyperlipidemia, GERD, COPD. PAST SURGICAL HISTORY: Appendectomy, gastric bypass, cholecystectomy, section, umbilical hernia repair, resection for small-bowel obstruction, bilateral salpingo-oophorectomy, right total hip arthroscopy. ALLERGIES: No known drug allergies. CURRENT MEDICATIONS: Eliquis, Cymbalta, metformin, Crestor, insulin sliding scale, Duragesic 75 mcg/hr, oxycodone p.r.n., Protonix. SOCIAL HISTORY: She smoked 1/2 pack per day for most of her life. She used heroin and alcohol. REVIEW OF SYSTEMS: Currently denies headache, nausea, visual changes, dizziness , anorexia. She reports occasional pain in the hips, weakness in the right leg and right arm, numbness in the right arm and leg. No incontinence but does have constipation. No weakness in the left upper extremities. Reports a nonproductive cough. PHYSICAL EXAMINATION: General: Appears chronically ill. On nasal cannula O2. Has mild difficulty finishing her sentences. Her is at the bedside. Vital Signs: Temperature 98, blood pressure 111/72, pulse 115, respiratory rate 20, SaO2 is 97%, 3 L nasal cannula. HEENT: Moist mucous membranes. Anicteric sclerae. Clear oral cavity. Neck: Supple without adenopathy. Chest: PleurX catheter site clean, dry, and intact. Diminished breath sounds in the lower left lung field. Clear on the right. Abdomen: Nontender. Extremities: Moves all extremities. Neurologic: Alert and oriented x3. Cranial nerves 2-12 are intact. Sensation to light touch diminished in the right upper and lower extremities. Motor: 3+/5 proximal right upper extremity, 4/5 right carpenters, 4/5 right proximal and distal lower extremity, rest 5/5. Gait unsteady requiring assistance from the bathroom. RADIOLOGIC DATA: Brain MRI: Enhancing nodule measuring 5 mm in the right superior cerebellar cortex consistent with a metastatic lesion and a 5-mm acute, nonhemorrhagic infarct in the left posterior parietal lobe. Bone scan: Interval development of uptake throughout the left femoral shaft and photopenic lesion in the proximal right femoral shaft suspicious for osteomyelitic metastasis. Also uptake in the skull more prominent in the left supraorbital lesion. No change in uptake in the right sacroiliac bone, lower thoracic, and lower lumbar spine. IMPRESSION: A 54-year-old woman with treated lymphoma and stage IV lung cancer with malignant pleural effusion, diffuse bone metastases, and a right cerebellar metastasis in the setting of acute nonhemorrhagic infarcts. She is scheduled to begin chemotherapy with carboplatin and Alimta, and Keytruda. Her right hemiparesis consistent with the left-sided infarcts. PLAN: She may be a candidate for stereotactic radiosurgery to the right cerebellar metastasis vs close observation. I will discuss this with her primary oncologist. Certainly that treatment if elected can be arranged as outpatient. She requires further evaluation of the spine with CT and MRI scans as needed as well as the bilateral lower extremities with CT scans to rule out impending pathologic fracture risk. She will continue anticoagulation as per Oncology. Thank you for the courtesy of this consultation. ALANNAH BAZZI M.D. SOFIA/[id number] MTDD
[2019-06-03] MEDS: ROSUVASTATIN CA 20 MG TABLET (FP) PO SCH (21:24)
--- NOTE | 2019-06-03 23:02 | PN ---
Progress Note, Physician - Current Medication List Current Medications: Active Medications Acetaminophen (Tylenol -) 325 mg PO Q4H PRN PRN Reason: PAIN LEVEL 4-10 Last Admin: 06/03/19 21:25 Dose: 325 mg Albuterol/Ipratropium (Duoneb -) 1 amp NEB Q4H PRN PRN Reason: SHORTNESS OF BREATH Last Admin: 06/03/19 08:02 Dose: 1 amp Apixaban (Eliquis -) 5 mg PO BID [facility] Duloxetine HCl (Cymbalta -) 60 mg PO DAILY [facility] Last Admin: 06/03/19 10:23 Dose: 60 mg Fentanyl (Duragesic 75mcg Patch -) 1 patch TD Q72H [facility] Last Admin: 06/03/19 16:18 Dose: Not Given Insulin Aspart (Novolog Vial Sliding Scale -) 1 vial SQ ACHS [facility]; Protocol Last Admin: 06/03/19 21:23 Dose: Not Given Melatonin (Melatonin) 5 mg PO HS PRN PRN Reason: INSOMNIA Last Admin: 06/02/19 03:50 Dose: 5 mg Metformin HCl (Glucophage -) 1,000 mg PO BIDI [facility] Last Admin: 06/03/19 17:27 Dose: 1,000 mg Miscellaneous (Duragesic Patch Waste) 1 each [facility] PRN PRN PRN Reason: PAIN Last Admin: 05/31/19 12:13 Dose: 1 each Ondansetron HCl (Zofran Injection) 4 mg IVPUSH Q8H PRN PRN Reason: NAUSEA Oxycodone HCl (Roxicodone -) 5 mg PO Q4H PRN PRN Reason: PAIN LEVEL 4-10 Last Admin: 06/03/19 21:24 Dose: 5 mg Pantoprazole Sodium (Protonix -) 40 mg PO DAILY [facility] Last Admin: 06/03/19 10:24 Dose: 40 mg Rosuvastatin Calcium (Crestor -) 40 mg PO HS [facility] Last Admin: 06/03/19 21:24 Dose: 40 mg - Objective Vital Signs: Vital Signs Temperature 98.5 F 06/03/19 20:16 Pulse Rate 94 H 06/03/19 20:16 Respiratory Rate 18 06/03/19 20:16 Blood Pressure 113/69 06/03/19 20:16 O2 Sat by Pulse Oximetry (%) 97 06/02/19 21:00 Labs: CBC, BMP 05/31/19 10:55 05/31/19 10:55 INR, PTT INR 1.22 (0.83-1.09) H 05/23/19 06:22 Problem List - Problems (1) SOB (shortness of breath) Code(s): R06.02 - SHORTNESS OF BREATH (2) Metastatic lung cancer (metastasis from lung to other site) Code(s): C34.90 - MALIGNANT NEOPLASM OF UNSP PART OF UNSP BRONCHUS OR LUNG (3) Asthma Code(s): J45.909 - UNSPECIFIED ASTHMA, UNCOMPLICATED (4) Chronic pancreatitis Code(s): K86.1 - OTHER CHRONIC PANCREATITIS (5) Diabetes Code(s): E11.9 - TYPE 2 DIABETES MELLITUS WITHOUT COMPLICATIONS (6) GERD (gastroesophageal reflux disease) Code(s): K21.9 - GASTRO-ESOPHAGEAL REFLUX DISEASE WITHOUT ESOPHAGITIS (7) HLD (hyperlipidemia) Code(s): E78.5 - HYPERLIPIDEMIA, UNSPECIFIED (8) HTN (hypertension) Code(s): I10 - ESSENTIAL (PRIMARY) HYPERTENSION (9) Non-Hodgkin lymphoma Code(s): C85.90 - NON-HODGKIN LYMPHOMA, UNSPECIFIED, UNSPECIFIED SITE
[2019-06-04] MEDS: oxyCODONE HCL 5 MG TABLET PO PRN ×4 (02:58→18:34)
[2019-06-04] MEDS: ACETAMINOPHEN 325 MG TABLET (FP) PO PRN ×4 (02:58→18:35)
[2019-06-04] MEDS: fentaNYL 75mcg/hr PATCH.TD72 TD SCH (02:59)
[2019-06-04] MEDS: metFORMIN HCL 500 MG TABLET (FP) PO SCH ×2 (06:35→17:32)
[2019-06-04] MEDS: INSULIN SLIDING SCALE (NOVOLOG) 1 VIAL SQ SCH ×4 (06:35→21:55)
[2019-06-04] MEDS: PANTOPRAZOLE 40 MG TABLET (FP) PO SCH (09:31)
[2019-06-04] MEDS: DULoxetine HCL 30 MG CAPSULE.DR PO SCH (09:31)
[2019-06-04] MEDS: APIXABAN 5 MG TABLET PO SCH ×2 (09:31→21:15)
--- NOTE | 2019-06-04 10:32 | PN ---
Progress Note, Physician History of Present Illness: stable no new issues - Current Medication List Current Medications: Active Medications Acetaminophen (Tylenol -) 325 mg PO Q4H PRN PRN Reason: PAIN LEVEL 4-10 Last Admin: 06/04/19 09:31 Dose: 325 mg Albuterol/Ipratropium (Duoneb -) 1 amp NEB Q4H PRN PRN Reason: SHORTNESS OF BREATH Last Admin: 06/03/19 08:02 Dose: 1 amp Apixaban (Eliquis -) 5 mg PO BID [facility] Last Admin: 06/04/19 09:31 Dose: 5 mg Duloxetine HCl (Cymbalta -) 60 mg PO DAILY [facility] Last Admin: 06/04/19 09:31 Dose: 60 mg Fentanyl (Duragesic 75mcg Patch -) 1 patch TD Q72H [facility] Last Admin: 06/04/19 02:59 Dose: 1 patch Insulin Aspart (Novolog Vial Sliding Scale -) 1 vial SQ ACHS [facility]; Protocol Last Admin: 06/04/19 06:35 Dose: Not Given Melatonin (Melatonin) 5 mg PO HS PRN PRN Reason: INSOMNIA Last Admin: 06/02/19 03:50 Dose: 5 mg Metformin HCl (Glucophage -) 1,000 mg PO BIDI [facility] Last Admin: 06/04/19 06:35 Dose: 1,000 mg Miscellaneous (Duragesic Patch Waste) 1 each MC PRN PRN PRN Reason: PAIN Last Admin: 05/31/19 12:13 Dose: 1 each Ondansetron HCl (Zofran Injection) 4 mg IVPUSH Q8H PRN PRN Reason: NAUSEA Oxycodone HCl (Roxicodone -) 5 mg PO Q4H PRN PRN Reason: PAIN LEVEL 4-10 Last Admin: 06/04/19 09:31 Dose: 5 mg Pantoprazole Sodium (Protonix -) 40 mg PO DAILY [facility] Last Admin: 06/04/19 09:31 Dose: 40 mg Rosuvastatin Calcium (Crestor -) 40 mg PO HS [facility] Last Admin: 06/03/19 21:24 Dose: 40 mg - Objective Vital Signs: Vital Signs Temperature 97.9 F 06/04/19 09:30 Pulse Rate 116 H 06/04/19 09:30 Respiratory Rate 20 06/04/19 09:30 Blood Pressure 116/83 06/04/19 09:30 O2 Sat by Pulse Oximetry (%) 97 06/02/19 21:00 Constitutional: Yes: No Distress, Calm Cardiovascular: Yes: S1, S2 Respiratory: Yes: Regular, Poor Air Entry, Other (pleurex) Gastrointestinal: Yes: Normal Bowel Sounds, Soft Musculoskeletal: Yes: WNL Extremities: Yes: Other Neurological: Yes: Alert, Oriented Psychiatric: Yes: Alert, Oriented Labs: CBC, BMP 05/31/19 10:55 05/31/19 10:55 INR, PTT INR 1.22 (0.83-1.09) H 05/23/19 06:22 Assessment/Plan Problem List - Problems (1) Acute hypoxemic respiratory failure Code(s): J96.01 - ACUTE RESPIRATORY FAILURE WITH HYPOXIA (2) SOB (shortness of breath) Code(s): R06.02 - SHORTNESS OF BREATH (3) Chronic pancreatitis Code(s): K86.1 - OTHER CHRONIC PANCREATITIS (4) Diabetes Code(s): E11.9 - TYPE 2 DIABETES MELLITUS WITHOUT COMPLICATIONS (5) Difficulty breathing Code(s): R06.89 - OTHER ABNORMALITIES OF BREATHING (6) H/O gastric bypass Code(s): Z98.89 - OTHER SPECIFIED POSTPROCEDURAL STATES * DO NOT USE * (7) HLD (hyperlipidemia) Code(s): E78.5 - HYPERLIPIDEMIA, UNSPECIFIED (8) HTN (hypertension) Code(s): I10 - ESSENTIAL (PRIMARY) HYPERTENSION (9) Non-Hodgkin's lymphoma Code(s): C85.90 - NON-HODGKIN LYMPHOMA, UNSPECIFIED, UNSPECIFIED SITE (10) Pleural effusion Code(s): J90 - PLEURAL EFFUSION, NOT ELSEWHERE CLASSIFIED (11) Metastatic lung cancer (metastasis from lung to other site) Code(s): C34.90 - MALIGNANT NEOPLASM OF UNSP PART OF UNSP BRONCHUS OR LUNG (12) Malignant pleural effusion Code(s): J91.0 - MALIGNANT PLEURAL EFFUSION plan continue to monitor resp support rest as per the team physio
--- NOTE | 2019-06-04 10:50 | PN ---
Progress Note (short form) - Note Progress Note: PULMONARY RESTING COMFORTABLY VSS/AFEBRILE Constitutional: Yes: Well Nourished, Calm Eyes: Yes: WNL HENT: Yes: WNL Neck: Yes: WNL Cardiovascular: Yes: Regular Rate and Rhythm, S1, S2 Respiratory: Yes: CTA Bilaterally Gastrointestinal: Yes: Normal Bowel Sounds, Soft Extremities: Yes: WNL Edema: No Labs: NOTED MRI BRAIN REVIEWED CAROTID US NOTED BONE SCAN NOTED A/P Metastatic Lung Ca,+ [employer] met, bone mets Left Malignant Pleural Effusion s/p pleur-x placement Chronic Hypoxic Respiratory Failure r/o Pneumonia HTN DM Hyperlipidemia h/o Lymphoma - pain control - O2 to keep SpO2 >90% - on empiric antibiotics - pleur-x drainage every 2-3 days or if symptomatic - inhaled bronchodilators Navin SKAGGS MD
--- NOTE | 2019-06-04 10:54 | PN ---
Progress Note (short form) - Note Progress Note: Patient seen in follow up. No significant events overnight. Alert and interactive. No complaints. Inpatient Meds reviewed. Current Medications Generic Name Dose Route Start Last Admin Trade Name Freq PRN Reason Stop Dose Admin Acetaminophen 325 mg 06/01/19 19:39 06/04/19 09:31 Tylenol - PO 325 mg Q4H PRN Administration PAIN LEVEL 4-10 Albuterol/Ipratropium 1 amp 06/01/19 15:13 06/03/19 08:02 Duoneb - NEB 1 amp Q4H PRN Administration SHORTNESS OF BREATH Apixaban 5 mg 06/04/19 10:00 06/04/19 09:31 Eliquis - PO 5 mg BID [facility]E Administration Duloxetine HCl 60 mg 05/26/19 10:00 06/04/19 09:31 Cymbalta - PO 60 mg DAILY [facility] Administration Fentanyl 1 patch 06/04/19 00:15 06/04/19 02:59 Duragesic 75mcg Patch - TD 1 patch Q72H [facility]E Administration Insulin Aspart 1 vial 05/25/19 22:00 06/04/19 06:35 Novolog Vial Sliding Scale - SQ Not Given ACHS [facility] Protocol Melatonin 5 mg 05/30/19 22:32 06/02/19 03:50 Melatonin PO 5 mg HS PRN Administration INSOMNIA Metformin HCl 1,000 mg 05/26/19 07:00 06/04/19 06:35 Glucophage - PO 1,000 mg BIDI [facility] Administration Miscellaneous 1 each 05/25/19 19:43 05/31/19 12:13 Duragesic Patch Waste MC 1 each PRN PRN Administration PAIN Ondansetron HCl 4 mg 05/25/19 14:59 Zofran Injection IVPUSH Q8H PRN NAUSEA Oxycodone HCl 5 mg 06/01/19 13:21 06/04/19 09:31 Roxicodone - PO 5 mg Q4H PRN Administration PAIN LEVEL 4-10 Pantoprazole Sodium 40 mg 05/26/19 10:00 06/04/19 09:31 Protonix - PO 40 mg DAILY [facility] Administration Rosuvastatin Calcium 40 mg 05/25/19 22:00 06/03/19 21:24 Crestor - PO 40 mg HS [facility]E Administration On Examination: Last Vital Signs Temp Pulse Resp BP Pulse Ox 97.9 F 116 H 20 116/83 97 06/04/19 09:30 06/04/19 09:30 06/04/19 09:30 06/04/19 09:30 06/02/19 21:00 General: In no acute distress, supine in bed. Extremities: No pallor or icterus. No pedal edema. No palpable lymphadenopathy. CVS: S1, S2, regular, no gallop or murmur. Chest: good air entry bilaterally, pleurex catheter L Abdomen: Non-distended, non-tender Neuro: Alert and oriented. LUE weakness Labs: CBC, BMP 05/31/19 10:55 05/31/19 10:55 Assessment. Hx stage III follicular lymphoma s/p Rituxan based regimen in 2010, and recently diagnosed Stage IV adenocarcinoma of lung (04/2019), followed by Dr. Yuri Nick. Admitted with dyspnea due to accumulation of pleural effusion L, improved following thrococentesis, and now with placement Pleurx catheter. Evaluated by neurology this admission regarding long-standing LUE weakness - noted on MRI to have old ischemic infarct, and new 5mm nodule likely metastatic. Evaluated by RTX - to consider stereotactic RTX to brain lesion, as well as possible prophylactic RTX to bone lesions. Requires systemic chemotherapy for newly diagnosed NSCLC IV - will commence as outpatient with her primary oncologist DR Nick. - planned to start Alimta / Carboplatin and Pembrolizumab. Started yesterday on Eliquis (in place of ASA) by Dr Metzger - high risk of thrombosis with metastatic lung cancer. Consider DC home for further management, as above, as outpatient.
[2019-06-04] MEDS: ALBUTEROL SO4 2.5/IPRATROPIUM 0.5 INH SOL 3 ML VIAL.NEB. NEB PRN (12:01)
[2019-06-04] MEDS: ROSUVASTATIN CA 20 MG TABLET (FP) PO SCH (21:15)
--- NOTE | 2019-06-04 23:55 | PN ---
Progress Note, Physician - Current Medication List Current Medications: Active Medications Acetaminophen (Tylenol -) 325 mg PO Q4H PRN PRN Reason: PAIN LEVEL 4-10 Last Admin: 06/04/19 18:35 Dose: 325 mg Albuterol/Ipratropium (Duoneb -) 1 amp NEB Q4H PRN PRN Reason: SHORTNESS OF BREATH Last Admin: 06/04/19 12:01 Dose: 1 amp Apixaban (Eliquis -) 5 mg PO BID [facility] Last Admin: 06/04/19 21:15 Dose: 5 mg Duloxetine HCl (Cymbalta -) 60 mg PO DAILY [facility] Last Admin: 06/04/19 09:31 Dose: 60 mg Fentanyl (Duragesic 75mcg Patch -) 1 patch TD Q72H [facility] Last Admin: 06/04/19 02:59 Dose: 1 patch Insulin Aspart (Novolog Vial Sliding Scale -) 1 vial SQ ACHS [facility]; Protocol Last Admin: 06/04/19 21:55 Dose: Not Given Melatonin (Melatonin) 5 mg PO HS PRN PRN Reason: INSOMNIA Last Admin: 06/02/19 03:50 Dose: 5 mg Metformin HCl (Glucophage -) 1,000 mg PO BIDI [facility] Last Admin: 06/04/19 17:32 Dose: 1,000 mg Miscellaneous (Duragesic Patch Waste) 1 each MC PRN PRN PRN Reason: PAIN Last Admin: 05/31/19 12:13 Dose: 1 each Ondansetron HCl (Zofran Injection) 4 mg IVPUSH Q8H PRN PRN Reason: NAUSEA Oxycodone HCl (Roxicodone -) 5 mg PO Q4H PRN PRN Reason: PAIN LEVEL 4-10 Last Admin: 06/04/19 18:34 Dose: 5 mg Pantoprazole Sodium (Protonix -) 40 mg PO DAILY [facility] Last Admin: 06/04/19 09:31 Dose: 40 mg Rosuvastatin Calcium (Crestor -) 40 mg PO HS [facility] Last Admin: 06/04/19 21:15 Dose: 40 mg - Objective Vital Signs: Vital Signs Temperature 97.2 F L 06/04/19 18:00 Pulse Rate 123 H 06/04/19 18:00 Respiratory Rate 20 06/04/19 18:00 Blood Pressure 102/55 L 06/04/19 18:00 O2 Sat by Pulse Oximetry (%) 94 L 06/04/19 14:01 Labs: CBC, BMP 05/31/19 10:55 05/31/19 10:55 INR, PTT INR 1.22 (0.83-1.09) H 05/23/19 06:22 Problem List - Problems (1) SOB (shortness of breath) Code(s): R06.02 - SHORTNESS OF BREATH (2) Metastatic lung cancer (metastasis from lung to other site) Code(s): C34.90 - MALIGNANT NEOPLASM OF UNSP PART OF UNSP BRONCHUS OR LUNG (3) Asthma Code(s): J45.909 - UNSPECIFIED ASTHMA, UNCOMPLICATED (4) Chronic pancreatitis Code(s): K86.1 - OTHER CHRONIC PANCREATITIS (5) Diabetes Code(s): E11.9 - TYPE 2 DIABETES MELLITUS WITHOUT COMPLICATIONS (6) GERD (gastroesophageal reflux disease) Code(s): K21.9 - GASTRO-ESOPHAGEAL REFLUX DISEASE WITHOUT ESOPHAGITIS (7) HLD (hyperlipidemia) Code(s): E78.5 - HYPERLIPIDEMIA, UNSPECIFIED (8) HTN (hypertension) Code(s): I10 - ESSENTIAL (PRIMARY) HYPERTENSION (9) Non-Hodgkin lymphoma Code(s): C85.90 - NON-HODGKIN LYMPHOMA, UNSPECIFIED, UNSPECIFIED SITE
[2019-06-05] MEDS: ACETAMINOPHEN 325 MG TABLET (FP) PO PRN ×5 (00:29→21:38)
[2019-06-05] MEDS: oxyCODONE HCL 5 MG TABLET PO PRN ×5 (00:29→21:39)
[2019-06-05] MEDS: metFORMIN HCL 500 MG TABLET (FP) PO SCH ×2 (06:42→17:13)
[2019-06-05] MEDS: INSULIN SLIDING SCALE (NOVOLOG) 1 VIAL SQ SCH ×4 (06:44→21:35)
--- NOTE | 2019-06-05 10:48 | PN ---
Progress Note, Physician History of Present Illness: stable looks good - Current Medication List Current Medications: Active Medications Acetaminophen (Tylenol -) 325 mg PO Q4H PRN PRN Reason: PAIN LEVEL 4-10 Last Admin: 06/05/19 06:42 Dose: 325 mg Albuterol/Ipratropium (Duoneb -) 1 amp NEB Q4H PRN PRN Reason: SHORTNESS OF BREATH Last Admin: 06/04/19 12:01 Dose: 1 amp Apixaban (Eliquis -) 5 mg PO BID [facility] Last Admin: 06/04/19 21:15 Dose: 5 mg Duloxetine HCl (Cymbalta -) 60 mg PO DAILY [facility] Last Admin: 06/04/19 09:31 Dose: 60 mg Fentanyl (Duragesic 75mcg Patch -) 1 patch TD Q72H [facility] Last Admin: 06/04/19 02:59 Dose: 1 patch Insulin Aspart (Novolog Vial Sliding Scale -) 1 vial SQ ACHS [facility]; Protocol Last Admin: 06/05/19 06:44 Dose: Not Given Melatonin (Melatonin) 5 mg PO HS PRN PRN Reason: INSOMNIA Last Admin: 06/02/19 03:50 Dose: 5 mg Metformin HCl (Glucophage -) 1,000 mg PO BIDI [facility] Last Admin: 06/05/19 06:42 Dose: 1,000 mg Miscellaneous (Duragesic Patch Waste) 1 each MC PRN PRN PRN Reason: PAIN Last Admin: 05/31/19 12:13 Dose: 1 each Ondansetron HCl (Zofran Injection) 4 mg IVPUSH Q8H PRN PRN Reason: NAUSEA Oxycodone HCl (Roxicodone -) 5 mg PO Q4H PRN PRN Reason: PAIN LEVEL 4-10 Last Admin: 06/05/19 06:43 Dose: 5 mg Pantoprazole Sodium (Protonix -) 40 mg PO DAILY [facility] Last Admin: 06/04/19 09:31 Dose: 40 mg Rosuvastatin Calcium (Crestor -) 40 mg PO HS [facility] Last Admin: 06/04/19 21:15 Dose: 40 mg - Objective Vital Signs: Vital Signs Temperature 98.1 F 06/05/19 07:45 Pulse Rate 124 H 06/05/19 07:45 Respiratory Rate 20 06/05/19 07:45 Blood Pressure 105/55 L 06/05/19 07:45 O2 Sat by Pulse Oximetry (%) 96 06/04/19 22:00 Constitutional: Yes: No Distress, Calm Cardiovascular: Yes: S1, S2 Respiratory: Yes: Regular, CTA Bilaterally Gastrointestinal: Yes: Normal Bowel Sounds, Soft Musculoskeletal: Yes: Other Extremities: Yes: WNL Neurological: Yes: Alert, Oriented Psychiatric: Yes: Alert, Oriented Labs: CBC, BMP 05/31/19 10:55 05/31/19 10:55 INR, PTT INR 1.22 (0.83-1.09) H 05/23/19 06:22 Assessment/Plan Problem List - Problems (1) Acute hypoxemic respiratory failure Code(s): J96.01 - ACUTE RESPIRATORY FAILURE WITH HYPOXIA (2) SOB (shortness of breath) Code(s): R06.02 - SHORTNESS OF BREATH (3) Chronic pancreatitis Code(s): K86.1 - OTHER CHRONIC PANCREATITIS (4) Diabetes Code(s): E11.9 - TYPE 2 DIABETES MELLITUS WITHOUT COMPLICATIONS (5) Difficulty breathing Code(s): R06.89 - OTHER ABNORMALITIES OF BREATHING (6) H/O gastric bypass Code(s): Z98.89 - OTHER SPECIFIED POSTPROCEDURAL STATES * DO NOT USE * (7) HLD (hyperlipidemia) Code(s): E78.5 - HYPERLIPIDEMIA, UNSPECIFIED (8) HTN (hypertension) Code(s): I10 - ESSENTIAL (PRIMARY) HYPERTENSION (9) Non-Hodgkin's lymphoma Code(s): C85.90 - NON-HODGKIN LYMPHOMA, UNSPECIFIED, UNSPECIFIED SITE (10) Pleural effusion Code(s): J90 - PLEURAL EFFUSION, NOT ELSEWHERE CLASSIFIED (11) Metastatic lung cancer (metastasis from lung to other site) Code(s): C34.90 - MALIGNANT NEOPLASM OF UNSP PART OF UNSP BRONCHUS OR LUNG (12) Malignant pleural effusion Code(s): J91.0 - MALIGNANT PLEURAL EFFUSION plan continue to monitor resp support rest as per the team physio
[2019-06-05] MEDS: DULoxetine HCL 30 MG CAPSULE.DR PO SCH (10:54)
[2019-06-05] MEDS: APIXABAN 5 MG TABLET PO SCH ×2 (10:54→21:34)
[2019-06-05] MEDS: PANTOPRAZOLE 40 MG TABLET (FP) PO SCH (10:55)
--- NOTE | 2019-06-05 11:05 | PN ---
Progress Note (short form) - Note Progress Note: cc Right sided hemiparesis HPI 54 year old female histoyr of HTN, Lymphoam, Pancreaitis, hld, dm, adenocarcinoma with montserrat mets and cerebellar lesion in right side. Patient has right arm and leg weakness since february. As per patient, she knew that she has brain lesion. Patient denies any seizure or headache . There is no worsening of right and leg weakness. her carotid ultrasound is normal, getting pt, no new complaiing NEUROLOGICAL EXAMINATION Alert oriented x 3, speech is normal, neck is supple vss eomi, pupils reactive no face asymmetry right upper and lower extremity is grade 4+/5, left upper and lower extermity is grade 5 there is diminished sensation to right arm and leg mri showed left mca there is small lacunar stroke with no enhancing lesion there is right cerebellar lesion , which is enhancing Assessment/Plan Left mca small lacuanr stroke , unlikely to be mets, patient to continue statin and aspirin. This lesion seems to be causing right hemiparesis, 2. right cerebellar enhancing lesion, secondary to mets, isolated lesion, I suggest to neurosurgical eval Plan: no need for steroid or AED at this time - aspirin was started and statin to continue - carotid ultrasound was unremarkable - pt, dvt prophylaxis - stroke education - suggest to consider neurosurgical consult for isolated enhancing lesion in cerebellum Thanking you so much Glen Santiago MD
[2019-06-05] MEDS: ALBUTEROL SO4 2.5/IPRATROPIUM 0.5 INH SOL 3 ML VIAL.NEB. NEB PRN (11:49)
--- NOTE | 2019-06-05 13:07 | PN ---
Progress Note (short form) - Note Progress Note: PULMONARY AWAKE/ALERT WORRIED OVER BONE SCAN RESULTS VSS/AFEBRILE Constitutional: Yes: Well Nourished, Calm Eyes: Yes: WNL HENT: Yes: WNL Neck: Yes: WNL Cardiovascular: Yes: Regular Rate and Rhythm, S1, S2 Respiratory: Yes: CTA Bilaterally Gastrointestinal: Yes: Normal Bowel Sounds, Soft Extremities: Yes: WNL Edema: No Labs: NOTED MRI BRAIN REVIEWED CAROTID US NOTED BONE SCAN NOTED + BONE METS A/P Metastatic Lung Ca,+ [employer] met, bone mets Left Malignant Pleural Effusion s/p pleur-x placement Chronic Hypoxic Respiratory Failure r/o Pneumonia HTN DM Hyperlipidemia h/o Lymphoma - pain control - O2 to keep SpO2 >90% - on empiric antibiotics - pleur-x drainage every 2-3 days or if symptomatic - inhaled bronchodilators Navin SKAGGS MD
--- NOTE | 2019-06-05 13:27 | PN ---
Progress Note (short form) - Note Progress Note: Patient seen in follow up. No significant events overnight. Alert and interactive. No complaints. Inpatient Meds reviewed. Current Medications Acetaminophen (Tylenol -) 325 mg PO Q4H PRN PRN Reason: PAIN LEVEL 4-10 Last Admin: 06/05/19 10:55 Dose: 325 mg Albuterol/Ipratropium (Duoneb -) 1 amp NEB Q4H PRN PRN Reason: SHORTNESS OF BREATH Last Admin: 06/05/19 11:49 Dose: 1 amp Apixaban (Eliquis -) 5 mg PO BID [facility] Last Admin: 06/05/19 10:54 Dose: 5 mg Duloxetine HCl (Cymbalta -) 60 mg PO DAILY [facility] Last Admin: 06/05/19 10:54 Dose: 60 mg Fentanyl (Duragesic 75mcg Patch -) 1 patch TD Q72H [facility] Last Admin: 06/04/19 02:59 Dose: 1 patch Insulin Aspart (Novolog Vial Sliding Scale -) 1 vial SQ ACHS [facility]; Protocol Last Admin: 06/05/19 11:55 Dose: Not Given Melatonin (Melatonin) 5 mg PO HS PRN PRN Reason: INSOMNIA Last Admin: 06/02/19 03:50 Dose: 5 mg Metformin HCl (Glucophage -) 1,000 mg PO BIDI [facility] Last Admin: 06/05/19 06:42 Dose: 1,000 mg Miscellaneous (Duragesic Patch Waste) 1 each MC PRN PRN PRN Reason: PAIN Last Admin: 05/31/19 12:13 Dose: 1 each Ondansetron HCl (Zofran Injection) 4 mg IVPUSH Q8H PRN PRN Reason: NAUSEA Oxycodone HCl (Roxicodone -) 5 mg PO Q4H PRN PRN Reason: PAIN LEVEL 4-10 Last Admin: 06/05/19 10:55 Dose: 5 mg Pantoprazole Sodium (Protonix -) 40 mg PO DAILY [facility] Last Admin: 06/05/19 10:55 Dose: 40 mg Rosuvastatin Calcium (Crestor -) 40 mg PO HS [facility] Last Admin: 06/04/19 21:15 Dose: 40 mg On Examination: Last Vital Signs Temp Pulse Resp BP Pulse Ox 97.5 F L 110 H 18 108/74 94 L 06/05/19 10:00 06/05/19 10:00 06/05/19 10:00 06/05/19 10:00 06/05/19 10:00 General: In no acute distress, supine in bed. Extremities: No pallor or icterus. No pedal edema. No palpable lymphadenopathy. CVS: S1, S2, regular, no gallop or murmur. Chest: good air entry bilaterally, pleurex catheter L Abdomen: Non-distended, non-tender Neuro: Alert and oriented. LUE weakness Labs: (none recent) CBC, BMP 05/31/19 10:55 05/31/19 10:55 Assessment. Hx stage III follicular lymphoma s/p Rituxan based regimen in 2010, and recently diagnosed Stage IV adenocarcinoma of lung (04/2019), followed by Dr. Yuri Nick. Admitted with dyspnea due to accumulation of pleural effusion L, improved following thrococentesis, and now with placement Pleurx catheter. Evaluated by neurology this admission regarding long-standing LUE weakness - noted on MRI to have old ischemic infarct, and new 5mm nodule likely metastatic. Evaluated by RTX - to consider stereotactic RTX to brain lesion, as well as possible prophylactic RTX to bone lesions. Requires systemic chemotherapy for newly diagnosed NSCLC IV - will commence as outpatient with her primary oncologist DR Nick. - planned to start Alimta / Carboplatin and Pembrolizumab. Started yesterday on Eliquis (in place of ASA) by Dr Metzger - high risk of thrombosis with metastatic lung cancer. Consider DC home for further management, as above, as outpatient.
[2019-06-05] MEDS ORDERED: INSULIN (NOVOLOG) ASPART 100 UNITS/ML 10ML VIAL ONE ×2 (17:05→21:12)
--- NOTE | 2019-06-05 19:26 | PN ---
Progress Note, Physician History of Present Illness: No new complaints - Current Medication List Current Medications: Active Medications Acetaminophen (Tylenol -) 325 mg PO Q4H PRN PRN Reason: PAIN LEVEL 4-10 Last Admin: 06/05/19 16:16 Dose: 325 mg Albuterol/Ipratropium (Duoneb -) 1 amp NEB Q4H PRN PRN Reason: SHORTNESS OF BREATH Last Admin: 06/05/19 11:49 Dose: 1 amp Apixaban (Eliquis -) 5 mg PO BID [facility] Last Admin: 06/05/19 10:54 Dose: 5 mg Duloxetine HCl (Cymbalta -) 60 mg PO DAILY [facility] Last Admin: 06/05/19 10:54 Dose: 60 mg Fentanyl (Duragesic 75mcg Patch -) 1 patch TD Q72H [facility] Last Admin: 06/04/19 02:59 Dose: 1 patch Insulin Aspart (Novolog Vial Sliding Scale -) 1 vial SQ ACHS [facility]; Protocol Last Admin: 06/05/19 17:13 Dose: Not Given Melatonin (Melatonin) 5 mg PO HS PRN PRN Reason: INSOMNIA Last Admin: 06/02/19 03:50 Dose: 5 mg Metformin HCl (Glucophage -) 1,000 mg PO BIDI [facility] Last Admin: 06/05/19 17:13 Dose: 1,000 mg Miscellaneous (Duragesic Patch Waste) 1 each MC PRN PRN PRN Reason: PAIN Last Admin: 05/31/19 12:13 Dose: 1 each Ondansetron HCl (Zofran Injection) 4 mg IVPUSH Q8H PRN PRN Reason: NAUSEA Oxycodone HCl (Roxicodone -) 5 mg PO Q4H PRN PRN Reason: PAIN LEVEL 4-10 Last Admin: 06/05/19 16:16 Dose: 5 mg Pantoprazole Sodium (Protonix -) 40 mg PO DAILY [facility] Last Admin: 06/05/19 10:55 Dose: 40 mg Rosuvastatin Calcium (Crestor -) 40 mg PO HS [facility] Last Admin: 06/04/19 21:15 Dose: 40 mg - Objective Vital Signs: Vital Signs Temperature 97.9 F 06/05/19 17:16 Pulse Rate 117 H 06/05/19 17:16 Respiratory Rate 20 06/05/19 17:16 Blood Pressure 123/67 06/05/19 17:16 O2 Sat by Pulse Oximetry (%) 94 L 06/05/19 10:00 Neck: Yes: WNL, Supple Cardiovascular: Yes: WNL, Regular Rate and Rhythm Respiratory: Yes: WNL, Regular, CTA Bilaterally, Other (Rt pleurx cath) Gastrointestinal: Yes: WNL, Normal Bowel Sounds, Soft Labs: CBC, BMP 05/31/19 10:55 05/31/19 10:55 INR, PTT INR 1.22 (0.83-1.09) H 05/23/19 06:22 Problem List - Problems (1) CVA (cerebral vascular accident) Assessment/Plan: MRI brain showed lt lacunar infarct Carotid doppler did not show any acute pathology Cont asa/statin Code(s): I63.9 - CEREBRAL INFARCTION, UNSPECIFIED (2) SOB (shortness of breath) Assessment/Plan: Due to pleural effusions S/P thoracentesis and pleurx-cath placement Cont nebulizers Thoracentesis q 2-3 days Code(s): R06.02 - SHORTNESS OF BREATH (3) Metastatic lung cancer (metastasis from lung to other site) Assessment/Plan: Onco consult noted 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 and brain Ct scan head unremarkable MRI brain showed cerebellar lesion ?metastatic Neurosurgery consult Bone scan showed multiple areas of uptake/metastatic lesions Cont fentanyl patch/morphine Code(s): C34.90 - MALIGNANT NEOPLASM OF UNSP PART OF UNSP BRONCHUS OR LUNG (4) Asthma Assessment/Plan: Cont nebulizers Code(s): J45.909 - UNSPECIFIED ASTHMA, UNCOMPLICATED (5) Chronic pancreatitis Code(s): K86.1 - OTHER CHRONIC PANCREATITIS (6) Diabetes Assessment/Plan: Cont metformin Cont sliding scale w/ coverage Code(s): E11.9 - TYPE 2 DIABETES MELLITUS WITHOUT COMPLICATIONS (7) GERD (gastroesophageal reflux disease) Code(s): K21.9 - GASTRO-ESOPHAGEAL REFLUX DISEASE WITHOUT ESOPHAGITIS (8) HLD (hyperlipidemia) Assessment/Plan: Cont lipitor Code(s): E78.5 - HYPERLIPIDEMIA, UNSPECIFIED (9) HTN (hypertension) Assessment/Plan: BP stable Cont norvasc Code(s): I10 - ESSENTIAL (PRIMARY) HYPERTENSION (10) Non-Hodgkin lymphoma Assessment/Plan: Stage III lymphoma in remission Code(s): C85.90 - NON-HODGKIN LYMPHOMA, UNSPECIFIED, UNSPECIFIED SITE
[2019-06-05] MEDS: ROSUVASTATIN CA 20 MG TABLET (FP) PO SCH (21:34)
[2019-06-06] MEDS: oxyCODONE HCL 5 MG TABLET PO PRN ×4 (06:22→21:23)
[2019-06-06] MEDS: ACETAMINOPHEN 325 MG TABLET (FP) PO PRN ×4 (06:24→21:25)
[2019-06-06] MEDS: INSULIN SLIDING SCALE (NOVOLOG) 1 VIAL SQ SCH ×4 (06:33→21:23)
[2019-06-06] MEDS: metFORMIN HCL 500 MG TABLET (FP) PO SCH ×2 (06:33→17:25)
--- NOTE | 2019-06-06 09:35 | PN ---
Progress Note (short form) - Note Progress Note: cc Right sided hemiparesis HPI 54 year old female histoyr of HTN, Lymphoam, Pancreaitis, hld, dm, adenocarcinoma with montserrat mets and cerebellar lesion in right side. Patient has right arm and leg weakness since february. As per patient, she knew that she has brain lesion. Patient denies any seizure or headache . There is no worsening of right and leg weakness. no new complain, patient has no headhace and no new focal neurological symptoms NEUROLOGICAL EXAMINATION Alert oriented x 3, speech is normal, neck is supple vss eomi, pupils reactive no face asymmetry right upper and lower extremity is grade 4+/5, left upper and lower extermity is grade 5 there is diminished sensation to right arm and leg mri showed left mca there is small lacunar stroke with no enhancing lesion there is right cerebellar lesion , which is enhancing carotid ultrasound was normal Assessment/Plan Left mca small lacuanr stroke , unlikely to be mets, patient to continue statin and aspirin. This lesion seems to be causing right hemiparesis, 2. right cerebellar enhancing lesion, secondary to mets, isolated lesion, may need neurosurgical evaluation . Leave upto oncologist to coordinate and consider surgical treatment in view of her overall prognosis. Plan: no need for steroid or AED at this time - aspirin was started and statin to continue - pt, dvt prophylaxis - stroke education - Thanking you so much Glen Santiago MD
[2019-06-06] MEDS: APIXABAN 5 MG TABLET PO SCH ×2 (09:53→21:23)
[2019-06-06] MEDS: DULoxetine HCL 30 MG CAPSULE.DR PO SCH (09:53)
[2019-06-06] MEDS: PANTOPRAZOLE 40 MG TABLET (FP) PO SCH (09:53)
--- NOTE | 2019-06-06 10:35 | PN ---
Progress Note (short form) - Note Progress Note: PULMONARY Denies shortness of breath, cough. Pleur-x drained yesterday. Vital Signs Period Temp Pulse Resp BP Sys/Villeda Pulse Ox Last 24 Hr 97.4 F-98.1 F 116-125 20-20 105-123/59-83 94 Gen: NAD at rest Heart: RRR Lung: decreased breath sounds left base Abd: soft, nontender Ext: no edema CBC, BMP 05/31/19 10:55 05/31/19 10:55 Active Medications Acetaminophen (Tylenol -) 325 mg PO Q4H PRN PRN Reason: PAIN LEVEL 4-10 Last Admin: 06/06/19 06:24 Dose: 325 mg Albuterol/Ipratropium (Duoneb -) 1 amp NEB Q4H PRN PRN Reason: SHORTNESS OF BREATH Last Admin: 06/05/19 11:49 Dose: 1 amp Apixaban (Eliquis -) 5 mg PO BID [facility] Last Admin: 06/06/19 09:53 Dose: 5 mg Duloxetine HCl (Cymbalta -) 60 mg PO DAILY [facility] Last Admin: 06/06/19 09:53 Dose: 60 mg Fentanyl (Duragesic 75mcg Patch -) 1 patch TD Q72H [facility] Last Admin: 06/04/19 02:59 Dose: 1 patch Insulin Aspart (Novolog Vial Sliding Scale -) 1 vial SQ ACHS [facility]; Protocol Last Admin: 06/06/19 06:33 Dose: Not Given Melatonin (Melatonin) 5 mg PO HS PRN PRN Reason: INSOMNIA Last Admin: 06/02/19 03:50 Dose: 5 mg Metformin HCl (Glucophage -) 1,000 mg PO BIDI [facility] Last Admin: 06/06/19 06:33 Dose: 1,000 mg Miscellaneous (Duragesic Patch Waste) 1 each MC PRN PRN PRN Reason: PAIN Last Admin: 05/31/19 12:13 Dose: 1 each Ondansetron HCl (Zofran Injection) 4 mg IVPUSH Q8H PRN PRN Reason: NAUSEA Oxycodone HCl (Roxicodone -) 5 mg PO Q4H PRN PRN Reason: PAIN LEVEL 4-10 Last Admin: 06/06/19 06:22 Dose: 5 mg Pantoprazole Sodium (Protonix -) 40 mg PO DAILY [facility] Last Admin: 06/06/19 09:53 Dose: 40 mg Rosuvastatin Calcium (Crestor -) 40 mg PO HS [facility] Last Admin: 06/05/19 21:34 Dose: 40 mg A/P Metastatic Lung Ca Left Malignant Pleural Effusion s/p pleur-x placement Chronic Hypoxic Respiratory Failure r/o Pneumonia HTN DM Hyperlipidemia h/o Lymphoma - titrate pain control - O2 to keep SpO2 >90% - on empiric antibiotics - pleur-x drainage every 2-3 days or if symptomatic - inhaled bronchodilators - d/c planning
--- NOTE | 2019-06-06 10:49 | PN ---
Progress Note, Physician History of Present Illness: stable no new issues - Current Medication List Current Medications: Active Medications Acetaminophen (Tylenol -) 325 mg PO Q4H PRN PRN Reason: PAIN LEVEL 4-10 Last Admin: 06/06/19 06:24 Dose: 325 mg Albuterol/Ipratropium (Duoneb -) 1 amp NEB Q4H PRN PRN Reason: SHORTNESS OF BREATH Last Admin: 06/05/19 11:49 Dose: 1 amp Apixaban (Eliquis -) 5 mg PO BID [facility] Last Admin: 06/06/19 09:53 Dose: 5 mg Duloxetine HCl (Cymbalta -) 60 mg PO DAILY [facility] Last Admin: 06/06/19 09:53 Dose: 60 mg Fentanyl (Duragesic 75mcg Patch -) 1 patch TD Q72H [facility] Last Admin: 06/04/19 02:59 Dose: 1 patch Insulin Aspart (Novolog Vial Sliding Scale -) 1 vial SQ ACHS [facility]; Protocol Last Admin: 06/06/19 06:33 Dose: Not Given Melatonin (Melatonin) 5 mg PO HS PRN PRN Reason: INSOMNIA Last Admin: 06/02/19 03:50 Dose: 5 mg Metformin HCl (Glucophage -) 1,000 mg PO BIDI [facility] Last Admin: 06/06/19 06:33 Dose: 1,000 mg Miscellaneous (Duragesic Patch Waste) 1 each [facility] PRN PRN PRN Reason: PAIN Last Admin: 05/31/19 12:13 Dose: 1 each Ondansetron HCl (Zofran Injection) 4 mg IVPUSH Q8H PRN PRN Reason: NAUSEA Oxycodone HCl (Roxicodone -) 5 mg PO Q4H PRN PRN Reason: PAIN LEVEL 4-10 Last Admin: 06/06/19 06:22 Dose: 5 mg Pantoprazole Sodium (Protonix -) 40 mg PO DAILY [facility] Last Admin: 06/06/19 09:53 Dose: 40 mg Rosuvastatin Calcium (Crestor -) 40 mg PO HS [facility] Last Admin: 06/05/19 21:34 Dose: 40 mg - Objective Vital Signs: Vital Signs Temperature 97.5 F L 06/06/19 09:49 Pulse Rate 116 H 06/06/19 09:49 Respiratory Rate 20 06/06/19 09:49 Blood Pressure 105/76 06/06/19 09:49 O2 Sat by Pulse Oximetry (%) 94 L 06/05/19 21:00 Constitutional: Yes: Calm, Mild Distress Cardiovascular: Yes: S1, S2 Respiratory: Yes: Regular, Poor Air Entry Gastrointestinal: Yes: Normal Bowel Sounds, Soft Musculoskeletal: Yes: WNL Extremities: Yes: WNL Neurological: Yes: Alert, Oriented Psychiatric: Yes: Alert, Oriented Labs: CBC, BMP 05/31/19 10:55 05/31/19 10:55 INR, PTT INR 1.22 (0.83-1.09) H 05/23/19 06:22 Assessment/Plan Problem List - Problems (1) Acute hypoxemic respiratory failure Code(s): J96.01 - ACUTE RESPIRATORY FAILURE WITH HYPOXIA (2) SOB (shortness of breath) Code(s): R06.02 - SHORTNESS OF BREATH (3) Chronic pancreatitis Code(s): K86.1 - OTHER CHRONIC PANCREATITIS (4) Diabetes Code(s): E11.9 - TYPE 2 DIABETES MELLITUS WITHOUT COMPLICATIONS (5) Difficulty breathing Code(s): R06.89 - OTHER ABNORMALITIES OF BREATHING (6) H/O gastric bypass Code(s): Z98.89 - OTHER SPECIFIED POSTPROCEDURAL STATES * DO NOT USE * (7) HLD (hyperlipidemia) Code(s): E78.5 - HYPERLIPIDEMIA, UNSPECIFIED (8) HTN (hypertension) Code(s): I10 - ESSENTIAL (PRIMARY) HYPERTENSION (9) Non-Hodgkin's lymphoma Code(s): C85.90 - NON-HODGKIN LYMPHOMA, UNSPECIFIED, UNSPECIFIED SITE (10) Pleural effusion Code(s): J90 - PLEURAL EFFUSION, NOT ELSEWHERE CLASSIFIED (11) Metastatic lung cancer (metastasis from lung to other site) Code(s): C34.90 - MALIGNANT NEOPLASM OF UNSP PART OF UNSP BRONCHUS OR LUNG (12) Malignant pleural effusion Code(s): J91.0 - MALIGNANT PLEURAL EFFUSION plan continue to monitor resp support rest as per the team physio
[2019-06-06] MEDS: ALBUTEROL SO4 2.5/IPRATROPIUM 0.5 INH SOL 3 ML VIAL.NEB. NEB PRN (11:46)
[2019-06-06] MEDS ORDERED: INSULIN (NOVOLOG) ASPART 100 UNITS/ML 10ML VIAL ONE (17:28)
[2019-06-06] MEDS: MELATONIN 5 MG TABLETS PO PRN (21:15)
[2019-06-06] MEDS: ROSUVASTATIN CA 20 MG TABLET (FP) PO SCH (21:23)
--- NOTE | 2019-06-06 22:34 | PN ---
Progress Note, Physician History of Present Illness: No new complaints - Current Medication List Current Medications: Active Medications Acetaminophen (Tylenol -) 325 mg PO Q4H PRN PRN Reason: PAIN LEVEL 4-10 Last Admin: 06/06/19 15:51 Dose: 325 mg Apixaban (Eliquis -) 5 mg PO BID [facility] Last Admin: 06/06/19 21:23 Dose: 5 mg Duloxetine HCl (Cymbalta -) 60 mg PO DAILY [facility] Last Admin: 06/06/19 09:53 Dose: 60 mg Fentanyl (Duragesic 75mcg Patch -) 1 patch TD Q72H [facility] Last Admin: 06/04/19 02:59 Dose: 1 patch Insulin Aspart (Novolog Vial Sliding Scale -) 1 vial SQ ACHS [facility]; Protocol Last Admin: 06/06/19 21:23 Dose: Not Given Melatonin (Melatonin) 5 mg PO HS PRN PRN Reason: INSOMNIA Last Admin: 06/06/19 21:15 Dose: 5 mg Metformin HCl (Glucophage -) 1,000 mg PO BIDI [facility] Last Admin: 06/06/19 17:25 Dose: 1,000 mg Miscellaneous (Duragesic Patch Waste) 1 each MC PRN PRN PRN Reason: PAIN Last Admin: 05/31/19 12:13 Dose: 1 each Ondansetron HCl (Zofran Injection) 4 mg IVPUSH Q8H PRN PRN Reason: NAUSEA Oxycodone HCl (Roxicodone -) 5 mg PO Q4H PRN PRN Reason: PAIN LEVEL 4-10 Last Admin: 06/06/19 21:23 Dose: 5 mg Pantoprazole Sodium (Protonix -) 40 mg PO DAILY [facility] Last Admin: 06/06/19 09:53 Dose: 40 mg Rosuvastatin Calcium (Crestor -) 40 mg PO HS [facility] Last Admin: 06/06/19 21:23 Dose: 40 mg - Objective Vital Signs: Vital Signs Temperature 97.6 F 06/06/19 14:00 Pulse Rate 101 H 06/06/19 14:00 Respiratory Rate 20 06/06/19 14:00 Blood Pressure 109/68 06/06/19 14:00 O2 Sat by Pulse Oximetry (%) 94 L 06/06/19 09:00 Cardiovascular: Yes: WNL, Regular Rate and Rhythm Respiratory: Yes: WNL, Regular, CTA Bilaterally Gastrointestinal: Yes: WNL, Normal Bowel Sounds, Soft, Abdomen, Obese Extremities: Yes: WNL Edema: No Labs: CBC, BMP 05/31/19 10:55 05/31/19 10:55 INR, PTT INR 1.22 (0.83-1.09) H 05/23/19 06:22 Problem List - Problems (1) Metastatic lung cancer (metastasis from lung to other site) Assessment/Plan: 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 and brain Ct scan head unremarkable MRI brain showed cerebellar lesion ?metastatic Bone scan showed multiple areas of uptake/metastatic lesions Cont fentanyl patch/morphine Spoke to pt at length about dc planning and need for close outpt f/u w/ her oncologist Dr junior and need for outpt chemotx/RT DC planning for am Code(s): C34.90 - MALIGNANT NEOPLASM OF UNSP PART OF UNSP BRONCHUS OR LUNG (2) CVA (cerebral vascular accident) Assessment/Plan: MRI brain showed lt lacunar infarct Carotid doppler did not show any acute pathology Cont asa/statin Code(s): I63.9 - CEREBRAL INFARCTION, UNSPECIFIED (3) SOB (shortness of breath) Assessment/Plan: Due to pleural effusions S/P thoracentesis and pleurx-cath placement Cont nebulizers Thoracentesis q 2-3 days Code(s): R06.02 - SHORTNESS OF BREATH (4) Asthma Assessment/Plan: Cont nebulizers Code(s): J45.909 - UNSPECIFIED ASTHMA, UNCOMPLICATED (5) Chronic pancreatitis Code(s): K86.1 - OTHER CHRONIC PANCREATITIS (6) Diabetes Assessment/Plan: Cont metformin Cont sliding scale w/ coverage Code(s): E11.9 - TYPE 2 DIABETES MELLITUS WITHOUT COMPLICATIONS (7) GERD (gastroesophageal reflux disease) Code(s): K21.9 - GASTRO-ESOPHAGEAL REFLUX DISEASE WITHOUT ESOPHAGITIS (8) HLD (hyperlipidemia) Assessment/Plan: Cont lipitor Code(s): E78.5 - HYPERLIPIDEMIA, UNSPECIFIED (9) HTN (hypertension) Assessment/Plan: BP stable Cont norvasc Code(s): I10 - ESSENTIAL (PRIMARY) HYPERTENSION (10) Non-Hodgkin lymphoma Assessment/Plan: Stage III lymphoma in remission Code(s): C85.90 - NON-HODGKIN LYMPHOMA, UNSPECIFIED, UNSPECIFIED SITE
--- NOTE | 2019-06-07 05:19 | PN ---
Progress Note (short form) - Note Progress Note: patient seen and examined shortness of breath improved AFVSS Cor: RSR, No murmurs, No gallops Lungs: decreased at bases---Lt>Rt. Abd: Soft, Normal bowel sounds, No organomegaly Ext:No significant edema Rt. upper extremity weakness labs/meds reviewed MRI brain -- Left posterior parietal nonhemorrhagic infarct, cute, 5mm. rt. sup. cerebellar 5mm nodule Assessment/Plan 54F, pt of Dr. 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 s/p PleurX cathether. Planned to start chemotherapy with carbo/alimta/pembro as outpatient. Was seen by neurology -- rt. hemiparesis--MRI brain -- Left posterior parietal nonhemorrhagic infarct, acute, 5mm. rt. sup. cerebellar 5mm nodule On eliquis 5mg bid for presumed hypercoagulable state of malignancy Seen by rad-onc ---SRS vs close observation as outpatient on systemic therapy bone scan --intense uptake b/l femoral shafts, skull, T/L spine will need close follow up outpatient with primary oncologist Dr. Williamson/ Dr. Maya
[2019-06-07] MEDS: INSULIN SLIDING SCALE (NOVOLOG) 1 VIAL SQ SCH ×4 (06:46→22:41)
[2019-06-07] MEDS: metFORMIN HCL 500 MG TABLET (FP) PO SCH ×2 (06:46→17:17)
[2019-06-07] MEDS: fentaNYL 75mcg/hr PATCH.TD72 TD SCH (06:49)
[2019-06-07] MEDS: PANTOPRAZOLE 40 MG TABLET (FP) PO SCH (09:28)
[2019-06-07] MEDS: DULoxetine HCL 30 MG CAPSULE.DR PO SCH (09:28)
[2019-06-07] MEDS: APIXABAN 5 MG TABLET PO SCH ×2 (09:28→22:39)
--- NOTE | 2019-06-07 10:41 | PN ---
Progress Note (short form) - Note Progress Note: PULMONARY Denies shortness of breath, chest pain, cough. Vital Signs Period Temp Pulse Resp BP Sys/Villeda Pulse Ox Last 24 Hr 97.6 F-97.9 F 72-122 20-20 103-116/59-68 94 Gen: NAD at rest Heart: RRR Lung: decreased breath sounds left base Abd: soft, nontender Ext: no edema CBC, BMP 05/31/19 10:55 05/31/19 10:55 Active Medications Acetaminophen (Tylenol -) 325 mg PO Q4H PRN PRN Reason: PAIN LEVEL 4-10 Last Admin: 06/06/19 21:25 Dose: 325 mg Apixaban (Eliquis -) 5 mg PO BID [facility] Last Admin: 06/07/19 09:28 Dose: 5 mg Duloxetine HCl (Cymbalta -) 60 mg PO DAILY [facility] Last Admin: 06/07/19 09:28 Dose: 60 mg Fentanyl (Duragesic 75mcg Patch -) 1 patch TD Q72H [facility] Last Admin: 06/07/19 06:49 Dose: Not Given Insulin Aspart (Novolog Vial Sliding Scale -) 1 vial SQ [facility]; Protocol Last Admin: 06/07/19 06:46 Dose: Not Given Melatonin (Melatonin) 5 mg PO HS PRN PRN Reason: INSOMNIA Last Admin: 06/06/19 21:15 Dose: 5 mg Metformin HCl (Glucophage -) 1,000 mg PO BIDI [facility] Last Admin: 06/07/19 06:46 Dose: 1,000 mg Miscellaneous (Duragesic Patch Waste) 1 each MC PRN PRN PRN Reason: PAIN Last Admin: 05/31/19 12:13 Dose: 1 each Ondansetron HCl (Zofran Injection) 4 mg IVPUSH Q8H PRN PRN Reason: NAUSEA Oxycodone HCl (Roxicodone -) 5 mg PO Q4H PRN PRN Reason: PAIN LEVEL 4-10 Last Admin: 06/06/19 21:23 Dose: 5 mg Pantoprazole Sodium (Protonix -) 40 mg PO DAILY [facility] Last Admin: 06/07/19 09:28 Dose: 40 mg Rosuvastatin Calcium (Crestor -) 40 mg PO HS [facility] Last Admin: 06/06/19 21:23 Dose: 40 mg A/P Metastatic Lung Ca Left Malignant Pleural Effusion s/p pleur-x placement Chronic Hypoxic Respiratory Failure r/o Pneumonia HTN DM Hyperlipidemia h/o Lymphoma - titrate pain control - O2 to keep SpO2 >90% - s/p empiric antibiotics - pleur-x drainage twice/week or if symptomatic - inhaled bronchodilators - d/c planning
--- NOTE | 2019-06-07 11:10 | PN ---
Progress Note, Physician History of Present Illness: c/o of pain in the side otherwise no issues - Current Medication List Current Medications: Active Medications Acetaminophen (Tylenol -) 325 mg PO Q4H PRN PRN Reason: PAIN LEVEL 4-10 Last Admin: 06/06/19 21:25 Dose: 325 mg Apixaban (Eliquis -) 5 mg PO BID [facility] Last Admin: 06/07/19 09:28 Dose: 5 mg Duloxetine HCl (Cymbalta -) 60 mg PO DAILY [facility] Last Admin: 06/07/19 09:28 Dose: 60 mg Fentanyl (Duragesic 75mcg Patch -) 1 patch TD Q72H [facility] Last Admin: 06/07/19 06:49 Dose: Not Given Insulin Aspart (Novolog Vial Sliding Scale -) 1 vial SQ ACHS [facility]; Protocol Last Admin: 06/07/19 10:58 Dose: Not Given Melatonin (Melatonin) 5 mg PO HS PRN PRN Reason: INSOMNIA Last Admin: 06/06/19 21:15 Dose: 5 mg Metformin HCl (Glucophage -) 1,000 mg PO BIDI [facility] Last Admin: 06/07/19 06:46 Dose: 1,000 mg Miscellaneous (Duragesic Patch Waste) 1 each MC PRN PRN PRN Reason: PAIN Last Admin: 05/31/19 12:13 Dose: 1 each Ondansetron HCl (Zofran Injection) 4 mg IVPUSH Q8H PRN PRN Reason: NAUSEA Oxycodone HCl (Roxicodone -) 5 mg PO Q4H PRN PRN Reason: PAIN LEVEL 4-10 Last Admin: 06/06/19 21:23 Dose: 5 mg Pantoprazole Sodium (Protonix -) 40 mg PO DAILY [facility] Last Admin: 06/07/19 09:28 Dose: 40 mg Rosuvastatin Calcium (Crestor -) 40 mg PO HS [facility] Last Admin: 06/06/19 21:23 Dose: 40 mg - Objective Vital Signs: Vital Signs Temperature 97.7 F 06/07/19 09:04 Pulse Rate 115 H 06/07/19 09:04 Respiratory Rate 20 06/07/19 09:04 Blood Pressure 103/68 06/07/19 09:04 O2 Sat by Pulse Oximetry (%) 94 L 06/06/19 21:00 Constitutional: Yes: Calm, Mild Distress Cardiovascular: Yes: S1, S2 Respiratory: Yes: Regular, Poor Air Entry Gastrointestinal: Yes: Normal Bowel Sounds, Soft Musculoskeletal: Yes: WNL Extremities: Yes: WNL Neurological: Yes: Alert, Oriented Psychiatric: Yes: Alert, Oriented Labs: CBC, BMP 05/31/19 10:55 05/31/19 10:55 INR, PTT INR 1.22 (0.83-1.09) H 05/23/19 06:22 Assessment/Plan Problem List - Problems (1) Acute hypoxemic respiratory failure Code(s): J96.01 - ACUTE RESPIRATORY FAILURE WITH HYPOXIA (2) SOB (shortness of breath) Code(s): R06.02 - SHORTNESS OF BREATH (3) Chronic pancreatitis Code(s): K86.1 - OTHER CHRONIC PANCREATITIS (4) Diabetes Code(s): E11.9 - TYPE 2 DIABETES MELLITUS WITHOUT COMPLICATIONS (5) Difficulty breathing Code(s): R06.89 - OTHER ABNORMALITIES OF BREATHING (6) H/O gastric bypass Code(s): Z98.89 - OTHER SPECIFIED POSTPROCEDURAL STATES * DO NOT USE * (7) HLD (hyperlipidemia) Code(s): E78.5 - HYPERLIPIDEMIA, UNSPECIFIED (8) HTN (hypertension) Code(s): I10 - ESSENTIAL (PRIMARY) HYPERTENSION (9) Non-Hodgkin's lymphoma Code(s): C85.90 - NON-HODGKIN LYMPHOMA, UNSPECIFIED, UNSPECIFIED SITE (10) Pleural effusion Code(s): J90 - PLEURAL EFFUSION, NOT ELSEWHERE CLASSIFIED (11) Metastatic lung cancer (metastasis from lung to other site) Code(s): C34.90 - MALIGNANT NEOPLASM OF UNSP PART OF UNSP BRONCHUS OR LUNG (12) Malignant pleural effusion Code(s): J91.0 - MALIGNANT PLEURAL EFFUSION plan continue to monitor resp support rest as per the team physio
[2019-06-07] MEDS: ACETAMINOPHEN 325 MG TABLET (FP) PO PRN ×3 (13:03→22:40)
[2019-06-07] MEDS: oxyCODONE HCL 5 MG TABLET PO PRN ×3 (13:04→22:39)
--- NOTE | 2019-06-07 13:37 | PN ---
Physical Exam: SUBJECTIVE: Patient seen and examined at bedside. Complains of pain in left hip and knee. Mild headache. No other complaints. OBJECTIVE: Vital Signs Period Temp Pulse Resp BP Sys/Villeda Pulse Ox Last 24 Hr 97.6 F-97.9 F 72-122 20-20 103-116/59-68 94 GEN: NAD HEENT: NCAT Neck: no jvd Cardio: rrr, normal s1s2, no mrg noted Pulm: L sided decreased breath sounds Abd: infraumbilical scar noted. Soft, mildly tender. Nondistended Ext: L hip with pain on active motion. No tenderness to palpation. Laboratory Results - last 24 hr 06/06/19 06/07/19 06/07/19 17:09 06:45 10:57 POC Glucometer 152 112 117 Active Medications Generic Name Dose Route Start Last Admin Trade Name Freq PRN Reason Stop Dose Admin Acetaminophen 325 mg 06/01/19 19:39 06/07/19 13:03 Tylenol - PO 325 mg Q4H PRN Administration PAIN LEVEL 4-10 Apixaban 5 mg 06/04/19 10:00 06/07/19 09:28 Eliquis - PO 5 mg BID STEVE Administration Duloxetine HCl 60 mg 05/26/19 10:00 06/07/19 09:28 Cymbalta - PO 60 mg DAILY STEVE Administration Fentanyl 1 patch 06/04/19 00:15 06/07/19 06:49 Duragesic 75mcg Patch - TD Not Given Q72H STEVE Insulin Aspart 1 vial 05/25/19 22:00 06/07/19 10:58 Novolog Vial Sliding Scale - SQ Not Given ACHS [facility] Protocol Melatonin 5 mg 05/30/19 22:32 06/06/19 21:15 Melatonin PO 5 mg HS PRN Administration INSOMNIA Metformin HCl 1,000 mg 05/26/19 07:00 06/07/19 06:46 Glucophage - PO 1,000 mg BIDI STEVE Administration Miscellaneous 1 each 05/25/19 19:43 05/31/19 12:13 Duragesic Patch Waste MC 1 each PRN PRN Administration PAIN Ondansetron HCl 4 mg 05/25/19 14:59 Zofran Injection IVPUSH Q8H PRN NAUSEA Oxycodone HCl 5 mg 06/04/19 14:15 06/07/19 13:04 Roxicodone - PO 5 mg Q4H PRN Administration PAIN LEVEL 4-10 Pantoprazole Sodium 40 mg 05/26/19 10:00 06/07/19 09:28 Protonix - PO 40 mg DAILY [facility]E Administration Rosuvastatin Calcium 40 mg 05/25/19 22:00 06/06/19 21:23 Crestor - PO 40 mg HS STEVE Administration ASSESSMENT/PLAN: Pt is a 54 y/o F with PMH follicular lymphoma s/p Rituxan in 2010, and recently diagnosed 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 Stage IV lung AdenoCA -follows with Dr. Nick. Pt stated she was waiting for Dr. Nick to start her chemo -records reveal plan to start chemo with carbo/alimta/pembro as out pt -bone scan suggestive of fletcher mets -Decreased uptake in L femur. Will get L femoral XR to r/o impending fracture Visit type - Emergency Visit Emergency Visit: No - New Patient This patient is new to me today: No - Critical Care Critical Care patient: No ATTENDING PHYSICIAN STATEMENT I saw and evaluated the patient. I reviewed the resident's note and discussed the case with the resident. I agree with the resident's findings and plan as documented. SUBJECTIVE: OBJECTIVE: ASSESSMENT AND PLAN:
--- NOTE | 2019-06-07 14:18 | PN ---
Progress Note (short form) - Note Progress Note: cc Right sided hemiparesis HPI 54 year old female histoyr of HTN, Lymphoam, Pancreaitis, hld, dm, adenocarcinoma with montserrat mets and cerebellar lesion in right side. Patient has right arm and leg weakness since february. As per patient, she knew that she has brain lesion. Patient denies any seizure or headache . There is no worsening of right and leg weakness. no new complain, patient has no headhace and no new focal neurological symptoms NEUROLOGICAL EXAMINATION Alert oriented x 3, speech is normal, neck is supple vss eomi, pupils reactive no face asymmetry right upper and lower extremity is grade 4+/5, left upper and lower extermity is grade 5 there is diminished sensation to right arm and leg mri showed left mca there is small lacunar stroke with no enhancing lesion there is right cerebellar lesion , which is enhancing carotid ultrasound was normal Assessment/Plan Left mca small lacuanr stroke , unlikely to be mets, patient to continue statin and aspirin. This lesion seems to be causing right hemiparesis, 2. right cerebellar enhancing lesion, secondary to mets, isolated lesion, may need neurosurgical evaluation . Leave upto oncologist to coordinate and consider surgical treatment in view of her overall prognosis. Plan: no new complaining , waiting for placement - aspirin was started and statin to continue - pt, dvt prophylaxis - stroke education - Thanking you so much Glen Santiago MD
--- NOTE | 2019-06-07 19:52 | PN ---
Teaching Attending Note Name of Resident: Yuri Whittington ATTENDING PHYSICIAN STATEMENT I saw and evaluated the patient. I reviewed the resident's note and discussed the case with the resident. I agree with the resident's findings and plan as documented. SUBJECTIVE: Patient seen and examined Complains of pain left hip area Bone scan - positive left femur --intense ; right femur cold - For x rays to r/o impending fx. If negative for impending fx can be discharged with chemo/immunotherapy planned for next week and outpatient follow up with RT. Last Vital Signs Temp Pulse Resp BP Pulse Ox 97.4 F L 113 H 20 91/64 96 06/07/19 16:20 06/07/19 16:20 06/07/19 16:20 06/07/19 16:20 06/07/19 09:00 CBC, BMP 05/31/19 10:55 05/31/19 10:55 On exam today right sided upper extremity weakness seems more profound and lungs with diffuse rhonchi and wheezes. Current Medications Generic Name Dose Route Start Last Admin Trade Name Freq PRN Reason Stop Dose Admin Acetaminophen 325 mg 06/01/19 19:39 06/07/19 17:57 Tylenol - PO 325 mg Q4H PRN Administration PAIN LEVEL 4-10 Apixaban 5 mg 06/04/19 10:00 06/07/19 09:28 Eliquis - PO 5 mg BID STEVE Administration Duloxetine HCl 60 mg 05/26/19 10:00 06/07/19 09:28 Cymbalta - PO 60 mg DAILY SETVE Administration Fentanyl 1 patch 06/04/19 00:15 06/07/19 06:49 Duragesic 75mcg Patch - TD Not Given Q72H STEVE Insulin Aspart 1 vial 05/25/19 22:00 06/07/19 17:00 Novolog Vial Sliding Scale - SQ Not Given ACHS STEVE Protocol Melatonin 5 mg 05/30/19 22:32 06/06/19 21:15 Melatonin PO 5 mg HS PRN Administration INSOMNIA Metformin HCl 1,000 mg 05/26/19 07:00 06/07/19 17:17 Glucophage - PO 1,000 mg BIDI STEVE Administration Miscellaneous 1 each 05/25/19 19:43 05/31/19 12:13 Duragesic Patch Waste MC 1 each PRN PRN Administration PAIN Ondansetron HCl 4 mg 05/25/19 14:59 Zofran Injection IVPUSH Q8H PRN NAUSEA Oxycodone HCl 5 mg 06/07/19 17:51 06/07/19 17:57 Roxicodone - PO 5 mg Q4H PRN Administration PAIN LEVEL 4-10 Pantoprazole Sodium 40 mg 05/26/19 10:00 06/07/19 09:28 Protonix - PO 40 mg DAILY STEVE Administration Rosuvastatin Calcium 40 mg 05/25/19 22:00 06/06/19 21:23 Crestor - PO 40 mg HS STEVE Administration OBJECTIVE: Plan: See above ASSESSMENT AND PLAN:
[2019-06-07] MEDS: ROSUVASTATIN CA 20 MG TABLET (FP) PO SCH (22:39)
--- NOTE | 2019-06-07 22:55 | PN ---
Progress Note, Physician History of Present Illness: Pt w/ lt hip pain - Current Medication List Current Medications: Active Medications Acetaminophen (Tylenol -) 325 mg PO Q4H PRN PRN Reason: PAIN LEVEL 4-10 Last Admin: 06/07/19 22:40 Dose: 325 mg Apixaban (Eliquis -) 5 mg PO BID [facility] Last Admin: 06/07/19 22:39 Dose: 5 mg Duloxetine HCl (Cymbalta -) 60 mg PO DAILY [facility] Last Admin: 06/07/19 09:28 Dose: 60 mg Fentanyl (Duragesic 75mcg Patch -) 1 patch TD Q72H [facility] Last Admin: 06/07/19 06:49 Dose: Not Given Insulin Aspart (Novolog Vial Sliding Scale -) 1 vial SQ ACHS [facility]; Protocol Last Admin: 06/07/19 22:41 Dose: Not Given Melatonin (Melatonin) 5 mg PO HS PRN PRN Reason: INSOMNIA Last Admin: 06/06/19 21:15 Dose: 5 mg Metformin HCl (Glucophage -) 1,000 mg PO BIDI [facility] Last Admin: 06/07/19 17:17 Dose: 1,000 mg Miscellaneous (Duragesic Patch Waste) 1 each MC PRN PRN PRN Reason: PAIN Last Admin: 05/31/19 12:13 Dose: 1 each Ondansetron HCl (Zofran Injection) 4 mg IVPUSH Q8H PRN PRN Reason: NAUSEA Oxycodone HCl (Roxicodone -) 5 mg PO Q4H PRN PRN Reason: PAIN LEVEL 4-10 Last Admin: 06/07/19 22:39 Dose: 5 mg Pantoprazole Sodium (Protonix -) 40 mg PO DAILY [facility] Last Admin: 06/07/19 09:28 Dose: 40 mg Rosuvastatin Calcium (Crestor -) 40 mg PO HS [facility] Last Admin: 06/07/19 22:39 Dose: 40 mg - Objective Vital Signs: Vital Signs Temperature 97.4 F L 06/07/19 16:20 Pulse Rate 113 H 06/07/19 16:20 Respiratory Rate 20 06/07/19 16:20 Blood Pressure 91/64 06/07/19 16:20 O2 Sat by Pulse Oximetry (%) 96 06/07/19 09:00 Cardiovascular: Yes: WNL, Regular Rate and Rhythm Respiratory: Yes: WNL, Regular, CTA Bilaterally Gastrointestinal: Yes: WNL, Normal Bowel Sounds, Soft Labs: CBC, BMP 05/31/19 10:55 05/31/19 10:55 INR, PTT INR 1.22 (0.83-1.09) H 05/23/19 06:22 Problem List - Problems (1) Metastatic lung cancer (metastasis from lung to other site) Assessment/Plan: 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 and brain Ct scan head unremarkable MRI brain showed cerebellar lesion ?metastatic Bone scan showed multiple areas of uptake/metastatic lesions Cont fentanyl patch/morphine Spoke to pt at length about dc planning and need for close outpt f/u w/ her oncologist Dr junior and need for outpt chemotx/RT Pt had xray of lt leg to r/o fx Code(s): C34.90 - MALIGNANT NEOPLASM OF UNSP PART OF UNSP BRONCHUS OR LUNG (2) CVA (cerebral vascular accident) Assessment/Plan: MRI brain showed lt lacunar infarct Carotid doppler did not show any acute pathology Cont asa/statin Code(s): I63.9 - CEREBRAL INFARCTION, UNSPECIFIED (3) SOB (shortness of breath) Assessment/Plan: Due to pleural effusions S/P thoracentesis and pleurx-cath placement Cont nebulizers Thoracentesis q 2-3 days Code(s): R06.02 - SHORTNESS OF BREATH (4) Asthma Assessment/Plan: Cont nebulizers Code(s): J45.909 - UNSPECIFIED ASTHMA, UNCOMPLICATED (5) Chronic pancreatitis Code(s): K86.1 - OTHER CHRONIC PANCREATITIS (6) Diabetes Assessment/Plan: Cont metformin Cont sliding scale w/ coverage Code(s): E11.9 - TYPE 2 DIABETES MELLITUS WITHOUT COMPLICATIONS (7) GERD (gastroesophageal reflux disease) Code(s): K21.9 - GASTRO-ESOPHAGEAL REFLUX DISEASE WITHOUT ESOPHAGITIS (8) HLD (hyperlipidemia) Assessment/Plan: Cont lipitor Code(s): E78.5 - HYPERLIPIDEMIA, UNSPECIFIED (9) HTN (hypertension) Assessment/Plan: BP stable Cont norvasc Code(s): I10 - ESSENTIAL (PRIMARY) HYPERTENSION (10) Non-Hodgkin lymphoma Assessment/Plan: Stage III lymphoma in remission Code(s): C85.90 - NON-HODGKIN LYMPHOMA, UNSPECIFIED, UNSPECIFIED SITE
[2019-06-08] MEDS: oxyCODONE HCL 5 MG TABLET PO PRN ×4 (02:56→18:49)
[2019-06-08] MEDS: ACETAMINOPHEN 325 MG TABLET (FP) PO PRN ×4 (02:57→18:49)
[2019-06-08] MEDS: INSULIN SLIDING SCALE (NOVOLOG) 1 VIAL SQ SCH ×4 (07:01→21:50)
[2019-06-08] MEDS: metFORMIN HCL 500 MG TABLET (FP) PO SCH ×2 (07:01→17:53)
--- NOTE | 2019-06-08 08:34 | PN ---
Progress Note (short form) - Note Progress Note: HPI 54 year old female histoyr of HTN, Lymphoam, Pancreaitis, hld, dm, adenocarcinoma with montserrat mets and cerebellar lesion in right side. Patient has right arm and leg weakness since february. As per patient, she knew that she has brain lesion. Patient denies any seizure or headache . There is no worsening of right and leg weakness. no new complain, patient has no headhace and no new focal neurological symptoms . NEUROLOGICAL EXAMINATION Alert oriented x 3, speech is normal, neck is supple vss eomi, pupils reactive no face asymmetry right upper and lower extremity is grade 4+/5, left upper and lower extermity is grade 5 there is diminished sensation to right arm and leg mri showed left mca there is small lacunar stroke with no enhancing lesion there is right cerebellar lesion , which is enhancing carotid ultrasound was normal Assessment/Plan Left mca small lacuanr stroke , unlikely to be mets, patient to continue statin and aspirin. This lesion seems to be causing right hemiparesis, 2. right cerebellar enhancing lesion, secondary to mets, isolated lesion, may need neurosurgical evaluation . Leave upto oncologist to coordinate and consider surgical treatment in view of her overall prognosis. Plan: no new complaining , waiting for placement , - continue aspirin and statin - cerebellar lesion follow up by oncologist and ? neurosurgery for isolated enhancing lesion - pt, dvt prophylaxis - stroke education - Thanking you so much Glen Santiago MD
[2019-06-08 08:38] LABS: BASO % 0.1 % (0-2.0); EOS % 0.3 % (0-4.5); HEMATOCRIT 29.9 % (32.4-45.2); HEMOGLOBIN 9.3 GM/dL (10.7-15.3); LYMPH % 10.6 % (8-40); MCH 25.1 pg (25.7-33.7); MEAN PLT VOLUME 7.8 fl (7.5-11.1); MONO % 9.1 % (3.8-10.2); NEUT % 79.9 % (42.8-82.8); PLATELET COUNT 255 K/MM3 (134-434); RBC 3.69 M/mm3 (3.60-5.2); RDW 22.5 % (11.6-15.6); WHITE BLOOD COUNT 17.4 K/mm3 (4.0-10.0)
[2019-06-08 08:54] LABS: ALBUMIN 2.7 g/dl (3.4-5.0); BILIRUBIN,TOTAL 0.8 mg/dL (0.2-1); BLOOD UREA NITROGEN 45.1 mg/dL (7-18); CALCIUM 9.1 mg/dL (8.5-10.1); CREATININE 1.6 mg/dL (0.55-1.3); POTASSIUM 4.8 mmol/L (3.5-5.1); TOT PROT 5.8 g/dl (6.4-8.2)
[2019-06-08] MEDS: DULoxetine HCL 30 MG CAPSULE.DR PO SCH (09:07)
[2019-06-08] MEDS: PANTOPRAZOLE 40 MG TABLET (FP) PO SCH (09:07)
[2019-06-08] MEDS: APIXABAN 5 MG TABLET PO SCH ×2 (09:07→21:27)
--- NOTE | 2019-06-08 11:16 | PN ---
Progress Note, Physician History of Present Illness: stable no new issues neuro note noted - Current Medication List Current Medications: Active Medications Acetaminophen (Tylenol -) 325 mg PO Q4H PRN PRN Reason: PAIN LEVEL 4-10 Last Admin: 06/08/19 07:59 Dose: 325 mg Apixaban (Eliquis -) 5 mg PO BID [facility] Last Admin: 06/08/19 09:07 Dose: 5 mg Duloxetine HCl (Cymbalta -) 60 mg PO DAILY [facility] Last Admin: 06/08/19 09:07 Dose: 60 mg Fentanyl (Duragesic 75mcg Patch -) 1 patch TD Q72H [facility] Last Admin: 06/07/19 06:49 Dose: Not Given Insulin Aspart (Novolog Vial Sliding Scale -) 1 vial SQ [facility]; Protocol Last Admin: 06/08/19 07:01 Dose: Not Given Melatonin (Melatonin) 5 mg PO HS PRN PRN Reason: INSOMNIA Last Admin: 06/06/19 21:15 Dose: 5 mg Metformin HCl (Glucophage -) 1,000 mg PO BIDI [facility] Last Admin: 06/08/19 07:01 Dose: Not Given Miscellaneous (Duragesic Patch Waste) 1 each MC PRN PRN PRN Reason: PAIN Last Admin: 05/31/19 12:13 Dose: 1 each Ondansetron HCl (Zofran Injection) 4 mg IVPUSH Q8H PRN PRN Reason: NAUSEA Oxycodone HCl (Roxicodone -) 5 mg PO Q4H PRN PRN Reason: PAIN LEVEL 4-10 Last Admin: 06/08/19 07:59 Dose: 5 mg Pantoprazole Sodium (Protonix -) 40 mg PO DAILY [facility] Last Admin: 06/08/19 09:07 Dose: 40 mg Rosuvastatin Calcium (Crestor -) 40 mg PO HS [facility] Last Admin: 06/07/19 22:39 Dose: 40 mg - Objective Vital Signs: Vital Signs Temperature 98.1 F 06/08/19 09:09 Pulse Rate 108 H 06/08/19 09:09 Respiratory Rate 19 06/08/19 09:09 Blood Pressure 103/72 06/08/19 09:09 O2 Sat by Pulse Oximetry (%) 95 06/07/19 21:00 Constitutional: Yes: No Distress, Calm Cardiovascular: Yes: S1, S2 Respiratory: Yes: Regular, On Nasal O2, Poor Air Entry Gastrointestinal: Yes: Normal Bowel Sounds, Soft Musculoskeletal: Yes: WNL Extremities: Yes: Other (weakness rt side) Neurological: Yes: Alert, Oriented Psychiatric: Yes: Alert, Oriented Labs: CBC, BMP 06/08/19 07:16 06/08/19 07:16 INR, PTT INR 1.22 (0.83-1.09) H 05/23/19 06:22 Assessment/Plan Problem List - Problems (1) Acute hypoxemic respiratory failure Code(s): J96.01 - ACUTE RESPIRATORY FAILURE WITH HYPOXIA (2) SOB (shortness of breath) Code(s): R06.02 - SHORTNESS OF BREATH (3) Chronic pancreatitis Code(s): K86.1 - OTHER CHRONIC PANCREATITIS (4) Diabetes Code(s): E11.9 - TYPE 2 DIABETES MELLITUS WITHOUT COMPLICATIONS (5) Difficulty breathing Code(s): R06.89 - OTHER ABNORMALITIES OF BREATHING (6) H/O gastric bypass Code(s): Z98.89 - OTHER SPECIFIED POSTPROCEDURAL STATES * DO NOT USE * (7) HLD (hyperlipidemia) Code(s): E78.5 - HYPERLIPIDEMIA, UNSPECIFIED (8) HTN (hypertension) Code(s): I10 - ESSENTIAL (PRIMARY) HYPERTENSION (9) Non-Hodgkin's lymphoma Code(s): C85.90 - NON-HODGKIN LYMPHOMA, UNSPECIFIED, UNSPECIFIED SITE (10) Pleural effusion Code(s): J90 - PLEURAL EFFUSION, NOT ELSEWHERE CLASSIFIED (11) Metastatic lung cancer (metastasis from lung to other site) Code(s): C34.90 - MALIGNANT NEOPLASM OF UNSP PART OF UNSP BRONCHUS OR LUNG (12) Malignant pleural effusion Code(s): J91.0 - MALIGNANT PLEURAL EFFUSION plan continue to monitor resp support rest as per the team physio
[2019-06-08 11:52] LABS: ANISOCYTOSIS 3+; MACROCYTOSIS 0; PLATELET ESTIMATE NORMAL; TARGET CELLS 0
--- NOTE | 2019-06-08 14:30 | PN ---
Progress Note (short form) - Note Progress Note: PULMONARY States hip pain better. Pleur-x drained last night. Denies shortness of breath, chest pain, cough. Vital Signs Period Temp Pulse Resp BP Sys/Villeda Pulse Ox Last 24 Hr 97.4 F-98.2 F 108-113 19-22 91-103/64-72 95-97 Gen: NAD at rest Heart: RRR Lung: decreased breath sounds left base Abd: soft, nontender Ext: no edema CBC, BMP 06/08/19 07:16 06/08/19 07:16 Active Medications Acetaminophen (Tylenol -) 325 mg PO Q4H PRN PRN Reason: PAIN LEVEL 4-10 Last Admin: 06/08/19 07:59 Dose: 325 mg Apixaban (Eliquis -) 5 mg PO BID [facility] Last Admin: 06/08/19 09:07 Dose: 5 mg Duloxetine HCl (Cymbalta -) 60 mg PO DAILY [facility] Last Admin: 06/08/19 09:07 Dose: 60 mg Fentanyl (Duragesic 75mcg Patch -) 1 patch TD Q72H [facility] Last Admin: 06/07/19 06:49 Dose: Not Given Insulin Aspart (Novolog Vial Sliding Scale -) 1 vial SQ [facility]; Protocol Last Admin: 06/08/19 12:04 Dose: Not Given Melatonin (Melatonin) 5 mg PO HS PRN PRN Reason: INSOMNIA Last Admin: 06/06/19 21:15 Dose: 5 mg Metformin HCl (Glucophage -) 1,000 mg PO BIDI [facility] Last Admin: 06/08/19 07:01 Dose: Not Given Miscellaneous (Duragesic Patch Waste) 1 each MC PRN PRN PRN Reason: PAIN Last Admin: 05/31/19 12:13 Dose: 1 each Ondansetron HCl (Zofran Injection) 4 mg IVPUSH Q8H PRN PRN Reason: NAUSEA Oxycodone HCl (Roxicodone -) 5 mg PO Q4H PRN PRN Reason: PAIN LEVEL 4-10 Last Admin: 06/08/19 07:59 Dose: 5 mg Pantoprazole Sodium (Protonix -) 40 mg PO DAILY [facility] Last Admin: 06/08/19 09:07 Dose: 40 mg Rosuvastatin Calcium (Crestor -) 40 mg PO HS STEVE Last Admin: 06/07/19 22:39 Dose: 40 mg A/P Metastatic Lung Ca Left Malignant Pleural Effusion s/p pleur-x placement Chronic Hypoxic Respiratory Failure r/o Pneumonia HTN DM Hyperlipidemia h/o Lymphoma - titrate pain control - O2 to keep SpO2 >90% - s/p empiric antibiotics - pleur-x drainage twice/week or if symptomatic - inhaled bronchodilators - d/c planning
--- NOTE | 2019-06-08 14:32 | PN ---
Progress Note (short form) - Note Progress Note: Patient seen and examined X-rays reviewed ?? left femur met below intertrochanteric area. Patient can be discharged home with assistance (I spoke with Social service) She is scheduled to see Dr. Nick for chemotherapy on Thursday. She will need a CT scan of left femur and follow up with RT - Dr. Maya as an outpatient.
[2019-06-08] MEDS ORDERED: FENTANYL PATCH WASTE MC PRN (19:27)
[2019-06-08] MEDS ORDERED: fentaNYL 25mcg/hr PATCH.TD72 TD SCH (19:30)
--- NOTE | 2019-06-08 20:58 | PN ---
Progress Note, Physician - Current Medication List Current Medications: Active Medications Acetaminophen (Tylenol -) 325 mg PO Q4H PRN PRN Reason: PAIN LEVEL 4-10 Last Admin: 06/08/19 18:49 Dose: 325 mg Apixaban (Eliquis -) 5 mg PO BID [facility] Last Admin: 06/08/19 09:07 Dose: 5 mg Duloxetine HCl (Cymbalta -) 60 mg PO DAILY [facility] Last Admin: 06/08/19 09:07 Dose: 60 mg Fentanyl (Duragesic 25mcg Patch -) 1 patch TD Q72H [facility] Stop: 06/15/19 19:28 Insulin Aspart (Novolog Vial Sliding Scale -) 1 vial SQ ACHS [facility]; Protocol Last Admin: 06/08/19 17:53 Dose: Not Given Melatonin (Melatonin) 5 mg PO HS PRN PRN Reason: INSOMNIA Last Admin: 06/06/19 21:15 Dose: 5 mg Metformin HCl (Glucophage -) 1,000 mg PO BIDI [facility] Last Admin: 06/08/19 17:53 Dose: 1,000 mg Miscellaneous (Duragesic Patch Waste) 1 each MC PRN PRN PRN Reason: PAIN Ondansetron HCl (Zofran Injection) 4 mg IVPUSH Q8H PRN PRN Reason: NAUSEA Oxycodone HCl (Roxicodone -) 5 mg PO Q4H PRN PRN Reason: PAIN LEVEL 4-10 Last Admin: 06/08/19 18:49 Dose: 5 mg Pantoprazole Sodium (Protonix -) 40 mg PO DAILY [facility] Last Admin: 06/08/19 09:07 Dose: 40 mg Rosuvastatin Calcium (Crestor -) 40 mg PO HS [facility] Last Admin: 06/07/19 22:39 Dose: 40 mg - Objective Vital Signs: Vital Signs Temperature 98.1 F 06/08/19 16:20 Pulse Rate 109 H 06/08/19 16:20 Respiratory Rate 20 06/08/19 16:20 Blood Pressure 99/58 L 06/08/19 16:20 O2 Sat by Pulse Oximetry (%) 97 06/08/19 09:00 Labs: CBC, BMP 06/08/19 07:16 06/08/19 07:16 INR, PTT INR 1.22 (0.83-1.09) H 11/18/19 06:22 Problem List - Problems (1) Metastatic lung cancer (metastasis from lung to other site) Code(s): C34.90 - MALIGNANT NEOPLASM OF UNSP PART OF UNSP BRONCHUS OR LUNG (2) CVA (cerebral vascular accident) Code(s): I63.9 - CEREBRAL INFARCTION, UNSPECIFIED (3) SOB (shortness of breath) Code(s): R06.02 - SHORTNESS OF BREATH (4) Asthma Code(s): J45.909 - UNSPECIFIED ASTHMA, UNCOMPLICATED (5) Chronic pancreatitis Code(s): K86.1 - OTHER CHRONIC PANCREATITIS (6) Diabetes Code(s): E11.9 - TYPE 2 DIABETES MELLITUS WITHOUT COMPLICATIONS (7) GERD (gastroesophageal reflux disease) Code(s): K21.9 - GASTRO-ESOPHAGEAL REFLUX DISEASE WITHOUT ESOPHAGITIS (8) HLD (hyperlipidemia) Code(s): E78.5 - HYPERLIPIDEMIA, UNSPECIFIED (9) HTN (hypertension) Code(s): I10 - ESSENTIAL (PRIMARY) HYPERTENSION (10) Non-Hodgkin lymphoma Code(s): C85.90 - NON-HODGKIN LYMPHOMA, UNSPECIFIED, UNSPECIFIED SITE
[2019-06-08] MEDS: ROSUVASTATIN CA 20 MG TABLET (FP) PO SCH (21:27)
[2019-06-09] MEDS: oxyCODONE HCL 5 MG TABLET PO PRN ×4 (00:46→16:19)
[2019-06-09] MEDS: ACETAMINOPHEN 325 MG TABLET (FP) PO PRN ×4 (00:46→16:20)
[2019-06-09] MEDS: metFORMIN HCL 500 MG TABLET (FP) PO SCH ×2 (06:14→17:01)
[2019-06-09] MEDS: INSULIN SLIDING SCALE (NOVOLOG) 1 VIAL SQ SCH ×3 (06:15→17:01)
--- NOTE | 2019-06-09 08:58 | PN ---
Progress Note (short form) - Note Progress Note: 54 year old female histoyr of HTN, Lymphoam, Pancreaitis, hld, dm, adenocarcinoma with montserrat mets and cerebellar lesion in right side. Patient has right arm and leg weakness since february. As per patient, she knew that she has brain lesion. Patient denies any seizure or headache . There is no worsening of right and leg weakness. Patient got confused yesterday, htere is no seizure, no headhace or fever . NEUROLOGICAL EXAMINATION Alert oriented x 3, speech is normal, neck is supple vss eomi, pupils reactive no face asymmetry right upper and lower extremity is grade 4+/5, left upper and lower extermity is grade 5 there is diminished sensation to right arm and leg mri showed left mca there is small lacunar stroke with no enhancing lesion there is right cerebellar lesion , which is enhancing carotid ultrasound was normal Assessment/Plan Left mca small lacuanr stroke , unlikely to be mets, patient to continue statin and aspirin. This lesion seems to be causing right hemiparesis, 2. right cerebellar enhancing lesion, secondary to mets, isolated lesion, may need neurosurgical evaluation . Leave upto oncologist to coordinate and consider surgical treatment in view of her overall prognosis. 3. confusion last night could be secondary to opioids , and melatonin she is getting Plan: no new complaining , waiting for placement , - continue aspirin and statin - cerebellar lesion follow up by oncologist and ? neurosurgery for isolated enhancing lesion - consider reducing pain medicaiton , and watch for now - pt, dvt prophylaxis - stroke education - Thanking you so much Glen Santiago MD
--- NOTE | 2019-06-09 09:07 | PN ---
Progress Note, Physician History of Present Illness: stable no new issues - Current Medication List Current Medications: Active Medications Acetaminophen (Tylenol -) 325 mg PO Q4H PRN PRN Reason: PAIN LEVEL 4-10 Last Admin: 06/09/19 06:14 Dose: 325 mg Apixaban (Eliquis -) 5 mg PO BID [facility] Last Admin: 06/08/19 21:27 Dose: 5 mg Duloxetine HCl (Cymbalta -) 60 mg PO DAILY [facility] Last Admin: 06/08/19 09:07 Dose: 60 mg Fentanyl (Duragesic 25mcg Patch -) 1 patch TD Q72H [facility] Stop: 06/15/19 19:28 Last Admin: 06/08/19 21:27 Dose: 1 patch Insulin Aspart (Novolog Vial Sliding Scale -) 1 vial SQ ACHS [facility]; Protocol Last Admin: 06/09/19 06:15 Dose: Not Given Melatonin (Melatonin) 5 mg PO HS PRN PRN Reason: INSOMNIA Last Admin: 06/06/19 21:15 Dose: 5 mg Metformin HCl (Glucophage -) 1,000 mg PO BIDI [facility] Last Admin: 06/09/19 06:14 Dose: 1,000 mg Miscellaneous (Duragesic Patch Waste) 1 each [facility] PRN PRN PRN Reason: PAIN Ondansetron HCl (Zofran Injection) 4 mg IVPUSH Q8H PRN PRN Reason: NAUSEA Oxycodone HCl (Roxicodone -) 5 mg PO Q4H PRN PRN Reason: PAIN LEVEL 4-10 Last Admin: 06/09/19 06:14 Dose: 5 mg Pantoprazole Sodium (Protonix -) 40 mg PO DAILY [facility] Last Admin: 06/08/19 09:07 Dose: 40 mg Rosuvastatin Calcium (Crestor -) 40 mg PO HS [facility] Last Admin: 06/08/19 21:27 Dose: 40 mg - Objective Vital Signs: Vital Signs Temperature 98.3 F 06/09/19 06:00 Pulse Rate 110 H 06/09/19 06:00 Respiratory Rate 20 06/09/19 06:00 Blood Pressure 102/77 06/09/19 06:00 O2 Sat by Pulse Oximetry (%) 96 06/08/19 22:00 Constitutional: Yes: No Distress, Calm Cardiovascular: Yes: S1, S2 Respiratory: Yes: Regular, On Nasal O2, Poor Air Entry Gastrointestinal: Yes: Normal Bowel Sounds, Soft Musculoskeletal: Yes: WNL Extremities: Yes: WNL Neurological: Yes: Alert, Oriented Psychiatric: Yes: Alert, Oriented Labs: CBC, BMP 06/08/19 07:16 06/08/19 07:16 INR, PTT INR 1.22 (0.83-1.09) H 05/23/19 06:22 Assessment/Plan Problem List - Problems (1) Acute hypoxemic respiratory failure Code(s): J96.01 - ACUTE RESPIRATORY FAILURE WITH HYPOXIA (2) SOB (shortness of breath) Code(s): R06.02 - SHORTNESS OF BREATH (3) Chronic pancreatitis Code(s): K86.1 - OTHER CHRONIC PANCREATITIS (4) Diabetes Code(s): E11.9 - TYPE 2 DIABETES MELLITUS WITHOUT COMPLICATIONS (5) Difficulty breathing Code(s): R06.89 - OTHER ABNORMALITIES OF BREATHING (6) H/O gastric bypass Code(s): Z98.89 - OTHER SPECIFIED POSTPROCEDURAL STATES * DO NOT USE * (7) HLD (hyperlipidemia) Code(s): E78.5 - HYPERLIPIDEMIA, UNSPECIFIED (8) HTN (hypertension) Code(s): I10 - ESSENTIAL (PRIMARY) HYPERTENSION (9) Non-Hodgkin's lymphoma Code(s): C85.90 - NON-HODGKIN LYMPHOMA, UNSPECIFIED, UNSPECIFIED SITE (10) Pleural effusion Code(s): J90 - PLEURAL EFFUSION, NOT ELSEWHERE CLASSIFIED (11) Metastatic lung cancer (metastasis from lung to other site) Code(s): C34.90 - MALIGNANT NEOPLASM OF UNSP PART OF UNSP BRONCHUS OR LUNG (12) Malignant pleural effusion Code(s): J91.0 - MALIGNANT PLEURAL EFFUSION plan continue to monitor resp support rest as per the team physio
[2019-06-09] MEDS: DULoxetine HCL 30 MG CAPSULE.DR PO SCH (09:32)
[2019-06-09] MEDS: APIXABAN 5 MG TABLET PO SCH (09:32)
[2019-06-09] MEDS: PANTOPRAZOLE 40 MG TABLET (FP) PO SCH (09:32)
[2019-06-09 09:59] VITALS: BP 109/67; PULSE 107; TEMP 97.9
--- NOTE | 2019-06-09 10:26 | PN ---
Progress Note (short form) - Note Progress Note: PULMONARY Denies shortness of breath, chest pain, cough. Vital Signs Period Temp Pulse Resp BP Sys/Villeda Pulse Ox Last 24 Hr 97.9 F-98.3 F 93-110 20-20 99-113/58-77 96-96 Gen: NAD at rest Heart: RRR Lung: decreased breath sounds left base Abd: soft, nontender Ext: no edema CBC, BMP 06/08/19 07:16 06/08/19 07:16 Active Medications Acetaminophen (Tylenol -) 325 mg PO Q4H PRN PRN Reason: PAIN LEVEL 4-10 Last Admin: 06/09/19 06:14 Dose: 325 mg Apixaban (Eliquis -) 5 mg PO BID [facility] Last Admin: 06/09/19 09:32 Dose: 5 mg Duloxetine HCl (Cymbalta -) 60 mg PO DAILY [facility] Last Admin: 06/09/19 09:32 Dose: 60 mg Fentanyl (Duragesic 25mcg Patch -) 1 patch TD Q72H [facility] Stop: 06/15/19 19:28 Last Admin: 06/08/19 21:27 Dose: 1 patch Insulin Aspart (Novolog Vial Sliding Scale -) 1 vial SQ [facility]; Protocol Last Admin: 06/09/19 06:15 Dose: Not Given Melatonin (Melatonin) 5 mg PO HS PRN PRN Reason: INSOMNIA Last Admin: 06/06/19 21:15 Dose: 5 mg Metformin HCl (Glucophage -) 1,000 mg PO BIDI [facility] Last Admin: 06/09/19 06:14 Dose: 1,000 mg Miscellaneous (Duragesic Patch Waste) 1 each [facility] PRN PRN PRN Reason: PAIN Ondansetron HCl (Zofran Injection) 4 mg IVPUSH Q8H PRN PRN Reason: NAUSEA Oxycodone HCl (Roxicodone -) 5 mg PO Q4H PRN PRN Reason: PAIN LEVEL 4-10 Last Admin: 06/09/19 06:14 Dose: 5 mg Pantoprazole Sodium (Protonix -) 40 mg PO DAILY [facility] Last Admin: 06/09/19 09:32 Dose: 40 mg Rosuvastatin Calcium (Crestor -) 40 mg PO HS [facility] Last Admin: 06/08/19 21:27 Dose: 40 mg A/P Metastatic Lung Ca Left Malignant Pleural Effusion s/p pleur-x placement Chronic Hypoxic Respiratory Failure r/o Pneumonia HTN DM Hyperlipidemia h/o Lymphoma - pain control - O2 to keep SpO2 >90% - s/p empiric antibiotics - pleur-x drainage twice/week or if symptomatic - inhaled bronchodilators - d/c planning
--- NOTE | 2019-06-09 15:12 | DS ---
Physical Examination Vital Signs: Vital Signs Temperature 97.9 F 06/09/19 09:58 Pulse Rate 107 H 06/09/19 09:58 Respiratory Rate 20 06/09/19 09:58 Blood Pressure 109/67 06/09/19 09:58 O2 Sat by Pulse Oximetry (%) 96 06/08/19 22:00 Constitutional: Yes: Well Nourished Cardiovascular: Yes: WNL, Regular Rate and Rhythm Respiratory: Yes: WNL, Regular, CTA Bilaterally, Other ((+) pluerx cath rt chest wall) Gastrointestinal: Yes: WNL, Normal Bowel Sounds, Soft Labs: CBC, BMP 06/08/19 07:16 06/08/19 07:16 Discharge Summary Problems reviewed: Yes Reason For Visit: SHORTNESS OF BREATH PLEURAL EFFUSION Current Active Problems Acute hypoxemic respiratory failure (Acute) CVA (cerebral vascular accident) (Acute) Dyspnea (Acute) Malignant pleural effusion (Acute) Metastatic lung cancer (metastasis from lung to the bone and brain) (Acute) SOB (shortness of breath) (Acute) HTN HLD Diabetes Anemia Hospital Course: Pt is a 54 y/o female w/ PMH significant for HTN, Lymphoma (in remission since 2010), Chronic Pancreatitis, SBO, DM, HLD, and stage 4 adenocarcinoma of lung with mets to the spine and brain. Pt presented to the ER wc was recommended by her oncologist(Dr Nick) w/ SOB acutely worsening over the past few days. Pt was found to have pleural effusions and underwent thoracentesis and pluerx cath placement. Pt will need therapeutic thoracentesis about every 2-3 days. Pt was followed by pulmonary and onco(Dr Metzger). During hospital course pt had some rt sided weakness and MRI brain showed lacunar infarct. t was also seen by neuro. Condition: Good - Instructions Diet, Activity, Other Instructions: 2 gram sodium and diabetic diet See your oncologist next week Dr Nick See Dr Carter Quintero in 2 weeks Referrals: Carter Quintero MD [Primary Care Provider] - Disposition: [facility]/HOME HEALTH CARE - Home Medications Comprehensive Discharge Medication List: Ambulatory Orders Pantoprazole Sodium [Protonix] 40 mg PO DAILY #0 tablet. 12/01/14 Duloxetine HCl [Cymbalta -] 60 mg PO DAILY capsule. 07/17/15 Albuterol Sulfate Inhaler - [Ventolin HFA Inhaler -] 1 - 2 inh PO Q4H #1 inhaler 08/29/16 Amlodipine Besylate [Norvasc -] 10 mg PO DAILY 04/14/19 Furosemide [Lasix -] 40 mg PO DAILY 04/14/19 Insulin Degludec [Tresiba] 1 unit SQ ASDIR 04/14/19 Losartan Potassium 50 mg PO DAILY 04/14/19 Metformin HCl [Glucophage] 1,000 mg PO BID 04/14/19 Rosuvastatin [Crestor -] 40 mg PO HS 04/14/19 metFORMIN HCL [Glucophage -] 1,000 mg PO BIDAC tablet 04/20/19 Apixaban [Eliquis -] 5 mg PO BID tablet 06/09/19 Melatonin 5 mg PO HS PRN #30 tab 06/09/19 oxyCODONE HCL [Roxicodone -] 5 mg PO Q4H PRN #60 tablet MDD 3 06/09/19
== END 2019-06-09 19:05 | disposition home health service (06) | DRG 180 ==
LOC: JER 09:53 → JERBED 10:23 → J7W 18:30 → J4W 18:33 → JICU 05-21 11:43 → J8W 05-25 17:06
PROVIDERS: ADMIT Internal Medicine; ATTEND Internal Medicine
PROC: 0W9B3ZX Drainage of Left Pleural Cavity, Percutaneous Approach, Diagnostic (ICD-10-PCS; principal; 2019-05-21)
PROC: 0W9B30Z Drainage of Left Pleural Cavity with Drainage Device, Percutaneous Approach (ICD-10-PCS; 2019-05-23)
DX: C34.90 Malignant neoplasm of unspecified part of unspecified bronchus or lung (principal); J96.01 Acute respiratory failure with hypoxia; I63.9 Cerebral infarction, unspecified; J18.9 Pneumonia, unspecified organism; J91.0 Malignant pleural effusion; C79.51 Secondary malignant neoplasm of bone; C79.31 Secondary malignant neoplasm of brain; G81.91 Hemiplegia, unspecified affecting right dominant side; K86.1 Other chronic pancreatitis; C85.90 Non-Hodgkin lymphoma, unspecified, unspecified site; E78.5 Hyperlipidemia, unspecified; E11.9 Type 2 diabetes mellitus without complications; D64.9 Anemia, unspecified; K21.9 Gastro-esophageal reflux disease without esophagitis; E66.9 Obesity, unspecified; Z68.32 Body mass index [BMI] 32.0-32.9, adult; D72.829 Elevated white blood cell count, unspecified; F17.210 Nicotine dependence, cigarettes, uncomplicated; J45.909 Unspecified asthma, uncomplicated; R00.0 Tachycardia, unspecified
CPT/HCPCS: 36415; 36600; 70450-TC; 70552-TC; 71045-TC-FY; 71046-TC-FY; 71260-TC; 73523-TC-FY; 73552-TC-LT-FY; 73552-TC-RT-FY; 74177-TC; 78306-TC; 80048; 80053; 81003; 82375; 82550; 82803; 82962; 83050; 83605; 83735; 83880; 84100; 84484; 85025; 85027; 85610; 85730; 86850; 86900; 86901; 87040; 87070; 87075; 87077; 87086; 87205; 93005; 93010; 93306-TC; 93880-TC; 94640; 97116-GP; 97162-GP; 99282-25; A9503; A9579; J0131; J1644; Q9967